=== PATIENT | male | born 1990 | race Caucasian/White ===

== ENCOUNTER 2022-11-22 18:48 | Emergency (ER) | payer OTHER, SELFPAY ==
[2022-11-22 18:54] VITALS: BP 119/76; RESP 18; TEMP 36.7; O2SAT 98; BMI 28.2
--- NOTE | 2022-11-22 19:24 | ED_ITS ---
HPI - Extremity Injury (Upper) General Chief Complaint: Extremity Pain/Injury, Upper Stated Complaint: Injured right arm shovelling,[place] a pop Time Seen by Provider: 11/22/22 18:53 History of Present Illness HPI narrative: 32-year-old young man here with significant other with complaint of right arm pain that occurred suddenly while shoveling snow about 3 hours prior to arrival in the ER. He demonstrates a right hand down motion to his shoveling. He felt/heard a pop. Some swelling now and pain. Not describing loss of sensation. [facility] and naproxen which he took together. 800 mg of ibuprofen +2 tabs of naproxen. I discuss this ove rdose. Related Data Allergies Allergy/AdvReac Type Severity Reaction Status Date / Time bees Allergy Uncoded 11/22/22 18:53 hornets Allergy Uncoded 11/22/22 18:53 wasps Allergy Uncoded 11/22/22 18:53 Review of Systems Status of ROS: Reports: 6 or more systems reviewed and unremarkable except as noted in History and below [facility] Social History Smoking Status: Former smoker What tobacco products do you use: cigarettes Smoking quit date/years: <= 15 years ago and cigars Do you use any of these nicotine containing products: None Second hand tobacco smoke exposure: No How often do you have a drink containing alcohol: monthly or less How many standard drinks containing alcohol do you have on a typical day: 1 or 2 How often do you have six or more drinks on one occasion: Never AUDIT-C Alcohol total score: 1 Non-prescribed substance use: marijuana (any form) service: Yes Exam Narrative: Exam Narrative: Very positive affect presented by Mr. Ram and his significant other. Breathing easily. Well perfused. Right arm has rested, bent about 90? at the elbow, on a pillow Do not see evidence of trauma other than as delineated below. Skin is warm and dry. Extensive tattooing. Well muscled. He has no pain to palpation or movement about the shoulder on the right. Nor to the wrist/hand. He does have good deal of discomfort flexion and extension at the elbow particularly resisted flexion. There is a mild divot at the distal biceps with some swelling above that. I do believe I can make out the biceps tendon to palpation but it does feel less prominent than his tendon on the left arm. Const: Vital Signs, click to edit/add: Vital Signs - 24 hr 11/22/22 18:54 Temperature 98.1 F Respiratory Rate 18 Blood Pressure [Le ft Upper Arm] 119/76 Pulse Oximetry 98 Oxygen Delivery Me thod Room Air Documenting provider has reviewed patient's vital signs: yes Course Vital Signs Vital signs: Initial Vital Signs Temperature 98.1 F 11/22/22 18:54 Temperature Source Temporal Artery Scan 11/22/22 18:54 Respiratory Rate 18 11/22/22 18:54 Blood Pressure 119/76 11/22/22 18:54 Blood Pressure Mean 90 11/22/22 18:54 Blood Pressure Position Supine 11/22/22 18:54 Pulse Oximetry 98 11/22/22 18:54 Oxygen Delivery Method 11/22/22 18:54 Vital Signs Temperature 98.1 F 11/22/22 18:54 Respiratory Rate 18 11/22/22 18:54 Blood Pressure 119/76 11/22/22 18:54 Pulse Oximetry 98 11/22/22 18:54 Oxygen Delivery Method 11/22/22 18:54 Temperature 98.1 F 11/22/22 18:54 Respiratory Rate 18 11/22/22 18:54 Blood Pressure 119/76 11/22/22 18:54 Pulse Oximetry 98 11/22/22 18:54 Oxygen Delivery Method 11/22/22 18:54 MDM - Extremity Injury (Upper) MDM Narrative Medical decision making narrative: I suspect that imaging will ultimately be necessary and I do not believe that we have definitive imaging here in the emergency department at this time of night. Not sure that x-rays necessarily warranted. MRI ideal. I did discuss this case with orthopedics on-call and they concur. Placed in an arm sling. Given Konstantin wrap. Has been icing during time here. Discussed getting cares locally versus [facility]. I think he will do ultimately what ever can be done in a timely manner. Discharge Plan Discharge Clinical Impression: Biceps rupture, distal Patient Disposition: Home w/ Parent or Adult Condition: Stable Additional Instructions: Wear the arm sling for comfort. Don't lift anything that hurts beyond your arm. I like those screw top icing bags. Fill with ice and water. Maybe even hold on with an Konstantin wrap. Ice 2-3 times daily over the next few days. I am sorry. I am afraid I do not have handout specific to your suspected condition. Given that I do think you have a biceps rupture, I do recommend that you see orthopedics within a week, I would anticipate upper level imaging at that point, likely MRI. Our Orthopedics Department should be reaching out to you tomorrow. If you do not hear from them by noon please feel free to call at [phone]. Otherwise, as you already have a relationship, [facility] as discussed in the same time frame. Activity Level: Activity as Tolerated Discharge Diet: Regular Follow Up/Referrals: Alexandria Read MD [Primary Care Provider] - Stand Alone Forms: [employer] Info Instructions
== END 2022-11-22 20:21 | disposition home or self-care (01) ==
PROVIDERS: Emergency Provider Family Medicine; PCP Preventive Medicine Occupational Medicine
DX: S46.211A Strain of muscle, fascia and tendon of other parts of biceps, right arm, initial encounter (principal); Y93.H1 Activity, digging, shoveling and raking
CPT/HCPCS: 99283

== ENCOUNTER 2022-12-26 08:56 | Day surgery (SDC) | payer OTHER, SELFPAY ==
[2022-12-25 12:44] LABS: SARS PCR* Negative SARS-CoV-2 (Negative)
[2022-12-26] VITALS (7 sets, daily range): BP systolic 100–133; BP diastolic 79–93; PULSE 65–90; RESP 16; TEMP 36.6–36.7; O2SAT 94–99; BMI 29.7
[2022-12-26] MEDS: LACTATED RINGERS 1000 ML 1,000 ML 100 ML IV (09:10)
[2022-12-26] MEDS: SODIUM CHLORIDE 0.9 % (FLUSH) 10 ML SYRINGE IVF (09:10)
[2022-12-26] MEDS: fentaNYL 100 MCG/2 ML inj IVP (10:23)
[2022-12-26] MEDS: MIDAZOLAM HCL 1 MG/ML inj IVP (10:23)
--- NOTE | 2022-12-26 10:36 | SUR.PREOP ---
TIME?OUT:?1022 PT/Kel WALTERS RN/Callum TOWNSEND MDA?VERIFICATION?OF?SURGICAL?SITE,?PROCEDURE,?AND?CONSENT OBTAINED?PRIOR?TO?INVASIVE?PROCEDURE.
--- NOTE | 2022-12-26 11:03 | W.PM.NB ---
Nerve Block Nerve Block Time Seen by Provider: 10:22 Date Seen: 12/26/22 Type of block requested by surgeon for post-operative analgesia: axillary Side: right Time out performed: Yes Verification of patient name: Yes Verification of date of : Yes Site marking: site marked Name of person performing procedure: Mohit Continuous monitoring Was continuous monitoring of O2 sat, B/P, net developer contract, recorded every 15 minutes?: Yes Procedure Checklist: sterile prep, needles and gloves Ultrasound guided. Images saved: Yes Medications given in 5ml increments after negative aspiration: Ropivicaine %: 0.5 mL: 30 Needle gauge: 22 Patient tolerated procedure well: Yes Additional comments: Needle noted adjacent to nerve Block Charges Block Charge (with Pro Fee): Brachial Plexus Use of Ultrasound Machine for Block: Yes- US Guidance/pain block
--- NOTE | 2022-12-26 11:58 | CRLHL7_ITS ---
For Patients: As a result of the Cures Act, medical imaging exams and procedure reports are released immediately into your electronic medical record. You may view this report before your referring provider. If you have questions, please contact your health care provider. Indication: INTRA-OP right elbow tendon repair Technique: One fluoroscopic image of the right elbow. Fluoroscopic time 7.5 seconds. IMPRESSION: Fluoroscopic guidance for tendon repair. Dictated by Rajeev Foote MD @ 12/26/2022 1:33:20 PM (Electronically Signed)
--- NOTE | 2022-12-26 13:23 | W.ANESCHARGE ---
Anesthesia Charges Start Date/Time Anesthesia Start Date: 12/26/22 Anesthesia Start Time: 11:24 Stop Date/Time Anesthesia Stop Date: 12/26/22 Anesthesia Stop Time: 14:08
--- NOTE | 2022-12-26 13:30 | PM.ORPRC ---
Procedure Note Date of procedure: 12/26/22 Procedure: PREOPERATIVE DIAGNOSIS: Right distal biceps rupture, subacute POSTOPERATIVE DIAGNOSIS: Right distal biceps rupture subacute PROCEDURE: 1. Right open distal biceps repair 2. 72759 - intraoperative fluoroscopy up to 1 hour. SURGEON: Prince Lewis MD DRAW TENDER: Tj Romano PA-C (Of note, use of an child development assistant was critical for this case to aid in patient positioning, tissue retraction, nerve protection, arm positioning, suture management, and closure as well as splint application.) ANESTHESIA: Supraclavicular block plus MAC TOURNIQUET: 80 minutes at 240 torr IMPLANTS: Arthrex tension slide distal Biceps Button with Peek interference screw 7 x 10mm. COMPLICATIONS: None evident INDICATIONS FOR PROCEDURE: The patient is a pleasant 32-year-old male, right hand dominant. They sustained an injury to the right distal biceps roughly 5 weeks ago. Upon evaluation, they were found to have a positive hook sign as well as positive MRI showing for cm retraction of the distal stump. Given the patient's use of this extremity, recommendation was made for surgery. DESCRIPTION OF PROCEDURE: Following a thorough discussion of the risks, benefits and alternatives, consent was obtained and the right forearm was marked. The patient was brought to the operating room, placed supine on the operating table. Induction of general anesthesia was undertaken after a supraclavicular block was administered in the preop holding. Appropriate time out was performed to identify proper patient, site and procedure. The operative upper extremity was prepped and draped in the appropriate sterile fashion using ChloraPrep prep. The limb was exsanguinated and the tourniquet inflated to 250 Torr after 2 g IV Ancef was administered within 1 hour of incision preoperatively. A transverse incision was made in line with the antecubital fossa crease approximately 4 cm distal to the crease itself. Sharp incision through the skin and blunt dissection through the subcutaneous tissue allowed protection of crossing neurologic and vascular structures. Blunt dissection was taken deep for identification of the radial tuberosity. Additionally, the lateral antebrachial cutaneous nerve was identified and protected throughout the case. We then turned our attention to retrieving the biceps stump. The stump had retracted approximately 8 cm based on MRI. Indeed this was the case. It was difficult to initially identify the stump proximally. We had to mobilize it from its surrounding adhesed tissue. After bluntly doing this with Metzenbaum scissors, the stump was captured with an Allis clamp. The stump was assessed, and found to have [good integrity, although it was slightly skin near than expected likely related to slight longitudinal tearing of some of the fibers, too. A majority of it was still intact. It was whipstitched utilizing a #2 FiberLoop suture to get a strong hold on the tendon. The tendon diameter was measured and found to be a diamter of 7mm. We brought the tendon back down through the typical deeper planes and deep to crossing vascularity to eventually reattach to the bicipital tuberosity. The insertion site was then prepared using a Joker elevator and rongeur. A guide pin was utilized bicortical, and an 8 mm reamer was then used unicortically after confirming on C-arm fluoroscopic imaging to be in appropriate position at the radial tuberosity. The suture tails were then passed through the tension slide button and the button passed through the bicortical tunnel, and flipped. It was confirmed on C-arm fluoroscopic imaging to be in the proper position and flipped completely and apposed against bone. We then utilized this tension slide manner to reapproximate the tendon to the reamed hole. Once the tendon was dunked, with the elbow flexed to roughly 90 degrees, we passed one of the limbs of the suture through the tendon and tied it with a knot pusher with 6 alternating half hitches with post switching to secure it and prevent it from sliding off the tension slide button. We then utilized the interference screw as a secondary mechanism to secure the tendon.. The tourniquet was deflated and hemostasis achieved. A thorough irrigation with normal saline was then performed followed by closure with 2-0 Vicryl and 4-0 Monocryl in subcutaneous and subcuticular layers. Dressings were applied. Posterior splint was applied. Patient awoke from anesthesia and was transferred to the Post-Anesthesia Care Unit in stable condition. PLAN: 1. Ice and elevate operative upper extremity. 2. Finger range of motion as tolerated. 3. Follow up with PA visit in 3 days. Wound check. Active range of motion operative elbow and forearm as tolerted thereafter yet lift nothing more than a coffee cup x 8 weeks. 4. Ibuprofen, Tylenol, and/or Percocet for pain as needed.
--- NOTE | 2022-12-26 14:14 | W.ANESCHARGE ---
Anesthesia Charges Start Date/Time Anesthesia Start Date: 12/26/22 Anesthesia Start Time: 11:24 Stop Date/Time Anesthesia Stop Date: 12/26/22 Anesthesia Stop Time: 14:08
== END 2022-12-26 14:45 | disposition home or self-care (01) ==
PROVIDERS: Visit Provider Orthopaedic Surgery Sports Medicine
PROC: (CPT 24341; principal; 2022-12-26 11:15)
DX: S46.211A Strain of muscle, fascia and tendon of other parts of biceps, right arm, initial encounter (principal)
CPT/HCPCS: 24342; 1716; 64415; 73070; 76000; 76942; 87635; A4580; C1713; J1100; J2250; J2405; J2704; J2795; J3010; J7120

== ENCOUNTER 2023-01-03 14:15 | Outpatient (RCR) | payer OTHER, SELFPAY | END 2023-06-08 23:59 | disposition home or self-care (01) | PROVIDERS: PCP Preventive Medicine Occupational Medicine; Visit Provider Physician Assistant Surgical | DX: M25.521 Pain in right elbow (principal); Z51.89 Encounter for other specified aftercare ==

== ENCOUNTER 2023-05-02 15:33 | Emergency (ER) | payer OTHER, SELFPAY ==
[2023-05-02 15:44] VITALS: BP 115/70; PULSE 89; RESP 18; TEMP 36.6; O2SAT 97; BMI 28.7
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
[2023-05-02] MEDS: HYDROCODONE-ACETAMIN 5-325 MG 1 TAB PO (16:15)
--- NOTE | 2023-05-02 16:50 | CRLHL7_ITS ---
For Patients: As a result of the Century Cures Act, medical imaging exams and procedure reports are released immediately into your electronic medical record. You may view this report before your referring provider. If you have questions, please contact your health care provider. Indication: Fall, pain in the wrist Technique: Noncontrast CT of the left wrist. Permanently recorded images are archived. Please note that all CT scans at this facility use dose modulation, iterative reconstruction, and/or weight-based dosing when appropriate to reduce radiation dose to as low as reasonably achievable. Comparison: Left wrist radiographs from the same day. Findings: No acute fracture or dislocation. Ulnar positive variance. No aggressive osseous lesion. The joint spaces are preserved. The soft tissues are unremarkable. Impression: No acute bony abnormality. Ulnar positive variance, which can be seen with ulnar impaction syndrome. Please note that all CT scans at this facility use dose modulation, iterative reconstruction, and/or weight-based dosing when appropriate to reduce radiation dose to as low as reasonably achievable. Dictated by Jef Waddell MD @ 05/02/2023 6:06:35 PM (Electronically Signed)
== END 2023-05-02 18:29 | disposition home or self-care (01) ==
PROVIDERS: Emergency Provider Family Medicine; PCP Family Medicine
DX: M25.532 Pain in left wrist (principal); M24.832 Other specific joint derangements of left wrist, not elsewhere classified; V19.3XXA Pedal cyclist (driver) (passenger) injured in unspecified nontraffic accident, initial encounter
CPT/HCPCS: 29125; 73110; 73200; 99284; A9270

== ENCOUNTER 2024-09-04 10:51 | Emergency (ER) | payer OTHER, SELFPAY ==
[2024-09-04 11:03] VITALS: BP 134/94; PULSE 57; RESP 18; TEMP 36.6; O2SAT 98; BMI 28.2
[2024-09-04 11:09] VITALS: BP 134/94; PULSE 65; RESP 14; O2SAT 98
--- NOTE | 2024-09-04 11:13 | ED_ITS ---
HPI - General Adult General Chief complaint: Headache/Migraine Stated complaint: Migraines Time Seen by Provider: 09/04/24 10:59 History of Present Illness HPI narrative: Patient is a 34 white male with history of migraine headaches he has had them regularly, he just had a baby with his and the OB unit any reports with the lights and noise and somewhat lack of sleep he has had a migraine exacerbation. He describes it is in the frontal area bilaterally mild photophobia. It feels like a consistent migraine for him. He has had no trauma or injury. No nuchal rigidity, no thunderclap nature to headache. No neurologic complaints. Related Data Home Medications ?Medication ?Instructions ?Recorded ?Confirmed loratadine 10 mg tablet 10 mg PO QDAY PRN 12/20/22 09/04/24 naproxen 500 mg tablet 500 mg PO BID PRN 12/21/22 02/07/23 fluoxetine 20 mg capsule 40 mg PO QDAY 02/07/23 09/04/24 gabapentin 100 mg capsule 200 mg PO TID PRN 02/07/23 09/04/24 lamotrigine 300 mg tablet,extended 300 mg PO DAILY 09/04/24 09/04/24 release 24 hr (Lamictal XR) Allergies Allergy/AdvReac Type Severity Reaction Status Date / Time bees Allergy Uncoded 02/07/23 15:05 hornets Allergy Uncoded 02/07/23 15:05 wasps Allergy Uncoded 02/07/23 15:05 Review of Systems Status of ROS: Reports: 6 or more systems reviewed and unremarkable except as noted in History and below [facility] Medical History Sacral fracture ?S32.10XA - Unspecified fracture of sacrum, initial encounter for closed fracture (ICD-10) Surgical History H/O shoulder surgery (~01/2006) ?Z98.890 - Other specified postprocedural states (ICD-10) History of tonsillectomy and adenoidectomy (~2004) ?Z90.89 - Acquired absence of other organs (ICD-10) Social History Smoking Status: Former smoker What tobacco products do you use: cigarettes Smoking quit date/years: <= 15 years ago and cigars Do you use any of these nicotine containing products: None Second hand tobacco smoke exposure: No How often do you have a drink containing alcohol: monthly or less How many standard drinks containing alcohol do you have on a typical day: 1 or 2 How often do you have six or more drinks on one occasion: Never AUDIT-C Alcohol total score: 1 Non-prescribed substance use: denies use Caffeine: Yes service: Yes Exam Narrative: Exam Narrative: Objective: Vital signs are within normal limits Patient is wearing dark glasses he has removed he has pupil E quality and reactivity, extraocular moves intact No facial asymmetry Neck is supple No focal neurologic findings. Const: Vital Signs, click to edit/add: Vital Signs - 24 hr 09/04/24 11:03 09/04/24 11:09 09/04/24 11:31 Temperature 97.9 F Pulse Rate 65 70 Pulse Rate [Pulse Oximeter] 57 L Respiratory Rate 18 14 16 Blood Pressure 134/94 H 126/98 H Blood Pressure [Ri ght Upper Arm] 134/94 H Pulse Oximetry 98 98 97 Oxygen Delivery Me thod Room Air 09/04/24 12:01 09/04/24 12:35 Temperature 97.9 F Pulse Rate 59 L Pulse Rate [Pulse Oximeter] 57 L Respiratory Rate 12 12 Blood Pressure 138/83 Blood Pressure [Ri ght Upper Arm] 134/94 H Pulse Oximetry 97 Oxygen Delivery Me thod Room Air Course Vital Signs Vital signs: Initial Vital Signs Temperature 97.9 F 09/04/24 11:03 Temperature Source Temporal Artery Scan 09/04/24 11:03 Pulse Rate 57 L 09/04/24 11:03 Pulse Rhythm Regular 09/04/24 11:03 Respiratory Rate 18 09/04/24 11:03 Blood Pressure 134/94 H 09/04/24 11:03 Blood Pressure Mean 107 H 09/04/24 11:03 Blood Pressure Position Sitting 09/04/24 11:03 Pulse Oximetry 98 09/04/24 11:03 Oxygen Delivery Method Room Air 09/04/24 11:03 Vital Signs Temperature 97.9 F 09/04/24 11:03 Pulse Rate 57 L 09/04/24 11:03 Respiratory Rate 18 09/04/24 11:03 Blood Pressure 134/94 H 09/04/24 11:03 Pulse Oximetry 98 09/04/24 11:03 Oxygen Delivery Method Room Air 09/04/24 11:03 Temperature 97.9 F 09/04/24 12:35 Pulse Rate 57 L 09/04/24 12:35 Respiratory Rate 12 09/04/24 12:35 Blood Pressure 134/94 H 09/04/24 12:35 Pulse Oximetry 97 09/04/24 12:01 Oxygen Delivery Method Room Air 09/04/24 12:01 Medications Administered Medications: Discontinued Medications Generic Name Dose Route Start Last Admin Trade Name Freq PRN Reason Stop Dose Admin Diphenhydramine HCl 25 mg 09/04/24 11:12 09/04/24 11:39 Diphenhydramine 50 Mg/Ml Inj IVP 09/04/24 11:13 25 mg ONCE ONE Administration Sodium Chloride 1,000 mls @ 6,000 mls/hr 09/04/24 11:15 09/04/24 12:15 0.9 % Sodium Chloride 1000 Ml IV 09/04/24 11:24 Infused .Q10M JUMANA Infusion Metoclopramide HCl 10 mg/ 102 mls @ 306 mls/hr 09/04/24 11:12 09/04/24 11:59 Sodium Chloride IV 09/04/24 11:13 Infused ONCE ONE Infusion Ketorolac Tromethamine 30 mg 09/04/24 11:12 09/04/24 11:39 Ketorolac 30 Mg/Ml Inj IVP 09/04/24 11:13 30 mg ONCE ONE Administration Medical Decision Making Medical Records Medical records narrative: 34-year-old white male with a history of migraine headaches, the migraine exacerbation. At this point will give him IV fluid. IV Toradol Benadryl and Reglan. Along to rest in the OB unit where his family is. Hopefully he can get some sleep and this will sammy the headache. Recheck as needed with primary care or return to ED problems or concerns. Discharge Plan Discharge Clinical Impression: Migraine Patient Disposition: Home w/ Parent or Adult Condition: Stable Additional Instructions: Rest, fluids, recheck with regular doctor as needed, return as needed. Activity Level: Light activity Discharge Diet: Regular Prescriptions: No Action loratadine 10 mg tablet 10 mg PO QDAY PRN fluoxetine 20 mg capsule 40 mg PO QDAY gabapentin 100 mg capsule 200 mg PO TID PRN naproxen 500 mg tablet 500 mg PO BID PRN Hold Instructions: Resume on 01/09/23. lamotrigine [Lamictal XR] 300 mg tablet extended release 24hr 300 mg PO DAILY Follow Up/Referrals: Micah Kumar MD [Staff Physician] - Stand Alone Forms: [employer] Info Instructions
[2024-09-04 11:31] VITALS: BP 126/98; PULSE 70; RESP 16; O2SAT 97
--- OUTSIDE RECORDS SUMMARY | 2024-09-04 11:37 | XMS_ITS | Encounter Summary ---
Author Name [facility] [place] [facility] [place] Address [address] [place] [address] Care Team Providers Care Blood Or Blood Bank Technician Name Role Phone TEODORO TEODORO Primary Care Provider UnavailHANH Toledo Primary Care Provider Unavailab hanley Insurance Providers: All historical and current Section Date Range: From patient's date of to the date document was created. This section includes the names of all active insurance providers for the patient. Insurance Provider Type of Coverage Plan Name Start of Policy Coverage End of Policy Coverage Group Number Member ID Insurance Provider's Telephone Number Policy Stevenson's Name Patient's Relationship to Policy Stevenson [employer]* POINT OF SERVICE Squla Jan 18, 2015 [id number] LALA,ROXI OB PATIENT BCBS [place] [employer] MAINTENAN CE ORGANIZAT ION W/OUT OF NETWORK BENEFITS STATE OF [facility] [place] Jun 09, 2023 [id number] [phone] LALA,ROXI OB PATIENT [place] HEALTH MAINTENAN CE ORGANIZAT ION [place] Jun 09, 2023 [id number] [phone] LALA,ROXI OB PATIENT CAREMARK ([id number]) PRESCRIPT ION STATE [facility] Jun 09, 2023 [id number] [phone] LALA,ROXI OB PATIENT CAREMARK ([id number]) PRESCRIPT ION [facility] Jun 09, 2023 [id number] [phone] LALA,ROXI OB PATIENT Selected Encounter This section includes the information on record at [place] for the Encounter. Date/Time Encounter Type Encounter Description Reason Provider Source Jun 25, 2024 08:30 AM PSYTX W PT 30 MINUTES [facility] - IND ICD-10-CM F43.10 Post-traumatic stress disorder, unspecified WHITNEY JUDGE Rai Encounter Template Text not used by [place] Assessments - Encounter Diagnoses This section includes the primary and secondary diagnoses documented for the Encounter. Date/Time Primary/Secondary Diagnosis Diagnosis Name Provider Source Jun 25, 2024 08:47 AM PRIMARY Post-traumatic stress disorder, unspecified WHITNEY JUDGE [facility] Jun 25, 2024 08:47 AM SECONDARY Bipolar II disorder WHITNEY JDUGE [facility] Plan of Treatment: Future Appointments (+ 6 months) and Future Tests (+/- 45 days) The Plan of Treatment section includes future care activities for the patient from all [place] [facility]. This section includes future appointments and future orders which are active, pending or scheduled. Future Appointments This section includes appointments that were scheduled to occur 6 months from the date of the Encounter, up to a maximum of 20 appointments. The data comes from all [facility]. Appointment Date/Time Appointment Type Appointme nt Facility Name Jul 23, 2024 04:00 PM AMBULATORY - PSYCHIATRY [facility] Aug 21, 2024 03:30 PM AMBULATORY - PSYCHIATRY [facility] Sep 11, 2024 09:30 AM AMBULATORY - PSYCHIATRY [facility] Sep 25, 2024 03:30 PM AMBULATORY - PSYCHIATRY [facility] Active, Pending, and Scheduled Orders This section includes a listing of several types of active, pending, and scheduled orders, including clinic medications orders, diagnostic test orders, procedure orders and consult orders; where the start date of the order is 45 days before the date of the Encounter or 45 days after the date of theEncounter. The data comes from all [facility]. Test Date/Time Test Type Test Details Facility Name Aug 02, 2024 09:24 AM Consult Order COMMUNITY CARE-CHIROPRACTIC Cons Bak[employer] Demonstrator[employer] Choice [facility] Social History: Smoking Status (Most current) and Tobacco Use (All prior to encounter date) This section includes the most current, and the historical, smoking and tobacco- related health factors from the [facility] where the Encounter took place. Current Smoking Status This section includes the most current smoking, or tobacco-related health factor, from the [place] facility where the Encounter took place. Date/Time Current Smoking Status Comment Facil ity Dec 12, 2023 10:30 AM VA-TOBACCO FORMER USER [facility] Tobacco Use History This section includes a history of the smoking, or tobacco-related health factors, that were collected on or before the date of the Encounter. The data comes from the [place] facility where the Encounter took place. Date/Time Smoking Status/Tobacco Use Comment F acility Dec 12, 2023 10:30 AM VA-TOBACCO QUIT 5 TO < 15 YRS [facility] Feb 14, 2023 02:00 PM AH-BPR SMOKING DEPLOYMENT YES [facility] Feb 14, 2023 02:00 PM PREVIOUS SMOKER MIN [facility] Oct 27, 2022 10:30 AM VA-TOBACCO FORMER USER [facility] Oct 27, 2022 10:30 AM VA-TOBACCO QUIT 15 YRS OR MORE [facility] Jan 26, 2021 10:00 AM VA-TOBACCO FORMER USER [facility] Jan 26, 2021 10:00 AM VA-TOBACCO QUIT 1 TO < 5 YRS [facility] Jul 23, 2019 08:07 AM VA-TOBACCO FORMER USER [facility] Jul 23, 2019 08:07 AM VA-TOBACCO QUIT 1 TO < 5 YRS [facility] Jan 29, 2018 03:41 PM CURRENT TOBACCO USER [facility] Jan 20, 2017 03:27 PM CURRENT TOBACCO USER [facility] Nov 30, 2015 08:39 AM FORMER TOBACCO USE <1Y [facility] Encounter Notes: All associated encounter notes This section contains the clinical notes associated to the Encounter. Date/Time Encounter Note(s) Provider Source Jun 25, 2024 08:30 AM MENTAL HEALTH NOTE : LOCAL TITLE: MH PROGRESS NOTE STANDARD TITLE: MENTAL HEALTH NOTE DATE OF NOTE: JUN 25, 2024@08:30 ENTRY DATE: JUN 25, 2024@08:42:56 AUTHOR: WHITNEY JUDGE EXP COSIGNER: URGENCY: STATUS: COMPLETED MH PROGRESS NOTE Has ADDENDA seen for 30-minute treatment coordination and supportive psychotherapy session for symptoms related to PTSD and bipolar affective disorder via vvc per 's preference. S/O: The noted that things have generally been going well and have been stable in spite of how busy they have also been preparing the home to welcome his first child, expected within then next 9 weeks. He reported that he is feeling excited and a bit nervous, but denied any significant fluctuations in mood about which he is concerned. He stated that his sleep has been somewhat poorer in quality in recent weeks, but denied any other symptoms concerning for a depressive episode or hypomania. He noted that a recent conversation with his new PCP caused him to wonder whether he has ADHD and engineering technical writer agreed to conduct a screen with him in our next visit. He stated that he and his Voc Rehab counselor (through [facility]) have come up with a plan for him to complete his BA by resuming school next spring, one course at a time. A: Dx: PTSD; BPAD II Risk assessment - Risk factors include history of psychiatric diagnoses, history of abusing disinhibiting substances, one past suicidal behavior (2012) consisting of ideation and preparatory behavior (held gun until interrupted), and demographic factors (White, male). Protective factors include social support, that the denies current suicidal ideation/intent/plan, he has significantly reduced his substance use, has intact reality testing, and he is future-oriented. Overall, he impresses as low for risk of harm to self and others on acute and chronic bases. Patient consent: Informed consent procedures reviewed at inception of psychotherapy course including discussing the limits of confidentiality, the risks and benefits of treatment, and expectations for therapy. Gualala expressed understanding and agreement. Tx Plan updated 02/27/24 P: The will RTC in one month. /sage/ WHITNEY JUDGE, Ph.D. STAFF PSYCHOLOGIST Signed: 06/25/2024 08:47 06/25/2024 ADDENDUM STATUS: COMPLETED Suicide Screen: C-SSRS Screening [place]-Suicide Severity Rating Scale (C-SSRS Screener) 1. Over the past month, have you wished you were or wished you could go to sleep and not wake up? No 2. Over the past month, have you had any actual thoughts of killing yourself? No 3. Over the past month, have you been thinking about how you might do this? Response not required due to responses to other questions. 4. Over the past month, have you had these thoughts and had some intention of acting on them? Response not required due to responses to other questions. 5. Over the past month, have you started to work out or worked out the details of how to kill yourself? Response not required due to responses to other questions. 6. If yes, at any time in the past month did you intend to carry out this plan? Response not required due to responses to other questions. 7. In your lifetime, have you ever done anything, started to do anything, or prepared to do anything to end your life (for example, collected pills, obtained a gun, gave away valuables, went to the roof but didn't jump)? Yes 8. If YES, was this within the past 3 months? No /sage/ WHITNEY JUDGE, Ph.D. STAFF PSYCHOLOGIST Signed: 06/25/2024 08:52 WHITNEY JUDGE [facility]
--- OUTSIDE RECORDS SUMMARY | 2024-09-04 11:37 | XMS_ITS | Encounter Summary ---
Author Name [facility] [place] [facility] [place] Address [address] [place] [address] Care Team Providers Care Slp Name Role Phone TEODORO VALERIO Primary Care Provider UnavailHANH Toledo Primary Care [...] to Policy Stevenson [employer]* POINT OF SERVICE Diassess Jan 18, 2015 [id number] LALA,ROXI OB PATIENT BCBS IN HEALTH MAINTENAN CE ORGANIZAT ION W/OUT OF NETWORK BENEFITS [place] Jun 09, 2023 [id number] [phone] LALA,ROXI OB PATIENT [place]IN[place] ORGANIZ[place]ON [place] ONLY Jun 09, 2023 [id number] [phone] LALA,ROXI OB PATIENT CAREMARK ([id number]) PRESCRIPT ION [place] Jun 09, 2023 [id number] [phone] LALA,ROXI OB PATIENT CAREMARK ([id number]) ISABEL FLORES [facility] Jun 09, 2023 [id number] [phone] LALA,ROXI OB PATIENT Selected Encounter This section includes the information on record at [place] for the Encounter. Date/Time Encounter Type Encounter Description Reason Provider Source May 27, 2024 08:31 AM Outpatient Encounter [facility] - SHYANNE MCLEOD Encounter Template Text not used by [place] Plan of Treatment: Future Appointments (+ 6 months) and Future Tests (+/- 45 days) The Plan of Treatment section includes future care activities for the patient from all [place] [facility]. This section includes future appointments and future orders which are active, pending or scheduled. Future Appointments This section includes appointments that were scheduled to occur 6 months from the date of the Encounter, up to a maximum of 20 appointments. The data comes from all [facility] facilities. Appointment Date/Time Appointment Type Appointme nt Facility Name Jun 25, 2024 08:30 AM [facility] [place] [facility] Jul 23, 2024 04:00 PM [facility] [place] [facility] Aug 21, 2024 03:30 PM [facility] [place] [facility] Sep 11, 2024 09:30 AM [facility] [facility] Sep 25, 2024 03:30 PM [facility] [place] [facility] Social History: Smoking Status (Most current) and Tobacco Use (All prior to encounter date) This section includes the most current, and the historical, smoking and tobacco- related health factors from the [place] facility where the Encounter took place. Current Smoking Status This section includes the most current smoking, or tobacco-related health factor, from the [place] facility where the Encounter took place. Date/Time Current Smoking Status Comment Beatriz ity Dec 12, 2023 10:30 AM VA-TOBACCO FORMER USER [facility] Tobacco Use History This section includes a history of the smoking, or tobacco-related health factors, that were collected on or before the date of the Encounter. The data comes from the [place] facility where the Encounter took place. Date/Time Smoking Status/Tobacco Use Comment F acility Dec 12, 2023 10:30 AM [place]-TOBACCO QUIT 5 TO < 15 YRS [facility] Feb 14, 2023 02:00 PM AH-BPR SMOKING DEPLOYMENT YES [facility] Feb 14, 2023 02:00 PM PREVIOUS SMOKER MIN [facility] Oct 27, 2022 10:30 AM VA-TOBACCO FORMER USER [facility] Oct 27, 2022 10:30 AM VA-TOBACCO QUIT 15 YRS OR MORE [facility] Jan 26, 2021 10:00 AM VA-TOBACCO FORMER USER [facility] Jan 26, 2021 10:00 AM VA-TOBACCO QUIT 1 TO < 5 YRS [facility] Jul 23, 2019 08:07 AM VA-TOBACCO FORMER USER [facility] Jul 23, 2019 08:07 AM VA-TOBACCO QUIT 1 TO < 5 YRS [facility] Jan 29, 2018 03:41 PM CURRENT TOBACCO USER [facility] Jan 20, 2017 03:27 PM CURRENT TOBACCO USER [facility] Nov 30, 2015 08:39 AM FORMER TOBACCO USE <1Y [facility] Encounter Notes: All associated encounter notes This section contains the clinical notes associated to the Encounter. Date/Time Encounter Note(s) Provider Source May 27, 2024 08:31 AM MENTAL HEALTH SECU RE MESSAGING: LOCAL TITLE: MENTAL HEALTH SECURE MESSAGING STANDARD TITLE: MENTAL HEALTH SECURE MESSAGING DATE OF NOTE: MAY 27, 2024@08:31 ENTRY DATE: MAY 27, 2024@08:31:11 AUTHOR: SHYANNE INFANTE EXP COSIGNER: URGENCY: STATUS: COMPLETED ------Original Message --- Sent: 05/25/2024 09:48 PM ET From: RAISA LALA To: [facility] Mental Health Team L, Donte Bertrand% Subject: Medication:Lamotrigine I'm running really low on my lamotrigine, and I'm unable to refill it. Can I get a new refill? ------Original Message --- Sent: 05/27/2024 09:30 AM ET From: SHYANNE INFANTE To: RAISA LALA Subject: Medication:Lamotrigine Raisa I have entered the order for lamotrigine for the coverage MD to review and sign. I am asking that the medication be mailed overnight, with the hope you will receive it Monday or Monday of this week. You must call the [facility] at [phone] to be scheduled for a follow up appointment; your last appointment with Dr. Bertrand was 05/09/2023. Future refills will be contingent on your scheduling an appointment with Dr. Bertrand. Please know Dr. Bertrand is currently scheduled out into August so please call to schedule with him KARRIE. Respectfully, Rc Infante RN Team L /es/ SHYANNE INFANTE RN STAFF NURSE Signed: 05/27/2024 08:31 SHYANNE INFANTE [facility]
--- OUTSIDE RECORDS SUMMARY | 2024-09-04 11:37 | XMS_ITS | Encounter Summary ---
Author Name [facility] [place] [facility] [place] Address [address] [place] [address] Care Team Providers Care Geophysics Teacher Name Role Phone TEODORO VALERIO Primary Care [...] to Policy Stevenson [employer]ET[employer]* POINT OF SERVICE [employer] Jan 18, 2015 [id number] LALA,ROXI OB PATIENT [place] [employer] MAINTENAN CE ORGANIZAT ION W/OUT OF NETWORK BENEFITS [facility] Jun 09, 2023 [id number] [phone] LALA,ROXI OB PATIENT [place] [employer] MAINTENAN CE ORGANIZAT ION [place] [facility] ONLY Jun 09, 2023 [id number] [phone] LALA,ROXI OB PATIENT [place] ([id number]) PRESCRIPT ION [place] Jun 09, 2023 [id number] [phone] LALA,ROXI OB PATIENT CAREMARK ([id number]) PRESCRIPT [facility] Jun 09, 2023 [id number] [phone] LALA,ROXI OB PATIENT Selected Encounter This section includes the information on record at [place] for the Encounter. Date/Time Encounter Type Encounter Description Reason Pro vider Source Aug 02, 2024 10:23 AM Outpatient Encounter EVENT (HISTORICAL) IHE Encounter Template Text not used by [place] Plan of Treatment: Future Appointments (+ 6 months) and Future Tests (+/- 45 days) The Plan of Treatment section includes future care activities for the patient from [facility] [place] [facility] This section includes future appointments and future orders which are active, pending or scheduled. Future Appointments This section includes appointments that were scheduled to occur 6 months from the date of the Encounter, up to a maximum of 20 appointments. The data comes from all [facility]. Appointment Date/Time Appointment Type Appointme nt Facility Name Aug 21, 2024 03:30 PM AMBULATORY - PSYCHIATRY [facility] Sep 11, 2024 09:30 AM AMBULATORY - PSYCHIATRY [facility] Sep 25, 2024 03:30 PM AMBULATORY - PSYCHIATRY [facility] Active, Pending, and Scheduled Orders This section includes a listing of several types of active, pending, and scheduled orders, including clinic medications orders, diagnostic test orders, procedure orders and consult orders; where the start date of the order is 45 days before the date of the Encounter or 45 days after the date of theEncounter. The data comes from all [facility]. Test Date/Time Test Type Test Details Facility Name Aug 02, 2024 09:24 AM Consult Order COMMUNITY CARE-CHIROPRACTIC Cons Parimutuel Cashier's Choice [facility] Social History: Smoking Status (Most current) and Tobacco Use (All prior to encounter date) This section includes the most current, and the historical, smoking and tobacco- related health factors from the [place] facility where the Encounter took place. Current Smoking Status This section includes the most current smoking, or tobacco-related health factor, from the [place] facility where the Encounter took place. Date/Time Current Smoking Status Comment Beatriz ga Dec 12, 2023 10:30 AM VA-TOBACCO FORMER USER [facility] Tobacco Use History This section includes a history of the smoking, or tobacco-related health factors, that were collected on or before the date of the Encounter. The data comes from the [place] facility where the Encounter took place. Date/Time Smoking Status/Tobacco Use Comment F acility Dec 12, 2023 10:30 AM VA-TOBACCO QUIT 5 TO < 15 YRS [facility] Feb 14, 2023 02:00 PM AH-BPR SMOKING DEPLOYMENT YES [facility] Feb 14, 2023 02:00 PM PREVIOUS SMOKER MIN [facility] Oct 27, 2022 10:30 AM VA-TOBACCO FORMER USER [facility] Oct 27, 2022 10:30 AM [place]-TOBACCO QUIT 15 YRS OR MORE [facility] Jan 26, 2021 10:00 AM VA-TOBACCO FORMER USER [facility] Jan 26, 2021 10:00 AM [place]-TOBACCO QUIT 1 TO < 5 YRS [facility] Jul 23, 2019 08:07 AM VA-TOBACCO FORMER USER [facility] Jul 23, 2019 08:07 AM VA-TOBACCO QUIT 1 TO < 5 YRS [facility] Jan 29, 2018 03:41 PM CURRENT TOBACCO USER [facility] Jan 20, 2017 03:27 PM CURRENT TOBACCO USER [facility] Nov 30, 2015 08:39 AM FORMER TOBACCO USE <1Y [facility]
--- OUTSIDE RECORDS SUMMARY | 2024-09-04 11:37 | XMS_ITS | Encounter Summary ---
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 Date/Time Encounter Type Encounter Description Reason Provider Source Aug 21, 2024 03:30 PM PSYTX W PT 30 MINUTES [facility] IND ICD-10-CM F43.10 Post-traumatic stress disorder, unspecified WHITNEY JUDGE Rai Encounter Template Text not used by [place] Assessments - Encounter Diagnoses This section includes the primary and secondary diagnoses documented for the Encounter. Date/Time Primary/Secondary Diagnosis Diagnosis Name Provider Source Aug 21, 2024 03:50 PM PRIMARY Post-traumatic stress disorder, unspecified WHITNEY JUDGE [facility] Aug 21, 2024 03:50 PM SECONDARY Bipolar II disorder WHITNEY JUDGE [facility] Plan of Treatment: Future Appointments (+ 6 months) and Future Tests (+/- 45 days) The Plan of Treatment section includes future care activities for the patient [facility] [place] [facility] [place] This section includes future appointments and future orders which are active, pending or scheduled. Future Appointments This section includes appointments that were scheduled to occur 6 months from the date of the Encounter, up to a maximum of 20 appointments. The data comes from all [facility]. Appointment Date/Time Appointment Type Appointme nt Facility Name Sep 11, 2024 09:30 AM AMBULATORY - PSYCHIATRY [facility] Sep 25, 2024 03:30 PM AMBULATORY - PSYCHIATRY [facility] Active, Pending, and Scheduled Orders This section includes a listing of several types of active, pending, and scheduled orders, including clinic medications orders, diagnostic test orders, procedure orders and consult orders; where the start date of the order is 45 days before the date of the Encounter or 45 days after the date of theEncounter. The data comes from all [place] treatment [facility]. Test Date/Time Test Type Test Details Facility Name Aug 02, 2024 09:24 AM Consult Order COMMUNITY CARE-CHIROPRACTIC Cons Jack Tamp Operator's Choice [facility] Social History: Smoking Status (Most current) and Tobacco Use (All prior to encounter date) This section includes the most current, and the historical, smoking and tobacco- related health factors from the [facility] where the Encounter took place. Current Smoking Status This section includes the most current smoking, or tobacco-related health factor, from the [facility] where the Encounter took place. Date/Time Current Smoking Status Comment Facil ity Dec 12, 2023 10:30 AM VA-TOBACCO FORMER USER [facility] Tobacco Use History This section includes a history of the smoking, or tobacco-related health factors, that were collected on or before the date of the Encounter. The data comes from the [facility] where the Encounter took place. Date/Time Smoking Status/Tobacco Use Comment F acility Dec 12, 2023 10:30 AM VA-TOBACCO QUIT 5 TO < 15 YRS [facility] Feb 14, 2023 02:00 PM AH-BPR SMOKING DEPLOYMENT YES [facility] Feb 14, 2023 02:00 PM PREVIOUS SMOKER MIN [facility] Oct 27, 2022 10:30 AM VA-TOBACCO FORMER USER [facility] Oct 27, 2022 10:30 AM VA-TOBACCO QUIT 15 YRS OR MORE [facility] Jan 26, 2021 10:00 AM VA-TOBACCO FORMER USER [facility] Jan 26, 2021 10:00 AM VA-TOBACCO QUIT 1 TO < 5 YRS [facility] Jul 23, 2019 08:07 AM VA-TOBACCO FORMER USER [facility] Jul 23, 2019 08:07 AM VA-TOBACCO QUIT 1 TO < 5 YRS [facility] Jan 29, 2018 03:41 PM CURRENT TOBACCO USER [facility] Jan 20, 2017 03:27 PM CURRENT TOBACCO USER [facility] Nov 30, 2015 08:39 AM FORMER TOBACCO USE <1Y [facility] Encounter Notes: All associated encounter notes This section contains the clinical notes associated to the Encounter. Date/Time Encounter Note(s) Provider Source Aug 21, 2024 03:30 PM MENTAL HEALTH NOTE : LOCAL TITLE: MH PROGRESS NOTE STANDARD TITLE: MENTAL HEALTH NOTE DATE OF NOTE: AUG 21, 2024@15:30 ENTRY DATE: AUG 21, 2024@15:40:43 AUTHOR: WHITNEY JUDGE COSIGNER: URGENCY: STATUS: COMPLETED seen for 30-minute treatment coordination and supportive psychotherapy session for symptoms related to PTSD and bipolar affective disorder via vvc per 's preference. S/O: The vetean reported that he has been doing well. He noted that he has been struck by the benefits of his most recent medication adjustment by Dr. Bertrand a month ago, noting that initially quetiapine was not doing much and in fact seemed to make him more tearful, but after a couple of days it was clear that it helped with his sleep and the tearfulness abated. He stated that things have generally been good aside from that. He noted that his 's due date is about 10 days from now and that they are as ready as [they] can be for the baby to arrive. He stated that his 's sister has again moved in with them and has been more helpful with things around their home and anticipates being an extra pair of hands for him and his once their daughter is born. He noted that work has been going well and he is beginning to feel a sense of increased support and closeness with his coworkers that reminds him of bonds he had with others in the . He plans to stagger his parental leave when his daughter is born - taking 5 days immediately after her and then waiting until his 's maternity leave concludes to take his paid parental leave for 6 weeks (attempting to stave off paying for daycare for as long as they are able). 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 expressed understanding and agreement. Tx Plan updated 02/27/24 P: The will RTC in one month. /sage/ WHITNEY JUDGE, Ph.D. STAFF PSYCHOLOGIST Signed: 08/21/2024 15:50 WHITNEY JUDGE [facility]
--- OUTSIDE RECORDS SUMMARY | 2024-09-04 11:37 | XMS_ITS | Continuity of Care Document ---
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 It does not include entries that were removed or entered in error. Problem Status Onset Date Problem Type Date of Resolution Comments Source Exposure to potentially hazardous substance ([facility] [id number]) Active 024 Condition Jan 24, 2024 Entered By: JILLIAN DELACRUZ Comment: [facility] Documentation Initiative [facility] visit for: examination Inactive Condition DoD gastroenteritis viral Inactive Condition DoD sonia depress single episode w/o melancholia or psych features Active Condition DoD unspecified diagnosis Active Condition DoD Laboratory Studies Inactive Condition Do D male erectile disorder Active Condition DoD vomiting Inactive Condition DoD dizziness Inactive Condition DoD gastroenteritis Active Condition DoD abdominal pain Active Condition DoD visit for: physical medical evaluation board (MEB) Active Condition DoD epistaxis Inactive Condition [facility] visit for: exam following high-risk medication Active Condition DoD taking high-risk medication Active Condition [facility] visit for: therapeutic drug monitoring Active Condition [facility] routine examination Inactive Condition [facility] assessment of patient condition impairment rating ___% Active Condition DoD visual field defect - generalized contraction Active Condition DoD ankle joint pain Active Condition DoD joint pain, localized in the shoulder Active Condition DoD joint pain, localized in the wrist Active Condition [facility] visit for: issue medical certificate disability Inactive Condition [facility] assessment of patient condition work-related Active Condition DoD conditions influencing health status Active Condition DoD anxiety disorder NOS Active Condition 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 DoD Observation For Suspected Medical Condition Inactive Condition DoD Back Muscle Spasm Active Condition [facility] Administrative Evaluation Services Inactive Condition DoD lumbago Active Condition DoD back strain lumbar Inactive Condition Do D sacral radiculopathy Active Condition DoD Cognitive Functions Inactive Condition DoD Other Physical Therapy Active Condition DoD visit for: routine eye exam Inactive Condition DoD lower back pain Active Condition DoD adjustment disorder with anxiety and depressed mood Active Condition DoD adjustment disorder with disturbance of emotions and conduct Active Condition DoD visit for: services physical strickland-related illness Active Condition DoD no psychiatric diagnosis or condition on axis I Inactive Condition DoD injury caused by animal bee sting Inactive Condition DoD allergic reaction Inactive Condition DoD contusion with intact skin surface foot right dorsal surface Inactive Condition DoD crush injury right foot Inactive Condition DoD foot pain (soft tissue) Inactive Condition DoD marital problem Inactive Condition DoD other specified family circumstances Active Condition DoD Observation For Suspected Condition Inactive Condition DoD lightheadedness Inactive Condition DoD pharyngitis acute Inactive Condition DoD adjustment disorder Inactive Condition DoD joint pain, localized in the knee Active Condition DoD tendonitis patellar Inactive Condition DoD visit for: services physical Active Condition DoD gastritis Active Condition DoD nicotine dependence Inactive Condition DoD sinusitis acute Inactive Condition DoD coughing up sputum blood-streaked Inactive Condition DoD Need For Vaccination Against Influenza Inactive Condition DoD limb pain Inactive Condition DoD multiple blisters Inactive Condition DoD sore throat Inactive Condition DoD visit for: laboratory Inactive Condition DoD visit for: screening exam Inactive Condition DoD Need For Prophylactic Antibiotics Inactive Condition DoD Need For Vaccination Against Bacterial Diseases Inactive Condition DoD Need For Vaccination Polio Inactive Condition [facility] visit for: screening exam pulmonary tuberculosis Inactive Condition [facility] Need For Vaccination Against DTP Inactive Condition [facility] visit for: ears / hearing exam Active Condition DoD visit for: services physical accession Inactive Condition DoD feared medical condition not demonstrated Active Condition Reassured pt and mother. No evidence of recurring strep at this time. Encouraged salt water gargles, po hydration. Advised s/sx to seek med attn: fever, inability dorothy po, inability to swallow, sob. Will place consult to ENT secondary to three bouts of pharyngitis in 4 months. Advised mother on activation. Understanding verbalized. DoD visit for: issue repeat prescription Inactive Condition DoD patellofemoral syndrome Inactive Condition given h/o for exercises, discussed knee sleeve DoD shoulder sprain Inactive Condition Enco uraged Rest, Ice, NSAIDs. Reassured PE without evidence of impingment or RTC tear. Mother states has motrin at home, encouraged 600mg po q6-8h prn. Mother and pt verbalized understanding. DoD visit for: examination for sports competition Inactive Condition golf phys ical, passed, no concerns. Age appropr advice, guidance, safety discussed. 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 has 3 weeks lef of season. , get oull-on brace w/ knee cut-out. exercise as tolerated, limiting running will improve symptoms [facility] cough Inactive Condition [facility] Allergic rhinitis Active Condition [facility] Allergy to bee venom Active Condition [facility] Bipolar II disorder Active Condition [facility] Chronic back pain (SNOMED CT [id number]) Active Condition [facility] Depression Active Condition [facility] Dyspnea on exertion Active Condition [facility] Exposure to potentially hazardous chemical Active Condition [facility] Immunization status Active Condition [facility] Impaired cognition (SNOMED CT [id number]) Active Condition [facility] Insomnia (SNOMED CT [id number]) Active Condition [facility] Laboratory Examination Ordered as part of a Routine General Medical Examination Active Condition [facility] Liver function tests abnormal Active Condition [facility] Low back pain Active Condition March Entered By: SOHAN DOYLE Comment: prothetic consult for heating pad and back brace [facility] Low back pain Active Condition Feb Entered By: JANUARY MALAVE Comment: 03.04.2018 L-S MRI: L5-S1 Spondylosis w/ central canal and foraminal narrowing. [facility] Low back pain Active Condition [facility] Low back pain (SNOMED CT 129134834) Active Condition [facility] Marijuana Abuse unspecified Active Condition [facility] Migraine Active Condition [facility] Mild traumatic brain injury Active Condition [facility] Nightmare disorder Active [facility] OIF EXPOSURE TO BURN PIT SMOKE Active Condition [facility] OIF EXPOSURE TO FLIP-8 FUEL Active Condition [facility] OIF EXPOSURE TO SANDSTORMS AND DUSTSTORMS Active Condition [facility] Photosensitivity Active Condition [facility] Posttraumatic stress disorder Active Condition [facility] Posttraumatic stress disorder (SNOMED CT 97254298) Active Condition [facility] Premature ejaculation Active Condition [facility] PTSD - Post-Traumatic Stress Disorder ([facility] [id number]) Active Condition [facility] Sleep disorder Active Condition [facility] Substance abuse Active Condition Nov 30, 2015 Entered By: DEJON BECERRA Comment: previously used marijuana [facility] Tinnitus ([facility] [id number]) Active Condition [facility] Vitamin D Deficiency ([facility] [id number]) Active Condition [facility] Well adult Active Condition [facility] Acute irritant contact dermatitis Inactive Condition 07/23/2019 [facility] Tobacco use Inactive Condition 07/23/2019 [facility] Diagnosis: ICD-10-CM F43.10 Post-traumatic stress disorder, unspecified Active Diagnosis [facility] Diagnosis: ICD-10-CM F31.81 Bipolar II disorder Active Diagnosis [facility] Diagnosis: ICD-10-CM Z23 Encounter for immunization Active Diagnosis [facility] Diagnosis: ICD-10-CM S06.0X1S Concussion w LOC of 30 minutes or less, sequela Active Diagnosis [facility] Diagnosis: ICD-10-CM 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, unspecified Active Diagnosis [facility] Diagnosis: ICD-10-CM 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 [facility] Diagnosis: ICD-10-CM Z71.89 Other specified counseling Active Diagnosis [facility] Diagnosis: ICD-10-CM F32.A Depression, unspecified Active Diagnosis [facility] Diagnosis: ICD-10-CM Z77.9 Oth contact w and (suspected) exposures hazardous to health Active Diagnosis [facility] Diagnosis: ICD-10-CM R06.00 Dyspnea, unspecified Active Diagnosis [facility] Diagnosis: ICD-10-CM K52.9 Noninfective gastroenteritis and colitis, unspecified Active Diagnosis [facility] Diagnosis: ICD-10-CM R50.9 Fever, unspecified Active Diagnosis [facility] Medications Combined list of outpatient medications from Department of Defense and [facility] Affairs facilities.Medications provided include 1) outpatient medications from the last 15 months, and 2) patient-reported medications. Medication Details Route Status Patient Instructions Prescription Expires Prescription Number Last Dispense Date Ordering Provider Order Date Order Qty Source CLOBETASOL PROPIONATE 0.05% SOLN,TOP APPLY 10-15 DROPS TO HAIR LOSS AREA ON SCALP TOPICALL Y EVERY DAY FOR ALOPECIA FOR 12 WEEKS, THEN ALTERNAT E ONE WEEK ON AND ONE WEEK OFF TOPICA L ACTIVE 10/04/2024 [id number] 4 DANNIE,PATTIE N 2023 50 [place] [facility] EPINEPHRINE (EQV-EPI-PE N) 0.3MG/0.3ML INJECTOR INJECT 1 KIT INTRAMUS CULAR DIRECTED NEEDED FOR SEVERE ALLERGIC REACTION INTRAM USCULA R ACTIVE 02/22/2025 [id number] 4 MICHAELSINA SGHINA 2023 2 [place] [facility] Epinephrine 1mg/mL Solution, Intramuscul ar (Epipen), 0.3mL Prefilled Pen INJECT 1 KIT INTRAMUS CULAR DIRECTED NEEDED FOR SEVERE ALLERGIC REACTION Active 02/22/2025 [id number] 4 HANH RODRIGUEZ 2023 2 [place] [facility] FLONASE-OTC (BRAND) 50 MCG KAREN SPSN [9.9] SPRAY 2 SPRAYS IN EACH NOSTRIL EVERY DAY USE REGULARL Y FOR RELIEF OF ALLERGIE S/CONGES TION Active 02/22/2025 [id number] 4 HANH RODRIGUEZ 2023 2 [place] [facility] Fluoxetine (Prozac) Capsule Conventiona l 20 mg Oral TAKE TWO CAPSULES BY MOUTH EVERY MORNING FOR MOOD AND ANXIETY Active 03/15/2025 [id number] 4 ESTUARDO MOURA 2023 120 [place] [facility] Fluoxetine (Prozac) Capsule Conventiona l 20 mg Oral TAKE TWO CAPSULES BY MOUTH EVERY MORNING FOR MOOD AND ANXIETY 02/24/2024 [id number] 4 ESTUARDO MOURA 2023 76 [place] [facility] Fluoxetine (Prozac) Capsule Conventiona l 20 mg Oral TAKE TWO CAPSULES BY MOUTH EVERY MORNING FOR MOOD AND ANXIETY 02/24/2024 [id number] 4 ESTUARDO MOURA 2023 76 [place] [facility] 20MG CAP TAKE TWO CAPSULES BY MOUTH EVERY MORNING FOR MOOD AND ANXIETY ORAL ACTIVE 03/15/2025 [id number] 4 BOOGIE MOURA 2023 120 [place] [facility] FLUOXETINE HCL 20MG CAP TAKE THREE CAPSULES BY MOUTH EVERY MORNING FOR 14 DAYS, THEN TAKE TWO CAPSULES EVERY MORNING FOR MOOD AND ANXIETY ORAL DISCONT INUED 02/24/2024 [id number] 4 BOOGIE MOURA 2023 90 [place] [facility] [facility] FLUOXETINE HCL 20MG CAP TAKE TWO CAPSULES BY MOUTH EVERY MORNING FOR MOOD AND ANXIETY ORAL 02/24/2024 [id number] 4 BOOGIE MOURA 2023 76 [place] [facility] FLUTICASONE PROPIONATE 50MCG/SPRAY SOLN,NASAL, 16GM SPRAY 2 SPRAYS IN EACH NOSTRIL EVERY DAY USE REGULARL Y FOR RELIEF OF ALLERGIE S/CONGES TION NASAL ACTIVE 02/22/2025 [id number] 4 SINA RODRIGUEZ SGHINA 2023 2 [place] [facility] GABAPENTIN (U/D) 300 MG ORAL CAP TAKE TWO CAPSULES BY MOUTH THREE TIMES A DAY NEEDED FOR ANXIETY Active 01/16/2025 [id number] 4 ESTUARDO MOURA 2023 90 [place] [facility] GABAPENTIN (U/D) 300 MG ORAL CAP TAKE TWO CAPSULES BY MOUTH THREE TIMES A DAY NEEDED FOR ANXIETY Active 01/16/2025 [id number] 4 ESTUARDO MOURA 2023 90 [place] [facility] GABAPENTIN (U/D) 300 MG ORAL CAP TAKE TWO CAPSULES BY MOUTH THREE TIMES A DAY NEEDED FOR ANXIETY 02/02/2024 [id number] 4 ESTUARDO MOURA 2023 90 [place] [facility] GABAPENTIN (U/D) 300 MG ORAL CAP TAKE TWO CAPSULES BY MOUTH THREE TIMES A DAY NEEDED FOR ANXIETY 02/02/2024 [id number] 3 ESTUARDO MOURA 2022 90 [place] [facility] GABAPENTIN 300MG CAP TAKE TWO CAPSULES BY MOUTH THREE TIMES A DAY NEEDED FOR ANXIETY ORAL ACTIVE 07/25/2025 [id number] 4 BOOGIE MOURA 2023 180 [place] [facility] GABAPENTIN 300MG CAP TAKE TWO CAPSULES BY MOUTH THREE TIMES A DAY NEEDED FOR ANXIETY ORAL DISCONT INUED (EDIT) 01/16/2025 [id number] 4 BOOGIE MOURA 2023 90 [place] [facility] GABAPENTIN 300MG CAP TAKE TWO CAPSULES BY MOUTH THREE TIMES A DAY NEEDED FOR ANXIETY ORAL DISCONT INUED 02/02/2024 [id number] 4 BOOGIE MOURA 2022 90 [place] [facility] HYDROCORTIS ONE 2.5% CREAM,TOP APPLY THIN LAYER TOPICALL Y TWICE A DAY FOR ALOPECIA TO PEREIRA FOR 2 WEEKS, THEN ALTERNAT ING ONE WEEK OFF, ONE WEEK ON TOPICA L ACTIVE 10/04/2024 [id number] 3 PATTIE PANDEY 2022 30 [place] [facility] lamoTRIgine 100 MG ORAL TAB TAKE ONE TABLET BY MOUTH TWICE A DAY FOR BIPOLAR DISORDER 05/09/2024 [id number] 4 ESTUARDO OMURA 2023 180 [place] [facility] [facility] lamoTRIgine 100 MG ORAL TAB TAKE ONE TABLET BY MOUTH TWICE A DAY FOR BIPOLAR DISORDER 05/09/2024 [id number] 3 ESTUARDO MOURA 2022 180 [place] [facility] LAMOTRIGINE 100MG TAB TAKE THREE TABLETS BY MOUTH EVERY DAY FOR BIPOLAR DISORDER ORAL ACTIVE 07/25/2025 [id number] 4 BOOGIE MOURA 2023 180 [place] [facility] LAMOTRIGINE 100MG TAB TAKE TWO AND A HALF TABLETS BY MOUTH EVERY DAY FOR 7 DAYS, THEN TAKE THREE TABLETS EVERY DAY FOR BIPOLAR DISORDER ORAL DISCONT INUED 07/25/2025 [id number] 4 BOOGIE MOURA 2023 177 [place] [facility] LAMOTRIGINE 100MG TAB TAKE ONE TABLET BY MOUTH TWICE A DAY FOR BIPOLAR DISORDER ORAL DISCONT INUED (EDIT) 08/25/2024 [id number] 4 MIMI SOSA 2023 180 [place] [facility] LAMOTRIGINE 100MG TAB TAKE ONE TABLET BY MOUTH TWICE A DAY FOR BIPOLAR DISORDER ORAL 05/09/2024 [id number] 4 BOOGIE MOURA 2022 180 [place] [facility] Loratadine (Alavert ODT) Tablet 10 mg Oral TAKE ONE TABLET BY MOUTH EVERY DAY FOR ALLERGIE S Active 02/22/2025 [id number] 4 MICHAELHANH 2023 90 [place] [facility] Loratadine (Alavert ODT) Tablet 10 mg Oral TAKE ONE TABLET BY MOUTH EVERY DAY FOR ALLERGIE S Active 02/22/2025 [id number] 4 MICHAELHANH 2023 90 [place] [facility] [facility] Loratadine (Alavert ODT) Tablet 10 mg Oral TAKE ONE TABLET BY MOUTH EVERY DAY FOR ALLERGIE S Discont inued 10/28/2023 [id number] 3 ANAHI COLLINS 2023 90 [place] [facility] [facility] Loratadine (Alavert ODT) Tablet 10 mg Oral TAKE ONE TABLET BY MOUTH EVERY DAY FOR ALLERGIE S 10/28/2023 [id number] 3 ANHAI COLLINS 2022 90 [place] [facility] LORATADINE 10MG TAB TAKE ONE TABLET BY MOUTH EVERY DAY FOR ALLERGIE S ORAL ACTIVE 02/22/2025 [id number] 4 MICHAEL,MD SGHINA 2023 90 [place] [facility] LORATADINE 10MG TAB TAKE ONE TABLET BY MOUTH EVERY DAY FOR ALLERGIE S ORAL DISCONT INUED 10/28/2023 [id number] 3 DANNY COLLINS 2022 90 [place] [facility] MINOXIDIL 2.5 MG ORAL TAB TAKE ONE TABLET BY MOUTH EVERY DAY Active 12/12/2024 [id number] 4 FLOYD PAIZ V 2023 90 [place] [facility] MINOXIDIL 2.5 MG ORAL TAB TAKE ONE TABLET BY MOUTH EVERY DAY Active 12/12/2024 [id number] FLOYD PAIZ V 2023 90 [place] [facility] MINOXIDIL 2.5MG TAB TAKE ONE TABLET BY MOUTH EVERY DAY ORAL ACTIVE 12/12/2024 [id number] 4 GIANNA PAIZ V 2023 90 [facility] QUETIAPINE FUMARATE 50MG TAB TAKE ONE TO TWO TABLETS BY MOUTH AT BEDTIME FOR BIPOLAR DISORDER ORAL ACTIVE 07/25/2025 [id number] 4 BOOGIE MOURA 2023 60 [facility] Allergies, Adverse Reactions, Alerts Combined list of allergies from Department of [facility] and Veterans Affairs facilities. It does not include entries that were removed or entered in error. Substance Category Reaction Severity Reaction type Status Date Reported Comments Source BEE STINGS Propensity to adverse reaction (finding) Anaphylaxis active 6 [facility] BEE STINGS Propensity to adverse reaction (finding) active 8 [facility] HORNET STINGS Propensity to adverse reaction (finding) Anaphylaxis active 6 [facility] WASP STINGS Propensity to adverse reaction (finding) Anaphylaxis active 6 [facility] WASP VENOM (WASP VENOM) Allergy to substance (disorder) Anaphylaxis, Other: Beestings, hornets active 1 [facility] Immunizations Combined list of available immunizations from the Department of Defense and Veterans Affairs facilities. 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 Status Comments Source COVID-19 ([employer]), MRNA, LNP-S, PF, SHAN-SUCROSE, 30 MCG/0.3 ML (AGES 12+ YEARS) 1 2023 [employer] IE SUSIE LEFT DELTO ID [id number] 309 complet ed [facility] INFLUENZA, INJECTABLE, QUADRIVALENT, PRESERVATIVE FREE 2023 [employer] IE SUSIE LEFT DELTO ID [id number] A 150 complet ed [facility] INFLUENZA, INJECTABLE, QUADRIVALENT, PRESERVATIVE FREE 2021 150 complet ed [facility] COVID-19 (PFIZER), MRNA, LNP-S, BIVALENT BOOSTER, PF, 30 MCG/0.3 ML DOSE 1 2021 300 complet ed PFR; [id number]; 3 [facility] COVID-19 (PFIZER), MRNA, LNP-S, PF, 30 MCG/0.3 ML DOSE 3 2021 208 complet ed PFR; [id number]; 2 [facility] INFLUENZA, INJECTABLE, QUADRIVALENT 2020 158 complet ed [facility] INFLUENZA, INJECTABLE, QUADRIVALENT, PRESERVATIVE FREE 2020 150 complet ed [facility] COVID-19 (MODERNA), MRNA, LNP-S, PF, 100 MCG OR 50 MCG DOSE 2 2020 207 complet ed [facility] COVID-19 (MODERNA), MRNA, LNP-S, PF, 100 MCG/0.5ML DOSE OR 50 MCG/0.25ML DOSE 2020 207 complet ed [facility] COVID-19 (MODERNA), MRNA, LNP-S, PF, 100 MCG OR 50 MCG DOSE 1 2020 207 complet ed [facility] INFLUENZA, SEASONAL, INJECTABLE, PRESERVATIVE FREE 2018 140 complet ed [facility] INFLUENZA, INJECTABLE, QUADRIVALENT, PRESERVATIVE FREE 2017 150 complet ed [id number] EXP 05/19/19 [facility] INFLUENZA, SEASONAL, INJECTABLE, PRESERVATIVE FREE 2015 140 complet ed [facility] TDAP 2015 115 complet ed glaxo pérez wu [id number] 10/08/17 [facility] FLU,3 YRS (HISTORICAL) 2012 88 complet [employer] INFLUENZA, UNSPECIFIED FORMULATION 2012 88 complet ed [employer] influenza virus vaccine, live, attenuated, for intranasal use 1 2011 [id number] [employer] (MED) complet ed influenza virus vaccine, live, attenuate d, for intranasa l use [facility] INFLUENZA, UNSPECIFIED FORMULATION [address] [facility], VISN 15 TDAP 2011 115 complet ed [place] [facility] influenza virus vaccine, live, attenuated, for intranasal use 1 2010 [id number] 111 [employer] (MED) complet influenza virus vaccine, live, attenuate d, for intranasa l use [facility] influenza virus vaccine, live, attenuated, for intranasal use 1 2009 [id number] 111 [employer] (MED) complet ed influenza virus vaccine, live, attenuate d, for intranasa l use DoD anthrax vaccine 3 2009 [id number] [employer] [facility] ([facility]) complet ed anthrax vaccine DoD Novel influenza-H1N 1-09, injectable 1 2008 [id number] 127 Unknown (UNK) complet ed Novel influenza -T2F4-60, injectabl e DoD anthrax vaccine 2 2008 [id number] Unknown (UNK) comple t ed anthrax vaccine DoD influenza virus vaccine, split virus (incl. purified surface antigen)-reti red CODE 1 2008 [id number] San[employer] Paste[employer] ([facility]) complet ed influenza virus vaccine, split virus (incl. purified surface antigen)- retired CODE DoD anthrax vaccine 1 2008 [id number] [facility] ([facility]) complet ed anthrax vaccine DoD vaccinia (smallpox) vaccine 1 2008 [id number] [facility] ([facility]) complet ed vaccinia (smallpox ) vaccine DoD typhoid Vi capsular polysaccharid e vaccine 1 2008 [id number] [employer] ([facility]) complet ed typhoid Vi capsular polysacch aride vaccine DoD influenza virus vaccine, live, attenuated, for intranasal use 1 2007 [id number] 111 [employer] (MED) complet ed influenza virus vaccine, live, attenuate d, for intranasa l use DoD measles, mumps and rubella virus vaccine 1 2007 UNK 03 Unknown (UNK) Not Given measles, mumps and rubella virus vaccine DoD varicella virus vaccine 1 2007 UNK 21 Unknown (UNK) Not Given varicella virus vaccine DoD hepatitis B vaccine, adult dosage 1 2007 [id number] 43 Unknown (UNK) Not Given hepatitis B vaccine, adult dosage DoD hepatitis A vaccine, adult dosage 1 2007 UNK 52 Unknown (UNK) Not Given hepatitis A vaccine, adult dosage DoD poliovirus vaccine, inactivated 1 2007 [id number] 10 San[employer] Pasteur ([facility]) complet ed polioviru s vaccine, inactivat ed DoD meningococcal polysaccharid e (groups A, C, Y and W-135) diphtheria toxoid conjugate vaccine (MCV4P) 1 2007 [id number] [employer]i Pasteur ([facility]) complet ed meningoco ccal polysacch aride (groups A, C, Y and W-135) diphtheri a toxoid conjugate vaccine (MCV4P) DoD tetanus toxoid, reduced diphtheria toxoid, and acellular pertu is vaccine, adsorbed 1 2007 [id number] 115 [employer]i Paste[employer] ([facility]) complet ed tetanus toxoid, reduced diphtheri a toxoid, and acellular pertussis vaccine, adsorbed DoD tetanus and diphtheria toxoids, adsorbed, preservative free, for adult use (2 Lf of tetanus toxoid and 2 Lf of diphtheria toxoid) 1 2003 Unknown, Provider [id number] Sanofi Pasteur ([facility]) complet ed tetanus and diphtheri a toxoids, adsorbed, preservat esau free, for adult use (2 Lf of tetanus toxoid and 2 Lf of diphtheri a toxoid) DoD hepatitis B vaccine, pediatric or pediatric/ado lescent dosage 3 1998 08 Transcribed (TRS) complet ed hepatitis B vaccine, pediatric or pediatric /adolesce nt dosage DoD hepatitis B vaccine, pediatric or pediatric/ado lescent dosage 2 1997 08 Transcribed (TRS) complet ed hepatitis B vaccine, pediatric or pediatric /adolesce nt dosage DoD hepatitis B vaccine, pediatric or pediatric/ado lescent dosage 1 1997 08 Transcribed (TRS) complet ed hepatitis B vaccine, pediatric or pediatric /adolesce nt dosage DoD trivalent poliovirus vaccine, live, oral 4 1993 02 Transcribed (TRS) complet ed trivalent polioviru s vaccine, live, oral DoD measles, mumps and rubella virus vaccine 2 1993 03 Transcribed (TRS) complet ed measles, mumps and rubella virus vaccine DoD diphtheria, tetanus toxoids and acellular pertu is vaccine 5 1993 20 Transcribed (TRS) complet ed diphtheri a, tetanus toxoids and acellular pertussis vaccine DoD measles, mumps and rubella virus vaccine 1 1989 03 Transcribed (TRS) complet ed measles, mumps and rubella virus vaccine DoD varicella virus vaccine 1 1989 21 Transcribed (TRS) Not Given varicella virus vaccine DoD Results Combined list of recent chemistry, hematology and other laboratory results from [employer] of [employer] and [facility], ranging from 15 months to all on record, depending upon the facility. Order Name Results Value Reference Range Date Interpretation Specimen Comments Source TSH W/REFLEX TO FREE T4 THYROTROPI N [UNITS/VOL UME] IN SERUM OR PLASMA 0.72 u[IU]/mL 0.35 - 4.94 12/12 Specimen Type: PLASMA No comment entered. Ordering Provider: ANAHI COLLINS Report Released Date/Time: Oct 27, 2022 09:53 AM Reporting Lab: [facility] [address] Performing Lab: [facility] [address] [place] [facility] LIPID PANEL,NO N-FASTIN G CHOLESTERO L [MASS/VOLU ME] IN SERUM OR PLASMA 170 mg/dL <199 - 199 12/12 Specimen Type: PLASMA No comment entered. Ordering Provider: ANAHI COLLINS Report Released Date/Time: Oct 27, 2022 09:53 AM Reporting Lab: [facility] [address] Performing Lab: [facility] [address] [place] [facility] LIPID PANEL,NO N-FASTIN G CHOLESTERO L IN HDL [MASS/VOLU ME] IN SERUM OR PLASMA 40 mg/dL 40 12/12 Specimen Type: PLASMA No comment entered. Ordering Provider: ANAHI COLLINS Report Released Date/Time: Oct 27, 2022 09:53 AM Reporting Lab: [facility] [address] Performing Lab: [facility] [address] [place] [facility] LIPID PANEL,NO N-FASTIN G CHOLESTERO L IN LDL [MASS/VOLU ME] IN SERUM OR PLASMA BY CALCULATIO N 118 mg/dL <99 - 99 12/12 H Specimen Type: PLASMA No comment entered. Ordering Provider: ANAHI COLLINS Report Released Date/Time: Oct 27, 2022 09:53 AM Reporting Lab: [facility] [address] Performing Lab: [facility] [address] [place] [facility] LIPID PANEL,NO N-FASTIN G CHOLESTERO L IN VLDL [MASS/VOLU ME] IN SERUM OR PLASMA BY CALCULATIO N 12 mg/dL <29 - 29 12/12 Specimen Type: PLASMA No comment entered. Ordering Provider: ANAHI COLLINS Report Released Date/Time: Oct 27, 2022 09:53 AM Reporting Lab: [facility] [address] Performing Lab: [facility] [address] [place] [facility] LIPID PANEL,NO N-FASTIN G CHOLESTERO L NON HDL [MASS/VOLU ME] IN SERUM OR PLASMA 130 mg/dL <129 - 129 12/12 H Specimen Type: PLASMA No comment entered. Ordering Provider: ANAHI COLLINS Report Released Date/Time: Oct 27, 2022 09:53 AM Reporting Lab: [facility] [address] Performing Lab: [facility] [address] [place] [facility] LIPID PANEL,NO N-FASTIN G TRIGLYCERI DE [MASS/VOLU ME] IN SERUM OR PLASMA 58 mg/dL <149 - 149 12/12 Specimen Type: PLASMA No comment entered. Ordering Provider: ANAHI COLLINS Report Released Date/Time: Oct 27, 2022 09:53 AM Reporting Lab: [facility] [address] Performing Lab: [facility] [address] [place] [facility] COMPREHE NSIVE METABOLI C PANEL+MG CREATININE [MASS/VOLU ME] IN SERUM OR PLASMA 0.9 mg/dL 0.7 - 1.2 12/12 Specimen Type: PLASMA No comment entered. Ordering Provider: ANAHI COLLINS Report Released Date/Time: Oct 27, 2022 09:53 AM Reporting Lab: [facility] [address] Performing Lab: [facility] [address] [place] [facility] COMPREHE NSIVE METABOLI C PANEL+MG UREA NITROGEN [MASS/VOLU ME] IN SERUM OR PLASMA 15 mg/dL 8 - 26 12/12 Specimen Type: PLASMA No comment entered. Ordering Provider: ANAHI COLLINS Report Released Date/Time: Oct 27, 2022 09:53 AM Reporting Lab: [facility] [address] Performing Lab: [facility] [address] [place] [facility] COMPREHE NSIVE METABOLI C PANEL+MG GLUCOSE [MASS/VOLU ME] IN SERUM OR PLASMA 88 mg/dL 70 - 100 12/12 Specimen Type: PLASMA No comment entered. Ordering Provider: ANAHI COLLINS Report Released Date/Time: Oct 27, 2022 09:53 AM Reporting Lab: [facility] [address] Performing Lab: [facility] [address] [place] [facility] COMPREHE NSIVE METABOLI C PANEL+MG SODIUM [MOLES/VOL UME] IN SERUM OR PLASMA 139 mmol/L 136 - 145 12/12 Specimen Type: PLASMA No comment entered. Ordering Provider: ANAHI COLLINS Report Released Date/Time: Oct 27, 2022 09:53 AM Reporting Lab: [facility] [address] Performing Lab: [facility] [address] [place] [facility] COMPREHE NSIVE METABOLI C PANEL+MG POTASSIUM [MOLES/VOL UME] IN SERUM OR PLASMA 4.4 mmol/L 3.5 - 5.1 12/12 Specimen Type: PLASMA No comment entered. Ordering Provider: ANAHI COLLINS Report Released Date/Time: Oct 27, 2022 09:53 AM Reporting Lab: [facility] [address] Performing Lab: [facility] [address] [place] [facility] COMPREHE NSIVE METABOLI C PANEL+MG CHLORIDE [MOLES/VOL UME] IN SERUM OR PLASMA 105 mmol/L 98 - 107 12/12 Specimen Type: PLASMA No comment entered. Ordering Provider: ANAHI COLLINS Report Released Date/Time: Oct 27, 2022 09:53 AM Reporting Lab: [facility] [address] Performing Lab: [facility] [address] [place] [facility] COMPREHE NSIVE METABOLI C PANEL+MG CARBON DIOXIDE, TOTAL [MOLES/VOL UME] IN SERUM OR PLASMA 26 mmol/L 22 - 29 12/12 Specimen Type: PLASMA No comment entered. Ordering Provider: ANAHI COLLINS Report Released Date/Time: Oct 27, 2022 09:53 AM Reporting Lab: [facility] [address] Performing Lab: [facility] [address] [place] [facility] COMPREHE NSIVE METABOLI C PANEL+MG CALCIUM [MASS/VOLU ME] IN SERUM OR PLASMA 9.4 mg/dL 8.4 - 10.2 12/12 Specimen Type: PLASMA No comment entered. Ordering Provider: ANAHI COLLINS Report Released Date/Time: Oct 27, 2022 09:53 AM Reporting Lab: [facility] [address] Performing Lab: [facility] [address] [place] [facility] COMPREHE NSIVE METABOLI C PANEL+MG PROTEIN [MASS/VOLU ME] IN SERUM OR PLASMA 7.5 g/dL 6.0 - 8.3 12/12 Specimen Type: PLASMA No comment entered. Ordering Provider: ANAHI COLLINS Report Released Date/Time: Oct 27, 2022 09:53 AM Reporting Lab: [facility] [address] Performing Lab: [facility] [address] [place] [facility] COMPREHE NSIVE METABOLI C PANEL+MG ALBUMIN [MASS/VOLU ME] IN SERUM OR PLASMA 4.4 g/dL 3.5 - 5.2 12/12 Specimen Type: PLASMA No comment entered. Ordering Provider: ANAHI COLLINS Report Released Date/Time: Oct 27, 2022 09:53 AM Reporting Lab: [facility] [address] Performing Lab: [facility] [address] [place] [facility] COMPREHE NSIVE METABOLI C PANEL+MG BILIRUBIN. TOTAL [MASS/VOLU ME] IN SERUM OR PLASMA 0.2 mg/dL 0.2 - 1.2 12/12 Specimen Type: PLASMA No comment entered. Ordering Provider: ANAHI COLLINS Report Released Date/Time: Oct 27, 2022 09:53 AM Reporting Lab: [facility] [address] Performing Lab: [facility] [address] [place] [facility] COMPREHE NSIVE METABOLI C PANEL+MG MAGNESIUM [MASS/VOLU ME] IN SERUM OR PLASMA 2.0 mg/dL 1.6 - 2.6 12/12 Specimen Type: PLASMA No comment entered. Ordering Provider: ANAHI COLLINS Report Released Date/Time: Oct 27, 2022 09:53 AM Reporting Lab: [facility] [address] Performing Lab: [facility] [address] [place] [facility] COMPREHE NSIVE METABOLI C PANEL+MG ANION GAP IN SERUM OR PLASMA 8 mmol/L 5 - 15 12/12 Specimen Type: PLASMA No comment entered. Ordering Provider: ANAHI COLLINS Report Released Date/Time: Oct 27, 2022 09:53 AM Reporting Lab: [facility] [address] Performing Lab: [facility] [address] [facility] COMPREHE NSIVE METABOLI C PANEL+MG ALKALINE PHOSPHATAS E [ENZYMATIC ACTIVITY/V OLUME] IN SERUM OR PLASMA 58 U/L 40 - 150 12/12 Specimen Type: PLASMA No comment entered. Ordering Provider: ANAHI COLLINS Report Released Date/Time: Oct 27, 2022 09:53 AM Reporting Lab: [facility] [address] Performing Lab: [facility] [address] [place] [facility] COMPREHE NSIVE METABOLI C PANEL+MG ALANINE AMINOTRANS FERASE [ENZYMATIC ACTIVITY/V OLUME] IN SERUM OR PLASMA 48 U/L <55 - 55 12/12 Specimen Type: PLASMA No comment entered. Ordering Provider: ANAHI COLLINS Report Released Date/Time: Oct 27, 2022 09:53 AM Reporting Lab: [facility] [address] Performing Lab: [facility] [address] [place] [facility] COMPREHE NSIVE METABOLI C PANEL+MG ASPARTATE AMINOTRANS FERASE [ENZYMATIC ACTIVITY/V OLUME] IN SERUM OR PLASMA 30 U/L <34 - 34 12/12 Specimen Type: PLASMA No comment entered. Ordering Provider: ANAHI COLLINS Report Released Date/Time: Oct 27, 2022 09:53 AM Reporting Lab: [facility] [address] Performing Lab: [facility] [address] [place] [facility] COMPREHE NSIVE METABOLI C PANEL+MG GLOMERULAR FILTRATION RATE/1.73 SQ M.PREDICTE D [VOLUME RATE/AREA] IN SERUM, PLASMA OR BLOOD BY CREATININE -BASED FORMULA (CKD-EPI 2020) >90 60 12/12 Specimen Type: PLASMA No comment entered. Ordering Provider: ANAHI COLLINS Report Released Date/Time: Oct 27, 2022 09:53 AM Reporting Lab: [facility] [address] Performing Lab: [facility] [address] [place] [facility] CBC & DIFF LEUKOCYTES [#/VOLUME] IN BLOOD BY AUTOMATED COUNT 5.58 10*3/uL 4.0 - 11.0 12/12 Specimen Type: BLOOD Comment: Automated Differentia l Performed Ordering Provider: ANAHI COLLINS Report Released Date/Time: Oct 27, 2022 09:53 AM Reporting Lab: [facility] [address] Performing Lab: [facility] [address] [place] [facility] CBC & DIFF ERYTHROCYT ES [#/VOLUME] IN BLOOD BY AUTOMATED COUNT 4.73 10*6/uL 4.6 - 6.2 12/12 Specimen Type: BLOOD Comment: Automated Differentia l Performed Ordering Provider: ANAHI COLLINS Report Released Date/Time: Oct 27, 2022 09:53 AM Reporting Lab: [facility] [address] Performing Lab: [facility] [address] [place] [facility] CBC & DIFF HEMOGLOBIN [MASS/VOLU ME] IN BLOOD 14.6 g/dL 13.5 - 17.9 12/12 Specimen Type: BLOOD Comment: Automated Differentia l Performed Ordering Provider: ANAHI COLLINS Report Released Date/Time: Oct 27, 2022 09:53 AM Reporting Lab: [facility] [address] Performing Lab: [facility] [address] [place] [facility] CBC & DIFF HEMATOCRIT [VOLUME FRACTION] OF BLOOD BY AUTOMATED COUNT 41.8 41 - 54 12/12 Specimen Type: BLOOD Comment: Automated Differentia l Performed Ordering Provider: ANAHI COLLINS Report Released Date/Time: Oct 27, 2022 09:53 AM Reporting Lab: [facility] [address] Performing Lab: [facility] [address] [place] [facility] CBC & DIFF MCV [ENTITIC VOLUME] BY AUTOMATED COUNT 88.4 fL 80 - 100 12/12 Specimen Type: BLOOD Comment: Automated Differentia l Performed Ordering Provider: ANAHI COLLINS Report Released Date/Time: Oct 27, 2022 09:53 AM Reporting Lab: [facility] [address] Performing Lab: [facility] [address] [place] [facility] CBC & DIFF MCH [ENTITIC MASS] BY AUTOMATED COUNT 30.9 pg 27 - 33 12/12 Specimen Type: BLOOD Comment: Automated Differentia l Performed Ordering Provider: ANAHI COLLINS Report Released Date/Time: Oct 27, 2022 09:53 AM Reporting Lab: [facility] [address] Performing Lab: [facility] [address] [place] [facility] CBC & DIFF MCHC [MASS/VOLU ME] BY AUTOMATED COUNT 34.9 g/dL 32.0 - 37.5 12/12 Specimen Type: BLOOD Comment: Automated Differentia l Performed Ordering Provider: ANAHI COLLINS Report Released Date/Time: Oct 27, 2022 09:53 AM Reporting Lab: [facility] [address] Performing Lab: [facility] [address] [place] [facility] CBC & DIFF PLATELETS [#/VOLUME] IN BLOOD BY AUTOMATED COUNT 157 10*3/uL 150 - 400 12/12 Specimen Type: BLOOD Comment: Automated Differentia l Performed Ordering Provider: ANAHI COLLINS Report Released Date/Time: Oct 27, 2022 09:53 AM Reporting Lab: [facility] [address] Performing Lab: [facility] [address] [place] [facility] CBC & DIFF PLATELET MEAN VOLUME [ENTITIC VOLUME] IN BLOOD BY AUTOMATED COUNT 9.1 fL 7.4 - 10.4 12/12 Specimen Type: BLOOD Comment: Automated Differentia l Performed Ordering Provider: ANAHI COLLINS Report Released Date/Time: Oct 27, 2022 09:53 AM Reporting Lab: [facility] [address] Performing Lab: [facility] [address] [place] [facility] CBC & DIFF NEUTROPHIL S/100 LEUKOCYTES IN BLOOD BY MANUAL COUNT 48.2 40.0 - 80.0 12/12 Specimen Type: BLOOD Comment: Automated Differentia l Performed Ordering Provider: ANAHI COLLINS Report Released Date/Time: Oct 27, 2022 09:53 AM Reporting Lab: [facility] [address] Performing Lab: [facility] [address] [place] [facility] CBC & DIFF LYMPHOCYTE S/100 LEUKOCYTES IN BLOOD BY MANUAL COUNT 37.3 15.0 - 45.0 12/12 Specimen Type: BLOOD Comment: Automated Differentia l Performed Ordering Provider: ANAHI COLLINS Report Released Date/Time: Oct 27, 2022 09:53 AM Reporting Lab: [facility] [address] Performing Lab: [facility] [address] [place] [facility] CBC & DIFF MONOCYTES/ 100 LEUKOCYTES IN BLOOD BY AUTOMATED COUNT 9.1 2.0 - 12.0 12/12 Specimen Type: BLOOD Comment: Automated Differentia l Performed Ordering Provider: ANAHI COLLINS Report Released Date/Time: Oct 27, 2022 09:53 AM Reporting Lab: [facility] [address] Performing Lab: [facility] [address] [place] [facility] CBC & DIFF EOSINOPHIL S/100 LEUKOCYTES IN BLOOD BY AUTOMATED COUNT 4.1 0.0 - 6.0 12/12 Specimen Type: BLOOD Comment: Automated Differentia l Performed Ordering Provider: ANAHI COLLINS Report Released Date/Time: Oct 27, 2022 09:53 AM Reporting Lab: [facility] [address] Performing Lab: [facility] [address] [place] [facility] CBC & DIFF BASOPHILS/ 100 LEUKOCYTES IN BLOOD BY MANUAL COUNT 1.1 0.0 - 2.0 12/12 Specimen Type: BLOOD Comment: Automated Differentia l Performed Ordering Provider: ANAHI COLLINS Report Released Date/Time: Oct 27, 2022 09:53 AM Reporting Lab: [facility] [address] Performing Lab: [facility] [address] [place] [facility] CBC & DIFF ERYTHROCYT E DISTRIBUTI ON WIDTH [RATIO] BY AUTOMATED COUNT 12.3 11.5 - 14.5 12/12 Specimen Type: BLOOD Comment: Automated Differentia l Performed Ordering Provider: ANAHI COLLINS Report Released Date/Time: Oct 27, 2022 09:53 AM Reporting Lab: [facility] [address] Performing Lab: [facility] [address] [place] [facility] CBC & DIFF LYMPHOCYTE S [#/VOLUME] IN BLOOD BY AUTOMATED COUNT 2.08 10*3/uL 1.0 - 4.0 12/12 Specimen Type: BLOOD Comment: Automated Differentia l Performed Ordering Provider: ANAHI COLLINS Report Released Date/Time: Oct 27, 2022 09:53 AM Reporting Lab: [facility] [address] Performing Lab: [facility] [address] [place] [facility] CBC & DIFF MONOCYTES [#/VOLUME] IN BLOOD BY AUTOMATED COUNT 0.51 10*3/uL 0.1 - 1.0 12/12 Specimen Type: BLOOD Comment: Automated Differentia l Performed Ordering Provider: ANAHI COLLINS Report Released Date/Time: Oct 27, 2022 09:53 AM Reporting Lab: [facility] [address] Performing Lab: [facility] [address] [place] [facility] CBC & DIFF NEUTROPHIL S [#/VOLUME] IN BLOOD BY AUTOMATED COUNT 2.69 10*3/uL 2.0 - 7.7 12/12 Specimen Type: BLOOD Comment: Automated Differentia l Performed Ordering Provider: ANAHI COLLINS Report Released Date/Time: Oct 27, 2022 09:53 AM Reporting Lab: [facility] [address] Performing Lab: [facility] [address] [place] [facility] CBC & DIFF EOSINOPHIL S [#/VOLUME] IN BLOOD BY AUTOMATED COUNT 0.23 10*3/uL 0 - 0.5 12/12 Specimen Type: BLOOD Comment: Automated Differentia l Performed Ordering Provider: ANAHI COLLINS Report Released Date/Time: Oct 27, 2022 09:53 AM Reporting Lab: [facility] [address] Performing Lab: [facility] [address] [place] [facility] CBC & DIFF BASOPHILS [#/VOLUME] IN BLOOD BY AUTOMATED COUNT 0.06 10*3/uL 0 - 0.2 12/12 Specimen Type: BLOOD Comment: Automated Differentia l Performed Ordering Provider: ANAHI COLLINS Report Released Date/Time: Oct 27, 2022 09:53 AM Reporting Lab: [facility] [address] Performing Lab: [facility] [address] [place] [facility] CBC & DIFF IG(META,MY VEE,PRO) 0.2 12/12 Specimen Type: BLOOD Comment: Automated Differentia l Performed Ordering Provider: ANAHI COLLINS Report Released Date/Time: Oct 27, 2022 09:53 AM Reporting Lab: [facility] [address] Performing Lab: [facility] [address] [place] [facility] CBC & DIFF IMMATURE GRANULOCYT ES [PRESENCE] IN BLOOD BY AUTOMATED COUNT 0.01 10*3/uL 0 - 0.1 12/12 Specimen Type: BLOOD Comment: Automated Differentia l Performed Ordering Provider: ANAHI COLLINS Report Released Date/Time: Oct 27, 2022 09:53 AM Reporting Lab: [facility] [address] Performing Lab: [facility] [address] [place] [facility] HEMOGLOB IN A1C HEMOGLOBIN A1C/HEMOGL OBIN.TOTAL IN BLOOD 5.2 4.0 - 6.0 12/12 Specimen Type: BLOOD Comment: Values obtained from A1C measurement s can vary. For typical A1C assays, a reported value of 7.0 could actually be between 6.7 and 7.3 if measured by a reference method. A reported value of 9.0 could actually be between 8.7 and 9.3. Ref: http://www. ngsp.org/[place] Pdata.asp Ordering Provider: GREGG RENE Report Released Date/Time: Dec 14, 2023 11:58 AM Reporting Lab: [facility] [address] Performing Lab: [facility] [address] [facility] TSH W/REFLEX TO FREE T4 THYROTROPI N [UNITS/VOL UME] IN SERUM OR PLASMA 0.70 u[IU]/mL 0.35 - 4.94 12/12 Specimen Type: PLASMA No comment entered. Ordering Provider: BUSHRA PANDEY Report Released Date/Time: Sep 27, 2023 11:23 AM Reporting Lab: [facility] [address] Performing Lab: [facility] [address] [facility] QUANTIFE RAFAL GOLD MYCOBACTER IUM TUBERCULOS IS STIMULATED GAMMA INTERFERON [INTERPRET ATION] IN BLOOD QUALITATIV E 0.10 [IU]/mL 05/04 Specimen Type: PLASMA Comment: A NEGATIVE result does not preclude the possibility of M. tuberculosi s infection or tuberculosi s disease. A false-negat esau results can be due to the stage of infection (e.g., specimen obtained prior to the development of cellular immune response or other immunologic al variables). Ordering Provider: ANAHI COLLNIS Report Released Date/Time: May 04, 2023 10:00 AM Reporting Lab: [facility] [address] Performing Lab: [facility] [address] [facility] [employer] MYCOBA[employer]ER IUM TUBERCULOS IS STIMULATED GAMMA INTERFERON [INTERPRET ATION] IN BLOOD QUALITATIV E 0.00 [IU]/mL 05/04 Specimen Type: PLASMA Comment: A NEGATIVE result does not preclude the possibility of M. tuberculosi s infection or tuberculosi s disease. A false-negat esau results can be due to the stage of infection (e.g., specimen obtained prior to the development of cellular immune response or other immunologic al variables). Ordering Provider: ANAHI COLLINS Report Released Date/Time: May 04, 2023 10:00 AM Reporting Lab: [address] Performing Lab: [place] [address] [place] [facility] QU[employer]IFE RAFAL GOLD MYCOBA[employer]ER IUM TUBERCULOS IS STIMULATED GAMMA INTERFERON [INTERPRET ATION] IN BLOOD QUALITATIV E 0.00 [IU]/mL 05/04 Specimen Type: PLASMA Comment: A NEGATIVE result does not preclude the possibility of M. tuberculosi s infection or tuberculosi s disease. A false-negat esau results can be due to the stage of infection (e.g., specimen obtained prior to the development of cellular immune response or other immunologic al variables). Ordering Provider: ANAHI COLLINS Report Released Date/Time: May 04, 2023 10:00 AM Reporting Lab: [facility] [address] Performing Lab: [facility] [address] [place] [facility] QUANTIFE RAFAL GOLD MYCOBACTER IUM TUBERCULOS IS STIMULATED GAMMA INTERFERON [INTERPRET ATION] IN BLOOD QUALITATIV E 9.90 [IU]/mL 05/04 Specimen Type: PLASMA Comment: A NEGATIVE result does not preclude the possibility of M. tuberculosi s infection or tuberculosi s disease. A false-negat esau results can be due to the stage of infection (e.g., specimen obtained prior to the development of cellular immune response or other immunologic al variables). Ordering Provider: ANAHI COLLINS Report Released Date/Time: May 04, 2023 10:00 AM Reporting Lab: [facility] [address] Performing Lab: [place] [address] [place] [facility] QUANTIFE RAFAL GOLD MYCOBACTER IUM TUBERCULOS IS STIMULATED GAMMA INTERFERON [INTERPRET ATION] IN BLOOD QUALITATIV E NEGATIVE 05/04 Specimen Type: PLASMA Comment: A NEGATIVE result does not preclude the possibility of M. tuberculosi s infection or tuberculosi s disease. A false-negat esau results can be due to the stage of infection (e.g., specimen obtained prior to the development of cellular immune response or other immunologic al variables). Ordering Provider: ANAHI COLLINS Report Released Date/Time: May 04, 2023 10:00 AM Reporting Lab: [facility] [address] Performing Lab: [facility] [address] [facility] LAMOTRIG INE LAMOTRIGIN E [MASS/VOLU ME] IN SERUM OR PLASMA 0.8 ug/mL 2.5 - 15.0 03/13 L Specimen Type: SERUM Comment: This test was developed and its analytical performance characteris tics have been determined by [employer] [place], [place]. It has not been cleared or approved by the U.S. Food and Drug Administrat ion. This assay has been validated pursuant to the CLIA regulations and is used for clinical purposes. Test Performed by [facility], [employer] [facility], [address] [place] [address] Jordi Nails M.D., Ph.D., Director of Laboratorie s , CLIA [id number] Ordering Provider: VINI HAAS Report Released Date/Time: Mar 13, 2023 03:56 PM Reporting Lab: [facility] [address] Performing Lab: [facility] [id number] [place] [address] [facility] POC ABG/LACT ATE PH OF VENOUS BLOOD 7.381 7.31 - 7.41 03/13 Specimen Type: VENOUS BLOOD No comment entered. Ordering Provider: Christina PEREZ Report Released Date/Time: Mar 13, 2023 03:46 PM Reporting Lab: [facility] [address] Performing Lab: [facility] [address] [facility] POC ABG/LACT ATE CARBON DIOXIDE [PARTIAL PRESSURE] IN VENOUS BLOOD 49.1 mm[Hg] 41 - 51 03/13 Specimen Type: VENOUS BLOOD No comment entered. Ordering Provider: Christina PEREZ Report Released Date/Time: Mar 13, 2023 03:46 PM Reporting Lab: [facility] [address] Performing Lab: [facility] [address] [place] [facility] POC ABG/LACT ATE OXYGEN [PARTIAL PRESSURE] IN VENOUS BLOOD 20 mm[Hg] 03/13 Specimen Type: VENOUS BLOOD No comment entered. Ordering Provider: Christina PEREZ Report Released Date/Time: Mar 13, 2023 03:46 PM Reporting Lab: [facility] [id number] Performing Lab: [facility] [id number] [place] [facility] ABG/LACT ATE CARBON DIOXIDE, TOTAL [MOLES/VOL UME] IN VENOUS BLOOD 31 mmol/L 24 - 29 03/13 Specimen Type: VENOUS BLOOD No comment entered. Ordering Provider: Christina PEREZ Report Released Date/Time: Mar 13, 2023 03:46 PM Reporting Lab: [facility] [id number] Performing Lab: [facility] [id number] [place] [facility] ABG/LACT ATE BICARBONAT E [MOLES/VOL UME] IN VENOUS BLOOD 29.1 mmol/L 23 - 03/13 Specimen Type: VENOUS BLOOD No comment entered. Ordering Provider: Christina PEREZ Report Released Date/Time: Mar 13, 2023 03:46 PM Reporting Lab: [facility] [id number] Performing Lab: [facility] [phone] [place] [facility] ABG/LACT ATE BASE EXCESS IN VENOUS BLOOD BY CALCULATIO N 4 mmol/L - 2 03/13 Specimen Type: VENOUS BLOOD No comment entered. Ordering Provider: Christina PEREZ Report Released Date/Time: Mar 13, 2023 03:46 PM Reporting Lab: [facility] [id number] Performing Lab: [facility] [id number] [place] [facility] POC ABG/LACT ATE FRACTIONAL OXYHEMOGLO BIN IN VENOUS BLOOD 30 03/13 Specimen Type: VENOUS BLOOD No comment entered. Ordering Provider: Christina PEREZ Report Released Date/Time: Mar 13, 2023 03:46 PM Reporting Lab: [facility] [address] Performing Lab: [facility] [address] [facility] POC ABG/LACT ATE LACTATE [MOLES/VOL UME] IN VENOUS BLOOD <1.6mmol /L 0.90 - 1.70 03/13 Specimen Type: VENOUS BLOOD No comment entered. Ordering Provider: Christina PEREZ Report Released Date/Time: Mar 13, 2023 03:46 PM Reporting Lab: [facility] [id number] Performing Lab: [facility] [address] [facility] EXTRA BLUE TUBE EXTRA BLUE TUBE RECEIVED 03/13 Specimen Type: PLASMA No comment entered. Ordering Provider: VINI HAAS Report Released Date/Time: Mar 13, 2023 02:47 PM Reporting Lab: [facility] [address] Performing Lab: [facility] [address] [facility] Vital Signs Combined list of inpatient and outpatient Vital Signs from Department of Defense and Veterans Affairs, ranging from 12 months to all on record, depending upon the facility. Vital Sign Value Date Comments Source SYSTOLIC BLOOD PRESSURE 124 12/12/2023 10:33:53 [facility] DIASTOLIC BLOOD PRESSURE 80 12/12/2023 10:33:53 [facility] PULSE OXIMETRY 96% 12/12/2023 10:33:[facility] WEIGHT 186.2 12/12/2023 10:33:53 [facility] BMI 30kg/m2 12/12/2023 10:33:53 [facility] PAIN 0 12/12/2023 10:33:53 [facility] HEIGHT 66.5 12/12/2023 10:33:53 [facility] TEMPERATURE 99.7 12/12/2023 10:33:53 [place] [facility] PULSE 58 12/12/2023 10:33:53 [facility] RESPIRATION 15 12/12/2023 10:33:53 [facility] Encounters Combined list of: 1) Encounters from Department of Veterans Affairs facilities going back up to thelast 18 months. 2) Encounters from the Department of Defense facilities going back up to 280 months. Location Location Details Encounter Type Encounter Number Reason For Visit Attending Provider ADM Date DC Date Status Disposition Source [facility](MTF NMCP FP) OUTPATIENT [id number] CHECK FOR PERSIEN T COUGH JF RANN W 02/11 Released w/o Limitations [facility](MTF NMCP FP) [facility](MTF NMCP FP) OUTPATIENT [id number] PROBLEM S WITH RIGHT KNEE AMBAR TABOR 03/14 Released w/o Limitations [facility](MTF NMCP FP) [facility](MTF NMCP FP) TELE CONSULT [id number] RX Refill. Pt. is request ing a refill on Zyrtec JERRY HARTMANN 08/26 4Tech [facility](MTF NMCP FP) [facility](MTF NMCP FP) OUTPATIENT [id number] med refill SAMI DELGADILLO 12/31 Released w/o Limitations [facility](MTF NMCP FP) [facility](MTF NMCP FP) TELE CONSULT [id number] med refill JERRY HARTMANN 03/01 [facility](MTF NMCP FP) [facility](MTF NMCP FP) OUTPATIENT [id number] physica l SAMI DELGADILLO 05/21 Released w/o Limitations [facility](MTF NMCP FP) [facility](Immuniz ation NMCP) OUTPATIENT [id number] ALFA Plunkett 05/21 Released w/o Limitations [facility](Imm unizati on NMCP) [facility](MTF NMCP FP) OUTPATIENT [id number] SORE THROAT W WHITE SPOTS SAMI DELGADILLO 12/23 Released w/o Limitations [facility](MTF NMCP FP) [facility] NMCP FP) OUTPATIENT [id number] sport paper SAMI DELGADILLO 05/18 Released w/o Limitations [facility](MTF NMCP FP) [facility] NMCP FP) OUTPATIENT [id number] shoulde r pain and having trouble moving left arm [facility] 06[facility]20 Released w/o Limitations [facility] NMCP FP) [facility] NMCP FP) OUTPATIENT [id number] right knee pain MARGARITA CHEN 11/22 Released w/o Limitations [facility] NMCP FP) [facility] NMCP FP) OUTPATIENT [id number] THROAT IS IRITATE D [facility] 12/17 Released w/o Limitations [facility] NMCP FP) [place] ) OUTPATIENT [id number] BRIDGETT CINDY Shaunna 07/11 Released w/o Limitations [place]ce [facility] Optomet ry) [place] Hearing [facility]) OUTPATIENT [id number] hearing test CLAUDIA KELLEY 07/14 Released w/o Limitations [place]([facility] ) [place]cept [place] OUTPATIENT [id number] IMM VIRGIL HONEYCUTT 07/16 Released w/o Limitations [place]Rece [place]) OUTPATIENT [id number] sore throat/ blister s/pulle d HEATHER Massey 07/29 Released with Work/Duty Limitations [place]) OUTPATIENT [id number] JAZMIN MCGOWAN 11/05 Released w/o Limitations [place]([facility]) JUDITH [facility] General Medicine) OUTPATIENT [id number] Coughin g Up Blood LUZ MARIA LAROSE S 01/14 Released w/o Limitations [employer]([facility] General Medicin e) [facility] [employer]([facility] General Medicine) OUTPATIENT [id number] nausea/ vomitin g SHANEL JACKSON A 03/06 Released with Work/Duty Limitations [employer] [employer]([facility] General Medicin e) [facility](Hearin g Conservat ion 2) OUTPATIENT [id number] Hearing Exam MOHSEN ESTEVES L 05/15 Released w/o Limitations [facility](Hear ing Conserv ation 2) Theater Facility OUTPATIENT [id number] 08/30 Released w/o Limitations [facility] OUTPATIENT [id number] 08/31 Released with Work/Duty Limitations Theater [facility] OUTPATIENT [id number] 05/30 Released w/o Limitations Theater Facilit y [facility]earin g Conservat ion 2) OUTPATIENT [id number] Hearing Exam MOHSEN ESTEVES L 06/30 Released w/o Limitations [facility](Hear ing Conserv ation 2) [facility]([place] [address]) OUTPATIENT [id number] numbnes s in extreme ties and light headedn ess JARROD ARGUELLO N 08/02 Released w/o Limitations [employer] [employer]([place] [address]) [facility]) OUTPATIENT [id number] RONNY HAAS 09/30 Released w/o Limitations [employer] [employer]([facility]) [facility]) OUTPATIENT [id number] FAINA CAO 01/09 Released w/o Limitations [employer] [employer]([facility]) [facility] Team 2) OUTPATIENT [id number] lt knee pain HIMA AVELAR 01/25 Released with Work/Duty Limitations [employer]([facility] y Team 2) [facility] [employer]([facility] Team 2) OUTPATIENT [id number] mri checkup SAUNDRA JARROD N 02/03 Released w/o Limitations [employer]([facility] y Team 2) [facility]) OUTPATIENT [id number] RIGOBERTO SALDANA 02/19 Released w/o Limitations [facility]) [facility] Team 2) OUTPATIENT [id number] f/u right foot SAUNDRA JARROD N 02/21 Released w/o Limitations [employer]([facility] y Team 2) [facility]) OUTPATIENT [id number] EDI ORTIZ 03/06 Released w/o Limitations [employer] [employer]([facility]) [facility](Podiat ry Clinic) OUTPATIENT [id number] CRUSH INJURY RIGHT FOOT KEO KING Geetha 03/08 Released with Work/Duty Limitations [facility](Podi atry Clinic) [facility](Deploy ment) OUTPATIENT [id number] [facility] Released w/o Limitations [facility](Depl oyment) [facility](Podiat ry Clinic) OUTPATIENT [id number] f/up; right foot injury; profile KEO KING 04/19 Released with Work/Duty Limitations [facility](Podi atry Clinic) [facility] OUTPATIENT [id number] PIOTR AGUILAR 05/05 Released w/o Limitations [employer] [employer]([facility]) [facility] Team 2) OUTPATIENT [id number] follow- up JARROD ARGUELLO N 05/05 Released w/o Limitations [employer]([facility] y Team 2) [employer] [employer]([facility] Team 2) OUTPATIENT [id number] lower back pain JARROD ARGUELLO N 06/22 Released w/o Limitations [employer]([facility] y Team 2) [employer](Deploy ment) OUTPATIENT [id number] PHA/TAB NT/IMM/ VISION KEYA HUDSON R 07/27 Released w/o Limitations [employer](Depl oyment) [employer] [employer](Hearin g Conservat ion 2) OUTPATIENT [id number] Hearing Exam ESTHER HIMA Napoleon 07/27 Released w/o Limitations [employer](Hear ing Conserv ation 2) [employer] [employer]([facility] Team 2) OUTPATIENT [id number] lower back pain JARROD ARGUELLO N 08/22 Released w/o Limitations [facility] [employer]([facility] Team 2) [employer] [employer]([facility] OCS) OUTPATIENT [id number] Back(ch ronic) GLORIA AKBAR 09/12 Released with Work/Duty Limitations [employer]([facility] OCS) [facility]) OUTPATIENT [id number] l tractio n EVELYNE CARSON J 09/15 Released w/o Limitations [employer]([facility] OCS) [employer](Deploy ment) OUTPATIENT [id number] ISABEL KEYA HUDSON 09/16 Released w/o Limitations [employer](Depl oyment) [facility] OUTPATIENT [id number] l tractio n SQUIER, EVELYNE J 09/20 Released w/o Limitations [facility]) OUTPATIENT [id number] ZACK RAMOS 09/20 Sick at Home/Quarter s [facility]) [facility](Orthop edic Clinic) OUTPATIENT [id number] lower back pain IVY WEEMS I 09/21 Sick at Home/Quarter s [facility](Orth opedic Clinic) [facility](Orthop edic Clinic) OUTPATIENT [id number] FU SUNILMELINDA IVY I 09/26 Sick at Home/Quarter s [facility](Orth opedic Clinic) [facility](Orthop edic Clinic) OUTPATIENT [id number] fu SUNILMELINDA IVY I 09/28 Sick at Home/Quarter s [facility](Orth opedic Clinic) [facility](Orthop edic Clinic) OUTPATIENT [id number] FAUSTINA IVY I 10/04 Released with Work/Duty Limitations [facility](Orth opedic Clinic) [facility]op edic Clinic) OUTPATIENT [id number] f/u post ct scan FAUSTINA IVY I 10/05 Released with Work/Duty Limitations [facility](Orth opedic Clinic) [facility] OUTPATIENT [id number] back STOGLORIA SANCHEZ 10/10 Released with Work/Duty Limitations [facility] [employer]([facility] Phy Th) [facility] Phy Th) OUTPATIENT [id number] tens SQUEVELYNE CHATTERJEE 10/18 Released w/o Limitations [employer] [employer]([facility] Phy Th) [facility] Phy Th) OUTPATIENT [id number] tens SQUIER, EVELYNE Geetha 10/20 Released w/o Limitations [facility] [employer]([facility] Phy Th) [facility] Phy Th) OUTPATIENT [id number] tens SQUEVELYNE CHATTERJEE 10/25 Released w/o Limitations [facility] Phy Th) [facility] Phy Th) OUTPATIENT [id number] EVELYNE Millard 10/27 Released w/o Limitations [facility] Phy Th) [facility]) OUTPATIENT [id number] L back STOGLORIA SANCHEZ E 11/01 Released with Work/Duty Limitations [facility] Phy Th) [facility]) OUTPATIENT [id number] MIGUELINA ADAM 11/23 Immediate Referral [facility]) [facility] OUTPATIENT [id number] L back STOGLORIA SANCHEZ E 12/07 Released with Work/Duty Limitations [facility]([place] [address]) OUTPATIENT [id number] ZEENAT ROSAS 12/30 Released with Work/Duty Limitations [employer]([address]) [employer] [employer]([place] [address]) TELE CONSULT [id number] Results Rec'd JARROD ARGUELLO N 12/30 [facility]([address] 2) [facility]) OUTPATIENT [id number] IVY OWEN 01/13 Released w/o Limitations [facility] [employer]([facility]) [facility]) OUTPATIENT [id number] TAMIA RIOS 01/14 Released w/o Limitations [facility] [employer]([facility]) [facility]([place] [address]) TELE CONSULT [id number] results JARROD ARGUELLO 01/25 [facility]([address] 2) [facility]([place] [address]) OUTPATIENT [id number] update on surgery JARROD ARGUELLO 03/06 Released w/o Limitations [facility] M[facility] 2) [facility](Orthop edic Clinic) TELE CONSULT [id number] Notes Entered by: ALICE VERGARA 14 Mar 2012 1312 ------- ------- ------- ------- -- Results rec'd IVY WEEMS I 03/14 [facility](Orth opedic Clinic) [facility] Med Brd) OUTPATIENT [id number] MRDP KACEY VASQUEZ ABDIEL MARBIN 03/20 Released w/o Limitations [facility] [employer]([facility] Med Brd) [facility] [employer](Manage d Care Admin) OUTPATIENT [id number] [facility] appt/ID ES COURTNEY VALENZUELA 04/06 Released with Work/Duty Limitations [facility]) [facility]IENT [id number] va comp & pen exam RIGOBERTO SALDANA 04/18 Released w/o Limitations [facility]) [facility]) OUTPATIENT [id number] va comp & pen exam MELY BALLARD 04/23 Released w/o Limitations [facility](Opto metry Clinic) [facility](Audiol ogy Clinic) OUTPATIENT [id number] VA COMPENS ATION AND PENSION EXAM JONATHANGAURAV AGUILERA V 04/30 Released w/o Limitations [facility](Conor ology Clinic) [facility](Manage d Care Admin) OUTPATIENT [id number] IDES fu with telehealth case manager COURTNEY VALENZUELA 04/30 Released with Work/Duty Limitations [facility]) [facility]) OUTPATIENT [id number] visual 30-2 MELY BALLARD 05/07 Released w/o Limitations [facility] metry [facility]) [facility]([address] 1) OUTPATIENT [id number] CARMELGWEN DUARTE Geetha 05/08 Released w/o Limitations [facility]([address] 1) [facility]([place] [address] [facility] 2) OUTPATIENT [id number] nose bleeds and coughin g up blood JUDI ELLA L 05/11 Released w/o Limitations [facility]([address]) [facility] Brd) OUTPATIENT [id number] MONY SHETTY 06/04 Released with Work/Duty Limitations [facility]) [facility]([address] 2) OUTPATIENT [id number] pn in kidney and abd are radiati ng into groin/t esticle s area GLORIA SAMUEL 06/05 Sick at Home/Quarter s [facility]([address]) [facility]) OUTPATIENT [id number] ROBB SPAIN 06/08 Released w/o Limitations [facility]) [facility]([address] 2) OUTPATIENT [id number] ER f/u GLORIA SAMUEL 06/11 Released w/o Limitations [facility] [employer]([address] 2) [facility] [employer](Manage d Care Admin) OUTPATIENT [id number] IDES fu with telehealth case manager COURTNEY VALENZUELA 06/11 Released with Work/Duty Limitations [employer] [employer]([facility]) [facility](Surger y Clinic) OUTPATIENT [id number] Abdomin al pain STEWART LOPEZ 06/14 Released w/o Limitations [facility](Surg anshu Clinic) [facility]) OUTPATIENT [id number] TAMIA RIOS 06/30 Released w/o Limitations [employer] [employer]([facility]) [facility]([address]) OUTPATIENT [id number] f/u from MARTHA MCNAMARA 07/02 Released w/o Limitations [employer] [employer]([address] 5) [facility]) OUTPATIENT [id number] TAMIA RIOS 07/08 Released w/o Limitations [employer]([facility]) [employer] [employer](Manage d Care Admin) OUTPATIENT [id number] REXS fu with telehealth case manager COURTNEY VALENZUELA 07/11 Released with Work/Duty Limitations [employer]([facility]) [facility]([address] 2) OUTPATIENT [id number] ELLA ORNELAS 08/03 Sick at Home/Quarter s [employer] [employer]([address]) [employer] [employer](Manage d Care Admin) OUTPATIENT [id number] contact with KYRA GOMEZ 08/23 Released w/o Limitations [employer]([facility] Admin) [facility] [employer](Manage d Care Admin) OUTPATIENT [id number] f/u with KYRA JOHNSTON 08/28 Released w/o Limitations [employer]([facility] Admin) [facility]([address] 2) OUTPATIENT [id number] LBP X2 days LUZ MARINA MUNOZ S 09/04 Sick at Home/Quarter s [employer] [employer]([address]) [employer] [employer]([address]) OUTPATIENT [id number] f/u lab results LUZ MARINA MUNOZ S 09/11 Released w/o Limitations [employer]([address]) [employer](Manage d Care Admin) OUTPATIENT [id number] f/u with KYRA JOHNSTON 09/24 Released w/o Limitations [employer]([facility]) [facility]([address]) TELE CONSULT [id number] Notes Entered by: JANUARY DOUGLAS 25 Sep 2012 0740 ------- ------- ------- ------- -- Cardiol ogy JANUARY Munoz 09/25 [employer] [employer]([address]) [employer] [employer](Manage d Care Admin) OUTPATIENT [id number] KYRA Fontenot 09/27 Released w/o Limitations [employer] [employer]([facility] Admin) [employer] [employer]([address] 3) OUTPATIENT [id number] Polypha TOO Lang 10/08 Released w/o Limitations [employer]([address]) [employer](Manage d Care Admin) OUTPATIENT [id number] f/u with KYRA JOHNSTON 10/23 Released w/o Limitations [employer]([facility] Admin) [employer](Deploy ment) OUTPATIENT [id number] MAINT/L AB/VISI ON/HEAR IVY EAST 10/24 Released w/o Limitations [employer](Depl oyment) [employer]([address]) TELE CONSULT [id number] Notes Entered by: JOSELYN CHINCHILLA 05 Nov 2012 1459 ------- ------- ------- ------- -- Results rec'd JANUARY DOUGLAS 11/05 [facility] [employer]([address]) [employer]([address]) TELE CONSULT [id number] Notes Entered by: JOSELYN CHINCHILLA 08 Nov 2012 0932 ------- ------- ------- ------- -- RESULTS REC'D JANUARY DOUGLAS 11/08 [employer] [employer]([address]) [employer]([address]) OUTPATIENT [id number] fell down stairs, back spasms and uncontr olable bowel movemen CLAUDIA Cruz 11/22 Sick at Home/Quarter s [employer]([address]) [employer]([address] 5) OUTPATIENT [id number] F/U CLAUDIA HILL 11/23 Released w/o Limitations [employer]([address] 5) [employer](Manage d Care Admin) OUTPATIENT [id number] f/u with KYRA JOHNSTON 11/23 Released w/o Limitations [employer]([facility]) [employer](Manage d Care Admin) OUTPATIENT [id number] SHRUTHI Wagner 11/27 Released w/o Limitations [employer]([facility] Admin) [facility]) OUTPATIENT [id number] TAMIA RIOS 03/18 Released w/o Limitations [employer]([facility]) [facility] [employer]([address]) OUTPATIENT [id number] nausea, vomitti ng, diarrhe a KEO MAST 04/11 Released w/o Limitations [employer]([address]) [facility]) OUTPATIENT [id number] MIGUELINA ADAM 09/04 Released w/o Limitations [employer]([facility]) [facility]) OUTPATIENT [id number] PIOTR AGUILAR 10/13 Released w/o Limitations [employer]([facility]) [facility]) OUTPATIENT [id number] ANNABELLE CERVANTES 10/23 Immediate Referral [facility]) [facility] OUTPATIENT [id number] FLU LIKE SYMPTOM S ZACK RAMOS 10/23 Released w/o Limitations [employer]([facility](Emergen Medicine NMCP) OUTPATIENT [id number] RILEY RODRIGUEZ 11/19 Released w/o Limitations [facility](Gloria rgency Medicin e NMCP) [facility] PSYTX W PT 30 MINUTES [id number] Diagnos is: ICD-10- CM F43.10 Post-tr aumatic stress disorde r, unspeci fied
PAGE JUDGE E 03/07 [facility] Outpatient Encounter [id number] 03/09 [facility] [place] [facility] Outpatient Encounter [id number] 03/10 [facility] [place] [facility] Outpatient Encounter [id number] SYSTEM,CIS -ARK 03/13 [facility] [place] [facility] Outpatient Encounter [id number] SYSTEM,CIS -ARK 03/13 [facility] [place] [facility] Outpatient Encounter [id number] EMELIA GRIMES ONCIPRIANO Zhang 03/13 [facility] Outpatient Encounter [id number] Diagnos is: ICD-10- CM R50.9 Fever, unspeci fied
GIANNAMARCOS ALVAREZ Kristine 03/13 [facility] EMERGENCY DEPT VISIT LOW MDM [id number] [id number] Diagnos is: ICD-10- CM K52.9 Noninfe ctive gastroe nteriti s and colitis , unspeci fied
Christina PEREZ 03/13 [facility] PSYTX W PT 30 MINUTES [id number] [id number] Diagnos is: ICD-10- CM F43.10 Post-tr aumatic stress disorde r, unspeci fied
PAGE JUDGE E 03/15 [facility] OFFICE O/P EST MOD 30-39 MIN [id number] Diagnos is: ICD-10- CM F31.81 Bipolar II disorde r
ESTUARDO MOURA 03/27 [facility] PSYTX W PT 30 MINUTES [id number] [id number] Diagnos is: ICD-10- CM F43.10 Post-tr aumatic stress disorde r, unspeci fied
PAGE JUDGE E 03/27 [facility] TTE W/DOPPLER COMPLETE [id number] Diagnos is: ICD-10- CM R06.00 Dyspnea , unspeci fied
Rita RIVAS S 04/11 [facility] Outpatient Encounter [id number] 04/11 [facility] HEMOGLOBIN [id number] [id number] Diagnos is: ICD-10- CM Z77.9 Oth contact w and (suspec jere) exposur es hazardo us to health< br/> WETHERBEELADIIN E 04/11 [facility] Outpatient Encounter [id number] 04[facility]11 [facility] Outpatient Encounter [id number] KIRSTIN VARNERANYA Bender Geetha 04/14 [facility] PSYTX W PT 30 MINUTES [id number] [id number] Diagnos is: ICD-10- CM F43.10 Post-tr aumatic stress disorde r, unspeci fied
PAGE JUDGE E 04/18 [facility] PSYTX W PT 30 MINUTES [id number] [id number] Diagnos is: ICD-10- CM F31.81 Bipolar II disorde r
PAGE JUDGE E 05/02 [facility] Outpatient Encounter [id number] TERESA VILA R 05/02 [facility] Outpatient Encounter [id number] [id number] KIRTI CARRILLO 05/03 [facility] Outpatient Encounter [id number] 05/03 [facility] Outpatient Encounter [id number] 05/04 [facility] EMERGENCY DEPT VISIT MOD MDM [id number] Diagnos is: ICD-10- CM F32.A Depress ion, unspeci fied
AB JODEE DISAMAChey M 05/08 [facility] OFF/OP CNSLTJ NEW/EST MOD 40 [id number] Diagnos is: ICD-10- CM F31.81 Bipolar II disorde r
ROCCO GALLEGOS SA 05/08 [facility] [place] [facility] OFFICE O/P EST MOD 30-39 MIN [id number] Diagnos is: ICD-10- CM F31.81 Bipolar II disorde r
ESTUARDO MOURA 05/09 [place] [facility] [place] [facility] Outpatient Encounter [id number] 05/17 [place] [facility] [place] [facility] PSYTX W PT 30 MINUTES [id number] Diagnos is: ICD-10- CM F31.81 Bipolar II disorde r
PAGE JUDGE 05/26 [facility] [place] [facility] PSYTX W PT 30 MINUTES [id number] Diagnos is: ICD-10- CM F31.81 Bipolar II disorde r
PAGE JUDGE 06/01 [place] [facility] [place] [facility] PSYTX W PT 30 MINUTES [id number] Diagnos is: ICD-10- CM F31.81 Bipolar II disorde r
PAEG JUDGE 06/08 [place] [facility] [place] [facility] PSYTX W PT 30 MINUTES [id number] Diagnos is: ICD-10- CM F31.81 Bipolar II disorde r
PAGE JUDGE 06/22 [place] [facility] [place] [facility] Outpatient Encounter [id number] 06/22 [place] [facility] [place] [facility] Outpatient Encounter [id number] 07/10 [place] [facility] [place] [facility] PSYTX W PT 30 MINUTES [id number] [id number] Diagnos is: ICD-10- CM F31.81 Bipolar II disorde r
PAGE JUDGE 07/14 [place] [facility] [place] [facility] PSYTX W PT 30 MINUTES [id number] Diagnos is: ICD-10- CM F43.10 Post-tr aumatic stress disorde r, unspeci fied
PAGE JUDGE E 07/28 [place] [facility] [place] [facility] PSYTX W PT 30 MINUTES [id number] Diagnos is: ICD-10- CM F31.81 Bipolar II disorde r
PAGE JUDGE E 08/18 [place] [facility] [place] [facility] Outpatient Encounter [id number] 09/06 [facility] [place] [facility] UNLISTED SPEC DERM SVC/PX [id number] [id number] Diagnos is: ICD-10- CM Z71.89 Other specifi ed area counselor ing<br/ > MINA MCGARRY 09/11 [facility] [place] [facility] Outpatient Encounter [id number] Diagnos is: ICD-10- CM L63.8 Other alopeci a areata< br/> JENNIFER ALFORD S 09/12 [place] [facility] [place] [facility] PSYTX W PT 30 MINUTES [id number] [id number] Diagnos is: ICD-10- CM F43.10 Post-tr aumatic stress disorde r, unspeci fied
PAGE JUDGE E 09/15 [place] [facility] [place] [facility] Outpatient Encounter [id number] 09/21 [place] [facility] [place] [facility] Outpatient Encounter [id number] 09/25 [place] [facility] [place] [facility] Outpatient Encounter [id number] 09/25 [place] [facility] [place] [facility] PSYTX W PT 30 MINUTES [id number] [id number] Diagnos is: ICD-10- CM F43.10 Post-tr aumatic stress disorde r, unspeci fied
PAGE JUDGE E 10/06 [facility] Outpatient Encounter [id number] 11/06 [facility] [place] [facility] Outpatient Encounter [id number] 11/10 [facility] OFF[facility] O/P NEW LOW 30 MIN [id number] Diagnos is: ICD-10- CM L64.9 Androge rickey alopeci a, unspeci fied
ALFORDRAFALChey Zhang S 12/12 [facility] OFFICE O/P EST MOD 30 MIN [id number] [id number] Diagnos is: ICD-10- CM S06.0X1 S Concuss ion w LOC of 30 minutes or less, sequela
Allison RENE SAKSHI E 12/12 [facility] IMMUNIZATI ON ADMIN [id number] [id number] Diagnos is: ICD-10- CM Z23 Encount er for immuniz ation<b r/> ASHLEE BENAVIDES 12/12 [facility] Outpatient Encounter [id number] 12/15 [facility] Outpatient Encounter [id number] 12/28 [facility] HC PRO PHONE CALL 5-10 MIN [id number] [id number] Diagnos is: ICD-10- CM F43.10 Post-tr aumatic stress disorde r, unspeci fied
ANABELLA YA 01/12 [facility] Outpatient Encounter [id number] 01/16 [place] [facility] [place] [facility] PSYTX W PT 30 MINUTES [id number] [id number] Diagnos is: ICD-10- CM F43.10 Post-tr aumatic stress disorde r, unspeci fied
PAGE JUDGE E 02/26 [place] [facility] [place] [facility] Outpatient Encounter [id number] ELLEN BERRIOS 03/14 [place] [facility] [place] [facility] PSYTX W PT 30 MINUTES [id number] [id number] Diagnos is: ICD-10- CM F31.81 Bipolar II disorde r
PAGE JUDGE E 03/25 [place] [facility] [place] [facility] PSYTX W PT 30 MINUTES [id number] Diagnos is: ICD-10- CM F43.10 Post-tr aumatic stress disorde r, unspeci fied
PAGE JUDGE E 04/26 [place] [facility] [place] [facility] Outpatient Encounter [id number] 05/21 [place] [facility] [place] [facility] Outpatient Encounter [id number] ELLEN BERRIOS 05/27 [place] [facility] [place] [facility] Outpatient Encounter [id number] ELLEN BERRIOS 06/25 [place] [facility] [place] [facility] PSYTX W PT 30 MINUTES [id number] [id number] Diagnos is: ICD-10- CM F43.10 Post-tr aumatic stress disorde r, unspeci fied
PAGE JUDGE E 06/25 [place] [facility] [place] [facility] PSYTX W PT 30 MINUTES [id number] [id number] Diagnos is: ICD-10- CM F43.10 Post-tr aumatic stress disorde r, unspeci fied
PAGE JUDGE HEW E 07/23 [place] [facility] [place] [facility] Outpatient Encounter [id number] Diagnos is: ICD-10- CM F31.81 Bipolar II disorde r
ESTUARDO MOURA 07/24 [place] [facility] [place] [facility] Outpatient Encounter [id number] 08/02 [place] [facility] [place] [facility] Outpatient Encounter [id number] 08/02 [place] [facility] [place] [facility] Outpatient Encounter [id number] 08/13 [place] [facility] [place] [facility] PSYTX W PT 30 MINUTES [id number] Diagnos is: ICD-10- CM F43.10 Post-tr aumatic stress disorde r, unspeci fied
PAGE JUDGE HEW E 08/21 [facility] Procedures Combined list of: 1) Procedures from Department of Veterans Affairs facilities going back up to thelast 18 months, not all [place] non-surgical procedures are included; 2) All procedures from the Department of Defense facilities. Procedure Procedure Type Code Date Perfomer Comments Sourc e No data is provided for this section because a [facility] internal system error occurred when retrieving data. A future request for this document may succe fully include data for this section if the system i ue has been resolved. DoD Social History Combined list of available smoking, tobacco, and other social history from Department of Defense and Veterans Affairs facilities. Social History Type Response Date Comment Source Tobacco smoking status NHIS VA-TOBACCO FORMER USER 12/12/2023 [facility] History of tobacco use VA-TOBACCO QUIT 5 TO < 15 YRS 12/12/2023 [facility] History of tobacco use PREVIOUS SMOKER 02/14/2023 [facility] History of tobacco use VA-TOBACCO FORMER USER 10/27/2022 [facility] History of tobacco use VA-TOBACCO FORMER USER 01/26/2021 [facility] History of tobacco use VA-TOBACCO QUIT 1 TO < 5 YRS 07/23/2019 [facility] History of tobacco use VA-TOBACCO FORMER USER 08/17/2018 [facility] History of tobacco use CURRENT TOBACCO USER 01/29/2018 [facility] History of tobacco use CURRENT TOBACCO USER 01/20/2017 [facility] History of tobacco use FORMER TOBACCO USE <1Y 11/30/2015 [facility] History of tobacco use CURRENT TOBACCO USER 04/09/2015 [facility] History of tobacco use CURRENT TOBACCO USER 01/16/2014 [facility] History of tobacco use CURRENT TOBACCO USER 12/25/2013 Smoking since age 12 [facility] History of tobacco use CURRENT TOBACCO USER 04/02/2013 [facility] This section is an empty social history section. [facility] Plan of Care List of future care activities from Department of Veterans Affairs facilities. Additional future care activities may be listed in the Assessment and Plan section. Date/Time Care Activity Care Activity Detail Facili ty 09/11/2024 AMBULATORY - PSYCHIATRY AMBULATORY - PSYC HIATRY [facility] 09/25/2024 AMBULATORY - PSYCHIATRY AMBULATORY - PSYC HIATRY [facility] 08/02/2024 Consult Order COMMUNITY CARE-C HIROPRACTIC Cons [facility] Advisor's Choice [facility]
--- OUTSIDE RECORDS SUMMARY | 2024-09-04 11:37 | XMS_ITS | Encounter Summary ---
Author Name [facility] [place] [facility] [place] Address [address] [place] [address] Care Team Providers Care Occasional Caregiver Name Role Phone TEODORO VALERIO Primary Care [...] to Policy Stevenson [employer]ETNA* POINT OF SERVICE [employer] Jan 18, 2015 [id number] LALA,ROXI OB PATIENT [place]BS [place] HEALTH MAINTENAN CE ORGANIZAT ION W/OUT OF NETWORK BENEFITS [place] Jun 09, 2023 [id number] [phone] LALA,ROXI OB PATIENT [place]BS [place] HEALTH MAINTE[place] CE ORGANIZAT [place]ON [place] [facility] ONLY Jun 09, 2023 [id number] [phone] LALA,ROXI OB PATIENT [facility] ([id number]) PRESCRIPT ION [facility] [place] Jun 09, 2023 [id number] [phone] LALA,ROXI OB PATIENT [facility] ([id number]) PRESCRIPT [facility] Jun 09, 2023 [id number] [phone] LALA,ROXI OB PATIENT Selected Encounter This section includes the information on record at [place] for the Encounter. Date/Time Encounter Type Encounter Description Reason Pro vider Source May 21, 2024 08:30 AM Outpatient Encounter [facility] Encounter Template Text not used by [place] Plan of Treatment: Future Appointments (+ 6 months) and Future Tests (+/- 45 days) The Plan of Treatment section includes future care activities for the patient from all [place] [facility] This section includes future appointments and future orders which are active, pending or scheduled. Future Appointments This section includes appointments that were scheduled to occur 6 months from the date of the Encounter, up to a maximum of 20 appointments. The data comes from all [facility] facilities. Appointment Date/Time Appointment Type Appointme nt Facility Name Jun 25, 2024 08:30 AM AMBULATORY - PSYCHIATRY [facility] Jul 23, 2024 04:00 PM AMBULATORY - [facility]ATRY [facility] Aug 21, 2024 03:30 PM AMBULATORY - PSYCHIATRY [facility] Sep 11, 2024 09:30 AM AMBULATORY - PSYCHIATRY [facility] Sep 25, 2024 03:30 PM AMBULATORY - PSYCHIATRY [facility] Social History: Smoking Status (Most current) and Tobacco Use (All prior to encounter date) This section includes the most current, and the historical, smoking and tobacco- related health factors from the [place] facility where the Encounter took place. Current Smoking Status This section includes the most current smoking, or tobacco-related health factor, from the [place] facility where the Encounter took place. Date/Time Current Smoking Status Comment Beatriz ity Dec 12, 2023 10:30 AM VA-TOBACCO FORMER USER [facility] Tobacco Use History This section includes a history of the smoking, or tobacco-related health factors, that were collected on or before the date of the Encounter. The data comes from the [place] facility where the Encounter took place. Date/Time Smoking Status/Tobacco Use Comment F acility Dec 12, 2023 10:30 AM [place]-TOBACCO QUIT 5 TO < 15 YRS [facility] Feb 14, 2023 02:00 PM AH-BPR SMOKING DEPLOYMENT YES [facility] Feb 14, 2023 02:00 PM PREVIOUS SMOKER [place] [facility] Oct 27, 2022 10:30 AM VA-TOBACCO FORMER USER [facility] Oct 27, 2022 10:30 AM VA-TOBACCO QUIT 15 YRS OR MORE [facility] Jan 26, 2021 10:00 AM VA-TOBACCO FORMER USER [facility] Jan 26, 2021 10:00 AM VA-TOBACCO QUIT 1 TO < 5 YRS [facility] Jul 23, 2019 08:07 AM VA-TOBACCO FORMER USER [facility] Jul 23, 2019 08:07 AM VA-TOBACCO QUIT 1 TO < 5 YRS [facility] Jan 29, 2018 03:41 PM CURRENT TOBACCO USER [facility] Jan 20, 2017 03:27 PM CURRENT TOBACCO USER [facility] Nov 30, 2015 08:39 AM FORMER TOBACCO USE <1Y [facility] Encounter Notes: All associated encounter notes This section contains the clinical notes associated to the Encounter. Date/Time Encounter Note(s) Provider Source May 21, 2024 08:44 AM NO SHOW NOTE: LOCAL TITLE: NO SHOW NOTE STANDARD TITLE: NO SHOW NOTE DATE OF NOTE: MAY 21, 2024@08:44 ENTRY DATE: MAY 21, 2024@08:44:55 AUTHOR: WHITNEY JUDGE EXP COSIGNER: URGENCY: STATUS: COMPLETED NO SHOW NOTE Has ADDENDA Patient did not appear for scheduled appointment. Risk Factors: Risk factors include history of psychiatric diagnoses, history of abusing disinhibiting substances, one past suicidal behavior (2012) consisting of ideation and preparatory behavior (held gun until interrupted), and demographic factors (White, male). Protective Factors: Protective factors include social support, that the denies current suicidal ideation/intent/plan, he has significantly reduced his substance use, has intact reality testing, and he is future-oriented. Clinician Judgment of Risk: Overall, he impresses as low for risk of harm to self and others on acute and chronic bases Plan Based on Clinician Judgment of Risk: Base Engineer called and left privacy-compliant voicemail for him reminding him of contact information for rescheduling. Will proceed with No Show outreach protocol. Is the identified with a high risk for suicide flag? No Signing MATT Nunez to please no-show appointment in CPRS and send no- show letter. Base Engineer will continue with outreach to . /es/ WHITNEY JUDGE, Ph.D. STAFF PSYCHOLOGIST Signed: 05/21/2024 08:47 Receipt Acknowledged By: 05/21/2024 08:57 /sage/ LINUS NUNEZ Bearing Inspector 05/21/2024 ADDENDUM STATUS: COMPLETED called blurb writer and apologized for missing due to oversleeping. Rescheduled for a month out. /es/ WHITNEY JUDGE, Ph.D. STAFF PSYCHOLOGIST Signed: 05/21/2024 13:09 WHITNEY JUDGE [facility]
--- OUTSIDE RECORDS SUMMARY | 2024-09-04 11:37 | XMS_ITS | Encounter Summary ---
Author Name [facility] [place] Address [address] [place] [address] Care Team Providers Care Real Property Evaluator Name Role Phone TEODORO VALERIO Primary Care [...] to Policy Stevenson AETNA* POINT OF SERVICE [employer] Jan 18, 2015 [id number] LALA,ROXI OB PATIENT [place]BS [place] HEALTH MAINTENAN CE ORGANIZAT ION W/OUT OF NETWORK BENEFITS [facility] [place] Jun 09, 2023 [id number] [phone] LALA,ROXI OB PATIENT BCBS [place] HEALTH MAINTENAN CE ORGANIZAT ION [place] [facility] Jun 09, 2023 [id number] [phone] LALA,ROXI OB PATIENT [facility] ([id number]) PRESCRIPT ION [facility] [place] Jun 09, 2023 [id number] [phone] LALA,ROXI OB PATIENT [facility] ([id number]) PRESCRIPT ION [facility] Jun 09, 2023 [id number] [phone] LALA,ROXI OB PATIENT Selected Encounter This section includes the information on record at [place] for the Encounter. Date/Time Encounter Type Encounter Description Reason Pro vider Source Nov 06, 2023 11:00 AM Outpatient Encounter [facility] Encounter Template Text not used by [place] Plan of Treatment: Future Appointments (+ 6 months) and Future Tests (+/- 45 days) The Plan of Treatment section includes future care activities for the patient from all [place] [facility]. This section includes future appointments and future orders which are active, pending or scheduled. Future Appointments This section includes appointments that were scheduled to occur 6 months from the date of the Encounter, up to a maximum of 20 appointments. The data comes from all [facility]. Appointment Date/Time Appointment Type Appointme nt Facility Name Dec 12, 2023 08:45 AM AMBULATORY - NONE [facility] Dec 12, 2023 09:20 AM AMBULATORY - SURGERY [facility] Dec 12, 2023 09:30 AM AMBULATORY - NONE [facility] Dec 12, 2023 10:30 AM AMBULATORY - MEDICINE [facility] Feb 27, 2024 09:00 AM AMBULATORY - PSYCHIATRY [facility] March 25, 2024 09:00 AM AMBULATORY - PSYCHIATRY [facility] Apr 26, 2024 08:30 AM AMBULATORY - PSYCHIATRY [facility] Active, Pending, and Scheduled Orders This section includes a listing of several types of active, pending, and scheduled orders, including clinic medications orders, diagnostic test orders, procedure orders and consult orders; where the start date of the order is 45 days before the date of the Encounter or 45 days after the date of theEncounter. The data comes from all [facility]. Test Date/Time Test Type Test Details Facility Name Oct 27, 2023 12:00 AM Laboratory - Chemi stry Order URINALYSIS URINE WC [facility] Dec 12, 2023 12:00 AM Laboratory - Chemi stry Order FERRITIN SERUM SP ONCE [facility] Dec 12, 2023 12:00 AM Laboratory - Chemi stry Order VIT D 25-OH,TOTAL SERUM SP ONCE [facility] Dec 12, 2023 12:00 AM Laboratory - Chemi stry Order ZINC SERUM SP ONCE [facility] Dec 12, 2023 12:00 AM Laboratory - Chemi stry Order TSH W/REFLEX TO FREE T4 PLASMA SP ONCE [facility] Dec 12, 2023 12:00 AM Laboratory - Chemi stry Order ANTI-HEP C(EIA) SERUM SP [facility] Dec 12, 2023 12:00 AM Laboratory - Chemi stry Order C.TRACHOMATIS/N.GONORR HEA DNA URINE SP [facility] Dec 12, 2023 12:00 AM Laboratory - Chemi stry Order HIV AG/AB SCREEN SERUM SP ONCE [facility] Dec 12, 2023 12:00 AM Laboratory - Chemi stry Order SYPHILIS AB/RPR RFLX SERUM SP [facility] Social History: Smoking Status (Most current) and Tobacco Use (All prior to encounter date) This section includes the most current, and the historical, smoking and tobacco- related health factors from the [place] facility where the Encounter took place. Current Smoking Status This section includes the most current smoking, or tobacco-related health factor, from the [place] facility where the Encounter took place. Date/Time Current Smoking Status Comment Facil ity Feb 14, 2023 02:00 PM PREVIOUS SMOKER [place] [facility] Tobacco Use History This section includes a history of the smoking, or tobacco-related health factors, that were collected on or before the date of the Encounter. The data comes from the [place] facility where the Encounter took place. Date/Time Smoking Status/Tobacco Use Comment F acility Feb 14, 2023 02:00 PM PREVIOUS SMOKER [place] [facility] Oct 27, 2022 10:30 AM VA-TOBACCO FORMER USER [facility] Oct 27, 2022 10:30 AM [place]-TOBACCO QUIT 15 YRS OR MORE [facility] Jan 26, 2021 10:00 AM VA-TOBACCO FORMER USER [facility] Jan 26, 2021 10:00 AM [place]-TOBACCO QUIT 1 TO < 5 YRS [facility] Jul 23, 2019 08:07 AM VA-TOBACCO FORMER USER [facility] Jul 23, 2019 08:07 AM [place]-TOBACCO QUIT 1 TO < 5 YRS [facility] Jan 29, 2018 03:41 PM CURRENT TOBACCO USER [facility] Jan 20, 2017 03:27 PM CURRENT TOBACCO USER [facility] Nov 30, 2015 08:39 AM FORMER TOBACCO USE <1Y [facility] Encounter Notes: All associated encounter notes This section contains the clinical notes associated to the Encounter. Date/Time Encounter Note(s) Provider Source Nov 07, 2023 07:35 AM ADDENDUM: LOCAL TITLE: Addendum STANDARD TITLE: ADDENDUM DATE OF NOTE: NOV 07, 2023@07:35:35 ENTRY DATE: NOV 07, 2023@07:35:37 AUTHOR: WHITNEY JUDGE EXP COSIGNER: URGENCY: STATUS: COMPLETED Signing MSA Marium Kirby to please CBP 11/06/23 appointment in CPRS. Thank you! /sage/ WHITNEY JUDGE, Ph.D. PSYCHOLOGY FILM MASKER Signed: 11/07/2023 07:37 Receipt Acknowledged By: 11/15/2023 10:31 /sage/ MARIUM KIRBY --- Original Document --- 11/06/23 NO SHOW/CANCELLATION CLINIC NOTE: not seen for scheduled appointment due to: [place] cancelled Pt wants to cancel appt for 11/06/23 @ 11:00 due to work. Appointment Rescheduled: No Pt can be called at [phone]. Please review patient chart and medications for renewal needs (if appropriate). /sage/ NATASHA RAMOS MEDICAL CLAIMS REPRESENTATIVE Signed: 11/06/2023 09:16 Receipt Acknowledged By: 11/06/2023 10:49 /sage/ WHITNEY JUDGE, Ph.D. PSYCHOLOGY FILM MASKER 11/06/2023 ADDENDUM STATUS: COMPLETED Apartment Manager followed up via secure message inviting the to reschedule when he is able and reminding him of contact information to do so. /sage/ WHITNEY JUDGE, Ph.D. PSYCHOLOGY FILM MASKER Signed: 11/06/2023 10:58 WHITNEY JUDGE [facility] Nov 06, 2023 09:15 AM NO SHOW NOTE: LOCAL TITLE: NO SHOW/CANCELLATION CLINIC NOTE STANDARD TITLE: NO SHOW NOTE DATE OF NOTE: NOV 06, 2023@09:15 ENTRY DATE: NOV 06, 2023@09:15:57 AUTHOR: NATASHA RAMOS COSIGNER: URGENCY: STATUS: COMPLETED NO SHOW/CANCELLATION CLINIC NOTE Has ADDENDA [place] not seen for scheduled appointment due to: cancelled Pt wants to cancel appt for 11/06/23 @ 11:00 due to work. Appointment Rescheduled: No Pt can be called at [phone]. Please review patient chart and medications for renewal needs (if appropriate). /sage/ NATASHA RAMOS MEDICAL CLAIMS REPRESENTATIVE Signed: 11/06/2023 09:16 Receipt Acknowledged By: 11/06/2023 10:49 /sage/ WHITNEY JUDGE, Ph.D. PSYCHOLOGY FILM MASKER 11/06/2023 ADDENDUM STATUS: COMPLETED Apartment Manager followed up via secure message inviting the to reschedule when he is able and reminding him of contact information to do so. /sage/ WHITNEY JUDGE, Ph.D. PSYCHOLOGY FILM MASKER Signed: 11/06/2023 10:58 11/07/2023 ADDENDUM STATUS: COMPLETED Signing MATT Kirby to please CBP 11/06/23 appointment in CPRS. Thank you! /hung JUDGE, Ph.D. PSYCHOLOGY FILM MASKER Signed: 11/07/2023 07:37 NATASHA RAMOS [facility]
--- OUTSIDE RECORDS SUMMARY | 2024-09-04 11:37 | XMS_ITS | Encounter Summary ---
Author Name [facility] [place] Address [address] [place] [address] Care Team Providers Care Sample Maker Name Role Phone TEODORO TEODORO Primary Care Provider Unavailabl HANH Chavez Primary Care Provider Unavail le Insurance Providers: All historical and current Section [...] to Policy Stevenson AETNA* POINT OF SERVICE Mindie Jan 18, 2015 [id number] LALA,ROXI OB PATIENT [place] PiniOn MAINTENAN CE ORGANIZAT ION W/OUT OF NETWORK BENEFITS [place] Jun 09, 2023 [id number] [phone] LALA,ROXI OB PATIENT [place] Pini[place] ORGANIZ[place] ION [place] ONLY Jun 09, 2023 [id number] [phone] LALA,ROXI OB PATIENT [place] ([id number]) PRESCRIPT [place]ON [place] Jun 09, 2023 [id number] [phone] LALA,ROXI OB PATIENT CAREMARK ([id number]) PRESCRIPT [facility] Jun 09, 2023 [id number] [phone] LALA,ROXI OB PATIENT Selected Encounter This section includes the information on record at [place] for the Encounter. Date/Time Encounter Type Encounter Description Reason Pro vider Source Aug 02, 2024 09:16 AM Outpatient Encounter COMMUNITY CARE CONSULT IHE Encounter Template Text not used by [place] Plan of Treatment: Future Appointments (+ 6 months) and Future Tests (+/- 45 days) The Plan of Treatment section includes future care activities for the patient from all [place] [facility] This section includes future appointments and future orders which are active, pending or scheduled. Future Appointments This section includes appointments that were scheduled to occur 6 months from the date of the Encounter, up to a maximum of 20 appointments. The data comes from all [facility]. Appointment Date/Time Appointment Type Appointme nt Facility Name Aug 21, 2024 03:30 PM AMBULATORY - PSYCHIATRY [facility] Sep 11, 2024 09:30 AM AMBULATORY - PSYCHIATRY [facility] Sep 25, 2024 03:30 PM AMBULATORY - PSYCHIATRY [facility] Active, Pending, and Scheduled Orders This section includes a listing of several types of active, pending, and scheduled orders, including clinic medications orders, diagnostic test orders, procedure orders and consult orders; where the start date of the order is 45 days before the date of the Encounter or 45 days after the date of theEncounter. The data comes from all [facility]. Test Date/Time Test Type Test Details Facility Name Aug 02, 2024 09:24 AM Consult Order COMMUNITY CARE-CHIROPRACTIC Cons Song Lyricist's Choice [facility] Social History: Smoking Status (Most current) and Tobacco Use (All prior to encounter date) This section includes the most current, and the historical, smoking and tobacco- related health factors from the [place] facility where the Encounter took place. Current Smoking Status This section includes the most current smoking, or tobacco-related health factor, from the [place] facility where the Encounter took place. Date/Time Current Smoking Status [place]ole [place] Dec 12, 2023 10:30 AM VA-TOBACCO FORMER USER [facility] Tobacco Use History This section includes a history of the smoking, or tobacco-related health factors, that were collected on or before the date of the Encounter. The data comes from the [place] facility where the Encounter took place. Date/Time Smoking Status/Tobacco Use Comment F acility Dec 12, 2023 10:30 AM VA-TOBACCO QUIT 5 TO < [address] [facility] Feb 14, 2023 02:00 PM AH-BPR SMOKING DEPLOYMENT YES [facility] Feb 14, 2023 02:00 PM PREVIOUS [place]MOKER [place] [facility] Oct 27, 2022 10:30 AM VA-TOBACCO FORMER USER [facility] Oct 27, 2022 10:30 AM VA-TOBACCO QUIT [address] [facility] Jan 26, 2021 10:00 AM VA-TOBACCO FORMER USER [facility] Jan 26, 2021 10:00 AM VA-TOBACCO QUIT 1 TO < [address] [facility] Jul 23, 2019 08:07 AM VA-TOBACCO FORMER USER [facility] Jul 23, 2019 08:07 AM VA-TOBACCO QUIT 1 TO < [address] [facility] Jan 29, 2018 03:41 [address] TOBACCO USER [facility] Jan 20, 2017 03:27 PM CURRENT TOBACCO USER [facility] Nov 30, 2015 08:39 AM FORMER TOBACCO USE <1Y [facility] Encounter Notes: All associated encounter notes This section contains the clinical notes associated to the Encounter. Date/Time Encounter Note(s) Provider Source Aug 02, 2024 09:16 AM NONVA NOTE: LOCAL TITLE: COMMUNITY [facility]-REQUEST FOR SERVICE NOTE STANDARD TITLE: NONVA NOTE DATE OF NOTE: AUG 02, 2024@09:16 ENTRY DATE: AUG 02, 2024@09:16:18 AUTHOR: JESSICA STARR EXP COSIGNER: URGENCY: STATUS: COMPLETED PACT: Please address Referral for additional services was received from patient's Chiropractic Provider, [facility] . Please see RFAS and notes uploaded to Chiropractic, Consult #: [id number] Authorization 07/17/23. Jones has used / visits. Alerting PACT for review and placement of new consult if indicated. RFS and records uploaded to [facility] note dated 05/04/[address] new consult if clinically indicated, thank you. Please ensure plan of care is communicated to if new consult is not entered. Community [facility] [place] COMBATANT DIVER OFFICER to contact with questions regarding this care: Jessica Starr LPN /sage/ JESSICA STARR LPN LICENSED PRACTICAL NURSE Signed: 08/02/2024 09:19 Receipt Acknowledged By: 08/02/2024 09:20 /sage/ Sarah Ordonez MD STAFF PHYSICIAN JESSICA STARR [facility]
--- OUTSIDE RECORDS SUMMARY | 2024-09-04 11:37 | XMS_ITS | Encounter Summary ---
Author Name [facility] [place] Address [address] [place] [address] Care Team Providers Care Drum Sander Name Role Phone KIRTISORAYA TEODORO Primary Care Provider UnavailHANH [place] Primary [...] to Policy Stevenson AETNA* POINT OF SERVICE [employer] Jan 18, 2015 [id number] LALA,ROXI OB PATIENT [place] Intradiem MAINTENAN CE ORGANIZAT ION W/OUT OF NETWORK BENEFITS [place] Jun 09, 2023 [id number] [phone] LALA,ROXI OB PATIENT [place] Intradiem MAINTENAN CE ORGANIZAT ION [place] ONLY Jun 09, 2023 [id number] [phone] LALA,ROXI OB PATIENT CAREMARK ([id number]) PRESCRIPT ION [facility] Jun 09, 2023 [id number] [phone] LALA,ROXI OB PATIENT CAREMARK ([id number]) PRESCRIPT ION [facility] Jun 09, 2023 [id number] [phone] LALA,ROXI OB PATIENT Selected Encounter This section includes the information on record at [place] for the Encounter. Date/Time Encounter Type Encounter Description Reason Provider Source Sep 11, 2023 08:15 AM UNLISTED SPEC DERM SVC/PX DERMATOLOGY ICD-10-CM Z71.89 Other specified counseling MISA MCGARRY [facility] Encounter Template Text not used by [place] Assessments - Encounter Diagnoses This section includes the primary and secondary diagnoses documented for the Encounter. Date/Time Primary/Secondary Diagnosis Diagnosis Name Provider Source Dec 08, 2023 02:31 PM PRIMARY Other specified counseling MISA MCGARRY [facility] Plan of Treatment: Future Appointments (+ 6 months) and Future Tests (+/- 45 days) The Plan of Treatment section includes future care activities for the patient from all [place] [facility]. This section includes future appointments and future orders which are active, pending or scheduled. Future Appointments This section includes appointments that were scheduled to occur 6 months from the date of the Encounter, up to a maximum of 20 appointments. The data comes from all [place] treatment facilities. Appointment Date/Time Appointment Type Appointme nt Facility Name Sep 15, 2023 11:00 AM AMBULATORY - PSYCHIATRY [facility] Oct 06, 2023 11:00 AM AMBULATORY - PSYCHIATRY [facility] Dec 12, 2023 08:45 AM [facility] Dec 12, 2023 09:20 AM AMBUL[place]ORY - [place] [facility] Dec 12, 2023 09:30 AM [facility] Dec 12, 2023 10:30 AM AMBULATORY - [place]IC[place] [facility] Feb 27, 2024 09:00 AM AMBULATORY - PSYCHIATRY [facility] Social History: Smoking Status (Most current) and Tobacco Use (All prior to encounter date) This section includes the most current, and the historical, smoking and tobacco- related health factors from the [place] facility where the Encounter took place. Current Smoking Status This section includes the most current smoking, or tobacco-related health factor, from the [place] facility where the Encounter took place. Date/Time Current Smoking Status Comment Facil sury Feb 14, 2023 02:00 PM PREVIOUS SMOKER [place] [facility] Tobacco Use History This section includes a history of the smoking, or tobacco-related health factors, that were collected on or before the date of the Encounter. The data comes from the [facility] where the Encounter took place. Date/Time Smoking Status/Tobacco Use Comment F danuta Feb 14, 2023 02:00 PM PREVIOUS SMOKER [place] [facility] Oct 27, 2022 10:30 AM VA-TOBACCO FORMER USER [facility] Oct 27, 2022 10:30 AM [place]-TOBAC[place] QUIT [address] [facility] Jan 26, 2021 10:00 AM VA-TOBACCO FORMER USER [facility] Jan 26, 2021 10:00 AM VA-TOBACCO QUIT 1 TO < [address] [facility] Jul 23, 2019 08:07 AM VA-TOBACCO FORMER USER [facility] Jul 23, 2019 08:07 AM VA-TOBACCO QUIT 1 TO < [address] [facility] Jan 29, 2018 03:41 PM [address] TOBACCO USER [facility] Jan 20, 2017 03:27 PM CURRENT TOBACCO USER [facility] Nov 30, 2015 08:39 AM FORMER TOBACCO USE <1Y [facility] Encounter Notes: All associated encounter notes This section contains the clinical notes associated to the Encounter. Date/Time Encounter Note(s) Provider Source Sep 11, 2023 09:06 AM TELEIMAGING NOTE: LOCAL TITLE: TELEDERMATOLOGY IMAGING REQUEST CONSULT STANDARD TITLE: TELEIMAGING NOTE DATE OF NOTE: SEP 11, 2023@09:06 ENTRY DATE: SEP 11, 2023@09:06:05 AUTHOR: MISA MCGARRY COSIGNER: URGENCY: STATUS: COMPLETED Teledermatology Consult Request The patient was educated regarding the Teledermatology process at this encounter. Patient DOES consent to have images taken, viewed, and interpreted using the Teledermatology process. This consult addresses: A new condition Images: The images were acquired in clinic through traditional TeleDermatology Image acquisition. HISTORY: Prior skin history: Yes eczema Have you had a skin cancer before? None Reported Patient reports no family history of melanoma. Taking new med/supplements: None reported Immunosuppression history: None reported Other significant history: None reported Chief Complaint: bald patches in rodriguez PROBLEM A LOCATION(S): Head/Neck - rodriguez area DURATION: 3 months ago SYMPTOMS: Other:bald patches CHANGES: None TREATMENT: No BIOPSY: No PROBLEM B: LOCATION(S): Head/Neck - left yazidism and posterior scalp DURATION: 3 months ago SYMPTOMS: Other:bald patches CHANGES: None TREATMENT: No BIOPSY: No Security Consultant's comments: also has bald spots at left yazidism and posterior scalp (Problem B) /sage/ [facility]Tele[facility] Security Consultant Signed: 09/11/2023 09:[address] [facility] Sep 11, 2023 08:02 AM ADVANCE DIRECTIVE: LOCAL TITLE: AD NOTIFICATION AND SCREENING STANDARD TITLE: ADVANCE DIRECTIVE DATE OF NOTE: SEP 11, 2023@08:02 ENTRY DATE: SEP 11, 2023@08:02:36 AUTHOR: ABY PICHARDO EXP COSIGNER: URGENCY: STATUS: COMPLETED ADVANCE DIRECTIVE NOTIFICATION: Patient was given written notification of the following rights: 1. Accept or refuse any medical treatment. 2. Complete a durable power of consumer attorney for health care. 3. Complete a living will. ADVANCE DIRECTIVE SCREENING: Does patient have an Advance Directive? The patient does not have an Advance Directive. The patient does not wish to create an Advance Directive for health care. Comment: declined /sage/ ABY PICHARDO Advance Analysis Engineer Signed: 09/11/2023 08:[address] [facility]
--- OUTSIDE RECORDS SUMMARY | 2024-09-04 11:37 | XMS_ITS | Encounter Summary ---
Author Name [place] Address [address] [place] [address] Care Team Providers Care Ion Exchange Operator Name Role Phone TEODORO VALERIO Primary Care [...] to Policy Stevenson AETNA* POINT OF SERVICE [employer] Jan 18, 2015 [id number] LALA,ROXI OB PATIENT BCBS CT HEALTH MAINTENAN CE ORGANIZAT ION W/OUT OF NETWORK BENEFITS [place] Jun 09, 2023 [id number] [phone] LALA,ROXI OB PATIENT BCBS [place] HEALTH MAINTENAN CE ORGANIZAT ION [place] ONLY Jun 09, 2023 [id number] [phone] LALA,ROXI OB PATIENT [place] ([id number]) PRESCRIPT ION [place] Jun 09, 2023 [id number] [phone] LALA,ROXI OB PATIENT [place] ([id number]) PRESCRIPT [facility] Jun 09, 2023 [id number] [phone] LALA,ROXI OB PATIENT Selected Encounter This section includes the information on record at [place] for the Encounter. Date/Time Encounter Type Encounter Description Reason Provider Source Jun 25, 2024 08:07 AM Outpatient Encounter [facility] Encounter Template Text not used by CT Plan of Treatment: Future Appointments (+ 6 months) and Future Tests (+/- 45 days) The Plan of Treatment section includes future care activities for the patient from all [facility]. This section includes future appointments and future orders which are active, pending or scheduled. Future Appointments This section includes appointments that were scheduled to occur 6 months from the date of the Encounter, up to a maximum of 20 appointments. The data comes from all [facility]. Appointment Date/Time Appointment Type Appointme nt Facility Name Jul 23, 2024 04:00 PM AMBULATORY - PSYCHIATRY [facility] Aug 21, 2024 03:30 PM AMBULATORY - PSYCHIATRY [facility] Sep 11, 2024 09:30 AM AMBULATORY - PSYCHIATRY [facility] Sep 25, 2024 03:30 PM AMBULATORY - PSYCHIATRY [facility] Active, Pending, and Scheduled Orders This section includes a listing of several types of active, pending, and scheduled orders, including clinic medications orders, diagnostic test orders, procedure orders and consult orders; where the start date of the order is 45 days before the date of the Encounter or 45 days after the date of theEncounter. The data comes from all [facility]. Test Date/Time Test Type Test Details Facility Name Aug 02, 2024 09:24 AM Consult Order COMMUNITY CARE-CHIROPRACTIC Cons Otolaryngology Teacher's Choice [facility] Social History: Smoking Status (Most current) and Tobacco Use (All prior to encounter date) This section includes the most current, and the historical, smoking and tobacco- related health factors from the [place] facility where the Encounter took place. Current Smoking Status This section includes the most current smoking, or tobacco-related health factor, from the [place] facility where the Encounter took place. Date/Time Current Smoking Status Comment Facil ity Dec 12, 2023 10:30 AM VA-TOBACCO FORMER USER [facility] Tobacco Use History This section includes a history of the smoking, or tobacco-related health factors, that were collected on or before the date of the Encounter. The data comes from the [place] facility where the Encounter took place. Date/Time Smoking Status/Tobacco Use Comment F acalphonso Dec 12, 2023 10:30 AM VA-TOBACCO QUIT 5 TO < 15 YRS [facility] Feb 14, 2023 02:00 PM AH-BPR SMOKING DEPLOYMENT YES [facility] Feb 14, 2023 02:00 PM [facility] Oct 27, 2022 10:30 AM VA-TOBACCO FORMER USER [facility] Oct 27, 2022 10:30 AM VA-TOBACCO QUIT 15 YRS OR MORE [facility] Jan 26, 2021 10:00 AM VA-TOBACCO FORMER USER [facility] Jan 26, 2021 10:00 AM VA-TOBACCO QUIT 1 TO < 5 YRS [facility] Jul 23, 2019 08:07 AM VA-TOBACCO FORMER USER [facility] Jul 23, 2019 08:07 AM VA-TOBACCO QUIT 1 TO < 5 YRS [facility] Jan 29, 2018 03:41 PM CURRENT TOBACCO USER [facility] Jan 20, 2017 03:27 PM CURRENT TOBACCO USER [facility] Nov 30, 2015 08:39 AM FORMER TOBACCO USE <1Y [facility] Encounter Notes: All associated encounter notes This section contains the clinical notes associated to the Encounter. Date/Time Encounter Note(s) Provider Source Jun 25, 2024 08:07 AM MENTAL HEALTH SECU RE MESSAGING: LOCAL TITLE: MENTAL HEALTH SECURE MESSAGING STANDARD TITLE: MENTAL HEALTH SECURE MESSAGING DATE OF NOTE: JUN 25, 2024@08:07 ENTRY DATE: JUN 25, 2024@08:07:46 AUTHOR: SHYANNE INFANTE COSIGNER: URGENCY: STATUS: COMPLETED ------Original Message --- Sent: 06/25/2024 02:10 AM ET From: RAISA LALA To: [facility] Mental Health Team Jerzy Bender J.% Subject: Medication:Gabapentin Prescription Hello, I'm emailing in a request for another Gabapentin prescription. I'm out of refills as I have to submit a refill request every 15 days. I take the medication as prescribed, but I only get half a month's worth at a time from the pharmacy. I do have an appointment scheduled to see Dr. Bertrand in August, and I'm going to talk to him about this issue as well. Thank you ------Original Message --- Sent: 06/25/2024 09:07 AM ET From: HSYANNE INFANTE To: RAISA LALA Subject: Medication:Gabapentin Prescription Raisa, It appears you have one refill remaining, so I will do a courtesy request to pharmacy to get it mail out. GABAPENTIN CAP,ORAL 300MG TAKE TWO CAPSULES BY MOUTH THREE TIMES A DAY NEEDED FOR ANXIETY Days Supply: 30 Quantity: 90 Refills: 5 Bookstore Manager: MAIL Indication: FOR ANXIETY Comments: Dispense Drugs (units/dose): GABAPENTIN 300MG CAP () Last Filled: 06/06/24 Refills Remainin Filled: 01/16/24 (Mail) released 01/22/24 RENEWED FROM RX # [id number] 02/21/24 (Mail) released 02/23/24 04/27/24 (Mail) released 05/01/24 05/17/24 (Mail) released 05/13/24 06/06/24 (Mail) released 05/31/24 Prescription#: [id number] When you receive this next refill please send us a Secure Message requesting a renewal of this medication. Unfortunately, the system will not allow a renewal to be entered until after you receive the next refill. Respectfully, Rc Infante RN Team L /es/ SHYANNE INFANTE RN STAFF NURSE Signed: 06/25/2024 08:07 SHYANNE INFANTE [facility]
--- OUTSIDE RECORDS SUMMARY | 2024-09-04 11:37 | XMS_ITS | Encounter Summary ---
Author Name [facility] [place] [facility] [place] Address [address] [place] [address] Care Team Providers Care Wireless Construction Manager Name Role Phone TEODORO TEODORO Primary Care [...] to Policy Stevenson [employer]ET[employer]* POINT OF SERVICE [employer] Jan 18, 2015 [id number] LALA,ROXI OB PATIENT BCBS [place] 3D MAINTENAN CE ORGANIZAT ION W/OUT OF NETWORK BENEFITS [place] Jun 09, 2023 [id number] [phone] LALA,ROXI OB PATIENT BCBS [place] 3D MAINQwiqqAN CE ORGANIZAT ION [place] ONLY Jun 09, 2023 [id number] [phone] LALA,ROXI OB PATIENT [place] ([id number]) PRESCRIPT [place]ON [place] Jun 09, 2023 [id number] [phone] LALA,ROXI OB PATIENT CAREMARK ([id number]) PRESCRIPT [facility] Jun 09, 2023 [id number] [phone] LALA,ROXI OB PATIENT Selected Encounter This section includes the information on record at [place] for the Encounter. Date/Time Encounter Type Encounter Description Reason Pro vider Source Aug 13, 2024 09:34 PM Outpatient Encounter COMMUNITY CARE CONSULT IHE Encounter Template Text not used by [place] Plan of Treatment: Future Appointments (+ 6 months) and Future Tests (+/- 45 days) The Plan of Treatment section includes future care activities for the patient from all [place] [facility]. This section includes future appointments and future orders which are active, pending or scheduled. Future Appointments This section includes appointments that were scheduled to occur 6 months from the date of the Encounter, up to a maximum of 20 appointments. The data comes from all [facility]. Appointment Date/Time Appointment Type Appointme nt Facility Name Aug 21, 2024 03:30 PM AMBULATORY - PSYCHIATRY [facility] Sep 11, 2024 09:30 AM AMBULATORY - PSYCHIATRY [facility] Sep 25, 2024 03:30 PM AMBULATORY - PSYCHIATRY [facility] Active, Pending, and Scheduled Orders This section includes a listing of several types of active, pending, and scheduled orders, including clinic medications orders, diagnostic test orders, procedure orders and consult orders; where the start date of the order is 45 days before the date of the Encounter or 45 days after the date of theEncounter. The data comes from all [facility]. Test Date/Time Test Type Test Details Facility Name Aug 02, 2024 09:24 AM Consult Order COMMUNITY CARE-CHIROPRACTIC Cons Acquisition Advisor's Choice [facility] Social History: Smoking [...] 14, 2023 02:00 PM [facility] Oct 27, 2022 10:30 AM VA-TOBACCO [...] Encounter. Date/Time Encounter Note(s) Provider Source Aug 13, 2024 09:34 PM NONVA NOTE: LOCAL TITLE: COMMUNITY CARE PRE-AUTH LETTER (AUTOPRINT) STANDARD TITLE: NONVA NOTE DATE OF NOTE: AUG 13, 2024@21:34 ENTRY DATE: AUG 13, 2024@21:34:16 AUTHOR: CHENG KELLEY EXP COSIGNER: URGENCY: STATUS: COMPLETED Jul RAISA LALA [address] [place], [place] [address] Dear RAISA LALA, Your [place] provider has referred you to a provider within the community for care. Your medical care for CHIROPRACTIC has been authorized with the community care provider listed below. DO NOT REPORT TO THE [place] [facility] Provider info: Care has been approved for the following vendor: Office name, address, and phone number: [facility] [address] [address] PH: [phone] FX: [phone] Please contact the identified provider to schedule your community appointment. If you need assistance with this appointment, please call your facility community care office [facility] Community Care at [phone] during the hours of 8:30AM - 3:00PM. Please follow up with your local [facility] community care office once this is scheduled. This step is needed to ensure your referral duration is maximized and the VA has accurate referral information for billing purposes. Authorization Number: [id number] Referral Issue Date: Jul Expiration Date: Oct (subject to change based on first appointment) If you are unable to schedule this appointment or the appointment is no longer needed, please contact the community provider above for notification/rescheduling and then call the [facility] Community Care at [phone] during the hours of 8:30AM - 3:00PM. If you need additional care/services not mentioned above or your authorization has and additional care is needed, please contact your primary care provider for a new referral. To review all care/service(s) approved under your referral, please go to the following link: [employer] Portal([email or web address]) Co-Payments: If you are required to pay a VA co-payment, you will be billed by the VA for each authorized visit that you attend. However, you are NOT REQUIRED to make co-payments to a community provider. Thank you for the opportunity to serve you. Sincerely, [place] Community Care (VACC) /sage/ CHENG RIVER Signed: 08/13/2024 21:35 CHENG KELLEY [facility]
--- OUTSIDE RECORDS SUMMARY | 2024-09-04 11:37 | XMS_ITS | Encounter Summary ---
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 [facility] [place] [place] Jun 09, 2023 [id number] [phone] LALA,ROXI OB PATIENT [place] 7 [employer] MAINFamiliarMAVERICK CE ORGANIZAT ION [place] [facility] ONLY Jun 09, 2023 [id number] [phone] LALA,ROXI OB PATIENT CAR[place]ARK ([id number]) PRESCRIPT ION [place] Jun 09, 2023 [id number] [phone] LALA,ROXI OB PATIENT CAREMARK ([id number]) PRESCRIPT [facility] Jun 09, 2023 [id number] [phone] LALA,ROXI OB PATIENT Selected Encounter This section includes the information on record at [place] for the Encounter. Date/Time Encounter Type Encounter Description Reason Provider Source Jul 24, 2024 11:32 AM Outpatient Encounter TELEPHONE ICD-10-CM F31.81 Bipolar II disorder ESTUARDO MOURA [facility] Encounter Template Text not used by [place] Assessments - Encounter Diagnoses This section includes the primary and secondary diagnoses documented for the Encounter. Date/Time Primary/Secondary Diagnosis Diagnosis Name Provider Source Jul 24, 2024 11:32 AM PRIMARY Bipolar II [facility] Jul 24, 2024 11:32 AM SECONDARY Post-traumatic stress disorder, unspecified [facility] Plan of Treatment: Future Appointments (+ 6 months) and Future Tests (+/- 45 days) The Plan of Treatment section includes future care activities for the patient from all [place] [facility]. This section includes future appointments and future orders which are active, pending or scheduled. Future Appointments This section includes appointments that were scheduled to occur 6 months from the date of the Encounter, up to a maximum of 20 appointments. The data comes from all [facility]. Appointment Date/Time Appointment Type Appointme nt Facility Name Aug 21, 2024 03:30 PM AMBULATORY - PSYCHIATRY [facility] Sep 11, 2024 09:30 AM AMBULATORY - PSYCHIATRY [facility] Sep 25, 2024 03:30 PM AMBULATORY - PSYCHIATRY [facility] Active, Pending, and Scheduled Orders This section includes a listing of several types of active, pending, and scheduled orders, including clinic medications orders, diagnostic test orders, procedure orders and consult orders; where the start date of the order is 45 days before the date of the Encounter or 45 days after the date of theEncounter. The data comes from all [facility]. Test Date/Time Test Type Test Details Facility Name Aug 02, 2024 09:24 AM Consult Order COMMUNITY CARE-CHIROPRACTIC Cons Art History Professor's Choice [facility] Social History: Smoking Status (Most current) and Tobacco Use (All prior to encounter date) This section includes the most current, and the historical, smoking and tobacco- related health factors from the [facility] where the Encounter took place. Current Smoking Status This section includes the most current smoking, or tobacco-related health factor, from the [facility] where the Encounter took place. Date/Time Current Smoking Status Comment Facil ity Dec 12, 2023 10:30 AM VA-TOBACCO FORMER USER [facility] Tobacco Use History This section includes a history of the smoking, or tobacco-related health factors, that were collected on or before the date of the Encounter. The data comes from the [facility] where the Encounter took place. Date/Time Smoking Status/Tobacco Use Comment F acility Dec 12, 2023 10:30 AM VA-TOBACCO QUIT 5 TO < 15 YRS [facility] Feb 14, 2023 02:00 PM AH-BPR SMOKING DEPLOYMENT YES [facility] Feb 14, 2023 02:00 PM PREVIOUS SMOKER [facility] Oct 27, 2022 10:30 AM VA-TOBACCO FORMER USER [facility] Oct 27, 2022 10:30 AM VA-TOBACCO QUIT 15 YRS OR MORE [facility] Jan 26, 2021 10:00 AM VA-TOBACCO FORMER USER [facility] Jan 26, 2021 10:00 AM VA-TOBACCO QUIT 1 TO < 5 YRS [facility] Jul 23, 2019 08:07 AM VA-TOBACCO FORMER USER [facility] Jul 23, 2019 08:07 AM VA-TOBACCO QUIT 1 TO < 5 YRS [facility] Jan 29, 2018 03:41 PM CURRENT TOBACCO USER [facility] Jan 20, 2017 03:27 PM CURRENT TOBACCO USER [facility] Nov 30, 2015 08:39 AM FORMER TOBACCO USE <1Y [facility] Encounter Notes: All associated encounter notes This section contains the clinical notes associated to the Encounter. Date/Time Encounter Note(s) Provider Source Jul 24, 2024 11:48 AM ADDENDUM: LOCAL TITLE: Addendum STANDARD TITLE: ADDENDUM DATE OF NOTE: JUL 24, 2024@11:48:14 ENTRY DATE: JUL 24, 2024@11:48:15 AUTHOR: ESTUARDO MOURA EXP COSIGNER: URGENCY: STATUS: COMPLETED Please check-in with patient re: mood symptoms around 08/19. Increasing lamotrigine and starting quetiapine today for increased irritability/anhedonia/insomnia. /es/ Estuardo Moura MD Staff Psychiatrist Signed: 07/24/2024 11:48 Receipt Acknowledged By: 07/24/2024 13:45 /es/ SHYANNE BERRIOS RN STAFF NURSE --- Original Document --- 07/24/24 PATIENT CONTACT NOTE: 11-20 minute phone call S: Called patient to follow-up after being cosigned by Dr. Schafer about increased symptoms. Patient confirms that he has justice experiencing increased irritability, mood swings, anhedonia, and insomnia. States his has been encouraging him to reach out regarding this. Estimates that this has been going on for about the past 4 weeks. Confirms that he has been consistent with his medication regimen. Expecting a child on 08/31, which can be a stressor. Has been taking Unisom and 20mg of melatonin, which sometimes can increase sleep to 7 hours, but otherwise averaging 4-5 hours. Denies SI or other safety concerns. No perceived side effects to med regimen. He is wondering about a dose increase in lamotrigine. O: MSE--calm and pleasant on the phone. Speech with RRR. Logical, linear thought process. No evidence of SI, HI, or paranoia. Judgement/insight appear intact. Appropriate attention for interview. A/P: BPAD2 and PTSD with increased breakthrough sx. Discussed option to titrate lamotrigine further as he is just taking 200mg QDAY. To address some of the symptoms more acutely, also recommended adding quetiapine temporarily for sleep/mood. Reviewed metabolic and TD risks. He is agreeable to trying this. Will likely discontinue once higher dose of lamotrigine has had a chance to take effect. - increase lamotrigine: 250mg QDAY x 7 days, THEN 300mg QDAY - start quetiapine: 50-100mg QHS for mood/sleep - discontinue melatonin and OTC Unisom when starting quetiapine - will ask RN to check-in with patient near end of July /sage/ Estuardo Moura MD Staff Psychiatrist Signed: 07/24/2024 11:48 EST[facility]ARDO [facility]OU[facility] Jul 24, 2024 11:40 AM REPORT OF CONTACT: LOCAL TITLE: PATIENT CONTACT NOTE STANDARD TITLE: REPORT OF CONTACT DATE OF NOTE: JUL 24, 2024@11:40 ENTRY DATE: JUL 24, 2024@11:41:05 AUTHOR: ESTUARDO MOURA EXP COSIGNER: URGENCY: STATUS: COMPLETED PATIENT CONTACT NOTE Has ADDENDA 11-20 minute phone call S: Called patient to follow-up after being cosigned by Dr. Schafer about increased symptoms. Patient confirms that he has justice experiencing increased irritability, mood swings, anhedonia, and insomnia. States his has been encouraging him to reach out regarding this. Estimates that this has been going on for about the past 4 weeks. Confirms that he has been consistent with his medication regimen. Expecting a child on 08/31, which can be a stressor. Has been taking Unisom and 20mg of melatonin, which sometimes can increase sleep to 7 hours, but otherwise averaging 4-5 hours. Denies SI or other safety concerns. No perceived side effects to med regimen. He is wondering about a dose increase in lamotrigine. O: MSE--calm and pleasant on the phone. Speech with RRR. Logical, linear thought process. No evidence of SI, HI, or paranoia. Judgement/insight appear intact. Appropriate attention for interview. A/P: BPAD2 and PTSD with increased breakthrough sx. Discussed option to titrate lamotrigine further as he is just taking 200mg QDAY. To address some of the symptoms more acutely, also recommended adding quetiapine temporarily for sleep/mood. Reviewed metabolic and TD risks. He is agreeable to trying this. Will likely discontinue once higher dose of lamotrigine has had a chance to take effect. - increase lamotrigine: 250mg QDAY x 7 days, THEN 300mg QDAY - start quetiapine: 50-100mg QHS for mood/sleep - discontinue melatonin and OTC Unisom when starting quetiapine - will ask RN to check-in with patient near end of July /sage/ Estuardo Moura MD Staff Psychiatrist Signed: 07/24/2024 11:48 07/24/2024 ADDENDUM STATUS: COMPLETED Please check-in with patient re: mood symptoms around 9/30. Increasing lamotrigine and starting quetiapine today for increased irritability/anhedonia/insomnia. /es/ Estuardo Moura MD Staff Psychiatrist Signed: 07/24/2024 11:48 Receipt Acknowledged By: * AWAITING SIGNATURE * SHYANNE BERRIOS,ESTUARDO [facility]
--- OUTSIDE RECORDS SUMMARY | 2024-09-04 11:37 | XMS_ITS | Encounter Summary ---
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 NETWORK BENEFITS [place] M Jun 09, 2023 [id number] [phone] LALA,ROXI OB PATIENT [employer] [place] [employer] MAINTENAN CE ORGANIZAT ION [place] [facility] ONLY Jun 09, 2023 [id number] [phone] LALA,ROXI OB PATIENT [place] ([id number]) PRESCRIPT ION [facility] Jun 09, 2023 [id number] [phone] LALA,ROXI OB PATIENT [place] ([id number]) PRESCRIPT ION [facility] Jun 09, 2023 [id number] [phone] LALA,ROXI OB PATIENT Selected Encounter This section includes the information on record at [place] for the Encounter. 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 Date/Time Primary/Secondary Diagnosis Diagnosis Name Provider Source Mar 18, 2024 12:41 PM PRIMARY Androgenic alopecia, unspecified SINA CACERES V [facility] Plan of Treatment: Future Appointments (+ 6 months) and Future Tests (+/- 45 days) The Plan of Treatment section includes future care activities for the patient from all [place] [facility]. This section includes future appointments and future orders which are active, pending or scheduled. Future Appointments This section includes appointments that were scheduled to occur 6 months from the date of the Encounter, up to a maximum of 20 appointments. The data comes from all [facility]. Appointment Date/Time Appointment Type Appointme nt Facility Name Feb 27, 2024 09:00 AM AMBULATORY - PSYCHIATRY [facility] March 25, 2024 09:00 AM AMBULATORY - PSYCHIATRY [facility] Apr 26, 2024 08:30 AM AMBULATORY - PSYCHIATRY [facility] May 21, 2024 08:30 AM AMBULATORY - PSYCHIATRY [facility] Active, Pending, and Scheduled Orders This section includes a listing of several types of active, pending, and scheduled orders, including clinic medications orders, diagnostic test orders, procedure orders and consult orders; where the start date of the order is 45 days before the date of the Encounter or 45 days after the date of theEncounter. The data comes from all [facility]. Test Date/Time Test Type Test Details Facility Name Dec 12, 2023 12:00 AM Laboratory - Chemi stry Order FERRITIN SERUM SP ONCE [facility] Dec 12, 2023 12:00 AM Laboratory - Chemi stry Order VIT D 25-OH,TOTAL SERUM SP ONCE [facility] Dec 12, 2023 12:00 AM Laboratory - Chemi stry Order ANTI-HEP C(EIA) SERUM SP [facility] Dec 12, 2023 12:00 AM Laboratory - Chemi stry Order TSH W/REFLEX TO FREE T4 PLASMA SP ONCE [facility] Dec 12, 2023 12:00 AM Laboratory - Chemi stry Order ZINC SERUM SP ONCE [facility] Dec 12, 2023 12:00 AM Laboratory - Chemi stry Order C.TRACHOMATIS/N.GONOR PEDRO PABLO DNA URINE SP [facility] Dec 12, 2023 12:00 AM Laboratory - Chemi stry Order HIV AG/AB SCREEN SERUM SP ONCE [facility] Dec 12, 2023 12:00 AM Laboratory - Chemi stry Order SYPHILIS AB/RPR RFLX SERUM SP [facility] Lab Results: +/- 30 days of the encounter This section includes the Chemistry and Hematology Lab Results on record with [place] for the patient. Radiology Reports and Pathology Reports are provided separately, in subsequent sections. Lab Results This section contains the Chemistry/Hematology Results that were resulted 30 days before or 30 daysafter the date of the Encounter. Date/Time Source Result Type Result - Unit Interpretation Reference Range Comment Dec 12, 2023 08:47 AM [facility] TSH W/REFLEX TO FREE T4 Specimen Type: PLASMA No comment entered. Ordering Provider: ANAHI COLLINS Report Released Date/Time: Oct 27, 2022 09:53 AM Reporting Lab: [facility] [id number] Performing Lab: [facility] [id number] TSH 0.72 u[IU]/mL 0.35-4.94 Dec 12, 2023 08:47 AM [facility] LIPID PANEL,NON-FASTING Specimen Type: PLASMA No comment entered. Ordering Provider: ANAHI COLLINS Report Released Date/Time: Oct 27, 2022 09:53 AM Reporting Lab: [facility] [address] Performing Lab: [facility] [address] CHOLESTEROL 170 mg/dL <199 .HDL 40 mg/dL >40 LDL CALCULATION 118 mg/dL H <99 VLDL CALCULATION 12 mg/dL <29 NON HDL CHOLESTEROL 130 mg/dL H <129 TRIG(NON FASTING) 58 mg/dL <149 Dec 12, 2023 08:47 AM [facility] COMPREHENSIVE METABOLIC PANEL+MG Specimen Type: PLASMA No comment entered. Ordering Provider: ANAHI COLLINS Report Released Date/Time: Oct 27, 2022 09:53 AM Reporting Lab: [facility] [address] Performing Lab: [facility] [address] CREATININE 0.9 mg/dL 0.7-1.2 UREA NITROGEN 15 mg/dL 8-26 GLUCOSE 88 mg/dL 70-100 SODIUM 139 mmol/L 136-145 POTASSIUM 4.4 mmol/L 3.5-5.1 CHLORIDE 105 mmol/L 98-107 CO2 26 mmol/L 22-29 CALCIUM 9.4 mg/dL 8.4-10.2 PROTEIN,TOTAL 7.5 g/dL 6.0-8.3 ALBUMIN 4.4 g/dL 3.5-5.2 BILIRUBIN, TOTAL 0.2 mg/dL 0.2-1.2 MAGNESIUM 2.0 mg/dL 1.6-2.6 ANION GAP 8 mmol/L 5-15 ALKALINE PHOSPHATASE 58 U/L 40-150 ALT/SGPT 48 U/L <55 AST/SGOT 30 U/L <34 .CREAT EGFR(CKD-EPI) >90 >60 Dec 12, 2023 08:47 AM [facility] CBC & DIFF Specimen Type: BLOOD Comment: Automated Differential Performed Ordering Provider: ANAHI COLLINS Report Released Date/Time: Oct 27, 2022 09:53 AM Reporting Lab: [facility] [phone] Performing Lab: [facility] [address] WBC 5.58 10*3/uL 4.0-11.0 RBC 4.73 10*6/uL 4.6-6.2 HGB 14.6 g/dL 13.5-17.9 HCT 41.8 41-54 MCV 88.4 fL 80-100 MCH 30.9 pg 27-33 MCHC 34.9 g/dL 32.0-37.5 PLT 157 10*3/uL 150-400 MPV 9.1 fL 7.4-10.4 NEUT 48.2 40.0-80.0 LYMPHS 37.3 15.0-45.0 MONO 9.1 2.0-12.0 EOSINO 4.1 0.0-6.0 BASO 1.1 0.0-2.0 RDW 12.3 11.5-14.5 ABS LYMPH 2.08 10*3/uL 1.0-4.0 ABS MONO 0.51 10*3/uL 0.1-1.0 ABS NEUT 2.69 10*3/uL 2.0-7.7 ABS EOS 0.23 10*3/uL 0-0.5 ABS BASO 0.06 10*3/uL 0-0.2 IG(META,MYELO,P RO) 0.2 ABS IMMATURE GRAN 0.01 10*3/uL 0-0.1 Dec 12, 2023 08:47 AM [facility] HEMOGLOBIN A1C Specimen Type: BLOOD Comment: Values obtained from A1C measurements can vary. For typical A1C assays, a reported value of 7.0 could actually be between 6.7 and 7.3 if measured by a reference method. A reported value of 9.0 could actually be between 8.7 and 9.3. Ref: http://www. sp.org/CAPdat a.asp Ordering Provider: MARYANN RENE Report Released Date/Time: Dec 14, 2023 11:58 AM Reporting Lab: [facility] [phone] Performing Lab: [facility] [address] HEMOGLOBIN A1C 5.2 4.0-6.0 Dec 12, 2023 08:46 AM [facility] TSH W/REFLEX TO FREE T4 Specimen Type: PLASMA No comment entered. Ordering Provider: BUSHRA PANDEY Report Released Date/Time: Sep 27, 2023 11:23 AM Reporting Lab: [facility] [phone] Performing Lab: [facility] [phone] TSH 0.70 u[IU]/mL 0.35-4.94 Vital Signs: All taken on the encounter date This section contains inpatient and outpatient Vital Signs collected on the date of the Encounter. Date/Time Temperature Pulse Blood Pressure Respiratory Rate SP02 Pain Height Weight Body Mass Index Source Dec 12, 2023 10:33 AM 99.7 F 58 /min 124/80 mm[Hg] 15 /min 96 % 0 66.[address] [facility] Social History: Smoking Status (Most current) and Tobacco Use (All prior to encounter date) This section includes the most current, and the historical, smoking and tobacco- related health factors from the [facility] where the Encounter took place. Current Smoking Status This section includes the most current smoking, or tobacco-related health factor, from the [facility] where the Encounter took place. Date/Time Current Smoking Status Comment Facil ity Dec 12, 2023 10:30 AM VA-TOBACCO FORMER USER [facility] Tobacco Use History This section includes a history of the smoking, or tobacco-related health factors, that were collected on or before the date of the Encounter. The data comes from the [place] facility where the Encounter took place. Date/Time Smoking Status/Tobacco Use Comment F acility Dec 12, 2023 10:30 AM VA-TOBACCO QUIT 5 TO < 15 YRS [facility] Feb 14, 2023 02:00 PM AH-BPR SMOKING DEPLOYMENT YES [facility] Feb 14, 2023 02:00 PM [facility] Oct 27, 2022 10:30 AM VA-TOBACCO FORMER USER [facility] Oct 27, 2022 10:30 AM VA-TOBACCO QUIT 15 YRS OR MORE [facility] Jan 26, 2021 10:00 AM VA-TOBACCO FORMER USER [facility] Jan 26, 2021 10:00 AM VA-TOBACCO QUIT 1 TO < 5 YRS [facility] Jul 23, 2019 08:07 AM VA-TOBACCO FORMER USER [facility] Jul 23, 2019 08:07 AM VA-TOBACCO QUIT 1 TO < 5 YRS [facility] Jan 29, 2018 03:41 PM CURRENT TOBACCO USER [facility] Jan 20, 2017 03:27 PM CURRENT TOBACCO USER [facility] Nov 30, 2015 08:39 AM FORMER TOBACCO USE <1Y [facility] Encounter Notes: All associated encounter notes This section contains the clinical notes associated to the Encounter. Date/Time Encounter Note(s) Provider Source Dec 12, 2023 09:41 AM DERMATOLOGY ATTENDING NOTE: LOCAL TITLE: DERMATOLOGY CLINIC NOTE STANDARD TITLE: DERMATOLOGY ATTENDING NOTE DATE OF NOTE: DEC 12, 2023@09:41 ENTRY DATE: DEC 12, 2023@09:41:10 AUTHOR: FLOYD CACERES COSIGNER: URGENCY: STATUS: COMPLETED DERMATOLOGY CONSULT Dr. Aguilar saw and evaluated the patient with me, and agrees with the findings, assessment and plan as outlined. Dermatology Problem List: # Alopecia areata - SALT score ~30% 12/12/23 - current rx: clobetasol solution to scalp, hydrocortisone 2.5% to pereira, PO minoxidil 2.5 mg daily, ILK-5 to scalp and ILK-2.5 to pereira 12/12/23 - labs: TSH, vit D, ferritin, zinc ordered 12/12/23 (pt will complete at f/u visit) HISTORY OF PRESENT ILLNESS RAISA LALA is a 33 year old MALE who presents today for evaluation of: - telederm f/u, suspected alopecia areata - started in Jul 2023 - started on topicals; he has not tried them yet - eyelashes and eyebrows are unaffected - no hx DM, thyroid, vitiligo REVIEW OF SYSTEMS: CONST: Otherwise in baseline state of health. SKIN: As above in HPI, no additional skin concerns. PAST MEDICAL HISTORY Active problems - Computerized Problem List is the source for the followin. Low back pain - 03.04.2018 L-S MRI: L5-S1 Spondylosis w/ central canal and foraminal narrowing. 2. Substance abuse - previously used marijuana 3. Migraine 4. Mild traumatic brain injury 5. Sleep disorder 6. Nightmare disorder 7. PTSD - Post-Traumatic Stress Disorder ([facility] [id number]) 8. Tinnitus ([facility] [id number]) 9. Vitamin D Deficiency ([facility] [id number]) 10. Photosensitivity 11. Liver function tests abnormal 12. OIF EXPOSURE TO BURN PIT SMOKE 13. OIF EXPOSURE TO FLIP-8 FUEL 14. OIF EXPOSURE TO SANDSTORMS AND DUSTSTORMS 15. Depression 16. Immunization status 17. Premature ejaculation 18. Dyspnea on exertion 19. Exposure to potentially hazardous chemical 20. Bipolar II disorder MEDICATIONS Active Outpatient Medications (including Supplies): Active Outpatient Medications Status 1) CLOBETASOL PROPIONATE 0.05% TOP SOLN APPLY 10-15 ACTIVE DROPS TO HAIR LOSS AREA ON SCALP TOPICALLY EVERY DAY FOR ALOPECIA FOR 12 WEEKS, THEN ALTERNATE ONE WEEK ON AND ONE WEEK OFF 2) FLUOXETINE HCL 20MG CAP TAKE THREE CAPSULES BY MOUTH ACTIVE EVERY MORNING FOR 14 DAYS, THEN TAKE TWO CAPSULES EVERY MORNING FOR MOOD AND ANXIETY 3) GABAPENTIN 300MG CAP TAKE TWO CAPSULES BY MOUTH THREE ACTIVE TIMES A DAY NEEDED FOR ANXIETY 4) HYDROCORTISONE 2.5% CREAM APPLY THIN LAYER TOPICALLY ACTIVE TWICE A DAY FOR ALOPECIA TO PEREIRA FOR 2 WEEKS, THEN ALTERNATING ONE WEEK OFF, ONE WEEK ON 5) LAMOTRIGINE 100MG TAB TAKE ONE TABLET BY MOUTH TWICE ACTIVE A DAY FOR BIPOLAR DISORDER ALLERGIES BEE STINGS (Dec 10, 2015) WASP STINGS (Dec 10, 2015) HORNET STINGS (Dec 10, 2015) EXAM: GEN: Alert and oriented, no acute distress. SKIN: focused exam of the scalp and face: - patchy alopeciec patches on chin, parietal, occipital scalp with some fine white hairs present on face ASSESSMENT & PLAN: # Alopecia areata Onset in Jul 2023 with SALT score estimated 30%, affecting scalp and pereira and sparing eyebrows/eyelashes. Has not yet started topicals rx'd via telederm. Discussed adding PO minoxidil with possible side effects of arrythmias, MARION, leg swelling, unwanted hair growth, low BP. No hx of heart issues; most recent EKG reviewed with NSR. Last BP in April 2023 not low. Other meds (lamotrigine, gabapentin, fluoxetine) checked for interactions in Lexicomp. Also discussed ILK injection, to which he agrees. - continue topicals: clobetasol soln, hydrocortisone 2.5% to face - start PO minoxidil 2.5 mg daily - ILK injections today (see procedure note below) - Labs: TSH pending from today; add vit D, zinc, ferritin (pt will complete additional blood draw at f/u in 2-3 months) Risks and benefits of procedure discussed with patient. Lesion cleansed with alcohol wipe prior to injection with 1.8 cc of ILK-5 to scalp, and 0.4 cc ILK- 2.5 to the chin. Patient tolerated procedure well. Total encounter time (including chart review, counseling, documentation, ordering of labs/meds): 30-39 min RTC 8-12 w for repeat ILK /es/ FLOYD CACERES MD RESIDENT Signed: 12/12/2023 10:27 Receipt Acknowledged By: 01/16/2024 11:08 /sage/ CONNOR AGUILAR MD DECORATIVE ENGRAVER APPRENTICE FLOYD CACERES V [facility]
--- OUTSIDE RECORDS SUMMARY | 2024-09-04 11:37 | XMS_ITS | Encounter Summary ---
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 Jun 09, 2023 [id number] [phone] LALA,ROXI OB PATIENT [place] ([id number]) PRESCRIPT ION [facility] Jun 09, 2023 [id number] [phone] LALA,ROXI OB PATIENT Selected Encounter This section includes the information on record at [place] for the Encounter. Date/Time Encounter Type Encounter Description Reason Provider Source Dec 12, 2023 10:30 AM OFFICE O/P EST MOD 30 MIN PRIMARY CARE/MEDICINE ICD-10-CM S06.0X1S Concussion w LOC of 30 minutes or less, CORY Isaac Rai Encounter Template Text not used by [place] Assessments - Encounter Diagnoses This section includes the primary and secondary diagnoses documented for the Encounter. Date/Time Primary/Secondary Diagnosis Diagnosis Name Provider Source Mar 18, 2024 12:39 PM PRIMARY Concussion w LOC of 30 minutes or less, MARYANN Isaac [facility] Mar 18, 2024 12:39 PM SECONDARY Abnormal [facility] Mar 18, 2024 12:39 PM SECONDARY Memory deficit following unspecified cerebrovascular disease [facility] Plan of Treatment: Future Appointments (+ 6 months) and Future Tests (+/- 45 days) The Plan of Treatment section includes future care activities for the patient from [facility] [place] [facility]. This section includes future appointments and future orders which are active, pending or scheduled. Future Appointments This section includes appointments that were scheduled to occur 6 months from the date of the Encounter, up to a maximum of 20 appointments. The data comes from all [place] treatment facilities. Appointment Date/Time Appointment Type Appointme nt Facility Name Feb 27, 2024 09:00 AM AMBULATORY - PSYCHIATRY [facility] March 25, 2024 09:00 AM AMBULATORY - PSYCHIATRY [facility] Apr 26, 2024 08:30 AM AMBULATORY - PSYCHIATRY [facility] May 21, 2024 08:30 AM AMBULATORY - PSYCHIATRY [facility] Active, Pending, and Scheduled Orders This section includes a listing of several types of active, pending, and scheduled orders, including clinic medications orders, diagnostic test orders, procedure orders and consult orders; where the start date of the order is 45 days before the date of the Encounter or 45 days after the date of theEncounter. The data comes from all [place] treatment facilities. Test Date/Time Test Type Test Details Facility Name Dec 12, 2023 12:00 AM Laboratory - Chemi stry Order FERRITIN SERUM SP ONCE [facility] Dec 12, 2023 12:00 AM Laboratory - Chemi stry Order VIT D 25-OH,TOTAL SERUM SP ONCE [facility] Dec 12, 2023 12:00 AM Laboratory - Chemi stry Order TSH W/REFLEX TO FREE T4 PLASMA SP ONCE [facility] Dec 12, 2023 12:00 AM Laboratory - Chemi stry Order ZINC SERUM SP ONCE [facility] Dec 12, 2023 12:00 AM Laboratory - Chemi stry Order ANTI-HEP C(EIA) SERUM SP [facility] Dec 12, 2023 12:00 AM Laboratory - Chemi stry Order C.TRACHOMATIS/N.GONOR PEDRO PABLO DNA URINE SP [facility] Dec 12, 2023 12:00 AM Laboratory - Chemi stry Order HIV AG/AB SCREEN SERUM SP ONCE [facility] Dec 12, 2023 12:00 AM Laboratory - Chemi stry Order SYPHILIS AB/RPR RFLX SERUM SP [facility] Lab Results: +/- 30 days of the encounter This section includes the Chemistry and Hematology Lab Results on record with [place] for the patient. Radiology Reports and Pathology Reports are provided separately, in subsequent sections. Lab Results This section contains the Chemistry/Hematology Results that were resulted 30 days before or 30 daysafter the date of the Encounter. Date/Time Source Result Type Result - Unit Interpretation Reference Range Comment Dec 12, 2023 08:47 AM [facility] TSH W/REFLEX TO FREE T4 Specimen Type: PLASMA No comment entered. Ordering Provider: ANAHI COLLINS Report Released Date/Time: Oct 27, 2022 09:53 AM Reporting Lab: [facility] [id number] Performing Lab: [facility] [id number] TSH 0.72 u[IU]/mL 0.35-4.94 Dec 12, 2023 08:47 AM [facility] LIPID PANEL,NON-FASTING Specimen Type: PLASMA No comment entered. Ordering Provider: ANAHI COLLINS Report Released Date/Time: Oct 27, 2022 09:53 AM Reporting Lab: [facility] [id number] Performing Lab: [facility] [phone] CHOLESTEROL 170 mg/dL <199 .HDL 40 mg/dL >40 LDL CALCULATION 118 mg/dL H <99 VLDL CALCULATION 12 mg/dL <29 NON HDL CHOLESTEROL 130 mg/dL H <129 TRIG(NON FASTING) 58 mg/dL <149 Dec 12, 2023 08:47 AM [facility] COMPREHENSIVE METABOLIC PANEL+MG Specimen Type: PLASMA No comment entered. Ordering Provider: ANAHI COLLINS Report Released Date/Time: Oct 27, 2022 09:53 AM Reporting Lab: [facility] [id number] Performing Lab: [facility] [id number] CREATININE 0.9 mg/dL 0.7-1.2 UREA NITROGEN 15 [...] >90 >60 Dec 12, 2023 08:47 AM [facility] CBC & DIFF Specimen Type: BLOOD Comment: Automated Differential Performed Ordering Provider: ANAHI COLLINS Report Released Date/Time: Oct 27, 2022 09:53 AM Reporting Lab: [facility] [phone] Performing Lab: [facility] [id number] WBC 5.58 10*3/uL 4.0-11.0 RBC 4.73 10*6/uL [...] 10*3/uL 0-0.1 Dec 12, 2023 08:47 AM [facility] HEMOGLOBIN A1C Specimen Type: BLOOD Comment: Values obtained from A1C measurements can vary. For typical A1C assays, a reported value of 7.0 could actually be between 6.7 and 7.3 if measured by a reference method. A reported value of 9.0 could actually be between 8.7 and 9.3. Ref: http://www.ng sp.org/CAPdat a.asp Ordering Provider: MARYANN RENE Report Released Date/Time: Dec 14, 2023 11:58 AM Reporting Lab: [facility] [phone] Performing Lab: [facility] [id number] HEMOGLOBIN A1C 5.2 4.0-6.0 Dec 12, 2023 08:46 AM [facility] TSH W/REFLEX TO FREE T4 Specimen Type: PLASMA No comment entered. Ordering Provider: BUSHRA PANDEY Report Released Date/Time: Sep 27, 2023 11:23 AM Reporting Lab: [facility] [phone] Performing Lab: [facility] [id number] TSH 0.70 u[IU]/mL 0.35-4.94 Vital Signs: All taken on the encounter date This section contains inpatient and outpatient Vital Signs collected on the date of the Encounter. Date/Time Temperature Pulse Blood Pressure Respiratory Rate SP02 Pain Height Weight Body Mass Index Source Dec 12, 2023 10:33 AM 99.7 F 58 /min 124/80 mm[Hg] 15 /min 96 % 0 66.5 in 186.2 lb 30 [place] [facility] Social History: Smoking Status (Most current) and Tobacco Use (All prior to encounter date) This section includes the most current, and the historical, smoking and tobacco- related health factors from the [place] facility where the Encounter took place. Current Smoking Status This section includes the most current smoking, or tobacco-related health factor, from the [place] facility where the Encounter took place. Date/Time Current Smoking Status Comment Facil ity Dec 12, 2023 10:30 AM VA-TOBACCO FORMER USER [facility] Tobacco Use History This section includes a history of the smoking, or tobacco-related health factors, that were collected on or before the date of the Encounter. The data comes from the [place] facility where the Encounter took place. Date/Time Smoking Status/Tobacco Use Comment F acility Dec 12, 2023 10:30 AM VA-TOBACCO QUIT 5 TO < 15 YRS [facility] Feb 14, 2023 02:00 PM AH-BPR SMOKING DEPLOYMENT YES [facility] Feb 14, 2023 02:00 PM PREVIOUS SMOKER MIN [facility] Oct 27, 2022 10:30 AM VA-TOBACCO FORMER USER [facility] Oct 27, 2022 10:30 AM VA-TOBACCO QUIT 15 YRS OR MORE [facility] Jan 26, 2021 10:00 AM VA-TOBACCO FORMER USER [facility] Jan 26, 2021 10:00 AM VA-TOBACCO QUIT 1 TO < 5 YRS [facility] Jul 23, 2019 08:07 AM VA-TOBACCO FORMER USER [facility] Jul 23, 2019 08:07 AM VA-TOBACCO QUIT 1 TO < 5 YRS [facility] Jan 29, 2018 03:41 PM CURRENT TOBACCO USER [facility] Jan 20, 2017 03:27 PM CURRENT TOBACCO USER [facility] Nov 30, 2015 08:39 AM FORMER TOBACCO USE <1Y [facility] Encounter Notes: All associated encounter notes This section contains the clinical notes associated to the Encounter. Date/Time Encounter Note(s) Provider Source Dec 14, 2023 12:03 PM ADDENDUM: LOCAL TITLE: Addendum STANDARD TITLE: ADDENDUM DATE OF NOTE: DEC 14, 2023@12:03:36 ENTRY DATE: DEC 14, 2023@12:03:37 AUTHOR: CORY RENE EXP COSIGNER: URGENCY: STATUS: COMPLETED Dr. Bertrand, would your office be able to help with scheduling a follow up appt with this patient? 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 We follow up on his chronic issues, as he reports no major concerns today: Lower back pain, has been bothering him but stretching is helpful. Lower back, comes on when he sit a lot, severity 3/10 with prolonged sitting, no numbnes or weakness in legs, no change in the back pain. He has tried PT but he graduated. He is seeing chiro and massage. Walking every night. Back pain better with working out. Overall he is not concerned. He reports 20 lb weight gain in last year, though was same weight in january, wt has gone up since Oct 2022. 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 Appetite is less than usual.He works out about twice/weke. He built a gym in his basement. Diet going okay, lean proteins, cruciferous vegetables. Rare etoh, notes marijuana smoking/vaping daily and has for a long time, he has a medical marijuana card and states it helps his sleep. Takes occaisional mirtazapine (I do not see this on med list) at night and gabapentins. He ruptured bicep last year, and lavon had to reattach it. He got that done at [facility]. Since then, he notes some minor lifting issues in his RLE, feels a little strain but denies concern. Denies mental health concerns. Feels like he is in a hypomanic state a little in the past week, he cycles every 3 weeks through this. Lamotrigine helps stabilize. He notes he sometimes he can't really remember notes a couple of months, which is relatively new - but it is more of an attention problem, he tends to space out sometimes and then has some problems related to his short term memory. No racing thoughts, no current AVH but notes he heard some voices a week ago but it was a one time thing and building may be haunted. No SI or HI. He notes thoughts of wanting to be left alone. He states lamotrigine has helped him. He has had concussions in the past but never noticed am memory problem. He states the memory/attention problems arent hurting his work or personal life. Hx mild TBI. He saw the clinic a long time ago, interested in seeing them again. Denies any recent head trauma but has remote hx of head trauma. Also notes longstanding tinnitus in both ears since 2009 without change, low level at all times and non pulsatile, no vertigo/balance isuses. Also has migraines sev x mo associated w/N/V Also notes mild urinary urgency. Possibly last few months or longer, denies pain, notes drinking energy drinks and drinking a significant amount of water. No accidents. On ROS denies F/C, N/V, SOB, CP, abd pain, dysuria, constipation, diarrhea bruising bleeding, denies vision or dental issues, denies sexual health concerns Problem List ========= Active problems - Computerized Problem List is the source for the followin. Low back pain - 03.04.2018 L-S MRI: L5-S1 Spondylosis w/ central canal and foraminal narrowing. 2. Substance abuse - previously used marijuana 3. Migraine 4. Mild traumatic brain injury 5. Sleep disorder 6. Nightmare disorder 7. PTSD - Post-Traumatic Stress Disorder ([facility] [id number]) 8. Tinnitus ([facility] [id number]) 9. Vitamin D Deficiency ([facility] [id number]) 10. Photosensitivity 11. Liver function tests abnormal 12. OIF EXPOSURE TO BURN PIT SMOKE 13. OIF EXPOSURE TO FLIP-8 FUEL 14. OIF EXPOSURE TO SANDSTORMS AND DUSTSTORMS 15. Depression 16. Immunization status 17. Premature ejaculation 18. Dyspnea on exertion 19. Exposure to potentially hazardous chemical 20. Bipolar II disorder Outpatient Medications ========= Active and Recently Outpatient Medications (including Supplies): Active Outpatient Medications [...] ACTIVE TIMES A DAY NEEDED FOR ANXIETY (requires typically 2-4 depending on day) 4) HYDROCORTISONE 2.5% CREAM APPLY THIN LAYER TOPICALLY ACTIVE TWICE A DAY FOR ALOPECIA TO PEREIRA FOR 2 WEEKS, THEN ALTERNATING ONE WEEK OFF, ONE WEEK ON 5) LAMOTRIGINE 100MG TAB TAKE ONE TABLET BY MOUTH TWICE ACTIVE A DAY FOR BIPOLAR DISORDER MIRTAZAPINE prn ONCE/WEEK OR TWO Inactive Outpatient Medications Status 1) FLUOXETINE HCL 20MG CAP TAKE FOUR CAPSULES BY MOUTH DISCONTINUED EVERY DAY FOR DEPRESSION FOR MOOD AND ANXIETY (EDIT) 2) LAMOTRIGINE 100MG TAB TAKE ONE TABLET BY MOUTH EVERY DISCONTINUED DAY FOR MOOD 3) LAMOTRIGINE 25MG TAB TAKE ONE TABLET BY MOUTH EVERY DISCONTINUED DAY FOR 14 DAYS, THEN TAKE TWO TABLETS EVERY DAY FOR 14 DAYS, THEN TAKE FOUR TABLETS EVERY DAY FOR MOOD 4) LAMOTRIGINE 25MG TAB TAKE FOUR TABLETS BY MOUTH EVERY DISCONTINUED DAY FOR MOOD (EDIT) 5) LORATADINE 10MG TAB TAKE ONE TABLET BY MOUTH EVERY DAY FOR ALLERGIES 6) NAPROXEN 500MG TAB TAKE ONE TABLET BY MOUTH TWICE A DAY NEEDED TAKE WITH FOOD 11 Total Medications Physical Exam VS: T: 99.4 F [37.4 C] (05/08/2023 15:43) BP:144/84 (05/08/2023 15:43) HR:73 (05/08/2023 15:43) RR: 14 (05/08/2023 15:43) Weight: WEIGHTS IN LAST 6 MONTHS - NONE FOUND Gen: NAD, resting comfortably HEENT: sclera anicteric, conjunctiva clear, PERRL, no rhinorrhea Chest: nml resp effort, CTAB no wheeze, rales or rhonchi CV: RRR nml S1 S2 no M/R/G Abd: soft NT ND BS normoactive Extremities: WWP, no edema Skin: no rashes on exposed skin Neuro: nml gait Psych: nml affect Labs LAB RESULTS LAST 48 HRS - NONE FOUND BMP: SODIUM 137 (03/13/23) POTASSIUM 4.5 (03/13/23) CHLORIDE 103 (03/13/23) CO2 28 (03/13/23) UREA NITROGEN 14 (03/13/23) CREATININE 0.8 (03/13/23) GLUCOSE 93 (03/13/23) CBC: WBC 5.55 (03/13/23) HGB 14.2 (03/13/23) HCT 41.2 (03/13/23) PLT 137 L (03/13/23) No data available Lipids: CHOLESTEROL____ HDL____ LDL CALCULATION____ LDL Measured: TRIGLYCERIDE____ LFTs: SGOT 86 H (03/13/23) SGPT 111 H (03/13/23) Assessment/Plan 1. Alopecia TSH today wnl, due for vit D and other labs next visit - followe dy derm, seen today, continuing clobetasol solution to scalp, hydrocortisone 2. PTSD/Bipolar Notes feeling in a slightly hypomanic state but overall stable, denies signifciant issues though notes some possible memory vs attention issues in recent months (see below) and one episode of hearing voices about a week ago, has never happened before. Feels safe, denies SI, HI, AVH. - followed by mental health, he will follow up with Dr Judge as missed last appt - I recommended follow up with psychiatry as well - continue current pschiatric medications - continue following with mental health - aware of going to ER if any acute mental health concern, emergency mental health phone number, and other resources - given strict return precautions 3. Memory issues 4. Hx TBI Reports some short term memory issues but also reports zoning out more, and so difficult for him to say if it is an attention problem that is making it difficult for him to remember details. Isnt significantly affecting his work or life, and difficult to say cause; I think pt would benefit from f/u with psych and TBI clinic. TSH wnl today. - pt to follow up with psychiatry -referral to TBI clinic - contact clinic if worsening 5. 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 - continue diet, exericise- - pt interested in nutrition referral for help with inexpensive healthy foods - pt interested in programs geard toward weight loss through [place], will place referral 6. Urinary urgency Mild, reports possibly over months, not all the time but he does drink a significant amount of water and also drinks caffeine, we discussed avoiding irritants in case this is contributing, denies sexual health concerns - could not give urine sample today, declined G/C testing - contact clinic if worsening - add on HGA1c 7. Marijuana smoking Not interested in quitting as it helps with this sleep - declined referrals to talk to smoking cessation counselor 8. HCM - HCV, HIV, syphilis IgG - will try to add on, otherwise will obtain with next labs - add on HgA1c - smoking/drinking/drugs: - sleep: up and down - diet: lean meats, vegetables, he is working on this - exercise: see above, referral - dental: denies issues - eyes/ears: denies issues other than tinnitus >25 min spent on history, physical and counseling RTC 1 y or sooner PRN /sage/ CORY RENE Fellow Signed: 12/12/2023 11:47 Receipt Acknowledged By: * AWAITING SIGNATURE * WHITNEY JUDGE 12/14/2023 ADDENDUM STATUS: COMPLETED RTC order placed. /sage/ Orestes Bertrand MD Staff Psychiatrist Signed: 12/14/2023 12:17 CORY RENE [facility] Dec 12, 2023 10:35 AM INTERNAL MEDICINE OUTPATIENT NOTE: LOCAL TITLE: MEDICINE CLINIC NURSING NOTE STANDARD TITLE: INTERNAL MEDICINE OUTPATIENT NOTE DATE OF NOTE: DEC 12, 2023@10:35 ENTRY DATE: DEC 12, 2023@10:35:20 AUTHOR: CLARIBEL MARSHALL EXP COSIGNER: URGENCY: STATUS: COMPLETED TYPE OF VISIT: Appointment Check In Type of appointment: In-person appointment REASON FOR VISIT: establish care/annual ALLERGIES: BEE STINGS (Dec 10, 2015) WASP STINGS (Dec 10, 2015) HORNET STINGS (Dec 10, 2015) VITAL SIGNS: Blood Pressure: 124/80 (12/12/2023 10:33) Pulse: 58 (12/12/2023 10:33) Respiration: 15 (12/12/2023 10:33) Temperature: 99.7 F [37.6 C] (12/12/2023 10:33) Weight: 186.2 lb [84.46 kg] (12/12/2023 10:33) Height: 66.5 in [168.9 cm] (12/12/2023 10:33) BMI: 29.7 O2 Sat: 96% (12/12/2023 10:33) Pain: 0 (12/12/2023 10:33) PAIN SCREEN: Patient is not having significant pain that they wish to discuss with their provider today. MEDICATION Over the Counter/Herbal Medications: The patient denies taking any outside medications or herbals. Alcohol Use Screen (AUDIT-C): Alcohol Screen: SCREEN FOR ALCOHOL (AUDIT-C) An alcohol screening test (AUDIT-C) was negative (score=1). 1. How often did you have a drink containing alcohol in the past year? Consider a drink to be a 12 ounce can or bottle of regular beer, 8 ounces of malt liquor, a 5 ounce glass of table wine, or a 1.5 ounce shot of liquor (like scotch, gin, or vodka). Monthly or less 2. How many drinks containing alcohol did you have on a typical day when you were drinking in the past year? One or two drinks 3. How often did you have six or more drinks on one occasion in the past year? Never Nursing Annual Screening: Fall History Screen During the past 12 months, have you had any falls? Patient does not report any falls in the past 12 months. MEDICATIONS: Patient is on one of the following medication classes: Antihypertensives, Antidepressants, Antipsychotics, Diuretics, or Controlled substance medication used for pain. FALL RISK ADVICE: Fall Risk Advice provided. Handout entitled Fall Prevention At Home reviewed and given to patient and/or significant other. Script Talk Screen Are you able to read your prescription bottles with your glasses, magnifiers or other aids? Yes or patient not taking any prescriptions. Skin Screen Patient reports any current pressure ulcers, a history of pressure ulcers, or a wound from a medical hospital sales or Patient is bed-confined or a wheelchair-user or Patient requires assistance to transfer/change position No, Skin Screen is Negative Home Abuse/Violence Screen Is your home free of abuse and violence? Yes [facility]! Program Screen Body Mass Index (BMI)= 29.7 [place]: No data available [place] Hgb A1C: No data available [place] Hgb A1C: No data available Point of Care Hgb A1C: POC HGB A1C____ [facility] Weight [facility] brochure given to and discussed. The counseling includes discussion of the health effects of being overweight/obese, description of the [facility] treatment program and contact number for [facility] Program. No Outpatient Nutrition Screen Body Mass Index (BMI)= 29.7 [place]: No data available [place] Hgb A1C: No data available [place] Hgb A1C: No data available Point of Care Hgb A1C: POC HGB A1C____ Is patient's BMI less than 18.5? No Does patient have swallowing, coughing, or chewing problems affecting oral intake? No Has patient experienced unplanned weight loss or gain greater than 10 pounds over the last 2 months? No Is patient's Hgb A1C (Glycosylated Hemoglobin) greater than 9.5? No Is patient receiving Total Parenteral Nutrition (TPN) or Tube Feedings? No Patient Health Education Screen BARRIERS/SPECIAL NEEDS: Physical limitations Visual limitations PREFERRED STYLE OF LEARNING: Other: hands on Client Assistive Service (ROOPA) Screen Does the patient require assistance with outpatient visit? No Tobacco Use Screening: The patient is a former tobacco user. The patient quit five to less than fifteen years ago. Homelessness/Food Insecurity Screen: In the past 2 months, have you been living in stable housing that you own, rent, or stay in as part of a household? Yes - Living in stable housing. Are you worried or concerned that in the next 2 months you may NOT have stable housing that you own, rent, or stay in as part of a household? No - Not worried about housing near future The reports the following: Within the past 12 months, you worried whether your food would run out before you got money to buy more. Never true Within the past 12 months, the food you bought just didn't last and you didn't have money to get more. Never true Food Insecurity Resources not needed /es/ CLARIBEL MARSHALL [employer] Signed: 12/12/2023 10:37 CLARIBEL MARSHALL [facility] Dec 11, 2023 01:47 PM INTERNAL MEDICINE NOTE: LOCAL TITLE: MEDICINE CLINIC NOTE STANDARD TITLE: INTERNAL MEDICINE NOTE DATE OF NOTE: DEC 11, 2023@13:47 ENTRY DATE: DEC 11, 2023@13:47:16 AUTHOR: CORY RENE COSIGNER: URGENCY: STATUS: COMPLETED MEDICINE CLINIC NOTE Has ADDENDA General Medicine Progress Note HPI 33M PMH s/f T2 bipolar disorder, PTSD, LBP, mild TBI, alopecia presenting for a primary care yearly check up ========= 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 We follow up on his chronic issues, as he reports no major concerns today: Lower back pain, has been bothering him but stretching is helpful. Lower back, comes on when he sit a lot, severity 3/10 with prolonged sitting, no numbnes or weakness in legs, no change in the back pain. He has tried PT but he graduated. He is seeing chiro and massage. Walking every night. Back pain better with working out. Overall he is not concerned. He reports 20 lb weight gain in last year, though was same weight in january, wt has gone up since Oct 2022. 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 Appetite is less than usual.He works out about twice/weke. He built a gym in his basement. Diet going okay, lean proteins, cruciferous vegetables. Rare etoh, notes marijuana smoking/vaping daily and has for a long time, he has a medical marijuana card and states it helps his sleep. Takes occaisional mirtazapine (I do not see this on med list) at night and gabapentins. He ruptured bicep last year, and htey had to reattach it. He got that done at [facility]. Since then, he notes some minor lifting issues in his RLE, feels a little strain but denies concern. Denies mental health concerns. Feels like he is in a hypomanic state a little in the past week, he cycles every 3 weeks through this. Lamotrigine helps stabilize. He notes he sometimes he can't really remember notes a couple of months, which is relatively new - but it is more of an attention problem, he tends to space out sometimes and then has some problems related to his short term memory. No racing thoughts, no current AVH but notes he heard some voices a week ago but it was a one time thing and building may be haunted. No SI or HI. He notes thoughts of wanting to be left alone. He states lamotrigine has helped him. He has had concussions in the past but never noticed am memory problem. He states the memory/attention problems arent hurting his work or personal life. Hx mild TBI. He saw the clinic a long time ago, interested in seeing them again. Denies any recent head trauma but has remote hx of head trauma. Also notes longstanding tinnitus in both ears since 2009 without change, low level at all times and non pulsatile, no vertigo/balance isuses. Also has migraines sev x mo associated w/N/V Also notes mild urinary urgency. Possibly last few months or longer, denies pain, notes drinking energy drinks and drinking a significant amount of water. No accidents. On ROS denies F/C, N/V, SOB, CP, abd pain, dysuria, constipation, diarrhea bruising bleeding, denies vision or dental issues, denies sexual health concerns Problem List ========= Active problems - Computerized Problem List is the source for the followin. Low back pain - 03.04.2018 L-S MRI: L5-S1 Spondylosis w/ central canal and foraminal narrowing. 2. Substance abuse - previously used marijuana 3. Migraine 4. Mild traumatic brain injury 5. Sleep disorder 6. Nightmare disorder 7. PTSD - Post-Traumatic Stress Disorder ([facility] [id number]) 8. Tinnitus ([facility] [id number]) 9. Vitamin D Deficiency ([facility] [id number]) 10. Photosensitivity 11. Liver function tests abnormal 12. OIF EXPOSURE TO BURN PIT SMOKE 13. OIF EXPOSURE TO FLIP-8 FUEL 14. OIF EXPOSURE TO SANDSTORMS AND DUSTSTORMS 15. Depression 16. Immunization status 17. Premature ejaculation 18. Dyspnea on exertion 19. Exposure to potentially hazardous chemical 20. Bipolar II disorder Outpatient Medications ========= Active and Recently Outpatient Medications (including Supplies): Active Outpatient Medications [...] ACTIVE TIMES A DAY NEEDED FOR ANXIETY (requires typically 2-4 depending on day) 4) HYDROCORTISONE 2.5% CREAM APPLY THIN LAYER TOPICALLY ACTIVE TWICE A DAY FOR ALOPECIA TO PEREIRA FOR 2 WEEKS, THEN ALTERNATING ONE WEEK OFF, ONE WEEK ON 5) LAMOTRIGINE 100MG TAB TAKE ONE TABLET BY MOUTH TWICE ACTIVE A DAY FOR BIPOLAR DISORDER MIRTAZAPINE prn ONCE/WEEK OR TWO Inactive Outpatient Medications Status 1) FLUOXETINE HCL 20MG CAP TAKE FOUR CAPSULES BY MOUTH DISCONTINUED EVERY DAY FOR DEPRESSION FOR MOOD AND ANXIETY (EDIT) 2) LAMOTRIGINE 100MG TAB TAKE ONE TABLET BY MOUTH EVERY DISCONTINUED DAY FOR MOOD 3) LAMOTRIGINE 25MG TAB TAKE ONE TABLET BY MOUTH EVERY DISCONTINUED DAY FOR 14 DAYS, THEN TAKE TWO TABLETS EVERY DAY FOR 14 DAYS, THEN TAKE FOUR TABLETS EVERY DAY FOR MOOD 4) LAMOTRIGINE 25MG TAB TAKE FOUR TABLETS BY MOUTH EVERY DISCONTINUED DAY FOR MOOD (EDIT) 5) LORATADINE 10MG TAB TAKE ONE TABLET BY MOUTH EVERY DAY FOR ALLERGIES 6) NAPROXEN 500MG TAB TAKE ONE TABLET BY MOUTH TWICE A DAY NEEDED TAKE WITH FOOD 11 Total Medications Physical Exam VS: T: 99.4 F [37.4 C] (05/08/2023 15:43) BP:144/84 (05/08/2023 15:43) HR:73 (05/08/2023 15:43) RR: 14 (05/08/2023 15:43) Weight: WEIGHTS IN LAST 6 MONTHS - NONE FOUND Gen: NAD, resting comfortably HEENT: sclera anicteric, conjunctiva clear, PERRL, no rhinorrhea Chest: nml resp effort, CTAB no wheeze, rales or rhonchi CV: RRR nml S1 S2 no M/R/G Abd: soft NT ND BS normoactive Extremities: WWP, no edema Skin: no rashes on exposed skin Neuro: nml gait Psych: nml affect Labs LAB RESULTS LAST 48 HRS - NONE FOUND BMP: SODIUM 137 (03/13/23) POTASSIUM 4.5 (03/13/23) CHLORIDE 103 (03/13/23) CO2 28 (03/13/23) UREA NITROGEN 14 (03/13/23) CREATININE 0.8 (03/13/23) GLUCOSE 93 (03/13/23) CBC: WBC 5.55 (03/13/23) HGB 14.2 (03/13/23) HCT 41.2 (03/13/23) PLT 137 L (03/13/23) No data available Lipids: CHOLESTEROL____ HDL____ LDL CALCULATION____ LDL Measured: TRIGLYCERIDE____ LFTs: SGOT 86 H (03/13/23) SGPT 111 H (03/13/23) Assessment/Plan 1. Alopecia TSH today wnl, due for vit D and other labs next visit - followe [facility], seen today, continuing clobetasol solution to scalp, hydrocortisone 2. PTSD/Bipolar Notes feeling in a slightly hypomanic state but overall stable, denies signifciant issues though notes some possible memory vs attention issues in recent months (see below) and one episode of hearing voices about a week ago, has never happened before. Feels safe, denies SI, HI, AVH. - followed by mental health, he will follow up with Dr Judge as missed last appt - I recommended follow up with psychiatry as well - continue current pschiatric medications - continue following with mental health - aware of going to ER if any acute mental health concern, emergency mental health phone number, and other resources - given strict return precautions 3. Memory issues 4. Hx TBI Reports some short term memory issues but also reports zoning out more, and so difficult for him to say if it is an attention problem that is making it difficult for him to remember details. Isnt significantly affecting his work or life, and difficult to say cause; I think pt would benefit from f/u with psych and TBI clinic. TSH wnl today. - pt to follow up with psychiatry -referral to TBI clinic - contact clinic if worsening 5. 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 - continue diet, exericise- - pt interested in nutrition referral for help with inexpensive healthy foods - pt interested in programs geard toward weight loss through [place], will place referral 6. Urinary urgency Mild, reports possibly over months, not all the time but he does drink a significant amount of water and also drinks caffeine, we discussed avoiding irritants in case this is contributing, denies sexual health concerns - could not give urine sample today, declined G/C testing - contact clinic if worsening - add on HGA1c 7. Marijuana smoking Not interested in quitting as it helps with this sleep - declined referrals to talk to smoking cessation counselor 8. HCM - HCV, HIV, syphilis IgG - will try to add on, otherwise will obtain with next labs - add on HgA1c - smoking/drinking/drugs: - sleep: up and down - diet: lean meats, vegetables, he is working on this - exercise: see above, referral - dental: denies issues - eyes/ears: denies issues other than tinnitus >25 min spent on history, physical and counseling RTC 1 y or sooner PRN /sage/ CORY RENE Fellow Signed: 12/12/2023 11:47 Receipt Acknowledged By: 12/14/2023 13:43 /sage/ WHITNEY JUDGE, Ph.D. PSYCHOLOGY AUTOMOTIVE STARTER REPAIRER 12/14/2023 ADDENDUM STATUS: COMPLETED Dr. Bertrand, would your office be able to help with scheduling a follow up appt with this patient? Thank you so much /hung RENE Fellow Signed: 12/14/2023 12:04 Receipt Acknowledged By: 12/14/2023 12:08 /sage/ Orestes Bertrand MD Staff Psychiatrist 12/14/2023 ADDENDUM STATUS: COMPLETED RTC order placed. /sage/ Orestes Bertrand MD Staff Psychiatrist Signed: 12/14/2023 12:17 CORY RENE [facility]
--- OUTSIDE RECORDS SUMMARY | 2024-09-04 11:37 | XMS_ITS | Encounter Summary ---
Author Name [facility] [place] [facility] [place] Address [address] [place] [address] Care Team Providers Care Production Underwriter Name Role Phone TEODORO TEODORO Primary Care [...] to Policy [place] [employer]ET[employer]* POINT OF SERVICE [employer] Jan 18, 2015 [id number] LALA,ROXI OB PATIENT BCBS [place] [employer] MAINTENAN CE ORGANIZAT ION W/OUT OF NETWORK BENEFITS [facility] Jun 09, 2023 [id number] [phone] LALA,ROXI OB PATIENT BCBS [facility] MAINTENAN CE ORGANIZAT ION STATE [facility] ER ONLY Jun 09, 2023 [id number] [phone] LALA,ROXI OB PATIENT [place] ([id number]) PRESCRIPT ION [facility] Jun 09, 2023 [id number] [phone] LALA,ROXI OB PATIENT [place] ([id number]) PRESCRIPT ION [facility] Jun 09, 2023 [id number] [phone] LALA,ROXI OB PATIENT Selected Encounter This section includes the information on record at [place] for the Encounter. Date/Time Encounter Type Encounter Description Reason Provider Source Jul 23, 2024 04:00 PM PSYTX W PT 30 MINUTES [facility] CLINIC - IND ICD-10-CM F43.10 Post-traumatic stress disorder, unspecified WHITNEY JUDGE Rai Encounter Template Text not used by [place] Assessments - Encounter Diagnoses This section includes the primary and secondary diagnoses documented for the Encounter. Date/Time Primary/Secondary Diagnosis Diagnosis Name Provider Source Jul 23, 2024 04:26 PM PRIMARY Post-traumatic stress disorder, unspecified WHITNEY JUDGE [facility] Jul 23, 2024 04:26 PM SECONDARY Bipolar II disorder WHITNEY JUDGE [facility] Plan of Treatment: Future Appointments (+ 6 months) and Future Tests (+/- 45 days) The Plan of Treatment section includes future care activities for the patient from all [place] [facility]. This section includes future appointments and future orders which are active, pending or scheduled. Future Appointments This section includes appointments that were scheduled to occur 6 months from the date of the Encounter, up to a maximum of 20 appointments. The data comes from all [facility]. Appointment Date/Time Appointment Type Appointme nt Facility Name Aug 21, 2024 03:30 PM AMBULATORY - PSYCHIATRY [facility] Sep 11, 2024 09:30 AM AMBULATORY - PSYCHIATRY [facility] Sep 25, 2024 03:30 PM AMBULATORY - PSYCHIATRY [facility] Active, Pending, and Scheduled Orders This section includes a listing of several types of active, pending, and scheduled orders, including clinic medications orders, diagnostic test orders, procedure orders and consult orders; where the start date of the order is 45 days before the date of the Encounter or 45 days after the date of theEncounter. The data comes from all [facility]. Test Date/Time Test Type Test Details Facility Name Aug 02, 2024 09:24 AM Consult Order COMMUNITY CARE-CHIROPRACTIC Cons Cuff Maker's Choice [facility] Social History: Smoking Status (Most current) and Tobacco Use (All prior to encounter date) This section includes the most current, and the historical, smoking and tobacco- related health factors from the [facility] where the Encounter took place. Current Smoking Status This section includes the most current smoking, or tobacco-related health factor, from the [facility] where the Encounter took place. Date/Time Current Smoking Status Comment Facil ity Dec 12, 2023 10:30 AM VA-TOBACCO FORMER USER [facility] Tobacco Use History This section includes a history of the smoking, or tobacco-related health factors, that were collected on or before the date of the Encounter. The data comes from the [facility] where the Encounter took place. Date/Time Smoking Status/Tobacco Use Comment F acility Dec 12, 2023 10:30 AM VA-TOBACCO QUIT 5 TO < 15 YRS [facility] Feb 14, 2023 02:00 PM AH-BPR SMOKING DEPLOYMENT YES [facility] Feb 14, 2023 02:00 PM PREVIOUS SMOKER MIN [facility] Oct 27, 2022 10:30 AM VA-TOBACCO FORMER USER [facility] Oct 27, 2022 10:30 AM VA-TOBACCO QUIT 15 YRS OR MORE [facility] Jan 26, 2021 10:00 AM VA-TOBACCO FORMER USER [facility] Jan 26, 2021 10:00 AM VA-TOBACCO QUIT 1 TO < 5 YRS [facility] Jul 23, 2019 08:07 AM VA-TOBACCO FORMER USER [facility] Jul 23, 2019 08:07 AM VA-TOBACCO QUIT 1 TO < 5 YRS [facility] Jan 29, 2018 03:41 PM CURRENT TOBACCO USER [facility] Jan 20, 2017 03:27 PM CURRENT TOBACCO USER [facility] Nov 30, 2015 08:39 AM FORMER TOBACCO USE <1Y [facility] Encounter Notes: All associated encounter notes This section contains the clinical notes associated to the Encounter. Date/Time Encounter Note(s) Provider Source Jul 24, 2024 11:31 AM MENTAL HEALTH DIAG NOSTIC STUDY NOTE: LOCAL TITLE: MENTAL HEALTH DIAGNOSTIC STUDY NOTE STANDARD TITLE: MENTAL HEALTH DIAGNOSTIC STUDY NOTE DATE OF NOTE: JUL 24, 2024@11:31:12 ENTRY DATE: JUL 24, 2024@11:31:12 AUTHOR: WHITNEY JUDGE COSIGNER: URGENCY: STATUS: COMPLETED Assessments were sent to the via text/email. These assessments were completed by RAISA LALA on their own device on 07/24/2024 10:58:37 AM. ADULT ADHD SELF-REPORT SCALE V1.1-18 ITEM (ASRS-18) The patient reported the following over the last 6 months. 1. How often do you have trouble wrapping up the final details of a project, once the challenging parts have been done: Very Often 2. How often do you have difficulty getting things in order when you have to do a task that requires organization: Often 3. How often do you have problems remembering appointments or obligations: Sometimes 4. When you have a task that requires a lot of thought, how often do you avoid or delay getting started: Very Often 5. How often do you fidget or squirm with your hands or feet when you have to sit down for a long time: Very Often 6. How often do you feel overly active and compelled to do things, like you were driven by a motor: Often 7. How often do you make careless mistakes when you have to work on a boring or difficult project: Rarely 8. How often do you have difficulty keeping your attention when you are doing boring or repetitive work: Often 9. How often do you have difficulty concentrating on what people say to you, even when they are speaking to you directly: Often 10. How often do you misplace or have difficulty finding things at home or at work: Rarely 11. How often are you distracted by activity or noise around you: Very Often 12. How often do you leave your seat in meetings or other situations in which you are expected to remain seated: Often 13. How often do you feel restless or fidgety: Very Often 14. How often do you have difficulty unwinding and relaxing when you have time to yourself: Often 15. How often do you find yourself talking too much when you are in social situations: Sometimes 16. When you're in a conversation, how often do you find yourself finishing the sentences of the people you are talking to, before they can finish them themselves: Often 17. How often do you have difficulty waiting your turn in situations when turn taking is required: Sometimes 18. How often do you interrupt others when they are busy: Sometimes ADHD Screen: POSITIVE (Part A Score >= 14 is positive) Total Score (range: 0-72): 51 (71%) Part A Score (0-24): 20 Part B Score (0-48): 31 Total Symptoms (0-18): 14 (78%) Inattentive Symptoms (0-9): 7 (78%) Hyperactive Impulsive Symptoms - Motor (0-5): 5 (100%) Hyperactive Impulsive Symptoms - Verbal (0-4): 2 (50%) /sage/ WHITNEY JUDGE, Ph.D. STAFF PSYCHOLOGIST Signed: 07/24/2024 11:37 WHITNEY JUDGE [facility] Jul 23, 2024 04:00 PM MENTAL HEALTH NOTE : LOCAL TITLE: PROGRESS NOTE STANDARD TITLE: MENTAL HEALTH NOTE DATE OF NOTE: JUL 23, 2024@16:00 ENTRY DATE: JUL 23, 2024@16:19:03 AUTHOR: WHITNEY JUDGE EXP COSIGNER: URGENCY: STATUS: COMPLETED PROGRESS NOTE Has ADDENDA seen for 30-minute treatment coordination and supportive psychotherapy session for symptoms related to PTSD and bipolar affective disorder via vvc per 's preference. S/O: Dish Room Worker met with at planned time, and the noted that he had prepared a list of concerns to discuss. He specifically noted that he has been experiencing a significant lack of sleep (4-5 hours per night) even with relatively heavy doses of melatonin (20mg). He also reported that he has been feeling [his] meds haven't been doing the job they used to do. Asked for specifics, the endorsed more mood swings and particularly more periods of low mood and irritability. He also endorsed pervasive anhedonia in recent weeks, noting he is not taking a sense of pleasure from things in the usual way. Dish Room Worker provided psychoeducation on some of the symptoms being consistent with a mood episode and also that people are more vulnerable to such episodes in times of poorer sleep and higher stress. He acknowledged his stress level has been high in the month leading up to his 's due date for their first child. The also inquired about adult ADHD, and the remainder of the session was spent screening and assessing those symptoms (to be summarized below in addendum). A: Dx: PTSD; BPAD II Risk assessment [...] P: The will RTC in one month. Signing 's psychiatrist, Dr. Bertrand regarding 's concern that his current dose of lamotrigine may require adjustment. /es/ WHITNEY JUDGE, Ph.D. STAFF PSYCHOLOGIST Signed: 07/23/2024 16:26 Receipt Acknowledged By: 07/24/2024 11:49 /es/ Orestes Bertrand MD Staff Psychiatrist 07/24/2024 ADDENDUM STATUS: COMPLETED The was assessed for symptoms consistent with ADHD via brief interview and self-report screen (see Diagnostics Study Note from 07/24/24 for screen result). He noted having interest in completing the assessment after his primary care physician recommended he do so recently, noting observations that might be consistent with a diagnosis. 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 He summarized his academic history noting that he grew up in a home that emphasized the importance of academics and he performed well throughout elementary school and middle school, but that he received As, mostly Bs, and some Cs in high school. He noted that he was in Advanced Placement courses. He generally refrains from using disinhibiting substances, though has endorsed some use previously and struggled with alcohol use soon after his service. The endorsed and provided examples of symptoms corresponding to 6 of 9 symptoms of inattention and 3 of 9 symptoms of hyperactivity/impulsivity. Specifically, he noted that he often struggles to sustain attention in tasks or play activities to include work tasks, watching television, playing videogames, reading, and focusing in classes when in school); He struggles with the ability to listen when spoken to directly and has been told his mind seems elsewhere in conversations in multiple work and non-work domains; He reported diffficulties with following through on instructions and often failing to finish tasks that require sustained attention; He endorsed avoiding and being reluctant to engage in tasks that are likely to take longer than 10 minutes to complete; and he described often being distracted by extraneous stimuli, including those in his environment and also internal stimuli (e.g., errant thoughts). The hyperactivity/impulsivity symptoms he endorsed included, fidgeting when in situations where he is required to sit still (in fact he referenced recently being asked to leave a work meeting because of his restlessness); He described others and himself observing him to be on the go frequently; and he reported that he has been told in many settings that he is overly talkative. MENTAL STATUS: Keaton appeared on time for his appointment. He impressed as alert and oriented to person and place. His affect impressed as full range and was congruent with euthymic mood. Freistatt's speech was of normal rate, volume, and rhythm. His thought process was linear and goal-oriented. There was no indication of AH/VH or delusional thought content. His insight and judgment appeared sound. Assessment summary: The 's self-reported symptoms are consistent with a diagnosis of ADHD - inattentive type, though the 's recounting of his academic performance early in life are somewhat at odds with the diagnosis. His self-report results from the ASRS-18 are consistent with this diagnosis as well. The also has a history of significant psychiatric concerns related to mood and trauma-related diagnoses. It is possible that his inattention is better explained by these concerns as well. Recommendations: Dish Room Worker and discussed that if his psychiatrist, Dr. Bertrand should choose to trial medication for ADHD, it will be important for both him and his social support system to monitor his responses, given that stimulants can also exacerbate other mental health concerns. Dx - likely attention-deficit disorder, inattentive type; PTSD, chronic; Bipolar Affective Disorder II /es/ WHITNEY JUDGE, Ph.D. STAFF PSYCHOLOGIST Signed: 07/24/2024 13:10 WHITNEY JUDGE [facility]
[2024-09-04] MEDS: METOCLOPRAMIDE HCL 10 MG in 0.9 % SODIUM CHLORIDE 100 ml 100 ML 306 MG IV (11:39)
[2024-09-04] MEDS: KETOROLAC 30 MG/ML inj IVP (11:39)
[2024-09-04] MEDS: diphenhydrAMINE 50 MG/ML inj 25 MG IVP (11:39)
[2024-09-04] MEDS: 0.9 % SODIUM CHLORIDE 1000 ml 1,000 ML 2000 ML IV (11:40)
--- OUTSIDE RECORDS SUMMARY | 2024-09-04 11:40 | XMS_ITS | Clinical Summary ---
Author Organization [facility] Address [place], [place] [address] Care Team Providers Care Healthcare Facility Administrator Name Role Phone Pcp, No Primary Care Provider Unavailabl e Social History Tobacco Use Types Packs/Day Years Used Date Smoking Tobacco: Never Assessed Sex and Gender Information Value Date Recorded Sex Assigned at Not on file Gender Identity Not on file Sexual Orientation Not on file Plan of Treatment Not on file Care Teams Healthcare Facility Administrator Relationship Specialty Start Date End Date Pcp, No . PCP - General 11/25/15
[2024-09-04 12:01] VITALS: BP 138/83; PULSE 59; RESP 12; O2SAT 97
[2024-09-04 12:35] VITALS: BP 134/94; PULSE 57; RESP 12; TEMP 36.6
== END 2024-09-04 12:30 | disposition home or self-care (01) ==
LOC: ED 11:34
PROVIDERS: Emergency Provider Family Medicine
DX: G43.909 Migraine, unspecified, not intractable, without status migrainosus (principal)
CPT/HCPCS: 96374; 96375; 99284; J1200; J1885; J2765; J7030

== ENCOUNTER 2024-11-19 23:12 | Emergency (ER) | payer OTHER, SELFPAY ==
--- OUTSIDE RECORDS SUMMARY | 2024-11-19 23:15 | XMS_ITS | Encounter Summary ---
Author Name [facility] [place] Address [address] [place] [address] Care Team Providers Care Technical Customer Support Specialist Name Role Phone TEODORO TEODORO Primary Care [...] to Policy Stevenson AETNA* POINT OF SERVICE [employer] Jan 18, 2015 [id number] LALA,ROXI OB PATIENT [place] [employer] MAINTENAN CE ORGANIZAT ION W/OUT OF NETWORK BENEFITS STATE [facility] [place] Jun 09, 2023 [id number] [phone] LALA,ROXI OB PATIENT [place] HEALTH MAINTENAN CE ORGANIZAT ION [place] [facility] ONLY Jun 09, 2023 [id number] [phone] LALA,ROXI OB PATIENT CAREMARK ([id number]) PRESCRIPT ION [facility] Jun 09, 2023 [id number] [phone] LALA,ROXI OB PATIENT CAREMARK ([id number]) PRESCRIPT ION [facility] Jun 09, 2023 [id number] [phone] LALA,ROXI OB PATIENT Selected Encounter This section includes the information on record at [place] for the Encounter. Date/Time Encounter Type Encounter Description Reason Provider Source Jul 23, 2024 04:00 PM PSYTX W PT 30 MINUTES [facility] - IND ICD-10-CM F43.10 Post-traumatic stress disorder, unspecified WHITNEY JUDGE [facility] Encounter Template Text not used by [place] Assessments - Encounter Diagnoses This section includes the primary and secondary diagnoses documented for the Encounter. Date/Time Primary/Secondary Diagnosis Diagnosis Name Provider Source Jul 23, 2024 04:26 PM PRIMARY Post-traumatic stress disorder, unspecified WHITNEY JUDGE [facility] Jul 23, 2024 04:26 PM SECONDARY Bipolar II disorder WHITNEY JUDGE [facility] Plan of Treatment: Future Appointments (+ 6 months) and Future Tests (+/- 45 days) The Plan of Treatment section includes future care activities for the patient from all [place] [facility]. This section includes future appointments and future orders which are active, pending or scheduled. Future Appointments This section includes appointments that were scheduled to occur 6 months from the date of the Encounter, up to a maximum of 20 appointments. The data comes from all [place] treatment facilities. Appointment Date/Time Appointment Type Appointme nt Facility Name Aug 21, 2024 03:30 PM AMBULATORY - PSYCHIATRY OR [facility] Sep 04, 2024 02:29 PM AMBULATORY - NONE [facility] Sep 05, 2024 08:00 AM AMBULATORY - NONE [facility] Sep 11, 2024 09:30 AM AMBULATORY - PSYCHIATRY OR [facility] Sep 25, 2024 03:30 PM AMBULATORY - PSYCHIATRY OR [facility] Oct 22, 2024 09:00 AM AMBULATORY - PSYCHIATRY OR [facility] Nov 08, 2024 10:00 AM AMBULATORY - PSYCHIATRY OR [facility] Nov 21, 2024 09:00 AM AMBULATORY - PSYCHIATRY OR [facility] Social History: Smoking Status (Most current) and [...] 12, 2023 10:30 AM VA-TOBACCO FORMER USER [facility] Tobacco Use History This section includes a history of the smoking, or tobacco-related health factors, that were collected on or before the date of the Encounter. The data comes from the [facility] where the Encounter took place. Date/Time Smoking Status/Tobacco Use Comment F acility Dec 12, 2023 10:30 AM VA-TOBACCO QUIT 5 TO < 15 YRS [facility] Feb 14, 2023 02:00 PM AH-BPR SMOKING DEPLOYMENT YES [facility] Feb 14, 2023 02:00 PM PREVIOUS SMOKER MIN [facility] Oct 27, 2022 10:30 AM VA-TOBACCO FORMER USER [facility] Oct 27, 2022 10:30 AM VA-TOBACCO QUIT 15 YRS OR MORE [facility] Jan 26, 2021 10:00 AM VA-TOBACCO FORMER USER [facility] Jan 26, 2021 10:00 AM VA-TOBACCO QUIT 1 TO < 5 YRS [facility] Jul 23, 2019 08:07 AM VA-TOBACCO FORMER USER [facility] Jul 23, 2019 08:07 AM VA-TOBACCO QUIT 1 TO < 5 YRS [facility] Jan 29, 2018 03:41 PM CURRENT TOBACCO USER [facility] Jan 20, 2017 03:27 PM CURRENT TOBACCO USER [facility] Nov 30, 2015 08:39 AM FORMER TOBACCO USE <1Y [facility] Encounter Notes: All associated encounter notes This section contains the clinical notes associated to the Encounter. Date/Time Encounter Note(s) Provider Source Jul 24, 2024 11:31 AM MENTAL HEALTH DIAG NOSTIC STUDY NOTE: LOCAL TITLE: MENTAL HEALTH DIAGNOSTIC STUDY NOTE STANDARD TITLE: MENTAL HEALTH DIAGNOSTIC STUDY NOTE DATE OF NOTE: JUL 24, 2024@11:31:12 ENTRY DATE: JUL 24, 2024@:31:12 AUTHOR: WHITNEY JUDGE COSIGNER: URGENCY: STATUS: COMPLETED Assessments were sent to the Bowler via text/email. These assessments were completed by [...] STAFF PSYCHOLOGIST Signed: 07/24/2024 11:37 WHITNEY JUDGE [facility] Jul 23, 2024 04:00 PM MENTAL HEALTH [...] disorder via vvc per 's preference. S/O: Medical Photographer met with at planned time, and the [...] pleasure from things in the usual way. 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 He summarized his academic history noting that [...] range and was congruent with euthymic mood. Bowler's speech was of normal rate, volume, and [...] explained by these concerns as well. Recommendations: Medical Photographer and discussed that if his psychiatrist, Dr. [...] STAFF PSYCHOLOGIST Signed: 07/24/2024 13:10 WHITNEY JUDGE [facility]
--- OUTSIDE RECORDS SUMMARY | 2024-11-19 23:15 | XMS_ITS | Encounter Summary ---
Author Name [facility] [place] [facility] [place] Address [address] [place] [address] Care Team Providers Care Seamless Tube Drawer Name Role Phone TEODORO TEODORO Primary Care Provider [facility] [place] Primary Care Provider Unavailab hanley Insurance [...] to Policy Stevenson AETNA* POINT OF SERVICE [employer] Jan 18, 2015 [id number] LALA,ROXI OB PATIENT [place] MAINTENAN CE ORGANIZAT ION W/OUT OF NETWORK BENEFITS STATE OF [facility] [place] Jun 09, 2023 [id number] [phone] LALA,ROXI OB PATIENT BCBS [place] HEALTH MAINTENAN [place] ORGANIZ[place] ONLY Jun 09, 2023 [id number] [phone] LALA,ROXI OB PATIENT CAREMARK ([id number]) PRESCRIPT ION [facility] Jun 09, 2023 [id number] [phone] LALA,ROXI OB PATIENT CAREMARK ([id number]) PRESCRIPT ION [facility] Jun 09, 2023 [id number] [phone] LALA,ROXI OB PATIENT Selected Encounter This section includes the information on record at [place] for the Encounter. Date/Time Encounter Type Encounter Description Reason Provider Source Aug 21, 2024 03:30 PM PSYTX W PT 30 MINUTES [facility] - IND ICD-10-CM F43.10 Post-traumatic stress disorder, unspecified WHITNEY JUDGE Rai Encounter Template Text not used by [place] Assessments - Encounter Diagnoses This section includes the primary and secondary diagnoses documented for the Encounter. Date/Time Primary/Secondary Diagnosis Diagnosis Name Provider Source Aug 21, 2024 03:50 PM PRIMARY Post-traumatic stress disorder, unspecified WHITNEY JUDGE [facility] Aug 21, 2024 03:50 PM SECONDARY Bipolar II disorder WHITNEY JUDGE [facility] Plan of Treatment: Future Appointments (+ 6 months) and Future Tests (+/- 45 days) The Plan of Treatment section includes future care activities for the patient from all [place] [facility]. This section includes future appointments and future orders which are active, pending or scheduled. Future Appointments This section includes appointments that were scheduled to occur 6 months from the date of the Encounter, up to a maximum of 20 appointments. The data comes from all [place] treatment facilities. Appointment Date/Time Appointment Type Appointme nt Facility Name Sep 04, 2024 02:29 PM AMBULATORY - NONE [facility] Sep 05, 2024 08:00 AM AMBULATORY - NONE [facility] Sep 11, 2024 09:30 AM AMBULATORY - PSYCHIATRY IN [facility] Sep 25, 2024 03:30 PM AMBULATORY - PSYCHIATRY IN [facility] Oct 22, 2024 09:00 AM AMBULATORY - PSYCHIATRY IN [facility] Nov 08, 2024 10:00 AM AMBULATORY - PSYCHIATRY IN [facility] Nov 21, 2024 09:00 AM AMBULATORY - PSYCHIATRY IN [facility] Active, Pending, and Scheduled Orders This section includes a listing of several types of active, pending, and scheduled orders, including clinic medications orders, diagnostic test orders, procedure orders and consult orders; where the start date of the order is 45 days before the date of the Encounter or 45 days after the date of theEncounter. The data comes from all [place] treatment facilities. Test Date/Time Test Type Test Details Facility Name Sep 11, 2024 12:00 AM Laboratory - Chemistry Order HEMOGLOBIN A1C BLOOD SP ONCE [facility] Sep 11, 2024 12:00 AM Laboratory - Chemistry Order COMPREHENSIVE METABOLIC PANEL+MG PLASMA SP ONCE [facility] Sep 11, 2024 12:00 AM Laboratory - Chemistry Order LIPID PANEL,NON-FASTING PLASMA SP ONCE [facility] Sep 11, 2024 12:00 AM Laboratory - Chemistry Order CBC & DIFF BLOOD SP ONCE [facility] Social History: Smoking Status (Most current) and Tobacco Use (All prior to encounter date) This section includes the most current, and the historical, smoking and tobacco- related health factors from the [place] facility where the Encounter took place. Current Smoking Status This section includes the most current smoking, or tobacco-related health factor, from the [place] facility where the Encounter took place. Date/Time Current Smoking Status Comment Beat[facility] Dec 12, 2023 10:30 AM VA-TOBACCO FORMER USER [facility] Tobacco Use History This section includes a history of the smoking, or tobacco-related health factors, that were collected on or before the date of the Encounter. The data comes from the [place] facility where the Encounter took place. Date/Time Smoking Status/Tobacco Use Comment F acalphonso Dec 12, 2023 10:30 AM VA-TOBACCO QUIT 5 TO < 15 YRS [facility] Feb 14, 2023 02:00 PM AH-BPR SMOKING DEPLOYMENT YES [facility] Feb 14, 2023 02:00 PM PREVIOUS SMOKER MIN [facility] Oct 27, 2022 10:30 AM VA-TOBACCO FORMER USER [facility] Oct 27, 2022 10:30 AM VA-TOBACCO QUIT 15 YRS OR MORE [facility] Jan 26, 2021 10:00 AM VA-TOBACCO FORMER USER [facility] Jan 26, 2021 10:00 AM VA-TOBACCO QUIT 1 TO < 5 YRS [facility] Jul 23, 2019 08:07 AM VA-TOBACCO FORMER USER [facility] Jul 23, 2019 08:07 AM VA-TOBACCO QUIT 1 TO < 5 YRS [facility] Jan 29, 2018 03:41 PM CURRENT TOBACCO USER [facility] Jan 20, 2017 03:27 PM CURRENT TOBACCO USER [facility] Nov 30, 2015 08:39 AM FORMER TOBACCO USE <1Y [facility] Encounter Notes: All associated encounter [...] STAFF PSYCHOLOGIST Signed: 08/21/2024 15:50 WHITNEY JUDGE [facility]
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
--- OUTSIDE RECORDS SUMMARY | 2024-11-19 23:15 | XMS_ITS | Encounter Summary ---
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 Name Role Phone KIRTISORAYA TEODORO Primary Care [...] to Policy Stevenson AETNA* POINT OF SERVICE [employer] Jan 18, 2015 [id number] LALA,ROXI OB PATIENT [place] MAINTENAN CE ORGANIZAT ION W/OUT OF NETWORK BENEFITS [place] Jun 09, 2023 [id number] [phone] LALA,ROXI OB PATIENT [place] [employer] MAINTENAN CE ORGANIZAT ION [place] [facility] ONLY Jun 09, 2023 [id number] [phone] LALA,ROXI OB PATIENT CAREMARK ([id number]) PRESCRIPT [facility]ON [facility] Jun 09, 2023 [id number] [phone] LALA,ROXI OB PATIENT CAREMARK ([id number]) PRESCRIPT ION [facility] Jun 09, 2023 [id number] [phone] LALA,ROXI OB PATIENT Selected Encounter This section includes the information on record at [place] for the Encounter. 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 Date/Time Primary/Secondary Diagnosis Diagnosis Name Provider Source Mar 18, 2024 12:41 PM PRIMARY Androgenic alopecia, unspecified SINA CACERES V [facility] Plan of Treatment: Future Appointments (+ 6 months) and Future Tests (+/- 45 days) The Plan of Treatment section includes future care activities for the patient from all [place] [facility]. This section includes future appointments and future orders which are active, pending or scheduled. Future Appointments This section includes appointments that were scheduled to occur 6 months from the date of the Encounter, up to a maximum of 20 appointments. The data comes from all [facility]. Appointment Date/Time Appointment Type Appointme nt Facility Name Feb 27, 2024 09:00 AM AMBULATORY - PSYCHIATRY [facility] March 25, 2024 09:00 AM AMBULATORY - PSYCHIATRY [facility] Apr 26, 2024 08:30 AM AMBULATORY - PSYCHIATRY [facility] May 21, 2024 08:30 AM AMBULATORY - PSYCHIATRY [facility] Active, Pending, and Scheduled Orders This section includes a listing of several types of active, pending, and scheduled orders, including clinic medications orders, diagnostic test orders, procedure orders and consult orders; where the start date of the order is 45 days before the date of the Encounter or 45 days after the date of theEncounter. The data comes from all [facility]. Test Date/Time Test Type Test Details Facility Name Dec 12, 2023 12:00 AM Laboratory - Chemi stry Order FERRITIN SERUM SP ONCE [facility] Dec 12, 2023 12:00 AM Laboratory - Chemi stry Order VIT D 25-OH,TOTAL SERUM SP ONCE [facility] Dec 12, 2023 12:00 AM Laboratory - Chemi stry Order TSH W/REFLEX TO FREE T4 PLASMA SP ONCE [facility] Dec 12, 2023 12:00 AM Laboratory - Chemi stry Order C.TRACHOMATIS/N.GONOR PEDRO PABLO DNA URINE SP [facility] Dec 12, 2023 12:00 AM Laboratory - Chemi stry Order ZINC SERUM SP ONCE [facility] Dec 12, 2023 12:00 AM Laboratory - Chemi stry Order HIV AG/AB SCREEN SERUM SP ONCE [facility] Dec 12, 2023 12:00 AM Laboratory - Chemi stry Order ANTI-HEP C(EIA) SERUM SP [facility] Dec 12, 2023 12:00 AM Laboratory - Chemi stry Order SYPHILIS AB/RPR RFLX SERUM SP [facility] Lab Results: +/- 30 days of the encounter This section includes the Chemistry and Hematology Lab Results on record with [place] for the patient. Radiology Reports and Pathology Reports are provided separately, in subsequent sections. Lab Results This section contains the Chemistry/Hematology Results that were resulted 30 days before or 30 daysafter the date of the Encounter. Date/Time Source Result Type Result - Unit Interpretation Reference Range Comment Dec 12, 2023 08:47 AM [facility] TSH W/REFLEX TO FREE T4 Specimen Type: PLASMA No comment entered. Ordering Provider: ANAHI COLLINS Report Released Date/Time: Oct 27, 2022 09:53 AM Reporting Lab: [facility] [id number] Performing Lab: [facility] [id number] TSH 0.72 u[IU]/mL 0.35-4.94 Dec 12, 2023 08:47 AM [facility] LIPID PANEL,NON-FASTING Specimen Type: PLASMA No comment entered. Ordering Provider: ANAHI COLLINS Report Released Date/Time: Oct 27, 2022 09:53 AM Reporting Lab: [facility] [id number] Performing Lab: [facility] [id number] CHOLESTEROL 170 mg/dL <199 .HDL 40 mg/dL >40 LDL CALCULATION 118 mg/dL H <99 VLDL CALCULATION 12 mg/dL <29 NON HDL CHOLESTEROL 130 mg/dL H <129 TRIG(NON FASTING) 58 mg/dL <149 Dec 12, 2023 08:47 AM [facility] COMPREHENSIVE METABOLIC PANEL+MG Specimen Type: PLASMA No comment entered. Ordering Provider: ANAHI COLLINS Report Released Date/Time: Oct 27, 2022 09:53 AM Reporting Lab: [facility] [id number] Performing Lab: [facility] [id number] CREATININE 0.9 mg/dL 0.7-1.2 UREA NITROGEN 15 [...] >90 >60 Dec 12, 2023 08:47 AM [facility] CBC & DIFF Specimen Type: BLOOD Comment: Automated Differential Performed Ordering Provider: ANAHI COLLINS Report Released Date/Time: Oct 27, 2022 09:53 AM Reporting Lab: [facility] [id number] Performing Lab: [facility] [id number] WBC 5.58 10*3/uL 4.0-11.0 RBC 4.73 10*6/uL [...] 10*3/uL 0-0.1 Dec 12, 2023 08:47 AM [facility] HEMOGLOBIN A1C Specimen Type: BLOOD Comment: Values [...] Dec 14, 2023 11:58 AM Reporting Lab: [facility] [id number] Performing Lab: [facility] [id number] HEMOGLOBIN A1C 5.2 4.0-6.0 Dec 12, 2023 08:46 AM [facility] TSH W/REFLEX TO FREE T4 Specimen Type: PLASMA No comment entered. Ordering Provider: BUSHRA PANDEY Report Released Date/Time: Sep 27, 2023 11:23 AM Reporting Lab: [facility] [phone] Performing Lab: [facility] [id number] TSH 0.70 u[IU]/mL 0.35-4.94 Vital Signs: All taken on the encounter date This section contains inpatient and outpatient Vital Signs collected on the date of the Encounter. Date/Time Temperature Pulse Blood Pressure Respiratory Rate SP02 Pain Height Weight Body Mass Index Source Dec 12, 2023 10:33 AM 99.7 F 58 /min 124/80 mm[Hg] 15 /min 96 % 0 66.5 in 186.2 lb 30 [facility] Social History: Smoking Status (Most current) and Tobacco Use (All prior to encounter date) This section includes the most current, and the historical, smoking and tobacco- related health factors from the [facility] where the Encounter took place. Current Smoking Status This section includes the most current smoking, or tobacco-related health factor, from the [facility] where the Encounter took place. Date/Time Current Smoking Status Comment Facil ity Dec 12, 2023 10:30 AM VA-TOBACCO FORMER USER [facility] Tobacco Use History This section includes a history of the smoking, or tobacco-related health factors, that were collected on or before the date of the Encounter. The data comes from the [place] facility where the Encounter took place. Date/Time Smoking Status/Tobacco Use Comment F acility Dec 12, 2023 10:30 AM VA-TOBACCO QUIT 5 TO < 15 YRS [facility] Feb 14, 2023 02:00 PM AH-BPR SMOKING DEPLOYMENT YES [facility] Feb 14, 2023 02:00 PM PREVIOUS SMOKER MIN [facility] Oct 27, 2022 10:30 AM VA-TOBACCO FORMER USER [facility] Oct 27, 2022 10:30 AM VA-TOBACCO QUIT 15 YRS OR MORE [facility] Jan 26, 2021 10:00 AM VA-TOBACCO FORMER USER [facility] Jan 26, 2021 10:00 AM VA-TOBACCO QUIT 1 TO < 5 YRS [facility] Jul 23, 2019 08:07 AM VA-TOBACCO FORMER USER [facility] Jul 23, 2019 08:07 AM VA-TOBACCO QUIT 1 TO < 5 YRS [facility] Jan 29, 2018 03:41 PM CURRENT TOBACCO USER [facility] Jan 20, 2017 03:27 PM CURRENT TOBACCO USER [facility] Nov 30, 2015 08:39 AM FORMER TOBACCO USE <1Y [facility] Encounter Notes: All associated encounter notes [...] disorder 7. PTSD - Post-Traumatic Stress Disorder ([facility] [id number]) 8. Tinnitus ([facility] [id number]) 9. Vitamin D Deficiency ([facility] [id number]) 10. Photosensitivity 11. Liver function tests abnormal [...] By: 01/16/2024 11:08 /sage/ CONNOR AGUILAR MD [facility]
--- OUTSIDE RECORDS SUMMARY | 2024-11-19 23:15 | XMS_ITS | Encounter Summary ---
Author Name [facility] [place] Organization [place] Address [address] [place] [address] Care Team Providers Care Supervisor Gate Services Name Role Phone TEODORO VALERIO Primary Care [...] to Policy Stevenson AETNA* POINT OF SERVICE [employer] Jan 18, 2015 [id number] LALA,ROXI OB PATIENT [place] HEALTH MAINTENAN CE ORGANIZAT ION W/OUT OF NETWORK BENEFITS [place] Jun 09, 2023 [id number] [phone] LALA,ROXI OB PATIENT [place] HEALTH MAINTENAN CE ORGANIZAT ION [place] ONLY Jun 09, 2023 [id number] [phone] LALA,ROXI OB PATIENT CAREMARK ([id number]) PRESCRIPT ION [place] Jun 09, 2023 [id number] [phone] LALAROXI OB PATIENT CAREMARK ([id number]) ISABEL FLORES [facility] Jun 09, 2023 [id number] [phone] DAIROXI OB PATIENT Selected Encounter This section includes the information on record at [place] for the Encounter. Date/Time Encounter Type Encounter Description Reason Pro vider Source May 21, 2024 08:30 AM Outpatient Encounter [facility] Encounter Template Text not used by [place] Plan of Treatment: Future Appointments (+ 6 months) and Future Tests (+/- 45 days) The Plan of Treatment section includes future care activities for the [facility] [place] [facility] This section includes future appointments and future orders which are active, pending or scheduled. Future Appointments This section includes appointments that were scheduled to occur 6 months from the date of the Encounter, up to a maximum of 20 appointments. The data comes from all [facility] facilities. Appointment Date/Time Appointment Type Appointme nt Facility Name Jun 25, 2024 08:30 AM [facility] Jul 23, 2024 04:00 PM [place] [facility] Aug 21, 2024 03:30 PM [place] [facility] Sep 04, 2024 02:29 PM AMBULATORY - NONE [facility] Sep 05, 2024 08:00 AM AMBULATORY - NONE [facility] Sep 11, 2024 09:30 AM [place] [facility] Sep 25, 2024 03:30 PM [facility] [place] [facility] Oct 22, 2024 09:00 AM [place] [facility] Nov 08, 2024 10:00 AM [facility] [place] [facility] Nov 21, 2024 09:00 AM [facility] [place] [facility] Social History: Smoking Status (Most current) and Tobacco Use (All prior to encounter date) This section includes the most current, and the historical, smoking and tobacco- related health factors from the [place] facility where the Encounter took place. Current Smoking Status This section includes the most current smoking, or tobacco-related health factor, from the [place] facility where the Encounter took place. Date/Time Current Smoking Status [place] Dec 12, 2023 10:30 AM VA-TOBACCO FORMER USER [facility] Tobacco Use History This section includes a history of the smoking, or tobacco-related health factors, that were collected on or before the date of the Encounter. The data comes from the [place] facility where the Encounter took place. Date/Time Smoking Status/Tobacco Use Comment F acility Dec 12, 2023 10:30 AM VA-TOBACCO QUIT 5 TO < 15 YRS [facility] Feb 14, 2023 02:00 PM AH-BPR SMOKING DEPLOYMENT YES [facility] Feb 14, 2023 02:00 PM PREVIOUS SMOKER MIN [facility] Oct 27, 2022 10:30 AM VA-TOBACCO FORMER USER [facility] Oct 27, 2022 10:30 AM VA-TOBACCO QUIT 15 YRS OR MORE [facility] Jan 26, 2021 10:00 AM VA-TOBACCO FORMER USER [facility] Jan 26, 2021 10:00 AM VA-TOBACCO QUIT [...] AM FORMER TOBACCO USE <1Y [facility] Encounter Notes: All associated encounter notes This section contains the clinical notes associated to the Encounter. Date/Time Encounter Note(s) Provider Source May 21, 2024 08:44 AM NO SHOW NOTE: LOCAL TITLE: NO SHOW NOTE STANDARD TITLE: NO SHOW NOTE DATE OF NOTE: MAY 21, 2024@08:44 ENTRY DATE: MAY 21, 2024@08:44:55 AUTHOR: WHITNEY JUDGE COSIGNER: URGENCY: STATUS: COMPLETED NO SHOW NOTE [...] Plan Based on Clinician Judgment of Risk: Supervisor Coin Machine called and left privacy-compliant voicemail for him reminding him of contact information for rescheduling. Will proceed with No Show outreach protocol. Is the identified with a high risk for suicide flag? No Signing MATT Nunez to please no-show appointment in CPRS and send no- show letter. Supervisor Coin Machine will continue with outreach to . /sgae/ WHITNEY JUDGE, Ph.D. STAFF PSYCHOLOGIST Signed: 05/21/2024 08:47 Receipt Acknowledged By: 05/21/2024 08:57 /sage/ LINUS NUNEZ Heavy Duty Mechanic 05/21/2024 ADDENDUM STATUS: COMPLETED [place] called contract technical writer and apologized for missing due to oversleeping. Rescheduled for a month out. /sage/ WHITNEY JUDGE, Ph.D. STAFF PSYCHOLOGIST Signed: 05/21/2024 13:09 WHITNEY JUDGE [facility]
--- OUTSIDE RECORDS SUMMARY | 2024-11-19 23:15 | XMS_ITS | Continuity of Care Document ---
Author Name [facility] Organization [facility] Care Team Providers Care Lab Support Service Tech Name Role Phone [facility] Unavailable Unavailable Problems Combined list of problems from Department of Defense and [facility] Affairs facilities. It does not include entries that were removed or entered in error. Problem Status Onset Date Problem Type Date of Resolution Comments Source Exposure to potentially hazardous substance ([facility] [id number]) Active 024 Condition Jan 24, 2024 Entered By: JILLIAN DELACRUZ Comment: [facility] Documentation Initiative [facility] Allergic rhinitis Active Condition [facility] Allergy to bee venom Active Condition [facility] Bipolar II disorder Active Condition [facility] Chronic back pain (SNOMED [place] 272391583) Active Condition [facility] Depression Active Condition [facility] Dyspnea on exertion Active Condition [facility] Exposure to potentially hazardous chemical Active Condition [facility] Immunization status Active Condition [facility] Impaired cognition (SNOMED CT 514016129) Active Condition [facility] Insomnia (SNOMED CT 132094267) Active Condition [facility] Laboratory Examination Ordered as part of a Routine General Medical Examination Active Condition [facility] Liver function tests abnormal Active Condition [facility] Low back pain Active Condition March Entered By: SOHAN DOYLE Comment: prothetic consult for heating pad and back brace [facility] Low back pain Active Condition Feb Entered By: JANUARY MALAVE Comment: 03.04.2018 L-S MRI: L5-S1 Spondylosis w/ central canal and foraminal narrowing. [facility] Low back pain Active Condition [facility] Low back pain (SNOMED CT 506958722) Active Condition [facility] Marijuana Abuse unspecified Active Condition [facility] Migraine Active Condition [facility] Mild traumatic brain injury Active Condition [facility] Nightmare disorder Active Condition [facility] EXPOSURE TO BURN PIT SMOKE Active Condition [facility] OIF EXPOSURE TO FLIP-8 FUEL Active Condition [facility] OIF EXPOSURE TO SANDSTORMS AND DUSTSTORMS Active Condition [facility] Photosensitivity Active Condition [facility] Posttraumatic stress disorder Active Condition [facility] Posttraumatic stress disorder (SNOMED CT 51701569) Active Condition [facility] Premature ejaculation Active Condition [facility] PTSD - Post-Traumatic Stress Disorder (SCT 67774717) Active Condition [facility] Sleep disorder Active Condition [facility] Substance abuse Active Condition Nov 30, 2015 Entered By: DEJON BECERRA Comment: previously used marijuana [facility] Tinnitus (SCT 00675528) Active Condition [facility] Vitamin D Deficiency (SCT 3244591) Active Condition [facility] Well adult Active Condition [facility] Acute irritant contact dermatitis Inactive Condition 07/23/2019 [facility] Tobacco use Inactive Condition 07/23/2019 [facility] visit for: examination Inactive Condition DoD gastroenteritis viral Inactive Condition DoD sonia depress single episode w/o melancholia or psych features Active Condition DoD unspecified diagnosis Active Condition [facility] Laboratory Studies Inactive Condition Do D male erectile disorder Active Condition DoD vomiting Inactive Condition DoD dizziness Inactive Condition DoD gastroenteritis Active Condition DoD abdominal pain Active Condition DoD visit for: physical medical evaluation board (MEB) Active Condition DoD epistaxis Inactive Condition [facility] visit for: exam following high-risk medication Active Condition [facility] taking high-risk medication Active Condition [facility] visit for: therapeutic drug monitoring Active Condition [facility] routine examination Inactive Condition [facility] assessment of patient condition impairment rating ___% Active Condition 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 Patient Education Inactive Condition [facility] Patient Counseling: Active Condition DoD allergic rhinitis Inactive Condition [facility] Winnie Schlatter disease Inactive Condition advil/ motrin/ ice massage. has 3 weeks lef of season. , get oull-on brace w/ knee cut-out. exercise as tolerated, limiting running will improve symptoms [facility] cough Inactive Condition 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, unspecified Active Diagnosis [facility] Diagnosis: ICD-10-CM 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 [facility] Diagnosis: ICD-10-CM Z71.89 Other specified counseling Active Diagnosis [facility] Medications Combined list of outpatient medications from Department of Defense and [facility] Affairs facilities.Medications provided include 1) outpatient medications [...] ON AND ONE WEEK OFF TOPICA L 10/04/2024 [id number] DANNIE,PATTIE N 2023 50 [facility] EPINEPHRINE (EQV-EPI-PE N) 0.3MG/0.3ML INJECTOR INJECT 1 KIT INTRAMUS CULAR DIRECTED NEEDED FOR SEVERE ALLERGIC REACTION INTRAM USCULA R ACTIVE 02/22/2025 [id number] 4 SINA RODRIGUEZ SGHINA 2023 2 [facility] Epinephrine 1mg/mL Solution, Intramuscul ar (Epipen), 0.3mL Prefilled Pen INJECT 1 KIT INTRAMUS CULAR DIRECTED NEEDED FOR SEVERE ALLERGIC REACTION Active 02/22/2025 [id number] 4 HANH RODRIGUEZ 2023 2 [facility] FLONASE-OTC (BRAND) 50 MCG KAREN SPSN [9.9] SPRAY 2 SPRAYS IN EACH NOSTRIL EVERY DAY USE REGULARL Y FOR RELIEF OF ALLERGIE S/CONGES TION Active 02/22/2025 [id number] 4 HANH RODRIGUEZ 2023 2 [facility] Fluoxetine (Prozac) Capsule Conventiona l 20 mg Oral TAKE TWO CAPSULES BY MOUTH EVERY MORNING FOR MOOD AND ANXIETY Active 03/15/2025 [id number] 4 ESTUARDO MOURA 2023 120 [facility] Fluoxetine (Prozac) Capsule Conventiona l 20 mg Oral TAKE TWO CAPSULES BY MOUTH EVERY MORNING FOR MOOD AND ANXIETY 02/24/2024 [id number] 4 ESTUARDO MOURA 2023 76 [facility] Fluoxetine (Prozac) Capsule Conventiona l 20 mg Oral TAKE TWO CAPSULES BY MOUTH EVERY MORNING FOR MOOD AND ANXIETY 02/24/2024 [id number] 4 [facility]ARDO MOURA 2023 76 [facility] FLUOXETINE HCL 20MG CAP TAKE TWO CAPSULES BY MOUTH EVERY MORNING FOR MOOD AND ANXIETY ORAL DISCONT INUED BY PROVIDE R 03/15/2025 [id number] 4 BOOGIE MOURA 2023 120 [place] FLUOXETINE HCL 20MG CAP TAKE THREE CAPSULES BY MOUTH EVERY MORNING FOR 14 DAYS, THEN TAKE TWO CAPSULES EVERY MORNING FOR MOOD AND ANXIETY ORAL DISCONT INUED 02/24/2024 [id number] 4 BOOGIE MOURA 2023 90 [place] [facility] FLUOXETINE HCL 20MG CAP TAKE TWO CAPSULES BY MOUTH EVERY MORNING FOR MOOD AND ANXIETY ORAL 02/24/2024 [id number] 4 BOOGIE MOURA 2023 76 [place] [facility] FLUTICASONE PROPIONATE 50MCG/SPRAY SOLN,NASAL, 16GM SPRAY 2 SPRAYS IN EACH NOSTRIL EVERY DAY USE REGULARL Y FOR RELIEF OF ALLERGIE S/CONGES TION NASAL ACTIVE 02/22/2025 [id number] 4 SINA RODRIGUEZ SGHINA 2023 2 [place] [facility] GABAPENTIN (U/D) 300 MG ORAL CAP TAKE TWO CAPSULES BY MOUTH THREE TIMES A DAY NEEDED FOR ANXIETY Active 01/16/2025 [id number] 4 ESTUARDO MOURA 2023 90 [place] [facility] GABAPENTIN (U/D) 300 MG ORAL CAP TAKE TWO CAPSULES BY MOUTH THREE TIMES A DAY NEEDED FOR ANXIETY Active 01/16/2025 [id number] 4 ESTUARDO MOURA 2023 90 [place] [facility] GABAPENTIN (U/D) 300 MG ORAL CAP TAKE TWO CAPSULES BY MOUTH THREE TIMES A DAY NEEDED FOR ANXIETY 02/02/2024 [id number] 4 ESTUARDO MOURA 2023 90 [place] [facility] GABAPENTIN 300MG CAP TAKE TWO CAPSULES BY MOUTH THREE TIMES A DAY NEEDED FOR ANXIETY ORAL ACTIVE 07/25/2025 [id number] 4 BOOGIE MOURA 2023 180 [place] [facility] GABAPENTIN 300MG CAP TAKE TWO CAPSULES BY MOUTH THREE TIMES A DAY NEEDED FOR ANXIETY ORAL DISCONT INUED (EDIT) 01/16/2025 [id number] 4 BOOGIE MOURA 2023 90 [place] [facility] GABAPENTIN 300MG CAP TAKE TWO CAPSULES BY MOUTH THREE TIMES A DAY NEEDED FOR ANXIETY ORAL DISCONT INUED 02/02/2024 [id number] 4 BOOGIE MOURA 2022 90 [place] [facility] HYDROCORTIS ONE 2.5% CREAM,TOP APPLY THIN LAYER TOPICALL Y TWICE A DAY FOR ALOPECIA TO PEREIRA FOR 2 WEEKS, THEN ALTERNAT ING ONE WEEK OFF, ONE WEEK ON TOPICA L 10/04/2024 [id number] 3 PATTIE PANDEY 2022 30 [place] [facility] lamoTRIgine 100 MG ORAL TAB TAKE ONE TABLET BY MOUTH TWICE A DAY FOR BIPOLAR DISORDER 05/09/2024 [id number] 4 ESTUARDO MOURA 2023 180 [place] [facility] LAMOTRIGINE 100MG TAB TAKE THREE TABLETS BY MOUTH EVERY DAY FOR BIPOLAR DISORDER ORAL DISCONT INUED (EDIT) 07/25/2025 [id number] 4 BOOGIE MOURA 2023 180 [facility] LAMOTRIGINE 100MG TAB TAKE TWO AND A HALF TABLETS BY MOUTH EVERY DAY FOR 7 DAYS, THEN TAKE THREE TABLETS EVERY DAY FOR BIPOLAR DISORDER ORAL DISCONT INUED 07/25/2025 [id number] 4 BOOGIE MOURA 2023 177 [place] [facility] LAMOTRIGINE 100MG TAB TAKE ONE TABLET BY MOUTH TWICE A DAY FOR BIPOLAR DISORDER ORAL DISCONT INUED (EDIT) 08/25/2024 [id number] 4 MIMI SOSA 2023 180 [place] [facility] LAMOTRIGINE 100MG TAB TAKE ONE TABLET BY MOUTH TWICE A DAY FOR BIPOLAR DISORDER ORAL 05/09/2024 [id number] 4 BOOGIE MOURA 2022 180 [place] [facility] LAMOTRIGINE 150MG TAB TAKE TWO TABLETS BY MOUTH EVERY DAY FOR BIPOLAR DISORDER ORAL ACTIVE 09/12/2025 [id number] 4 BOOGIE MOURA 2023 180 [facility] Loratadine (Alavert ODT) Tablet 10 mg Oral TAKE ONE TABLET BY MOUTH EVERY DAY FOR ALLERGIE S Active 02/22/2025 [id number] 4 HANH RODRIGUEZ 2023 90 [place] [facility] Loratadine (Alavert ODT) Tablet 10 mg Oral TAKE ONE TABLET BY MOUTH EVERY DAY FOR ALLERGIE S Active 02/22/2025 [id number] 4 HANH RODRIGUEZ 2023 90 [place] [facility] LORATADINE 10MG TAB TAKE ONE TABLET BY MOUTH EVERY DAY FOR ALLERGIE S ORAL ACTIVE 02/22/2025 [id number] 4 SINA RODRIGUEZ 2023 90 [facility] MINOXIDIL 2.5 MG ORAL TAB TAKE ONE TABLET BY MOUTH EVERY DAY Active 12/12/2024 [id number] FLOYD PAIZ V 2023 90 [facility] MINOXIDIL 2.5 MG ORAL TAB TAKE ONE TABLET BY MOUTH EVERY DAY Active 12/12/2024 [id number] FLOYD PAIZ V 2023 90 [facility] MINOXIDIL 2.5MG TAB TAKE ONE TABLET BY MOUTH EVERY DAY ORAL ACTIVE 12/12/2024 [id number] 4 MATTI RIGGSGIANNA Napoleon Cota 2023 90 [facility] QUETIAPINE FUMARATE 50MG TAB TAKE ONE TO TWO TABLETS BY MOUTH AT BEDTIME FOR BIPOLAR DISORDER ORAL ACTIVE 07/25/2025 [id number] 4 BOOGIE MOURA 2023 60 [facility] Allergies, Adverse Reactions, Alerts Combined list of allergies from Department of Defense and Veterans Affairs facilities. It does not include entries that were removed or entered in error. Substance Category Reaction Severity Reaction type Status Date Reported Comments Source BEE STINGS Propensity to adverse reaction (finding) Anaphylaxis active 6 [facility] BEE STINGS Propensity to adverse reaction (finding) active 8 [facility] HORNET STINGS Propensity to adverse reaction (finding) Anaphylaxis active 6 [facility] WASP STINGS Propensity to adverse reaction (finding) Anaphylaxis active 6 [facility] WASP VENOM ([facility]) Allergy to substance (disorder) Anaphylaxis, Other: Beestings, hornets active 1 Misael MARTINEZ [place], [place] Immunizations Combined list of available immunizations from the Department of Defense and Veterans Affairs facilities. 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 Comments Source COVID-19 (PFIZER), MRNA, LNP-S, PF, SHAN-SUCROSE, 30 MCG/0.3 ML (AGES 12+ YEARS) 1 2023 [employer] IE SUSIE LEFT DELTO ID [id number] complet ed [facility] INFLUENZA, INJECTABLE, QUADRIVALENT, PRESERVATIVE FREE 2023 [employer] IE SUSIE LEFT DELTO ID [id number] A 150 complet ed [facility] INFLUENZA, INJECTABLE, QUADRIVALENT, PRESERVATIVE FREE 2021 150 complet ed [facility] COVID-19 (PFIZER), MRNA, LNP-S, BIVALENT BOOSTER, PF, 30 MCG/0.3 ML DOSE 1 2021 300 complet ed PFR; [id number]; 3 [facility] COVID-19 (PFIZER), MRNA, LNP-S, PF, 30 MCG/0.3 ML DOSE 3 2021 208 complet ed PFR; [id number]; 2 [facility] INFLUENZA, INJECTABLE, QUADRIVALENT 2020 158 complet ed [facility] INFLUENZA, INJECTABLE, QUADRIVALENT, PRESERVATIVE FREE 2020 150 complet ed [facility] COVID-19 (MODERNA), MRNA, LNP-S, PF, 100 MCG OR 50 MCG DOSE 2 2020 207 complet ed [facility] COVID-19 (MODERNA), MRNA, LNP-S, PF, 100 MCG/0.5ML DOSE OR 50 MCG/0.25ML DOSE 2020 207 complet ed [facility] COVID-19 (MODERNA), MRNA, LNP-S, PF, 100 MCG OR 50 MCG DOSE 1 2020 207 complet ed [facility] INFLUENZA, SEASONAL, INJECTABLE, PRESERVATIVE FREE 2018 140 complet ed [facility] INFLUENZA, INJECTABLE, QUADRIVALENT, PRESERVATIVE FREE 2017 150 complet ed [id number] EXP 05/19/19 [facility] INFLUENZA, SEASONAL, INJECTABLE, PRESERVATIVE FREE 2015 140 complet ed [facility] TDAP 2015 115 complet ed glaxo pérez wu [id number] 10/08/17 [facility] FLU,3 YRS (HISTORICAL) 2012 88 complet ed [facility] INFLUENZA, UNSPECIFIED FORMULATION 2012 88 complet ed Active Duty [facility] influenza virus vaccine, live, attenuated, for intranasal use 1 2011 [id number] [employer] (MED) complet ed influenza virus vaccine, live, attenuate d, for intranasa l use DoD INFLUENZA, UNSPECIFIED FORMULATION 2011 88 complet ed [facility], VISN 15 TDAP 2011 115 complet ed [place] [facility] influenza virus vaccine, live, attenuated, for intranasal use 1 2010 [id number] [employer] (MED) complet ed influenza virus vaccine, live, attenuate d, for intranasa l use DoD influenza virus vaccine, live, attenuated, for intranasal use 1 2009 [id number] [employer] (MED) complet ed influenza virus vaccine, live, attenuate d, for intranasa l use DoD anthrax vaccine 3 2009 [id number] [facility] complet ed anthrax vaccine DoD Novel influenza-H1N 1-09, injectable 1 2008 [id number] 127 Unknown (UNK) complet ed Novel influenza -N5P5-89, injectabl e DoD anthrax vaccine 2 2008 [id number] Unknown (UNK) comple t ed anthrax vaccine DoD influenza virus vaccine, split virus (incl. purified surface antigen)-reti red CODE 1 2008 [id number] [employer] ([facility]) complet ed influenza virus vaccine, split virus (incl. purified surface antigen)- retired CODE DoD anthrax vaccine 1 2008 [id number] [facility]) complet ed anthrax vaccine DoD vaccinia (smallpox) vaccine 1 2008 [id number] 75 [facility] ([facility]) complet ed vaccinia (smallpox ) vaccine DoD typhoid Vi capsular polysaccharid e vaccine 1 2008 [id number] [employer] ([facility]) complet ed typhoid Vi capsular polysacch aride vaccine DoD influenza virus vaccine, live, attenuated, for intranasal use 1 2007 [id number] 111 [employer] (MED) complet ed influenza virus vaccine, [...] inactivated 1 2007 [id number] [employer] ([facility]) complet ed polioviru s vaccine, inactivat ed DoD meningococcal polysaccharid e (groups A, C, Y and W-135) diphtheria toxoid conjugate vaccine (MCV4P) 1 2007 [id number] [employer] ([facility]) complet ed meningoco ccal polysacch aride (groups A, C, Y and W-135) diphtheri a toxoid conjugate vaccine (MCV4P) DoD tetanus toxoid, reduced diphtheria toxoid, and acellular pertu is vaccine, adsorbed 1 2007 [id number] [employer] ([facility]) complet ed tetanus toxoid, reduced diphtheri a toxoid, and acellular pertussis vaccine, adsorbed DoD tetanus and diphtheria toxoids, adsorbed, preservative free, for adult use (2 Lf of tetanus toxoid and 2 Lf of diphtheria toxoid) 1 2003 Unknown, Provider [id number] [employer] ([facility]) complet ed tetanus and diphtheri a toxoids, [...] Oct 27, 2022 09:53 AM Reporting Lab: [facility] [phone] Performing Lab: [facility] [address] [place] [facility] LIPID PANEL,NO N-FASTIN G CHOLESTERO L [MASS/VOLU ME] IN SERUM OR PLASMA 170 mg/dL <199 - 199 12/12 Specimen Type: PLASMA No comment entered. Ordering Provider: ANAHI COLLINS Report Released Date/Time: Oct 27, 2022 09:53 AM Reporting Lab: [facility] [address] Performing Lab: [facility] [address] [place] [facility] LIPID PANEL,NO N-FASTIN G CHOLESTERO L IN HDL [MASS/VOLU ME] IN SERUM OR PLASMA 40 mg/dL 40 12/12 Specimen Type: PLASMA No comment entered. Ordering Provider: ANAHI COLLINS Report Released Date/Time: Oct 27, 2022 09:53 AM Reporting Lab: [facility] [phone] Performing Lab: [facility] [address] [place] [facility] LIPID PANEL,NO N-FASTIN G CHOLESTERO L IN LDL [MASS/VOLU ME] IN SERUM OR PLASMA BY CALCULATIO N 118 mg/dL <99 - 99 12/12 H Specimen Type: PLASMA No comment entered. Ordering Provider: ANAHI COLLINS Report Released Date/Time: Oct 27, 2022 09:53 AM Reporting Lab: [facility] [address] Performing Lab: [facility] [address] [place] [facility] LIPID PANEL,NO N-FASTIN G CHOLESTERO L IN VLDL [MASS/VOLU ME] IN SERUM OR PLASMA BY CALCULATIO N 12 mg/dL <29 - 29 12/12 Specimen Type: PLASMA No comment entered. Ordering Provider: ANAHI COLLINS Report Released Date/Time: Oct 27, 2022 09:53 AM Reporting Lab: [facility] [address] Performing Lab: [facility] [address] [place] [facility] LIPID PANEL,NO N-FASTIN G CHOLESTERO L NON HDL [MASS/VOLU ME] IN SERUM OR PLASMA 130 mg/dL <129 - 129 12/12 H Specimen Type: PLASMA No comment entered. Ordering Provider: ANAHI COLLINS Report Released Date/Time: Oct 27, 2022 09:53 AM Reporting Lab: [facility] [address] Performing Lab: [facility] [address] [place] [facility] LIPID PANEL,NO N-FASTIN G TRIGLYCERI DE [MASS/VOLU ME] IN SERUM OR PLASMA 58 mg/dL <149 - 149 12/12 Specimen Type: PLASMA No comment entered. Ordering Provider: ANAHI COLLINS Report Released Date/Time: Oct 27, 2022 09:53 AM Reporting Lab: [facility] [address] Performing Lab: [facility] [address] [place] [facility] COMPREHE NSIVE METABOLI C PANEL+MG CREATININE [MASS/VOLU ME] IN SERUM OR PLASMA 0.9 mg/dL 0.7 - 1.2 12/12 Specimen Type: PLASMA No comment entered. Ordering Provider: ANAHI COLLINS Report Released Date/Time: Oct 27, 2022 09:53 AM Reporting Lab: [facility] [phone] Performing Lab: [facility] [address] [place] [facility] COMPREHE NSIVE METABOLI C PANEL+MG UREA NITROGEN [MASS/VOLU ME] IN SERUM OR PLASMA 15 mg/dL 8 - 26 12/12 Specimen Type: PLASMA No comment entered. Ordering Provider: ANAHI COLLINS Report Released Date/Time: Oct 27, 2022 09:53 AM Reporting Lab: [facility] [address] Performing Lab: [facility] [address] [place] [facility] COMPREHE NSIVE METABOLI C PANEL+MG GLUCOSE [MASS/VOLU ME] IN SERUM OR PLASMA 88 mg/dL 70 - 100 12/12 Specimen Type: PLASMA No comment entered. Ordering Provider: ANAHI COLLINS Report Released Date/Time: Oct 27, 2022 09:53 AM Reporting Lab: [facility] [address] Performing Lab: [facility] [address] [place] [facility] COMPREHE NSIVE METABOLI C PANEL+MG SODIUM [MOLES/VOL UME] IN SERUM OR PLASMA 139 mmol/L 136 - 145 12/12 Specimen Type: PLASMA No comment entered. Ordering Provider: ANAHI COLLINS Report Released Date/Time: Oct 27, 2022 09:53 AM Reporting Lab: [facility] [phone] Performing Lab: [facility] [address] [place] [facility] COMPREHE NSIVE METABOLI C PANEL+MG POTASSIUM [MOLES/VOL UME] IN SERUM OR PLASMA 4.4 mmol/L 3.5 - 5.1 12/12 Specimen Type: PLASMA No comment entered. Ordering Provider: ANAHI COLLINS Report Released Date/Time: Oct 27, 2022 09:53 AM Reporting Lab: [facility] [address] Performing Lab: [facility] [address] [place] [facility] COMPREHE NSIVE METABOLI C PANEL+MG CHLORIDE [MOLES/VOL UME] IN SERUM OR PLASMA 105 mmol/L 98 - 107 12/12 Specimen Type: PLASMA No comment entered. Ordering Provider: ANAHI COLLINS Report Released Date/Time: Oct 27, 2022 09:53 AM Reporting Lab: [facility] [phone] Performing Lab: [facility] [address] [place] [facility] COMPREHE NSIVE METABOLI C PANEL+MG CARBON DIOXIDE, TOTAL [MOLES/VOL UME] IN SERUM OR PLASMA 26 mmol/L 22 - 29 12/12 Specimen Type: PLASMA No comment entered. Ordering Provider: ANAHI COLLINS Report Released Date/Time: Oct 27, 2022 09:53 AM Reporting Lab: [facility] [address] Performing Lab: [facility] [address] [place] [facility] COMPREHE NSIVE METABOLI C PANEL+MG CALCIUM [MASS/VOLU ME] IN SERUM OR PLASMA 9.4 mg/dL 8.4 - 10.2 12/12 Specimen Type: PLASMA No comment entered. Ordering Provider: ANAHI COLLINS Report Released Date/Time: Oct 27, 2022 09:53 AM Reporting Lab: [facility] [address] Performing Lab: [facility] [facility] [address] [place] [facility] COMPREHE NSIVE METABOLI C PANEL+MG PROTEIN [MASS/VOLU ME] IN SERUM OR PLASMA 7.5 g/dL 6.0 - 8.3 12/12 Specimen Type: PLASMA No comment entered. Ordering Provider: ANAHI COLLINS Report Released Date/Time: Oct 27, 2022 09:53 AM Reporting Lab: [facility] [address] Performing Lab: [facility] [address] [place] [facility] COMPREHE NSIVE METABOLI C PANEL+MG ALBUMIN [MASS/VOLU ME] IN SERUM OR PLASMA 4.4 g/dL 3.5 - 5.2 12/12 Specimen Type: PLASMA No comment entered. Ordering Provider: ANAHI COLLINS Report Released Date/Time: Oct 27, 2022 09:53 AM Reporting Lab: [facility] [address] Performing Lab: [facility] [address] [place] [facility] COMPREHE NSIVE METABOLI C PANEL+MG BILIRUBIN. TOTAL [MASS/VOLU ME] IN SERUM OR PLASMA 0.2 mg/dL 0.2 - 1.2 12/12 Specimen Type: PLASMA No comment entered. Ordering Provider: ANAHI COLLINS Report Released Date/Time: Oct 27, 2022 09:53 AM Reporting Lab: [facility] [address] Performing Lab: [facility] [address] [place] [facility] COMPREHE NSIVE METABOLI C PANEL+MG MAGNESIUM [MASS/VOLU ME] IN SERUM OR PLASMA 2.0 mg/dL 1.6 - 2.6 12/12 Specimen Type: PLASMA No comment entered. Ordering Provider: ANAHI COLLINS Report Released Date/Time: Oct 27, 2022 09:53 AM Reporting Lab: [facility] [address] Performing Lab: [facility] [address] [place] [facility] COMPREHE NSIVE METABOLI C PANEL+MG ANION GAP IN SERUM OR PLASMA 8 mmol/L 5 - 15 12/12 Specimen Type: PLASMA No comment entered. Ordering Provider: ANAHI COLLINS Report Released Date/Time: Oct 27, 2022 09:53 AM Reporting Lab: [facility] [address] Performing Lab: [facility] [address] [place] [facility] COMPREHE NSIVE METABOLI C PANEL+MG ALKALINE PHOSPHATAS E [ENZYMATIC ACTIVITY/V OLUME] IN SERUM OR PLASMA 58 U/L 40 - 150 12/12 Specimen Type: PLASMA No comment entered. Ordering Provider: ANAHI COLLINS Report Released Date/Time: Oct 27, 2022 09:53 AM Reporting Lab: [facility] [address] Performing Lab: [facility] [address] [place] [facility] COMPREHE NSIVE METABOLI C PANEL+MG ALANINE AMINOTRANS FERASE [ENZYMATIC ACTIVITY/V OLUME] IN SERUM OR PLASMA 48 U/L <55 - 55 12/12 Specimen Type: PLASMA No comment entered. Ordering Provider: ANAHI COLLINS Report Released Date/Time: Oct 27, 2022 09:53 AM Reporting Lab: [facility] [address] Performing Lab: [facility] [address] [facility] IS [facility] COMPREHE NSIVE METABOLI C PANEL+MG ASPARTATE AMINOTRANS FERASE [ENZYMATIC ACTIVITY/V OLUME] IN SERUM OR PLASMA 30 U/L <34 - 34 12/12 Specimen Type: PLASMA No comment entered. Ordering Provider: ANAHI COLLINS Report Released Date/Time: Oct 27, 2022 09:53 AM Reporting Lab: [facility] [address] Performing Lab: [facility] [address] [facility] IS [facility] COMPREHE NSIVE METABOLI C PANEL+MG GLOMERULAR FILTRATION RATE/1.73 SQ M.PREDICTE D [VOLUME RATE/AREA] IN SERUM, PLASMA OR BLOOD BY CREATININE -BASED FORMULA (CKD-EPI 2020) >90 60 12/12 Specimen Type: PLASMA No comment entered. Ordering Provider: ANAHI COLLINS Report Released Date/Time: Oct 27, 2022 09:53 AM Reporting Lab: [facility] [address] Performing Lab: [facility] [address] [facility] CBC & DIFF LEUKOCYTES [#/VOLUME] IN BLOOD BY AUTOMATED COUNT 5.58 10*3/uL 4.0 - 11.0 12/12 Specimen Type: BLOOD Comment: Automated Differentia l Performed Ordering Provider: ANAHI COLLINS Report Released Date/Time: Oct 27, 2022 09:53 AM Reporting Lab: [facility] [address] Performing Lab: [facility] [address] [facility] IS [facility] CBC & DIFF ERYTHROCYT ES [#/VOLUME] IN BLOOD BY AUTOMATED COUNT 4.73 10*6/uL 4.6 - 6.2 12/12 Specimen Type: BLOOD Comment: Automated Differentia l Performed Ordering Provider: ANAHI COLLINS Report Released Date/Time: Oct 27, 2022 09:53 AM Reporting Lab: [facility] [address] Performing Lab: [facility] [address] [place] [facility] CBC & DIFF HEMOGLOBIN [MASS/VOLU ME] IN BLOOD 14.6 g/dL 13.5 - 17.9 12/12 Specimen Type: BLOOD Comment: Automated Differentia l Performed Ordering Provider: ANAHI COLLINS Report Released Date/Time: Oct 27, 2022 09:53 AM Reporting Lab: [facility] [address] Performing Lab: [facility] [address] [place] [facility] CBC & DIFF HEMATOCRIT [VOLUME FRACTION] OF BLOOD BY AUTOMATED COUNT 41.8 41 - 54 12/12 Specimen Type: BLOOD Comment: Automated Differentia l Performed Ordering Provider: ANAHI COLLINS Report Released Date/Time: Oct 27, 2022 09:53 AM Reporting Lab: [facility] [address] Performing Lab: [facility] [address] [place] [facility] CBC & DIFF MCV [ENTITIC VOLUME] BY AUTOMATED COUNT 88.4 fL 80 - 100 12/12 Specimen Type: BLOOD Comment: Automated Differentia l Performed Ordering Provider: ANAHI COLLINS Report Released Date/Time: Oct 27, 2022 09:53 AM Reporting Lab: [facility] [address] Performing Lab: [facility] [address] [place] [facility] CBC & DIFF MCH [ENTITIC MASS] BY AUTOMATED COUNT 30.9 pg 27 - 33 12/12 Specimen Type: BLOOD Comment: Automated Differentia l Performed Ordering Provider: ANAHI COLLINS Report Released Date/Time: Oct 27, 2022 09:53 AM Reporting Lab: [facility] [address] Performing Lab: [facility] [address] [place] [facility] CBC & DIFF MCHC [MASS/VOLU ME] BY AUTOMATED COUNT 34.9 g/dL 32.0 - 37.5 12/12 Specimen Type: BLOOD Comment: Automated Differentia l Performed Ordering Provider: ANAHI COLLINS Report Released Date/Time: Oct 27, 2022 09:53 AM Reporting Lab: [facility] [address] Performing Lab: [facility] [address] [place] [facility] CBC & DIFF PLATELETS [#/VOLUME] IN BLOOD BY AUTOMATED COUNT 157 10*3/uL 150 - 400 12/12 Specimen Type: BLOOD Comment: Automated Differentia l Performed Ordering Provider: ANAHI COLLINS Report Released Date/Time: Oct 27, 2022 09:53 AM Reporting Lab: [facility] [address] Performing Lab: [facility] [address] [place] [facility] CBC & DIFF PLATELET MEAN VOLUME [ENTITIC VOLUME] IN BLOOD BY AUTOMATED COUNT 9.1 fL 7.4 - 10.4 12/12 Specimen Type: BLOOD Comment: Automated Differentia l Performed Ordering Provider: ANAHI COLLINS Report Released Date/Time: Oct 27, 2022 09:53 AM Reporting Lab: [facility] [address] Performing Lab: [facility] [address] [place] [facility] CBC & DIFF NEUTROPHIL S/100 LEUKOCYTES IN BLOOD BY MANUAL COUNT 48.2 40.0 - 80.0 12/12 Specimen Type: BLOOD Comment: Automated Differentia l Performed Ordering Provider: ANAHI COLLINS Report Released Date/Time: Oct 27, 2022 09:53 AM Reporting Lab: [facility] [address] Performing Lab: [facility] [address] [place] [facility] CBC & DIFF LYMPHOCYTE S/100 LEUKOCYTES IN BLOOD BY MANUAL COUNT 37.3 15.0 - 45.0 12/12 Specimen Type: BLOOD Comment: Automated Differentia l Performed Ordering Provider: ANAHI COLLINS Report Released Date/Time: Oct 27, 2022 09:53 AM Reporting Lab: [facility] [address] Performing Lab: [facility] [address] [place] [facility] CBC & DIFF MONOCYTES/ 100 LEUKOCYTES IN BLOOD BY AUTOMATED COUNT 9.1 2.0 - 12.0 12/12 Specimen Type: BLOOD Comment: Automated Differentia l Performed Ordering Provider: ANAHI COLLINS Report Released Date/Time: Oct 27, 2022 09:53 AM Reporting Lab: [facility] [address] Performing Lab: [facility] [address] [place] [facility] CBC & DIFF EOSINOPHIL S/100 LEUKOCYTES IN BLOOD BY AUTOMATED COUNT 4.1 0.0 - 6.0 12/12 Specimen Type: BLOOD Comment: Automated Differentia l Performed Ordering Provider: ANAHI COLLINS Report Released Date/Time: Oct 27, 2022 09:53 AM Reporting Lab: [facility] [address] Performing Lab: [facility] [address] [place] [facility] CBC & DIFF BASOPHILS/ 100 LEUKOCYTES IN BLOOD BY MANUAL COUNT 1.1 0.0 - 2.0 12/12 Specimen Type: BLOOD Comment: Automated Differentia l Performed Ordering Provider: ANAHI COLLINS Report Released Date/Time: Oct 27, 2022 09:53 AM Reporting Lab: [facility] [address] Performing Lab: [facility] [address] [place] [facility] CBC & DIFF ERYTHROCYT E DISTRIBUTI ON WIDTH [RATIO] BY AUTOMATED COUNT 12.3 11.5 - 14.5 12/12 Specimen Type: BLOOD Comment: Automated Differentia l Performed Ordering Provider: ANAHI COLLINS Report Released Date/Time: Oct 27, 2022 09:53 AM Reporting Lab: [facility] [address] Performing Lab: [facility] [address] [place] [facility] CBC & DIFF LYMPHOCYTE S [#/VOLUME] IN BLOOD BY AUTOMATED COUNT 2.08 10*3/uL 1.0 - 4.0 12/12 Specimen Type: BLOOD Comment: Automated Differentia l Performed Ordering Provider: ANAHI COLLINS Report Released Date/Time: Oct 27, 2022 09:53 AM Reporting Lab: [facility] [address] Performing Lab: [facility] [address] [place] [facility] CBC & DIFF MONOCYTES [#/VOLUME] IN BLOOD BY AUTOMATED COUNT 0.51 10*3/uL 0.1 - 1.0 12/12 Specimen Type: BLOOD Comment: Automated Differentia l Performed Ordering Provider: ANAHI COLLINS Report Released Date/Time: Oct 27, 2022 09:53 AM Reporting Lab: [facility] [address] Performing Lab: [facility] [address] [place] [facility] CBC & DIFF NEUTROPHIL S [#/VOLUME] IN BLOOD BY AUTOMATED COUNT 2.69 10*3/uL 2.0 - 7.7 12/12 Specimen Type: BLOOD Comment: Automated Differentia l Performed Ordering Provider: ANAHI COLLINS Report Released Date/Time: Oct 27, 2022 09:53 AM Reporting Lab: [facility] [address] Performing Lab: [facility] [address] [place] [facility] CBC & DIFF EOSINOPHIL S [#/VOLUME] IN BLOOD BY AUTOMATED COUNT 0.23 10*3/uL 0 - 0.5 12/12 Specimen Type: BLOOD Comment: Automated Differentia l Performed Ordering Provider: ANAHI COLLINS Report Released Date/Time: Oct 27, 2022 09:53 AM Reporting Lab: [facility] [address] Performing Lab: [facility] [address] [place] [facility] CBC & DIFF BASOPHILS [#/VOLUME] IN BLOOD BY AUTOMATED COUNT 0.06 10*3/uL 0 - 0.2 12/12 Specimen Type: BLOOD Comment: Automated Differentia l Performed Ordering Provider: ANAHI COLLINS Report Released Date/Time: Oct 27, 2022 09:53 AM Reporting Lab: [facility] [address] Performing Lab: [facility] [address] [place] [facility] CBC & DIFF IG(META,MY VEE,PRO) 0.2 12/12 Specimen Type: BLOOD Comment: Automated Differentia l Performed Ordering Provider: ANAHI COLLINS Report Released Date/Time: Oct 27, 2022 09:53 AM Reporting Lab: [facility] [address] Performing Lab: [facility] [address] [facility] CBC & DIFF IMMATURE GRANULOCYT ES [PRESENCE] IN BLOOD BY AUTOMATED COUNT 0.01 10*3/uL 0 - 0.1 12/12 Specimen Type: BLOOD Comment: Automated Differentia l Performed Ordering Provider: ANAHI COLLINS Report Released Date/Time: Oct 27, 2022 09:53 AM Reporting Lab: [facility] [address] Performing Lab: [facility] [address] [facility] HEMOGLOB IN A1C HEMOGLOBIN A1C/HEMOGL OBIN.TOTAL [...] Dec 14, 2023 11:58 AM Reporting Lab: [facility] [address] Performing Lab: [facility] [address] [facility] TSH W/REFLEX TO FREE T4 THYROTROPI N [UNITS/VOL UME] IN SERUM OR PLASMA 0.70 u[IU]/mL 0.35 - 4.94 12/12 Specimen Type: PLASMA No comment entered. Ordering Provider: BUSHRA PANDEY Report Released Date/Time: Sep 27, 2023 11:23 AM Reporting Lab: [facility] [address] Performing Lab: [facility] [address] [facility] [employer] MYCOBACTER IUM TUBERCULOS [...] May 04, 2023 10:00 AM Reporting Lab: [id number] Performing Lab: [place] [address] [place] [facility] [employer] IUM TUBERCULOS [...] May 04, 2023 10:00 AM Reporting Lab: [facility] [address] Performing Lab: [facility] [address] [place] [facility] [employer] IUM TUBERCULOS [...] May 04, 2023 10:00 AM Reporting Lab: [place] [phone] Performing Lab: [place] [address] [place] [facility] [employer] IUM TUBERCULOS [...] May 04, 2023 10:00 AM Reporting Lab: [facility] [address] Performing Lab: [facility] [address] [facility] [employer] IUM TUBERCULOS [...] May 04, 2023 10:00 AM Reporting Lab: [facility] [address] Performing Lab: [facility] [address] [facility] LAMOTRIG INE LAMOTRIGIN E [MASS/VOLU ME] IN SERUM OR PLASMA 0.8 ug/mL 2.5 - 15.0 03/13 L Specimen Type: SERUM Comment: This test was developed and its analytical performance characteris tics have been determined by [employer] [place], [place]. It has not been cleared or approved by the U.S. Food and Drug Administrat ion. This assay has been validated pursuant to the CLIA regulations and is used for clinical purposes. Test Performed by [facility], [facility] [place], [address] [place], [place] Jordi Nails M.D., Ph.D., Director of Laboratorie s , CLIA [id number] Ordering Provider: VINI HAAS Report Released Date/Time: Mar 13, 2023 03:56 PM Reporting Lab: [place] [phone] Performing Lab: [facility] [address] [facility] [place] [facility] POC ABG/LACT ATE PH OF VENOUS BLOOD 7.381 7.31 - 7.41 03/13 Specimen Type: VENOUS BLOOD No comment entered. Ordering Provider: Christina PEREZ Report Released Date/Time: Mar 13, 2023 03:46 PM Reporting Lab: [facility] [address] Performing Lab: [facility] [address] [place] [facility] POC ABG/LACT ATE CARBON DIOXIDE [PARTIAL PRESSURE] IN VENOUS BLOOD 49.1 mm[Hg] 41 - 51 03/13 Specimen Type: VENOUS BLOOD No comment entered. Ordering Provider: Christina PEREZ Report Released Date/Time: Mar 13, 2023 03:46 PM Reporting Lab: [facility] [address] Performing Lab: [facility] [address] [place] [facility] POC ABG/LACT ATE OXYGEN [PARTIAL PRESSURE] IN VENOUS BLOOD 20 mm[Hg] 03/13 Specimen Type: VENOUS BLOOD No comment entered. Ordering Provider: Christina PEREZ Report Released Date/Time: Mar 13, 2023 03:46 PM Reporting Lab: [facility] [address] Performing Lab: [facility] [address] [place] [facility] POC ABG/LACT ATE CARBON DIOXIDE, TOTAL [MOLES/VOL UME] IN VENOUS BLOOD 31 mmol/L 24 - 29 03/13 Specimen Type: VENOUS BLOOD No comment entered. Ordering Provider: Christina PEREZ Report Released Date/Time: Mar 13, 2023 03:46 PM Reporting Lab: [facility] [address] Performing Lab: [facility] [address] [place] [facility] POC ABG/LACT ATE BICARBONAT E [MOLES/VOL UME] IN VENOUS BLOOD 29.1 mmol/L 23 - 28 03/13 Specimen Type: VENOUS BLOOD No comment entered. Ordering Provider: Christina PEREZ Report Released Date/Time: Mar 13, 2023 03:46 PM Reporting Lab: [facility] [address] Performing Lab: [facility] [address] [facility] POC ABG/LACT ATE BASE EXCESS IN VENOUS BLOOD BY CALCULATIO N 4 mmol/L - 2 03/13 Specimen Type: VENOUS BLOOD No comment entered. Ordering Provider: Christina PEREZ Report Released Date/Time: Mar 13, 2023 03:46 PM Reporting Lab: [facility] [address] Performing Lab: [facility] [address] [facility] POC ABG/LACT ATE FRACTIONAL OXYHEMOGLO BIN IN VENOUS BLOOD 30 03/13 Specimen Type: VENOUS BLOOD No comment entered. Ordering Provider: Christina PEREZ Report Released Date/Time: Mar 13, 2023 03:46 PM Reporting Lab: [facility] [address] Performing Lab: [facility] [address] [facility] POC ABG/LACT ATE LACTATE [MOLES/VOL UME] IN VENOUS BLOOD <1.6mmol /L 0.90 - 1.70 03/13 Specimen Type: VENOUS BLOOD No comment entered. Ordering Provider: Christina PEREZ Report Released Date/Time: Mar 13, 2023 03:46 PM Reporting Lab: [facility] [address] Performing Lab: [facility] [address] [facility] EXTRA BLUE TUBE EXTRA BLUE TUBE RECEIVED 03/13 Specimen Type: PLASMA No comment entered. Ordering Provider: VINI HAAS Report Released Date/Time: Mar 13, 2023 02:47 PM Reporting Lab: [facility] [address] Performing Lab: [facility] [address] [facility] Vital Signs Combined list of inpatient and outpatient Vital Signs from Department of Defense and Veterans Affairs, ranging from 12 months to all on record, depending upon the facility. Vital Sign Value Date Comments Source SYSTOLIC BLOOD PRESSURE 124 12/12/2023 10:33:53 [facility] DIASTOLIC BLOOD PRESSURE 80 12/12/2023 10:33:53 [facility] PULSE OXIMETRY 96% 12/12/2023 10:33:53 [place] [facility] WEIGHT 186.2 12/12/2023 10:33:53 [facility] BMI 30kg/m2 12/12/2023 10:33:53 [facility] PAIN 0 12/12/2023 10:33:53 [facility] HEIGHT 66.5 12/12/2023 10:33:53 [facility] TEMPERATURE 99.7 12/12/2023 10:33:53 [facility] PULSE 58 12/12/2023 10:33:53 [facility] RESPIRATION 15 12/12/2023 10:33:53 [facility] Encounters Combined list of: 1) Encounters from Department of [facility] Affairs facilities going back up to thelast 18 months. 2) Encounters from the Department of Defense facilities going back up to 280 months. Location Location Details Encounter Type Encounter Number Reason For Visit Attending Provider ADM Date DC Date Status Disposition Source [facility]) OUTPATIENT [id number] CHECK FOR PERSIEN T COUGH JF RANN W 02/11 Released w/o Limitations [facility]) [facility]) OUTPATIENT [id number] PROBLEM S WITH RIGHT KNEE AMBAR TABOR R 03/14 Released w/o Limitations [facility]) [facility]) TELE CONSULT [id number] RX Refill. Pt. is request ing a refill on Zyrtec JERRY HARTMANN 08/26 [employer] [facility] FP) [facility]) OUTPATIENT [id number] med refill SAMI DELGADILLO 12/31 Released w/o Limitations [facility] FP) [facility]) TELE CONSULT [id number] med refill JERRY HARTMANN 03/01 [facility] FP) [facility] FP) OUTPATIENT [id number] physica l SAMI DELGADILLO 05/21 Released w/o Limitations [facility] FP) [facility](Immuniz ation NMCP) OUTPATIENT [id number] Luigi ALFA MCDANIEL Vicente 05/21 Released w/o Limitations [facility](Imm unizati on NMCP) [facility] FP) OUTPATIENT [id number] SORE THROAT W WHITE SPOTS SAMI DELGADILLO 12/23 Released w/o Limitations [facility] FP) [facility] FP) OUTPATIENT [id number] sport paper SAMI DELGADILLO 05/18 Released w/o Limitations [facility] FP) [facility] FP) OUTPATIENT [id number] shoulde r pain and having trouble moving left arm ROSE KAY 06/20 Released w/o Limitations [facility] FP) [facility] FP) OUTPATIENT [id number] right knee pain MARGARITA CHEN 11/22 Released w/o Limitations [facility] FP) [facility] FP) OUTPATIENT [id number] THROAT IS IRITATE D ROSE KAY 12/17 Released w/o Limitations [facility] FP) [place] [place] [facility] [place] OUTPATIENT [id number] CINDY URIAS 07/11 Released w/o Limitations [place] [facility] [place] OUTPATIENT [id number] hearing test CLAUDIA KELLEY 07/14 Released w/o Limitations [place] [place]) [place] [id number] IMM YINKA VIRGIL 07/16 Released w/o Limitations [place] ) [place] OUTPATIENT [id number] sore throat/ blister s/pulle d ras MARTINES HEATHER A 07/29 Released with Work/Duty Limitations [place] OUTPATIENT [id number] KWASI MCGOWANGELY 11/05 Released w/o Limitations [place] JUDITH Art([facility]) OUTPATIENT [id number] Coughin g Up Blood LUZ MARIA LAROSE 01/14 Released w/o Limitations [employer] [employer]([facility]) [employer] [employer]([facility]) OUTPATIENT [id number] nausea/ vomitin g SHANEL JACKSON 03/06 Released with Work/Duty Limitations [employer] [employer]([facility]ITH [facility](Hearin g Conservat ion 2) OUTPATIENT [id number] Hearing Exam MOHSEN ESTEVES 05/15 Released w/o Limitations [facility](Hear ing Conserv ation 2) [facility] Facility OUTPATIENT [id number] 08/30 Released w/o Limitations [facility] OUTPATIENT [id number] 08/31 Released with Work/Duty Limitations [facility] OUTPATIENT [id number] 05/30 Released w/o Limitations Theater Facilit y JUDITH Art([facility] [employer] 2) OUTPATIENT [id number] Hearing Exam MOHSEN ESTEVES 06/30 Released w/o Limitations JUDITH Art(Hear ing Conserv ation 2) JUDITH Art([facility]) OUTPATIENT [id number] numbnes s in extreme ties and light headedn ess JARROD ARGUELLO 08/02 Released w/o Limitations JUDITH Art([facility]) JUDITH Art([facility]) OUTPATIENT [id number] RONNY HAAS 09/30 Released w/o Limitations JUDITH Art([facility]) JUDITH Art([facility] Clinic) OUTPATIENT [id number] FAINA CAO 01/09 Released w/o Limitations [facility] Art([facility]) [facility] [employer]([facility] Team 2) OUTPATIENT [id number] lt knee pain HIMA AVELAR E 01/25 Released with Work/Duty Limitations [employer]([facility] y Team 2) [employer]([facility] Team 2) OUTPATIENT [id number] mri checkup JARROD ARGUELLO N 02/03 Released w/o Limitations [employer]([facility] y Team 2) [facility]) OUTPATIENT [id number] RIGOBERTO SALDANA 02/19 Released w/o Limitations [facility] [employer]([facility]) [employer]([facility] Team 2) OUTPATIENT [id number] f/u right foot JARROD ARGUELLO N 02/21 Released w/o Limitations [facility]ITH Atr([facility] y Team 2) [facility]) OUTPATIENT [id number] EDI ORTIZ 03/06 Released w/o Limitations [employer]([facility]) [facility] ry [facility]) OUTPATIENT [id number] [place] INJURY RIGHT FOOT KEO KING 03/08 Released with Work/Duty Limitations [facility]ry [facility]) [employer](Deploy ment) OUTPATIENT [id number] CISCO ISABEL 04/04 Released w/o Limitations [employer](Depl oyment) [facility](Podiat ry Clinic) OUTPATIENT [id number] f/up; right foot injury; profile KEO KING 04/19 Released with Work/Duty Limitations [facility]) [facility] OUTPATIENT [id number] PIOTR AGUILAR 05/05 Released w/o Limitations [facility]) [facility] OUTPATIENT [id number] follow- up JARROD ARGUELLO N 05/05 Released w/o Limitations [employer]([facility] y Team 2) [employer] [employer]([facility] Team 2) OUTPATIENT [id number] lower back pain JARROD ARGUELLO N 06/22 Released w/o Limitations [employer]([facility] y Team 2) [employer](Deploy ment) OUTPATIENT [id number] PHA/TAB NT/IMM/ VISION BECCA KEYA Kristine 07/27 Released w/o Limitations [employer](Depl oyment) [facility] [employer](Hearin g Conservat ion 2) OUTPATIENT [id number] Hearing Exam ESTHER HIMA L 07/27 Released w/o Limitations [facility] 2) [facility] OUTPATIENT [id number] lower back pain JARROD ARGUELLO N 08/22 Released w/o Limitations [employer]([facility] y Team 2) [employer] [employer]([facility] OCS) OUTPATIENT [id number] Back(ed mayes) GLORIA AKBAR 09/12 Released with Work/Duty Limitations [employer]([facility]CS) [employer]([facility]) OUTPATIENT [id number] l EVELYNE Barraza 09/15 Released w/o Limitations [employer]([facility] y OCS) [employer](Deploy ment) OUTPATIENT [id number] KEYA LAURENT 09/16 Released w/o Limitations [employer](Depl oyment) [facility] Art([facility]) OUTPATIENT [id number] l EVELYNE Barraza 09/20 Released w/o Limitations [facility]) [facility]) OUTPATIENT [id number] ZACK RAMOS 09/20 Sick at Home/Quarter s [facility]) [facility](Orthop edic Clinic) OUTPATIENT [id number] lower back pain IVY WEEMS I 09/21 Sick at Home/Quarter s [facility] opedic Clinic) [facility]op edic Clinic) OUTPATIENT [id number] [facility] IVY WEEMS I 09/26 Sick at Home/Quarter s [facility](Orth opedic Clinic) [facility](Orthop edic Clinic) OUTPATIENT [id number] [facility] LADI WEEMSIC I 09/28 Sick at Home/Quarter s [facility](Orth opedic Clinic) [facility]thop edic Clinic) OUTPATIENT [id number] IVY WEEMS I 10/04 Released with Work/Duty Limitations [facility]) [facility]) OUTPATIENT [id number] f/u post ct scan IVY WEEMS I 10/05 Released with Work/Duty Limitations [facility](Orth opedic Clinic) [facility]) OUTPATIENT [id number] back GLORIA AKBAR 10/10 Released with Work/Duty Limitations [employer]([facility]) [facility] Phy Th) OUTPATIENT [id number] tens SQUIER, EVELYNE J 10/18 Released w/o Limitations [employer]([facility]) [employer] Ph[facility] Th) OUTPATIENT [id number] tens SQUIER, EVELYNE J 10/20 Released w/o Limitations [employer]([facility] Ph[facility]) [employer] [employer]([facility] Ph[facility]) OUTPATIENT [id number] tens SQUIER, EVELYNE J 10/25 Released w/o Limitations [employer]([facility] Ph[facility]) [employer] [employer]([facility] Ph[facility] Th) OUTPATIENT [id number] tens SQUIER, EVELYNE J 10/27 Released w/o Limitations [employer]([facility] Ph[facility]) [employer]([facility] Ph[facility] Th) OUTPATIENT [id number] L back GLORIA AKBAR 11/01 Released with Work/Duty Limitations [employer]([facility] Ph[facility] Th) [facility]) OUTPATIENT [id number] MIGUELINA ADAM 11/23 Immediate Referral [facility]) [facility] [employer]([facility] Phy Th) OUTPATIENT [id number] L back GLORIA AKBAR 12/07 Released with Work/Duty Limitations [employer]([facility] Phy Th) [facility] 2) OUTPATIENT [id number] [facility] ZEENAT OTT 12/30 Released with Work/Duty Limitations JUDITH Art([address] 2) [employer] Art([address] 2) TELE CONSULT [id number] Results Rec'd JARROD ARGUELLO 12/30 [employer] Art([address] 2) [facility]) OUTPATIENT [id number] LEXIE IVY Vicente 01/13 Released w/o Limitations [facility]) [facility]) OUTPATIENT [id number] TAMIA RIOS Rai 01/14 Released w/o Limitations [employer] [employer]([facility]) [facility] 2) TELE CONSULT [id number] results SAUNDRA JARROD N 01/25 [facility]ITH Art([address] 2) [facility]ITH Art([address] 2) OUTPATIENT [id number] update on surgery SAUNDRA JARROD N 03/06 Released w/o Limitations [facility] 2) [facility](Orthop edic Clinic) TELE CONSULT [id number] Notes Entered by: ALICE VERGARA 14 Mar 2012 1312 ------- ------- ------- ------- -- Results rec'd IVY WEEMS I 03/14 [facility] Art([facility] opedic Clinic) [facility]ITH Art([facility] Med Brd) OUTPATIENT [id number] [facility] JVMEME VASQUEZ ABDEIL MARBIN 03/20 Released w/o Limitations [facility] Med Brd) [employer] [employer](Manage d Care Admin) OUTPATIENT [id number] [facility] appt/ID COURTNEY GODFREY 04/06 Released with Work/Duty Limitations [employer] [employer]([facility]) [facility]) OUTPATIENT [id number] va comp & pen exam RIGOBERTO SALDANA 04/18 Released w/o Limitations [facility]) [facility]) OUTPATIENT [id number] va comp & pen exam MELY BALLARD 04/23 Released w/o Limitations [facility] met[facility]) [facility](Audiol ogy Clinic) OUTPATIENT [id number] VA COMPENS ATION AND PENSION EXAM MARIELA CASTILLOLAKIA Cota 04/30 Released w/o Limitations [facility](Conor ology Clinic) [facility] [employer]([facility] Care Admin) OUTPATIENT [id number] IDES fu with social work case manager COURTNEY VALENZUELA 04/30 Released with Work/Duty Limitations [employer] [employer]([facility]) [facility]) OUTPATIENT [id number] visual 30-2 MELY BALLARD 05/07 Released w/o Limitations [facility]) [facility] Art([address] 1) OUTPATIENT [id number] GWEN BUTR 05/08 Released w/o Limitations [employer] [employer]([address] 1) [employer] [employer]([place] [address] [facility] 2) OUTPATIENT [id number] nose bleeds and coughin g up blood ELLA LAU 05/11 Released w/o Limitations [facility] 2) [facility] Brd) OUTPATIENT [id number] MONY SHETTY 06/04 Released with Work/Duty Limitations [facility] Med Brd) [facility]([place] [facility] 2) OUTPATIENT [id number] pn in kidney and abd are radiati ng into groin/t esticle s area GLORIA SAMUEL 06/05 Sick at Home/Quarter s [facility] 2) [facility]) OUTPATIENT [id number] ROBB SPAIN 06/08 Released w/o Limitations [employer] [employer]([facility]) JUDITH Art([address] 2) OUTPATIENT [id number] ER f/u GLORIA SAMUEL 06/11 Released w/o Limitations [employer] [employer]([address] 2) [employer] [employer](Manage d Care Admin) OUTPATIENT [id number] IDES fu with social work case manager COURTNEY VALENZUELA 06/11 Released with Work/Duty Limitations [employer]([facility]) [facility](Surger y Clinic) OUTPATIENT [id number] Abdomin al pain STEWART LOPEZ 06/14 Released w/o Limitations [facility](Surg anshu Clinic) [facility]) OUTPATIENT [id number] TAMIA RIOS 06/30 Released w/o Limitations [employer] [employer]([facility]) [employer] Art([address] 5) OUTPATIENT [id number] f/u from MARTHA MCNAMARA 07/02 Released w/o Limitations [employer]([address] 5) [facility]) OUTPATIENT [id number] TAMIA RIOS 07/08 Released w/o Limitations [employer]([facility]) [employer] [employer](Manage d Care Admin) OUTPATIENT [id number] IDES fu with social work case manager COURTNEY VALENZUELA 07/11 Released with Work/Duty Limitations [employer] [employer]([facility]) [facility]([address] 2) OUTPATIENT [id number] ELLA ORNELAS 08/03 Sick at Home/Quarter s [employer] [employer]([address] 2) [employer] [employer](Manage d Care Admin) OUTPATIENT [id number] contact with KYRA GOMEZ 08/23 Released w/o Limitations [employer] [employer]([facility]) [facility] [employer](Manage d Care Admin) OUTPATIENT [id number] f/u with KYRA JOHNSTON 08/28 Released w/o Limitations [employer] [employer]([facility]) [facility] [employer]([address] 2) OUTPATIENT [id number] LBP X2 days LUZ MARINA MUNOZ S 09/04 Sick at Home/Quarter s [employer] [employer]([address] 2) [employer] [employer]([address] 1) OUTPATIENT [id number] f/u lab results LUZ MARINA MUNOZ S 09/11 Released w/o Limitations [employer]([address] 1) [employer](Manage d Care Admin) OUTPATIENT [id number] f/u with KYRA JOHNSTON 09/24 Released w/o Limitations [employer] [employer]([facility]) [employer] [employer]([address] 2) TELE CONSULT [id number] Notes Entered by: JANUARY DOUGLAS 25 Sep 2012 0740 ------- ------- ------- ------- -- Cardiol hyuny JANUARY Munoz 09/25 [employer] [employer]([address] 2) [employer] [employer](Manage d Care Admin) OUTPATIENT [id number] KYRA Fontenot 09/27 Released w/o Limitations [employer]([facility]) [employer] [employer]([address] 3) OUTPATIENT [id number] TOO Fabian 10/08 Released w/o Limitations [employer]([address] 3) [employer](Manage d Care Admin) OUTPATIENT [id number] f/u with NCM KYRA ASHFORD 10/23 Released w/o Limitations [employer]([facility]) [employer](Deploy ment) OUTPATIENT [id number] MAINT/L AB/YONI ON/HEAR IVY EAST 10/24 Released w/o Limitations [employer](Depl oyment) [employer]ITH Art([address] 2) TELE CONSULT [id number] Notes Entered by: JOSELYN CHINCHILLA 05 Nov 2012 1459 ------- ------- ------- ------- -- Results rec'JANUARY Amezcua 11/05 [employer]([address] 2) [employer]([address] 2) TELE CONSULT [id number] Notes Entered by: JOSELYN CHINCHILLA 08 Nov 2012 0932 ------- ------- ------- ------- -- RESULTS REC'JANUARY AMEZCUA 11/08 [employer]([address] 2) [employer]([address] 5) OUTPATIENT [id number] fell down stairs, back spasms and uncontr olable bowel movemen ts CLAUDIA HILL 11/22 Sick at Home/Quarter s [employer]([address] 5) [employer]([address] 5) OUTPATIENT [id number] F/U CLAUDIA HILL 11/23 Released w/o Limitations [employer]([address] 5) [employer](Manage d Care Admin) OUTPATIENT [id number] f/u with KYRA JOHNSTON 11/23 Released w/o Limitations [employer] [employer]([facility]) [employer] [employer](Manage d Care Admin) OUTPATIENT [id number] dischSHRUTHI Ridley 11/27 Released w/o Limitations [employer] Art([facility] Admin) [facility]) OUTPATIENT [id number] TAMIA RIOS 03/18 Released w/o Limitations JDUITH Art([facility]) JUDITH Art([address] 1) OUTPATIENT [id number] nausea, vomitti ng, diarrhe a KEO MAST 04/11 Released w/o Limitations [employer]([address] 1) [facility] [employer]([facility]) OUTPATIENT [id number] MIGUELINA ADAM 09/04 Released w/o Limitations [employer] [employer]([facility]) [facility]) OUTPATIENT [id number] PIOTR AGUILAR 10/13 Released w/o Limitations [employer] [employer]([facility]) [facility]) OUTPATIENT [id number] HELEN ANNABELLE L 10/23 Immediate Referral [facility] [employer]([facility]) [facility]) OUTPATIENT [id number] FLU LIKE SYMPTOM S RACHEL ZACK Vicente 10/23 Released w/o Limitations [facility]) [facility] OUTPATIENT [id number] RILEY RODRIGUEZ 11/19 Released w/o Limitations [facility]loria rgency Medicin e NMCP) [place] [facility] PSYTX W PT 30 MINUTES [id number] Diagnos is: ICD-10- CM F31.81 Bipolar II disorde r
PAGE JUDGE HEW E 05/26 [place] [facility] [place] [facility] PSYTX W PT 30 MINUTES [id number] Diagnos is: ICD-10- CM F31.81 Bipolar II disorde r
PAGE JUDGE E 06/01 [facility] IS [facility] PSYTX W PT 30 MINUTES [id number] Diagnos is: ICD-10- CM F31.81 Bipolar II disorde r
PAGE JUDGE E 06/08 [facility] PSYTX W PT 30 MINUTES [id number] [id number] Diagnos is: ICD-10- CM F31.81 Bipolar II disorde r
PAGE JUDGE E 06/22 [facility] IS [facility] Outpatient Encounter [id number] 06/22 [facility] IS [facility] Outpatient Encounter [id number] 07/10 [facility] IS [facility] PSYTX W PT 30 MINUTES [id number] [id number] Diagnos is: ICD-10- CM F31.81 Bipolar II disorde r
PAGE JUDGE E 07/14 [facility] IS [facility] PSYTX W PT 30 MINUTES [id number] [id number] Diagnos is: ICD-10- CM F43.10 Post-tr aumatic stress disorde r, unspeci fied
PAGE JUDGE E 07/28 [facility] IS [facility] PSYTX W PT 30 MINUTES [id number] Diagnos is: ICD-10- CM F31.81 Bipolar II disorde r
PAGE JUDGE E 08/18 [facility] IS [facility] Outpatient Encounter [id number] 09/06 [facility] IS [facility] UNLISTED SPEC DERM SVC/PX [id number] [id number] Diagnos is: ICD-10- CM Z71.89 Other specifi ed beauty counselor ing<br/ > MINA MCGARRY A 09/11 [facility] IS [facility] Outpatient Encounter [id number] Diagnos is: ICD-10- CM L63.8 Other alopeci a areata< br/> JENNIFER ALFORD A S 09/12 [facility] IS [facility] PSYTX W PT 30 MINUTES [id number] [id number] Diagnos is: ICD-10- CM F43.10 Post-tr aumatic stress disorde r, unspeci fied
PAGE JUDGE E 09/15 [facility] IS [facility] Outpatient Encounter [id number] 09/21 [facility] IS [facility] Outpatient Encounter [id number] 09/25 [facility] IS [facility] Outpatient Encounter [id number] 09/25 [facility] IS [facility] PSYTX W PT 30 MINUTES [id number] [id number] Diagnos is: ICD-10- CM F43.10 Post-tr aumatic stress disorde r, unspeci fied
PAGE JUDGE E 10/06 [facility] Outpatient Encounter [id number] 11/06 [facility] IS [facility] Outpatient Encounter [id number] 11/10 [facility] IS [facility] OFFICE O/P NEW LOW 30 MIN [id number] [id number] Diagnos is: ICD-10- CM L64.9 Androge rickey alopeci a, unspeci fied
JENNIFER ALFORD A S 12/12 [facility] IS [facility] OFFICE O/P EST MOD 30 MIN 52008-4.61 [id number] Diagnos is: ICD-10- CM S06.0X1 S Concuss ion w LOC of 30 minutes or less, sequela
Allison RENE 12/12 [facility] IS [facility] IMMUNIZATI ON ADMIN [id number] Diagnos is: ICD-10- CM Z23 Encount er for immuniz ation<b r/> ASHLEE BENAVIDES 12/12 [facility] IS [facility] Outpatient Encounter [id number] 12/15 [facility] IS [facility] Outpatient Encounter [id number] 12/28 [facility] IS [facility] PRO PHONE CALL 5-10 MIN [id number] [id number] Diagnos is: ICD-10- CM F43.10 Post-tr aumatic stress disorde r, unspeci fied
ANABELLA YA 01/12 [facility] IS [facility] Outpatient Encounter [id number] 01/16 [facility] IS [facility] PSYTX W PT 30 MINUTES [id number] [id number] Diagnos is: ICD-10- CM F43.10 Post-tr aumatic stress disorde r, unspeci fied
PAGE JUDGE E 02/26 [facility] IS [facility] Outpatient Encounter [id number] ELLEN BERRIOS 03/14 [facility] IS [facility] PSYTX W PT 30 MINUTES [id number] [id number] Diagnos is: ICD-10- CM F31.81 Bipolar II disorde r
PAGE JUDGE E 03/25 [facility] IS [facility] PSYTX W PT 30 MINUTES [id number] [id number] Diagnos is: ICD-10- CM F43.10 Post-tr aumatic stress disorde r, unspeci fied
PAGE JUDGE 04/26 [place] [facility] [place] [facility] Outpatient Encounter [id number] 05/21 [place] [facility] [place] [facility] Outpatient Encounter [id number] [id number] ELLEN BERRIOS 05/27 [place] Outpatient Encounter [id number] ELLEN BERRIOS 06/25 [place] [facility] PSYTX W PT 30 MINUTES 55620-5.61 [id number] Diagnos is: ICD-10- CM F43.10 Post-tr aumatic stress disorde r, unspeci fied
PAGE JUDGE 06/25 [facility] PSYTX W PT 30 MINUTES [id number] [id number] Diagnos is: ICD-10- CM F43.10 Post-tr aumatic stress disorde r, unspeci fied
PAGE JUDGE 07/23 [facility] Outpatient Encounter [id number] Diagnos is: ICD-10- CM F31.81 Bipolar II disorde r
ESTUARDO MOURA 07/24 [place] [facility] [place] [facility] Outpatient Encounter [id number] 08/02 [place] [facility] [place] [facility] Outpatient Encounter [id number] 08/02 [facility] [place] [facility] Outpatient Encounter [id number] 08/13 [place] [facility] PSYTX W PT 30 MINUTES [id number] [id number] Diagnos is: ICD-10- CM F43.10 Post-tr aumatic stress disorde r, unspeci fied
PAGE JUDGE E 08/21 [facility] [place] [facility] Outpatient Encounter [id number] Napoleon HARMAN SONIA Shaunna 09/04 [facility] [place] [facility] Outpatient Encounter [id number] 09/11 [facility] IS [facility] OFFICE O/P EST MOD 30 MIN [id number] [id number] Diagnos is: ICD-10- CM F31.81 Bipolar II disorde r
ESTUARDO MOURA 09/11 [facility] Outpatient Encounter [id number] 09/14 [facility] IS [facility] PSYTX W PT 30 MINUTES [id number] [id number] Diagnos is: ICD-10- CM F43.10 Post-tr aumatic stress disorde r, unspeci fied
PAGE JUDGE E 09/25 [facility] PSYTX W PT 30 MINUTES [id number] [id number] Diagnos is: ICD-10- CM F43.10 Post-tr aumatic stress disorde r, unspeci fied
PAGE JUDGE E 10/22 [facility] [place] [facility] Outpatient Encounter [id number] 11/08 [facility] IS [facility] OFFICE O/P EST MOD 30 MIN [id number] [id number] Diagnos is: ICD-10- CM F31.81 Bipolar II disorde r
ESTUARDO MOURA 11/08 [facility] Procedures Combined list of: 1) Procedures from Department of [facility] Affairs facilities going back up to thelast 18 months, not all [place] non-surgical procedures are included; 2) All procedures from the Department of Defense facilities. Procedure Procedure Type Code Date Perfomer Comments Sour e INFLUENZA VIRUS VACCINE, TRIVALENT, LIVE (LAIV3), FOR INTRANASAL USE [facility] TETANUS, DIPHTHERIA TOXOIDS AND ACELLULAR PERTUSSIS VACCINE (TDAP), WHEN ADMINISTERED TO INDIVIDUALS 7 YEARS OR OLDER, FOR INTRAMUSCULAR USE [facility] EAR PROTECTOR ATTENUATION MEASUREMENTS [facility] VIS FUNCT SCREEN,AUTOMAT/SEMI- AUTOMAT BILAT QUANT DETERM VISUAL ACUITY,OCULAR ALIGN,COLOR VISION,PSEUDOISOCHRO MAT PLATES,& FIELD VIS (MAY INC ALL/SOME SCRN DETERM FOR CONTRAST SENSITIV,VIS UND GLARE) [facility] INJECTION, ONDANSETRON HCL, PER [address] [facility] UNLISTED PSYCHIATRIC SERVICE OR PROCEDURE [facility] INTRAVENOUS INFUSION, HYDRATION; INITIAL, 31 MINUTES TO [address] [facility] INJECTION, RANITIDINE HYDROCHLORIDE, [address] [facility] ALCOHOL AND/OR DRUG SERVICES; CASE MANAGEMENT [facility] PREPARATION OF REPORT OF PATIENT'S PSYCHIATRIC STATUS, HISTORY, TREATMENT, OR PROGRESS (OTHER THAN FOR LEGAL OR CONSULTATIVE PURPOSES) FOR OTHER INDIVIDUALS, AGENCIES, OR INSURANCE CARRIERS [facility] ALCOHOL AND/OR DRUG ASSESSMENT [facility] ALCOHOL AND/OR DRUG ASSESSMENT [facility] CASE MANAGEMENT, EACH [address] [facility] CASE MANAGEMENT, EACH [address] [facility] PURE TONE AUDIOMETRY (THRESHOLD); AIR ONLY [facility] COORDINATED CARE FEE, MAINTENANCE RATE [facility] INDIVIDUAL PSYCHOTHERAPY, INSIGHT ORIENTED, BEHAVIOR MODIFYING AND/OR SUPPORTIVE, IN AN OFFICE OR OUTPATIENT FACILITY, APPROXIMATELY 20 TO 30 MINUTES [id number] W THE PATIENT; W MED EVAL & MGT SER [facility] MEDICATION THERAPY MANAGEMENT SERVICE(S) PROVIDED BY A PHARMACIST, INDIVIDUAL, [id number] WITH PATIENT, WITH ASSESSMENT AND INTERVENTION IF PROVIDED; INITIAL 15 MINUTES, NEW PATIENT [facility] CASE MANAGEMENT, EACH [address] [facility] COORDINATED CARE FEE, MAINTENANCE RATE [facility] INDIVIDUAL PSYCHOTHERAPY, INSIGHT ORIENTED, BEHAVIOR MODIFYING AND/OR SUPPORTIVE, IN AN OFFICE OR OUTPATIENT FACILITY, APPROXIMATELY 20 TO 30 MINUTES [id number] W THE PATIENT; W MED EVAL & MGT SER [facility] COORDINATED CARE FEE, MAINTENANCE RATE [facility] CASE MANAGEMENT, EACH 15 MINUTES [facility] INDIVIDUAL PSYCHOTHERAPY, INSIGHT ORIENTED, BEHAVIOR MODIFYING AND/OR SUPPORTIVE, IN AN OFFICE OR OUTPATIENT FACILITY, APPROXIMATELY 20 TO 30 MINUTES [id number] W THE PATIENT; W MED EVAL & MGT SER DoD CASE MANAGEMENT, EACH 15 MINUTES DoD INJECTION, CEFTRIAXONE SODIUM, PER 250 MG DoD INJECTION, ONDANSETRON HCL, PER 1 MG DoD INDIVIDUAL PSYCHOTHERAPY, INSIGHT ORIENTED, BEHAVIOR MODIFYING AND/OR SUPPORTIVE, IN AN OFFICE OR OUTPATIENT FACILITY, APPROXIMATELY 20 TO 30 MINUTES [id number] W THE PATIENT; W MED EVAL & MGT SER DoD CASE MANAGEMENT, EACH 15 MINUTES DoD INJECTION, MORPHINE SULFATE, UP TO [address] [facility] PREPARATION OF REPORT OF PATIENT'S PSYCHIATRIC STATUS, HISTORY, TREATMENT, OR PROGRESS (OTHER THAN FOR LEGAL OR CONSULTATIVE PURPOSES) FOR OTHER INDIVIDUALS, AGENCIES, OR INSURANCE CARRIERS [facility] MEDICATION THERAPY MANAGEMENT SERVICE(S) PROVIDED BY A PHARMACIST, INDIVIDUAL, [id number] WITH PATIENT, WITH ASSESSMENT AND INTERVENTION IF PROVIDED; INITIAL 15 MINUTES, NEW PATIENT [facility] VISUAL FIELD EXAM,UNILAT/BI,INTER P&REP;EXT EXM(EG,GOLDMANN VIS FLD,AT LEAST 3 ISOP PLOT&STAT DET W/IN STEPHON 30DEG/QUANT,AUTO THRSH GEMA,OCT G-1,,HUMP VIS FLD ANAL FULL THRSH 30-2,24-2, OR 60-2) [facility] CASE MANAGEMENT, EACH [address] [facility] TYMPANOMETRY AND REFLEX THRESHOLD MEASUREMENTS [facility] VISUAL FIELD EXAM,UNILAT/BI,INTER P&REP;EXT EXM(EG,GOLDMANN VIS FLD,AT LEAST 3 ISOP PLOT&STAT DET W/IN STEPHON 30DEG/QUANT,AUTO THRSH GEMA,OCT G-1,32/42,HUMP VIS FLD ANAL FULL THRSH 30-2,24-2, OR 3060-2) 012 DoD CASE MANAGEMENT, EACH 15 MINUTES DoD INDIVIDUAL PSYCHOTHERAPY, INSIGHT ORIENTED, BEHAVIOR MODIFYING AND/OR SUPPORTIVE, IN AN OFFICE OR OUTPATIENT FACILITY, APPROXIMATELY 20 TO 30 MINUTES [id number] W THE PATIENT; W Roomtag EVAL & MGT SER [facility] PREPARATION OF REPORT OF PATIENT'S PSYCHIATRIC STATUS, HISTORY, TREATMENT, OR PROGRESS (OTHER THAN FOR LEGAL OR CONSULTATIVE PURPOSES) FOR OTHER INDIVIDUALS, AGENCIES, OR INSURANCE CARRIERS [facility] COLLECTION OF VENOUS BLOOD BY VENIPUNCTURE [facility] INJECTION, NALOXONE HCL, PER 1 MG DoD INDIVIDUAL PSYCHOTHERAPY, INSIGHT ORIENTED, BEHAVIOR MODIFYING AND/OR SUPPORTIVE, IN AN OFFICE OR OUTPATIENT FACILITY, APPROXIMATELY 20 TO 30 MINUTES [id number] W THE PATIENT; W Roomtag EVAL & MGT SER DoD THERAPEUTIC PROCEDURE, 1 OR MORE AREAS, EACH 15 MINUTES; THERAPEUTIC EXERCISES TO DEVELOP STRENGTH AND ENDURANCE, RANGE OF MOTION AND FLEXIBILITY [facility] PHYSICAL THERAPY RE-EVALUATION DoD APPLICATION OF A MODALITY TO 1 OR MORE AREAS; HOT OR COLD PACKS DoD APPLICATION OF A MODALITY TO 1 OR MORE AREAS; HOT OR COLD PACKS 011 DoD APPLICATION OF A MODALITY TO 1 OR MORE AREAS; HOT OR COLD PACKS DoD APPLICATION OF A MODALITY TO 1 OR MORE AREAS; HOT OR COLD PACKS 011 DoD INDIVIDUAL PSYCHOTHERAPY, INSIGHT ORIENTED, BEHAVIOR MODIFYING AND/OR SUPPORTIVE, IN AN OFFICE OR OUTPATIENT FACILITY, APPROXIMATELY 20 TO 30 MINUTES [id number] W THE PATIENT; W Roomtag EVAL & MGT SER 011 DoD THERAPEUTIC PROCEDURE, 1 OR MORE AREAS, EACH 15 MINUTES; THERAPEUTIC EXERCISES TO DEVELOP STRENGTH AND ENDURANCE, RANGE OF MOTION AND FLEXIBILITY DoD INJECTION, DIPHENHYDRAMINE HCL, UP TO 50 MG DoD SELF-CARE/HOME MANAGMENT TRAIN (EG,ACT OF DAILY LIVING (ADL) &COMPENSAT TRAIN,MEAL PREPARATION,SAFETY PROCS,AND INSTRUCT IN USE OF ASST TECHNOLOGY DEV/ADPT EQUIP) DIR ONE-ON-ONE CONT,EA [address] [facility] APPLICATION OF A MODALITY TO 1 OR MORE AREAS; TRACTION, MECHANICAL DoD SELF-CARE/HOME MANAGMENT TRAIN (EG,ACT OF DAILY LIVING (ADL) &COMPENSAT TRAIN,MEAL PREPARATION,SAFETY PROCS,AND INSTRUCT IN USE OF ASST TECHNOLOGY DEV/ADPT EQUIP) DIR ONE-ON-ONE CONT,EA 15 MINUTES DoD INDIVIDUAL PSYCHOTHERAPY, INSIGHT ORIENTED, BEHAVIOR MODIFYING AND/OR SUPPORTIVE, IN AN OFFICE OR OUTPATIENT FACILITY, APPROXIMATELY 20 TO 30 MINUTES [id number] W THE PATIENT; W Roomtag EVAL & MGT SER DoD EAR PROTECTOR ATTENUATION MEASUREMENTS DoD INDIVIDUAL PSYCHOTHERAPY, INSIGHT ORIENTED, BEHAVIOR MODIFYING AND/OR SUPPORTIVE, IN AN OFFICE OR OUTPATIENT FACILITY, APPROXIMATELY 20 TO 30 MINUTES [id number] W THE PATIENT; W Roomtag EVAL & MGT SER DoD SCREENING TEST OF VISUAL ACUITY, QUANTITATIVE, BILATERAL DoD INDIVIDUAL PSYCHOTHERAPY, INSIGHT ORIENTED, BEHAVIOR MODIFYING AND/OR SUPPORTIVE, IN AN OFFICE OR OUTPATIENT FACILITY, APPROXIMATELY 20 TO 30 MINUTES [id number] W THE PATIENT; W Roomtag EVAL & MGT SER DoD INDIVIDUAL PSYCHOTHERAPY, INSIGHT ORIENTED, BEHAVIOR MODIFYING AND/OR SUPPORTIVE, IN AN OFFICE OR OUTPATIENT FACILITY, APPROXIMATELY 20 TO 30 MINUTES [id number] WITH THE PATIENT [facility] PSYCHIATRIC DIAGNOSTIC INTERVIEW EXAMINATION [facility] PSYCHIATRIC DIAGNOSTIC INTERVIEW EXAMINATION DoD INDIVIDUAL PSYCHOTHERAPY, INSIGHT ORIENTED, BEHAVIOR MODIFYING AND/OR SUPPORTIVE, IN AN OFFICE OR OUTPATIENT FACILITY, APPROXIMATELY 45 TO 50 MINUTES [id number] WITH THE PATIENT [facility] INJECTION, METOCLOPRAMIDE HCL, UP TO 10 MG DoD CRUTCHES UNDERARM, WOOD, ADJUSTABLE OR FIXED, PAIR, WITH PADS, TIPS AND HANDGRIPS [facility] PSYCHIATRIC DIAGNOSTIC INTERVIEW EXAMINATION [facility] PSYCHIATRIC EVALUATION OF HOSPITAL RECORDS, OTHER PSYCHIATRIC REPORTS, PSYCHOMETRIC AND/OR PROJECTIVE TESTS, AND OTHER ACCUMULATED DATA FOR MEDICALDIAGNOSTIC PURPOSES [facility] PSYCHIATRIC EVALUATION OF HOSPITAL RECORDS, OTHER PSYCHIATRIC REPORTS, PSYCHOMETRIC AND/OR PROJECTIVE TESTS, AND OTHER ACCUMULATED DATA FOR MEDICALDIAGNOSTIC PURPOSES [facility] INDIVIDUAL PSYCHOTHERAPY, INSIGHT ORIENTED, BEHAVIOR MODIFYING AND/OR SUPPORTIVE, IN AN OFFICE OR OUTPATIENT FACILITY, APPROXIMATELY 45 TO 50 MINUTES [id number] WITH THE PATIENT [facility] INFUSION, NORMAL SALINE SOLUTION , [address] [facility] PSYCHIATRIC EVALUATION OF HOSPITAL RECORDS, OTHER PSYCHIATRIC REPORTS, PSYCHOMETRIC AND/OR PROJECTIVE TESTS, AND OTHER ACCUMULATED DATA FOR MEDICALDIAGNOSTIC PURPOSES [facility] PSYCHIATRIC DIAGNOSTIC INTERVIEW EXAMINATION DoD SKIN TEST; TUBERCULOSIS, INTRADERMAL DoD EAR PROTECTOR ATTENUATION MEASUREMENTS DoD SCREENING TEST OF VISUAL ACUITY, QUANTITATIVE, BILATERAL DoD COLLECTION OF VENOUS BLOOD BY VENIPUNCTURE DoD SKIN TEST; TUBERCULOSIS, INTRADERMAL DoD SCREENING TEST OF VISUAL ACUITY, QUANTITATIVE, BILATERAL DoD EAR PROTECTOR ATTENUATION MEASUREMENTS [facility] COLLECTION OF VENOUS BLOOD BY VENIPUNCTURE [facility] SCREENING TEST OF VISUAL ACUITY, QUANTITATIVE, BILATERAL DoD INFUSION, NORMAL SALINE SOLUTION , [address] [facility] HANDLING AND/OR CONVEYANCE OF SPECIMEN FOR TRANSFER FROM THE PATIENT IN OTHER THAN AN OFFICE TO A LABORATORY (DISTANCE MAY BE INDICATED) 008 [facility] UNLISTED SPECIAL SERVICE, PROCEDURE OR REPORT [facility] NONPRESCRIPTION DRUG [facility] CULTURE, PRESUMPTIVE, PATHOGENIC ORGANISMS, SCREENING ONLY [facility] HANDLING AND/OR CONVEYANCE OF SPECIMEN FOR TRANSFER FROM THE PATIENT IN OTHER THAN AN OFFICE TO A LABORATORY (DISTANCE MAY BE INDICATED) [facility] CULTURE, BACTERIAL; AEROBIC ISOLATE, ADDITIONAL METHODS REQUIRED FOR DEFINITIVE IDENTIFICATION, EACH ISOLATE [facility] TETANUS AND DIPHTHERIA TOXOIDS (TD) ADSORBED WHEN ADMINISTERED TO INDIVIDUALS 7 YEARS OR OLDER, FOR INTRAMUSCULAR USE [facility] HANDLING AND/OR CONVEYANCE OF SPECIMEN FOR TRANSFER FROM THE PATIENT IN OTHER THAN AN OFFICE TO A LABORATORY (DISTANCE MAY BE INDICATED) [facility] HANDLING AND/OR CONVEYANCE OF SPECIMEN FOR TRANSFER FROM THE PATIENT IN OTHER THAN AN OFFICE TO A LABORATORY (DISTANCE MAY BE INDICATED) [facility] INFECTIOUS AGENT ANTIGEN DETECTION BY IMMUNOASSAY WITH DIRECT OPTICAL (IE, VISUAL) OBSERVATION; STREPTOCOCCUS, GROUP A [facility] Psychiatric Diagnostic Evaluation Comprehensive Examination Psychiatric Diagnostic Evaluation Comprehensive Examination [address] [facility] Audiometry Group Testing Audiometry Group Testing [address] [facility] Ear Protector Attenuation Measurements Ear Protector Attenuation Measurements 304[address] [facility] Audiogram (Screening) Audiogram (Screening) 07[address] [facility] Ear Protector Attenuation Measurements Ear Protector Attenuation Measurements [address] [facility] Audiometry Group Testing Audiometry Group Testing [address] [facility] Audiogram (Screening) Audiogram (Screening) [address] [facility] Immunization Admin By Intranasal / Oral Route One Vaccine Immunization Admin By Intranasal / Oral Route One Vaccine 67401 008 [facility] Influenza Virus Vaccine Intranasal Live Attenuated 008 [facility] Tdap Vaccine Tdap Vaccine 03513 008 [facility] Meningococcal Polysaccharide Diphtheria Toxoid Conjugate Vaccine 008 [facility] Vaccines Viral Polio, Inactivated Vaccines Viral Polio, Inactivated 27742 008 [facility] Skin Test Anergy Tuberculin Intradermal Skin Test Anergy Tuberculin Intradermal 97914 008 [facility] Venipuncture Venipuncture 01981 008 [facility] Immunization Administration By Injection, One Vaccine Immunization Administration By Injection, One Vaccine 50940 008 [facility] Immunization Administration By Injection, Each Additional Vaccine 008 [facility] Physician Supervised Injection Intramuscular Antibiotic Physician Supervised Injection Intramuscular Antibiotic 28048 008 [facility] Special Physician Services Analysis Of Computerized Data Special Physician Services Analysis Of Computerized Data [address] [facility] Physician Supervised Services Provision Of Special Supplies Physician Supervised Services Provision Of Special Supplies 77639 008 CLAUDIA KELLEY Physician Supervised Group Educational Services CLAUDIA KELLEY Threshold Audiogram (Pure Tone) Threshold Audiogram (Pure Tone) [address] [facility] Audiometry Group Testing Audiometry Group Testing [address] [facility] Ear Protector Attenuation Measurements Ear Protector Attenuation Measurements [address] [facility] Visual Function Screening Visual Function Screening [address] [facility] Oropharynx Culture Streptococcus Group A Beta Hemolytic Oropharynx Culture Streptococcus Group A Beta Hemolytic 37749 006 DABELIC, ANJA NMN [facility] Rapid Antigen Detection Streptococcus Group A Beta Hemolytic Rapid Antigen Detection Streptococcus Group A Beta Hemolytic 52769 006 DABELIC, ANJA NMN negative DoD Rapid Antigen Detection Streptococcus Group A Beta Hemolytic Rapid Antigen Detection Streptococcus Group A Beta Hemolytic 75835 [address] [facility] Physician Supervised Injection Intramuscular Physician Supervised Injection Intramuscular 86934 [address] [facility] Immunization Administration By Injection, One Vaccine Immunization Administration By Injection, One Vaccine 14556 [address] [facility] Td Vaccine Td Vaccine 05888 004 ALFA MCDANIEL Psychotherapy For Crisis Intervention Psychotherapy For Crisis Intervention [address] [facility] IV Infusion For Hydration 31 Minutes To 1 Hour IV Infusion For Hydration 31 Minutes To 1 Hour 99705 013 NEFTALY WOMACK 1150 #18 gauge started in the right AC times one stick by this nurse. Site flushes with saline without difficulty. Site reinforced with tegaderm and tape. Connected NS 1000mL to infuse wide open via gravity per Mr. Mast's handwritten orders. Patient tolerates without difficulty. Side rails up times two and call light in reach. Lights dimmed and blankets provided. Patient voices no further needs at this time. 1215 IV fluids completed. Please see vital section for f/u Orthostatics. Mr. Mast in room and provides discharge instructions. Patient instructed to have someone pick him up to take him home from the clinic by Mr. Mast. IV dc'd with catheter intact and 2x2's applied to site and reinforced with coban. Patient remains in treatment room and waits on return call form spouse. [facility] Behavioral health screening to determine eligibility for admi ion to treatment program CHETAN RUST [facility] Alcohol and/or drug a e ment CHETAN URST [facility] Psychotherapy Individual Approximately [address] [facility] Alcohol and/or drug services; case management SUGEY PRIETO Psychotherapy Individual Approximately 30 Minutes Psychotherapy Individual Approximately 30 Minutes 02386 SUGEY PRIETO Psychiatric Therapy Preparation of Psychiatric Status Report Psychiatric Therapy Preparation of Psychiatric Status Report [address] [facility] Psychiatric Diagnostic Evaluation Review of Records and Reports Psychiatric Diagnostic Evaluation Review of Records and Reports [address] [facility] Alcohol and/or drug a e ment SUGEY PRIETO Psychiatric Diagnostic Evaluation Comprehensive Examination Interactive Psychiatric Diagnostic Evaluation Comprehensive Examination Interactive 10648 SUGEY PRIETO Case Management, each 15 minutes [address] [facility] Coordinated care fee, maintenance rate SAMUEL NUNEZ A [facility] Case Management, each [address] [facility] Coordinated care fee, maintenance rate [address] [facility] Venipuncture Venipuncture [address] [facility] Screening Test Of Visual Acuity, Quantitative, Bilateral Screening Test Of Visual Acuity, Quantitative, Bilateral [address] [facility] Threshold Audiogram (Pure Tone) Threshold Audiogram (Pure Tone) [address] [facility] Coordinated care fee, maintenance rate KYRA ASHFORD [facility] Psychotherapy Individual Approx 30 Min W/ Medical Evaluation & Management Psychotherapy Individual Approx 30 Min W/ Medical Evaluation & Management [address] [facility] Medication Management By Pharmacist Each Additional 15 Minutes Medication Management By Pharmacist Each Additional 15 Minutes [address] [facility] Medication Management By Pharmacist Initial 15 Minutes New Patient Medication Management By Pharmacist Initial 15 Minutes New Patient [address] [facility] Case Management, each 15 minutes [address] A[address] C [facility] Coordinated care fee, maintenance rate OLGA ASHFORDOTHY C DoD Psychotherapy Individual Approx 30 Min W/ Medical Evaluation & Management Psychotherapy Individual Approx 30 Min W/ Medical Evaluation & Management 83435 012 KEO ARIZMENDI Coordinated care fee, maintenance rate 012 TAMILOLGA MANDELOTHY C DoD Case Management, each 15 minutes 012 TAMILKEOLGAKYRA C DoD Psychotherapy Individual Approx 30 Min W/ Medical Evaluation & Management Psychotherapy Individual Approx 30 Min W/ Medical Evaluation & Management 49295 012 KEO ARIZMENDI Case Management, each 15 minutes 012 COURTNEY VALENZUELA Coordinated care fee, maintenance rate COURTNEY VALENZUELA Psychotherapy Individual Approx 30 Min W/ Medical Evaluation & Management Psychotherapy Individual Approx 30 Min W/ Medical Evaluation & Management 93163 012 KEO ARIZMENDI Case Management, each 15 minutes 012 COURTNEY VALENZUELA Coordinated care fee, maintenance rate 012 COURTNEY VALENZUELA Psychiatric Therapy Preparation of Psychiatric Status Report Psychiatric Therapy Preparation of Psychiatric Status Report 87516 LETICIA CLARK Psychiatric Diagnostic Evaluation Review of Records and Reports Psychiatric Diagnostic Evaluation Review of Records and Reports 67826 012 LETICIA CLARK Medication Management By Pharmacist Initial 15 Minutes New Patient Medication Management By Pharmacist Initial 15 Minutes New Patient 19432 GWEN [facility]URT Visual Pool Test Extended Examination Visual Pool Test Extended Examination 18452 MELY BALLARD Ophthalmological Prior Patient Start Intermediate Level Care Ophthalmological Prior Patient Start Intermediate Level Care 85772 MELY BALLARD Case Management, each 15 minutes COURTNEY VALENZUELA Coordinated care fee, maintenance rate COURTNEY VALENZUELA Tympanometry With Reflex Threshold Measurements Tympanometry With Reflex Threshold Measurements 62273 JONATHAN, FARZANALAKIANE Cipriano [facility] Evoked Otoacoustic Elsa ions Comprehensive JONATHAN, FARZANALAKIANE [facility] Comprehensive Audiometry Comprehensive Audiometry 65549 JONATHAN, FARZANALAKIANE V [facility] Visual Pool Test Extended Examination Visual Pool Test Extended Examination 86179 MELY BALLARD Ophthalmological New Patient Start Comprehensive Care Ophthalmological New Patient Start Comprehensive Care 58577 MELY BALLARD Determination Of Refractive State Determination Of Refractive State [address] [facility] Case Management, each 15 minutes COURTNEY VALENZUELA Coordinated care fee, maintenance rate COURTNEY VALENZUELA Psychiatric Therapy Preparation of Psychiatric Status Report Psychiatric Therapy Preparation of Psychiatric Status Report 04828 LETICIA CLARK Psychiatric Diagnostic Evaluation Comprehensive Examination Psychiatric Diagnostic Evaluation Comprehensive Examination 62913 LETICIA CLARK Psychotherapy Individual Approx 30 Min W/ Medical Evaluation & Management Psychotherapy Individual Approx 30 Min W/ Medical Evaluation & Management 22600 KEO ARIZMENDI Physician Supervised Injection Intramuscular Physician Supervised Injection Intramuscular 36871 BUNTING, IVY A [facility] Injection, naloxone HCl, per 1 mg BUNESTHER, IVY Zhang NUBAIN 10 MG IM IN R UOQ OF BUTTOCKS PER ORDERS, WILL MONITOR, PT DENIED COMPLICATIONS. [facility] Psychotherapy Individual Approx 30 Min W/ Medical Evaluation & Management Psychotherapy Individual Approx 30 Min W/ Medical Evaluation & Management 38516 012 KEO ARIZMENDI Physical Therapy Service Re-Evaluation Physical Therapy Service Re-Evaluation [address] [facility] Physical Therapy: ___ Se ion Segments, 15 Minutes Each Physical Therapy: ___ Session Segments, 15 Minutes Each 42008 GLORIA SANTOS reviewed prior plan, instructed on rear lunge with PNF crunch. able to perform, but notices mm tightness after first 10 reps. discussed progression of exercises. 15min [facility] Phys Therapy Education Self Care Training - Per 15 Minutes Phys Therapy Education Self Care Training - Per 15 Minutes 63189 011 GLORIA SANTOS SM is progressing on a yoga video, discussed correlation to stability exercise. reviewed appropriate alternate cardio and current profiling restrictions from ortho. 8min [facility] Physical Therapy: ___ Se ion Segments, 15 Minutes Each Physical Therapy: ___ Session Segments, 15 Minutes Each 27899 011 GLORIA SANTOS plank progression, supine bridging progression, review of lumbar opening exercise. 15min [facility] Physical Therapy Service Re-Evaluation Physical Therapy Service Re-Evaluation 66484 011 GLORIA SANTOS DoD Modalities Electrical Stimulation Unattended Modalities Electrical Stimulation Unattended 62188 011 EVELYNE CARSON [address] [facility] Modalities Heat Hot Packs Modalities Heat Hot Packs 17161 011 EVELYNE CARSON [address] [facility] Modalities Heat Hot Packs Modalities Heat Hot Packs 18670 011 EVELYNE CARSON [address] [facility] Modalities Electrical Stimulation Unattended Modalities Electrical Stimulation Unattended 21569 011 EVELYNE CARSON 10 min low back. DoD Modalities Heat Hot Packs Modalities Heat Hot Packs [address] [facility] Modalities Electrical Stimulation Unattended Modalities Electrical Stimulation Unattended 08090 011 EVELYNE CARSON DoD Modalities Heat Hot Packs Modalities Heat Hot Packs [address] [facility] Modalities Electrical Stimulation Unattended Modalities Electrical Stimulation Unattended [address] [facility] Psychotherapy Individual Approx 30 Min W/ Medical Evaluation & Management Psychotherapy Individual Approx 30 Min W/ Medical Evaluation & Management [address] [facility] Physical Therapy: ___ Se ion Segments, 15 Minutes Each Physical Therapy: ___ Session Segments, 15 Minutes Each 23866 011 GLORIA SANTOS supine SKTC and DKR, discussed progressive ROM and function. 15min [facility] Physical Therapy Service Re-Evaluation Physical Therapy Service Re-Evaluation 53438 011 GLORIA SANTOS Phys Therapy Education Self Care Training - Per 15 Minutes Phys Therapy Education Self Care Training - Per 15 Minutes 27143 011 EVELYNE CARSON 15 min DoD Modalities Traction Modalities Traction 42130 1 EVELYNE DUPREE 15 min DoD Modalities Heat Hot Packs Modalities Heat Hot Packs 67468 011 EVELYNE CARSON 20 min DoD Modalities Electrical Stimulation Modalities Electrical Stimulation 02892 011 EVELYNE CARSON 8 min DoD Modalities Traction Modalities Traction 61503 1 011 EVELYNE CARSON 20 min DoD Phys Therapy Education Self Care Training - Per 15 Minutes Phys Therapy Education Self Care Training - Per 15 Minutes 22555 011 GLORIA SANTOS activity modification and profile restrictions. 15min [facility] Physical Therapy: ___ Se ion Segments, 15 Minutes Each Physical Therapy: ___ Session Segments, 15 Minutes Each 65345 011 GLORIA SANTOS supine SKTC and DKR. 10min [facility] Physical Therapy Service Evaluation Physical Therapy Service Evaluation [address] [facility] Psychotherapy Individual Approx 30 Min W/ Medical Evaluation & Management Psychotherapy Individual Approx 30 Min W/ Medical Evaluation & Management [address] [facility] Ear Protector Attenuation Measurements Ear Protector Attenuation Measurements 82305 011 HIMA SANTANA Audiogram (Screening) Audiogram (Screening) 67511 011 HIMA SANTANA Audiometry Group Testing Audiometry Group Testing 79177 011 HIMA SANTANA Screening Test Of Visual Acuity, Quantitative, Bilateral Screening Test Of Visual Acuity, Quantitative, Bilateral 95911 011 JEREMY VILLALPANDO Influenza Virus Vaccine Intranasal Live Attenuated 011 JEREMY VILLALPANDO Immunization Admin By Intranasal / Oral Route One Vaccine Immunization Admin By Intranasal / Oral Route One Vaccine 64179 011 JEREMY VILLALPANDO Psychotherapy Individual Approx 30 Min W/ Medical Evaluation & Management Psychotherapy Individual Approx 30 Min W/ Medical Evaluation & Management 25711 011 KEO ARIZMENDI Psychotherapy Individual Approx 30 Min W/ Medical Evaluation & Management Psychotherapy Individual Approx 30 Min W/ Medical Evaluation & Management [address] [facility] Clinical Social Work Individual Outpatient Counseling 30 Minutes Clinical Social Work Individual Outpatient Counseling 30 Minutes [address] [facility] Psychiatric Diagnostic Evaluation Comprehensive Examination Psychiatric Diagnostic Evaluation Comprehensive Examination [address] [facility] Psychiatric Diagnostic Evaluation Comprehensive Examination Psychiatric Diagnostic Evaluation Comprehensive Examination [address] [facility] Clinical Social Work Individual Outpatient Counseling 45 Minutes Clinical Social Work Individual Outpatient Counseling 45 Minutes 50153 011 HEDY NAYLOR Session started: 8:40 am Session ended: 9:30 Session total: [address] [facility] Orthopedic Strapping Foot Orthopedic Strapping Foot 31977 011 RIGOBERTO SALDANA MELINDA WRAP APPLIED DISUSSED CAPILLARY REFILL VOICED UNDERSTANDING DoD Crutches, underarm, wood, adjustable or fixed, pair, with pads, tips and handgrips 011 RIGOBERTO SALDANA CRUTCHES FITTED TO PT DISCUSSED USE [facility] Psychiatric Diagnostic Evaluation Comprehensive Examination Psychiatric Diagnostic Evaluation Comprehensive Examination [id number] [facility] Psychiatric Diagnostic Evaluation Review of Records and Reports Psychiatric Diagnostic Evaluation Review of Records and Reports [id number] [facility] Psychiatric Therapy Preparation of Psychiatric Status Report Psychiatric Therapy Preparation of Psychiatric Status Report [id number] [facility] Clinical Social Work Individual Outpatient Counseling 45 Minutes Clinical Social Work Individual Outpatient Counseling 45 Minutes [id number] [facility] Psychiatric Diagnostic Evaluation Review of Records and Reports Psychiatric Diagnostic Evaluation Review of Records and Reports [id number] [facility] Psychiatric Diagnostic Evaluation Review of Records and Reports Psychiatric Diagnostic Evaluation Review of Records and Reports [id number] [facility] Psychiatric Therapy Preparation of Psychiatric Status Report Psychiatric Therapy Preparation of Psychiatric Status Report [id number] 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 Social History Type Response Date Comment Source Tobacco smoking status NHIS VA-TOBACCO FORMER USER 12/12/2023 [facility] History of tobacco use VA-TOBACCO QUIT 5 TO < 15 YRS 12/12/2023 [facility] History of tobacco use PREVIOUS SMOKER 02/14/2023 [facility] History of tobacco use VA-TOBACCO FORMER USER 10/27/2022 [facility] History of tobacco use VA-TOBACCO FORMER USER 01/26/2021 [facility] History of tobacco use VA-TOBACCO QUIT 1 TO < 5 YRS 07/23/2019 [facility] History of tobacco use VA-TOBACCO FORMER USER 08/17/2018 [facility] History of tobacco use CURRENT TOBACCO USER 01/29/2018 [facility] History of tobacco use CURRENT TOBACCO USER 01/20/2017 [facility] History of tobacco use FORMER TOBACCO USE <1Y 11/30/2015 [facility] History of tobacco use CURRENT TOBACCO USER 04/09/2015 [facility] History of tobacco use CURRENT TOBACCO USER 01/16/2014 [facility] History of tobacco use CURRENT TOBACCO USER 12/25/2013 Smoking since age 12 [facility] History of tobacco use CURRENT TOBACCO USER 04/02/2013 [facility] This section is an empty social history section. DoD Plan of Care List of future care activities from Department of Veterans Affairs facilities. Additional future care activities may be listed in the Assessment and Plan section. Date/Time Care Activity Care Activity Detail Facili ty 11/21/2024 AMBULATORY - PSYCHIATRY AMBULATORY - PSYC HIATRY [facility]
--- OUTSIDE RECORDS SUMMARY | 2024-11-19 23:16 | XMS_ITS | Encounter Summary ---
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 Jun 09, 2023 [id number] [phone] LALA,ROXI OB PATIENT CAREMARK ([id number]) PRESCRIPT ION [facility] Jun 09, 2023 [id number] [phone] LALA,ROXI OB PATIENT Selected Encounter This section includes the information on record at [place] for the Encounter. Date/Time Encounter Type Encounter Description Reason Provider Source Oct 22, 2024 09:00 AM PSYTX W PT 30 MINUTES [facility] - IND ICD-10-CM F43.10 Post-traumatic stress disorder, unspecified WHITNEY JUDGE Rai Encounter Template Text not used by [place] Assessments - Encounter Diagnoses This section includes the primary and secondary diagnoses documented for the Encounter. Date/Time Primary/Secondary Diagnosis Diagnosis Name Provider Source Oct 22, 2024 09:25 AM PRIMARY Post-traumatic stress disorder, unspecified WHITNEY JUDGE [facility] Oct 22, 2024 09:25 AM SECONDARY Bipolar II disorder WHITNEY JUDGE [facility] Plan of Treatment: Future Appointments (+ 6 months) and Future Tests (+/- 45 days) The Plan of Treatment section includes future care activities for the patient from all [facility]. This section includes future appointments and future orders which are active, pending or scheduled. Future Appointments This section includes appointments that were scheduled to occur 6 months from the date of the Encounter, up to a maximum of 20 appointments. The data comes from all [facility]. Appointment Date/Time Appointment Type Appointme nt Facility Name Nov 08, 2024 10:00 AM AMBULATORY - PSYCHIATRY [facility] Nov 21, 2024 09:00 AM AMBULATORY - PSYCHIATRY [facility] Active, Pending, and Scheduled Orders This section includes a listing of several types of active, pending, and scheduled orders, including clinic medications orders, diagnostic test orders, procedure orders and consult orders; where the start date of the order is 45 days before the date of the Encounter or 45 days after the date of theEncounter. The data comes from all [facility]. Test Date/Time Test Type Test Details Facility Name Sep 11, 2024 12:00 AM Laboratory - Chemistry Order HEMOGLOBIN A1C BLOOD SP ONCE [facility] Sep 11, 2024 12:00 AM Laboratory - Chemistry Order COMPREHENSIVE METABOLIC PANEL+MG PLASMA SP ONCE [facility] Sep 11, 2024 12:00 AM Laboratory - Chemistry Order LIPID PANEL,NON-FASTING PLASMA SP ONCE [facility] Sep 11, 2024 12:00 AM Laboratory - Chemistry Order CBC & DIFF BLOOD SP ONCE [facility] Social History: Smoking Status (Most current) and Tobacco Use (All prior to encounter date) This section includes the most current, and the historical, smoking and tobacco- related health factors from the [place] facility where the Encounter took place. Current Smoking Status This section includes the most current smoking, or tobacco-related health factor, from the [place] facility where the Encounter took place. Date/Time Current Smoking Status Comment Facil ity Dec 12, 2023 10:30 AM VA-TOBACCO FORMER USER [facility] Tobacco Use History This section includes a history of the smoking, or tobacco-related health factors, that were collected on or before the date of the Encounter. The data comes from the [facility] where the Encounter took place. Date/Time Smoking Status/Tobacco Use Comment F acility Dec 12, 2023 10:30 AM VA-TOBACCO QUIT 5 TO < 15 YRS [facility] Feb 14, 2023 02:00 PM AH-BPR SMOKING DEPLOYMENT YES [facility] Feb 14, 2023 02:00 PM PREVIOUS SMOKER MIN [facility] Oct 27, 2022 10:30 AM VA-TOBACCO FORMER USER [facility] Oct 27, 2022 10:30 AM VA-TOBACCO QUIT 15 YRS OR MORE [facility] Jan 26, 2021 10:00 AM VA-TOBACCO FORMER USER [facility] Jan 26, 2021 10:00 AM VA-TOBACCO QUIT 1 TO < 5 YRS [facility] Jul 23, 2019 08:07 AM VA-TOBACCO FORMER USER [facility] Jul 23, 2019 08:07 AM VA-TOBACCO QUIT 1 TO < 5 YRS [facility] Jan 29, 2018 03:41 PM CURRENT TOBACCO USER [facility] Jan 20, 2017 03:27 PM CURRENT TOBACCO USER [facility] Nov 30, 2015 08:39 AM FORMER TOBACCO USE <1Y [facility] Encounter Notes: All associated encounter notes This section contains the clinical notes associated to the Encounter. Date/Time Encounter Note(s) Provider Source Oct 22, 2024 09:00 AM MENTAL HEALTH NOTE : LOCAL TITLE: MH PROGRESS NOTE STANDARD TITLE: MENTAL HEALTH NOTE DATE OF NOTE: OCT 22, 2024@09:00 ENTRY DATE: OCT 22, 2024@09:17:32 AUTHOR: ALFIE,WHITNEY E EXP COSIGNER: URGENCY: STATUS: COMPLETED seen for 30-minute treatment coordination and supportive psychotherapy session for symptoms related to PTSD and bipolar affective disorder via vvc per 's preference. S/O: The noted that he has been doing mostly well, now about two weeks into his 6 weeks of parental leave. 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 The noted that he has been coping effectively, trying to use emotion regulation skills to be ready for stressors when they arise. He stated that he has started exercising again when he is able, though noted that it will not be easy to establish a routine until his daughter is in daycare. He stated that his family visited for several days last month and that he and his dad had a significant conversation about how absent his father was when he was growing up (primarily because of many deployments with the [employer]). He stated that it cleared the air for them and he felt much better finally having expressed himself. Overall, he noted that he has been very happy becoming a father himself. A: Dx - likely attention-deficit disorder, inattentive [...] /sage/ WHITNEY JUDGE, Ph.D. STAFF PSYCHOLOGIST Signed: 10/22/2024 09:25 WHITNEY JUDGE [facility]
--- OUTSIDE RECORDS SUMMARY | 2024-11-19 23:16 | XMS_ITS | Encounter Summary ---
Author Name [facility] [place] [facility] [place] Address [address] [place] [address] Care Team Providers Care Interior Mechanic Name Role Phone KIRTISORAYA TEODORO Primary Care [...] to Policy Stevenson AETNA* POINT OF SERVICE [employer] Jan 18, 2015 [id number] LALA,ROXI OB PATIENT BCBS [place] [employer] MAINTENAN CE ORGANIZAT ION W/OUT OF NETWORK BENEFITS [place] Jun 09, 2023 [id number] [phone] LALA,ROXI OB PATIENT [place]BS [place] [employer] MAINTENAN CE ORGANIZAT ION [place] ONLY Jun 09, 2023 [id number] [phone] LALA,ROXI OB PATIENT CAREMARK ([id number]) PRESCRIPT ION [facility] Jun 09, 2023 [id number] [phone] LALA,ROXI OB PATIENT CAREMARK ([id number]) PRESCRIPT ION [facility] Jun 09, 2023 [id number] [phone] LALA,ROXI OB PATIENT Selected Encounter This section includes the information on record at [place] for the Encounter. Date/Time Encounter Type Encounter Description Reason Provider Source Nov 08, 2024 10:00 AM OFFICE O/P EST MOD 30 MIN [facility] - IND ICD-10-CM F31.81 Bipolar II disorder ESTUARDO MOURA [facility] Encounter Template Text not used by [place] Assessments - Encounter Diagnoses This section includes the primary and secondary diagnoses documented for the Encounter. Date/Time Primary/Secondary Diagnosis Diagnosis Name Provider Source Nov 08, 2024 10:30 AM PRIMARY Bipolar II disorder [facility] Nov 08, 2024 10:30 AM SECONDARY Post-traumatic stress disorder, chronic [facility] Plan of Treatment: Future Appointments (+ 6 months) and Future Tests (+/- 45 days) The Plan of Treatment section includes future care activities for the [facility] [place] [facility] This section includes future appointments and future orders which are active, pending or scheduled. Future Appointments This section includes appointments that were scheduled to occur 6 months from the date of the Encounter, up to a maximum of 20 appointments. The data comes from all [place] treatment facilities. Appointment Date/Time Appointment Type Appointme nt Facility Name Nov 21, 2024 09:00 AM AMBULATORY - PSYCHIATRY [facility] Social History: Smoking Status (Most current) and Tobacco Use (All prior to encounter date) This section includes the most current, and the historical, smoking and tobacco- related health factors from the [place] facility where the Encounter took place. Current Smoking Status This section includes the most current smoking, or tobacco-related health factor, from the [place] facility where the Encounter took place. Date/Time Current Smoking Status Comment Beatriz ity Dec 12, 2023 10:30 AM NE-TOBACCO FORMER USER [facility] Tobacco Use History This section includes a history of the smoking, or tobacco-related health factors, that were collected on or before the date of the Encounter. The data comes from the [place] facility where the Encounter took place. Date/Time [...] Encounter. Date/Time Encounter Note(s) Provider Source Nov 08, 2024 08:12 AM PSYCHIATRY E & M N OTE: LOCAL TITLE: PSYCHIATRIC EVALUATION & MANAGEMENT STANDARD TITLE: PSYCHIATRY E & M NOTE DATE OF NOTE: NOV 08, 2024@08:12 ENTRY DATE: NOV 08, 2024@08:12:54 AUTHOR: ESTUARDO MOURA EXP COSIGNER: URGENCY: STATUS: COMPLETED Medication management follow-up visit including 20 minutes of supportive psychotherapy. Visit conducted via F2F with patient consent. 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 1 daughter (Reinaldo Jacques), born August 2024. Lives w/ Holly and 's sister. ASSESSMENT: Ongoing sleep difficulties, which he fully attributes to overnight childcare; has also had to pause quetiapine because of this. We discussed finishing his fluoxetine taper today and having him continue to monitor mood. If seeing more instability, may consider lurasidone as an alternative to quetiapine. Of note, he returns to work in November. May consider ADHD medications at next appt. AIMS of 0 today; labs deferred due to childcare. The patient has been told the purpose and side effects of the prescribed psychiatric medications. Current psychotropic medications have been reviewed with the patient. Patient understands to call clinic ([phone]) with questions/concerns, or call 911 in case of emergency. DIAGNOSES: #Bipolar 2 disorder, provisional diagnosis #PTSD #Cannabis use (medical cannabis card for back pain/PTSD) #ADHD, provisional diagnosis TREATMENT PLAN: 1. Medications: stop fluoxetine to 20mg QAM continue- -lamotrigine 300mg QDAY -quetiapine 100mg QHS for mood/sleep (paused) -gabapentin 600mg TID PRN anxiety consider clonidine/guanfacine/atomoxetine/ bupropion retrial 2. Therapy: [facility] w/ screen writer; 3. Labs/Tests: AIMS 0 (11/08/24); due for AP labs 4. Others: none 5. Return to clinic: 1 months VVC Risk Assessment ------- Risk Factors: Male, psychiatric diagnosis, previous suicidal thoughts/plan, and previous substance use disorder. Protective Factors: Goal oriented, positive attitude, supportive , and currently denies suicidal ideations or self-harm behaviors. Toward Self: low Toward Others: low INTERVAL HISTORY: Last appointment was 09/11. No med changes made. Today: - Attending appointment with his daughter today. - Going pretty good. Getting 4-6 hours of broken sleep a night. He is on paternity leave until 11/23, at which point daughter is going to daycare. Will be working a rotation of 6 days on, 2 days off, with 4 days off every 6 weeks. - Acknowledges feeling tired during the daytime, but still able to do the things I need to. A little bit more irritable with having hardly any sleep. Not able to take the quetiapine as he would be groggy overnight. Doesn't think he's noticed any changes from reducing the fluoxetine. In terms of mood sx, thinks he had one episode of mixed symptoms in the past couple weeks where he was angry and sad at the same time. Thinks this lasted for about 3-4 days. Thinks sleep was especially poor for a few days leading up, as well as frustration that he did not have assistance because Holly was very busy with work. Otherwise reports that their relationship is going well; denies safety concerns MEDICATION COMPLIANCE/SIDE EFFECTS: Reports adherence. Tolerating current regimen, though notes weight gain while he was taking quetiapine. Since coming off it, he has lost weight and is back to his baseline. CURRENT MEDICATIONS: Active Outpatient Medications (excluding Supplies): Outpatient Medications Status 1) EPINEPHRINE (EQV-EPI-PEN) 0.3MG/0.3ML INJECT 1 KIT ACTIVE INTRAMUSCULAR DIRECTED NEEDED FOR SEVERE ALLERGIC REACTION 2) FLUOXETINE HCL 20MG CAP TAKE TWO CAPSULES BY MOUTH EVERY ACTIVE MORNING FOR MOOD AND ANXIETY 3) FLUTICASONE PROP 50MCG 120D NASAL INHL SPRAY 2 SPRAYS IN ACTIVE EACH NOSTRIL EVERY DAY USE REGULARLY FOR RELIEF OF ALLERGIES/CONGESTION Indication: FOR ALLERGIES 4) GABAPENTIN 300MG CAP TAKE TWO CAPSULES BY MOUTH THREE TIMES ACTIVE A DAY NEEDED Indication: FOR ANXIETY 5) LAMOTRIGINE 150MG TAB TAKE TWO TABLETS BY MOUTH EVERY DAY ACTIVE Indication: FOR BIPOLAR DISORDER 6) LORATADINE 10MG TAB TAKE ONE TABLET BY MOUTH EVERY DAY FOR ACTIVE ALLERGIES 7) MINOXIDIL 2.5MG TAB TAKE ONE TABLET BY MOUTH EVERY DAY ACTIVE Indication: ALOPECIA AREATA 8) QUETIAPINE FUMARATE 50MG TAB TAKE ONE TO TWO TABLETS BY ACTIVE MOUTH AT BEDTIME Indication: FOR BIPOLAR DISORDER ALLERGIES: BEE STINGS (Dec 10, 2015) WASP STINGS (Dec 10, 2015) HORNET STINGS (Dec 10, 2015) VITALS: Blood Pressure: 124/80 (12/12/2023 10:33) Weight: 186.2 lb [84.46 kg] (12/12/2023 10:33) BMI: 29.7 RECENT LABS: CREATININE 0.9 (12/12/23) TSH 0.72 (12/12/23) HEMOGLOBIN A1C 5.2 (12/12/23) GLUCOSE 88 (12/12/23) CHOLESTEROL 170 (12/12/23) SGOT 30 (12/12/23) SGPT 48 (12/12/23) GAMMA GTP____ WBC 5.58 (12/12/23) PLT 157 (12/12/23) Drug levels (if relevant): LITHIUM____ VALPROIC ACID____ CARBAMAZEPINE____ MENTAL STATUS EXAM: General: appears stated age Ambulation: wnl Dress: casual Grooming: well-groomed Eye Contact: good Psychomotor Activity: unremarkable Abnormal/Involuntary Movements: none observed Speech: normal prosody and range Mood: pretty good Affect: bright, full range Thought process: logical, linear, goal oriented Thought Content: No reported SI/HI; no evidence of AH, and VH Insight: Good Judgment: Good Sensorium: clear Attention: Good PRIOR TREATMENT HISTORY: sertraline, citalopram, fluoxetine, paroxetine, escitalopram bupropion (both XL and SR), quetiapine (helpful for sleep), paliperidone (can't recall), divalproex propranolol trazodone (morning hangover), doxepin, melatonin, zolpidem, eszopiclone, diazepam (high dose - up to 10mg q4-6h), /es/ Estuardo Moura MD Staff Psychiatrist Signed: 11/08/2024 10:[address] [facility]
--- OUTSIDE RECORDS SUMMARY | 2024-11-19 23:16 | XMS_ITS | Encounter Summary ---
Author Name [facility] [place] Organization [facility] [place] Address [address] [place] [address] Care Team Providers Care Wood Gang Sawyer Name Role Phone KIRTISORAYA TEODORO Primary Care [...] to Policy Stevenson AETNA* POINT OF SERVICE SMS Assist Jan 18, 2015 [id number] LALA,ROXI OB PATIENT [place]BS [place] [employer] MAINTENAN CE ORGANIZAT ION W/OUT OF NETWORK BENEFITS [place] Jun 09, 2023 [id number] [phone] LALA,ROXI OB PATIENT BCBS [place] [employer] MAINTENAN CE ORGANIZAT ION [place] ONLY Jun 09, 2023 [id number] [phone] LALA,ROXI OB PATIENT CAREMARK ([id number]) PRESCRIPT ION [facility] Jun 09, 2023 [id number] [phone] LALA,ROXI OB PATIENT CAREMARK ([id number]) PRESCRIPT ION [facility] Jun 09, 2023 [id number] [phone] LALA,ROXI OB PATIENT Selected Encounter This section includes the information on record at [place] for the Encounter. Date/Time Encounter Type Encounter Description Reason Provider Source Sep 11, 2024 09:30 AM OFFICE O/P EST MOD 30 MIN [facility] - IND ICD-10-CM F31.81 Bipolar II disorder [facility] Encounter Template Text not used by [place] Assessments - Encounter Diagnoses This section includes the primary and secondary diagnoses documented for the Encounter. Date/Time Primary/Secondary Diagnosis Diagnosis Name Provider Source Sep 11, 2024 10:05 AM PRIMARY Bipolar II disorder [facility] Sep 11, 2024 10:05 AM SECONDARY Cannabis use, unspecified, uncomplicated [facility] Sep 11, 2024 10:05 AM SECONDARY Post-traumatic stress disorder, unspecified [facility] Plan of Treatment: Future Appointments (+ 6 months) and Future Tests (+/- 45 days) The Plan of Treatment section includes future care activities for the patient from all [facility]. This section includes future appointments and future orders which are active, pending or scheduled. Future Appointments This section includes appointments that were scheduled to occur 6 months from the date of the Encounter, up to a maximum of 20 appointments. The data comes from all [facility]. Appointment Date/Time Appointment Type Appointme nt Facility Name Sep 25, 2024 03:30 PM AMBULATORY - PSYCHIATRY [facility] Oct 22, 2024 09:00 AM AMBULATORY - PSYCHIATRY [facility] Nov 08, 2024 10:00 AM AMBULATORY - PSYCHIATRY [facility] Nov 21, 2024 09:00 AM AMBULATORY - PSYCHIATRY [facility] Active, Pending, and Scheduled Orders This section includes a listing of several types of active, pending, and scheduled orders, including clinic medications orders, diagnostic test orders, procedure orders and consult orders; where the start date of the order is 45 days before the date of the Encounter or 45 days after the date of theEncounter. The data comes from all [facility]. Test Date/Time Test Type Test Details Facility Name Sep 11, 2024 12:00 AM Laboratory - Chemistry Order HEMOGLOBIN A1C BLOOD SP ONCE [facility] Sep 11, 2024 12:00 AM Laboratory - Chemistry Order COMPREHENSIVE METABOLIC PANEL+MG PLASMA SP ONCE [facility] Sep 11, 2024 12:00 AM Laboratory - Chemistry Order LIPID PANEL,NON-FASTING PLASMA SP ONCE [facility] Sep 11, 2024 12:00 AM Laboratory - Chemistry Order CBC & DIFF BLOOD SP ONCE [facility] Social History: Smoking Status (Most current) and Tobacco Use (All prior to encounter date) This section includes the most current, and the historical, smoking and tobacco- related health factors from the [facility] where the Encounter took place. Current Smoking Status This section includes the most current smoking, or tobacco-related health factor, from the [place] facility where the Encounter took place. Date/Time Current Smoking Status Comment Facil ity Dec 12, 2023 10:30 AM VA-TOBACCO FORMER USER [facility] Tobacco Use History This section includes a history of the smoking, or tobacco-related health factors, that were collected on or before the date of the Encounter. The data comes from the [facility] where the Encounter took place. Date/Time Smoking Status/Tobacco Use Comment F acility Dec 12, 2023 10:30 AM VA-TOBACCO QUIT 5 TO < 15 YRS [facility] Feb 14, 2023 02:00 PM AH-BPR SMOKING DEPLOYMENT YES [facility] Feb 14, 2023 02:00 PM PREVIOUS SMOKER MIN [facility] Oct 27, 2022 10:30 AM VA-TOBACCO FORMER USER [facility] Oct 27, 2022 10:30 AM VA-TOBACCO QUIT 15 YRS OR MORE [facility] Jan 26, 2021 10:00 AM VA-TOBACCO FORMER USER [facility] Jan 26, 2021 10:00 AM VA-TOBACCO QUIT 1 TO < 5 YRS [facility] Jul 23, 2019 08:07 AM VA-TOBACCO FORMER USER [facility] Jul 23, 2019 08:07 AM VA-TOBACCO QUIT 1 TO < 5 YRS [facility] Jan 29, 2018 03:41 PM CURRENT TOBACCO USER [facility] Jan 20, 2017 03:27 PM CURRENT TOBACCO USER [facility] Nov 30, 2015 08:39 AM FORMER TOBACCO USE <1Y [facility] Encounter Notes: All associated encounter notes This section contains the clinical notes associated to the Encounter. Date/Time Encounter Note(s) Provider Source Sep 11, 2024 07:52 AM PSYCHIATRY E & M N OTE: LOCAL TITLE: PSYCHIATRIC EVALUATION & MANAGEMENT STANDARD TITLE: PSYCHIATRY E & M NOTE DATE OF NOTE: SEP 11, 2024@07:52 ENTRY DATE: SEP 11, 2024@07:52:29 AUTHOR: ESTUARDO MOURA COSIGNER: URGENCY: STATUS: COMPLETED Medication management follow-up visit including 20 minutes of supportive psychotherapy. Visit conducted via [facility] with patient consent. PERTINENT BACKGROUND: male [employer] w/ hx of PTSD and unspecified mood disorder. 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 1 daughter (Reinaldo Jacques), born July 2024. ASSESSMENT: Reports improved mood stability and sleep since increasing lamotrigine and adding quetiapine. Discussed that his fluoxetine may be a contributing factor in mood swings and we discussed making a reduction. He was also recently evaluated for ADHD and given this diagnosis recently by Dr. Schafer. Discussed that concurrent BPAD and ADHD treatment can be difficult as first line ADHD medications can increase risk for don/hypomania. Additionally, his cannabis use will be a confounding factor in assessing response to treatment. We discussed focusing fluoxetine reduction today and considering some 2nd line options afterwards to hopefully avoid polypharmacy and making too many adjustments at once. As he has found quetiapine helpful, will maintain this for the interim, though he needs baseline labs/AIMS exam. Will opt for F2F eval for next appt to facilitate these. The patient has been told the purpose and side effects of the prescribed psychiatric medications. Current psychotropic medications have been reviewed with the patient. Patient understands to call clinic ([phone]) with questions/concerns, or call 911 in case of emergency. DIAGNOSES: #Bipolar 2 disorder, provisional diagnosis #PTSD #Cannabis use (medical cannabis card for back pain/PTSD) #ADHD, provisional diagnosis TREATMENT PLAN: 1. Medications: reduce fluoxetine to 20mg QAM continue- -lamotrigine 300mg QDAY -quetiapine 100mg QHS -gabapentin 600mg TID PRN anxiety consider clonidine/guanfacine/bupropion retrial 2. Therapy: MHTC w/ program writer; 3. Labs/Tests: needs baseline AIMS/AP labs 4. Others: none 5. Return to clinic: 2 months F2F Risk Assessment ------- Risk Factors: Male, psychiatric diagnosis, previous suicidal thoughts/plan, and previous substance use disorder. Protective Factors: Goal oriented, positive attitude, supportive , and currently denies suicidal ideations or self-harm behaviors. Toward Self: low Toward Others: low INTERVAL HISTORY: Last appointment was 05/19/2023. At that time, had recommended increasing lamotrigine to 100mg BID. He was then LTFU but reached out in July reporting increased irritability, mood swings, anhedonia, and insomnia. We increased lamotrigine to 300mg and also added 50-100mg quetiapine. Today: - Attending appt from work address ([facility], parked in his vehicle. - Since adjusting medications, feels that things are pretty good, actually. More mellowed out, more even 1-2 weeks after making the change. However, he had an hour long breakdown where he was crying violently out of the blue. The quetiapine is helping a lot for sleep, though it maybe had a paradoxical effect for first couple of weeks. However, sleep is hard right now as his daughter was born a week ago. Has a daycare lined up after their leave ends. will take 6 weeks, then he will take 6 weeks. 's sister lives with them and helps out too. SUBSTANCE USE: 400-500mg of caffeine throughout the day. Attributes to waking up at 3-4AM in the morning. Job is also stressful, and he uses it to stay alert. Tries to have last cup before 10AM. Also taking medical cannabis for PTSD for past year. It helps alleviate my lower back pain and anxiety. MEDICATION COMPLIANCE/SIDE EFFECTS: Reports adherence. Tolerating current regimen. Has noticed more hunger, but weight is still stable. CURRENT MEDICATIONS: Active Outpatient Medications (excluding Supplies): Outpatient Medications Status ======= 1) CLOBETASOL PROPIONATE 0.05% TOP SOLN APPLY 10-15 ACTIVE DROPS TO HAIR LOSS AREA ON SCALP TOPICALLY EVERY DAY FOR ALOPECIA FOR 12 WEEKS, THEN ALTERNATE ONE WEEK ON AND ONE WEEK OFF 2) EPINEPHRINE (EQV-EPI-PEN) 0.3MG/0.3ML INJECT 1 KIT ACTIVE INTRAMUSCULAR DIRECTED NEEDED FOR SEVERE ALLERGIC REACTION 3) FLUOXETINE HCL 20MG CAP TAKE TWO CAPSULES BY MOUTH ACTIVE EVERY MORNING FOR MOOD AND ANXIETY 4) FLUTICASONE PROP 50MCG 120D NASAL INHL SPRAY 2 SPRAYS ACTIVE IN EACH NOSTRIL EVERY DAY USE REGULARLY FOR RELIEF OF ALLERGIES/CONGESTION 5) GABAPENTIN 300MG CAP TAKE TWO CAPSULES BY MOUTH THREE ACTIVE TIMES A DAY NEEDED FOR ANXIETY 6) HYDROCORTISONE 2.5% CREAM APPLY THIN LAYER TOPICALLY ACTIVE TWICE A DAY FOR ALOPECIA TO PEREIRA FOR 2 WEEKS, THEN ALTERNATING ONE WEEK OFF, ONE WEEK ON 7) LAMOTRIGINE 100MG TAB TAKE THREE TABLETS BY MOUTH ACTIVE EVERY DAY FOR BIPOLAR DISORDER 8) LORATADINE 10MG TAB TAKE ONE TABLET BY MOUTH EVERY ACTIVE DAY FOR ALLERGIES 9) MINOXIDIL 2.5MG TAB TAKE ONE TABLET BY MOUTH EVERY ACTIVE DAY 10) QUETIAPINE FUMARATE 50MG TAB TAKE ONE TO TWO TABLETS ACTIVE BY MOUTH AT BEDTIME FOR BIPOLAR DISORDER ALLERGIES: BEE STINGS (Dec [...] Speech: normal prosody and range Mood: pretty good, actually Affect: bright, full range Thought process: logical, linear, goal oriented Thought Content: No reported SI/HI; no evidence of AH, and VH Insight: Good Judgment: Good Sensorium: clear Attention: Good PRIOR TREATMENT HISTORY: sertraline, citalopram, fluoxetine, paroxetine, escitalopram bupropion (both XL and SR), quetiapine (can't recall), paliperidone (can't recall), divalproex propranolol trazodone (morning hangover), doxepin, melatonin, zolpidem, eszopiclone, diazepam (high dose - up to 10mg q4-6h), /es/ Estuardo Moura MD Staff Psychiatrist Signed: 09/11/2024 10:05 ESTUARDO MOURA [facility]
--- OUTSIDE RECORDS SUMMARY | 2024-11-19 23:16 | XMS_ITS | Encounter Summary ---
Author Name [facility] [place] Organization [place] Address [address] [place] [address] Care Team Providers Care A Class Lineman Name Role Phone TEODORO VALERIO Primary Care [...] to Policy Stevenson [employer]ETNA* POINT OF SERVICE [place] Teddy Bear Jan 18, 2015 [id number] [phone] LALA,ROXI OB PATIENT [place] HEALTH MAINTENAN CE ORGANIZAT ION W/OUT OF NETWORK BENEFITS [place] Jun 09, 2023 [id number] [phone] LALA,ROXI OB PATIENT [place] HEALTH MAINTENAN CE ORGANIZAT ION [place] ONLY Jun 09, 2023 [id number] [phone] LLAA,ROXI OB PATIENT CAREMARK ([id number]) PRESCRIPT ION [place] Jun 09, 2023 [id number] [phone] LALAROXI OB PATIENT CAREMARK ([id number]) [facility]EL FLORES [facility] Jun 09, 2023 [id number] [phone] DAIROXI OB PATIENT Selected Encounter This section includes the information on record at [place] for the Encounter. Date/Time Encounter Type Encounter Description Reason Pro vider Source Nov 08, 2024 10:00 AM Outpatient Encounter [facility] Encounter Template Text not used by CT Plan of Treatment: Future Appointments (+ 6 months) and Future Tests (+/- 45 days) The Plan of Treatment section includes future care activities for the patient [facility] all [facility]. This section includes future appointments and future orders which are active, pending or scheduled. Future Appointments This section includes appointments that were scheduled to occur 6 months from the date of the Encounter, up to a maximum of 20 appointments. The data comes from all [place] treatment facilities. Appointment Date/Time Appointment Type Appointme nt Facility Name Nov 21, 2024 09:00 AM [facility] Social History: Smoking Status (Most current) [...] 12, 2023 10:30 AM VA-TOBACCO FORMER USER [facility] Tobacco Use History This section includes a history of the smoking, or tobacco-related health factors, that were collected on or before the date of the Encounter. The data comes from the [place] facility where the Encounter took place. Date/Time Smoking Status/Tobacco Use Comment F acility Dec 12, 2023 10:[address]-TOBACCO QUIT 5 TO < 15 YRS [facility] Feb 14, 2023 02:00 PM AH-BPR SMOKING DEPLOYMENT YES [facility] Feb 14, 2023 02:00 PM [facility] Oct 27, 2022 10:30 AM VA-TOBACCO FORMER USER [facility] Oct 27, 2022 10:[address]-TOBACCO QUIT 15 YRS OR MORE [facility] Jan 26, 2021 10:00 AM VA-TOBACCO FORMER USER [facility] Jan 26, 2021 10:00 AM VA-TOBACCO QUIT 1 TO < 5 YRS [facility] Jul 23, 2019 08:07 AM VA-TOBACCO FORMER USER [facility] Jul 23, 2019 08:07 AM VA-TOBACCO QUIT 1 TO < 5 YRS [facility] Jan 29, 2018 03:41 PM CURRENT TOBACCO USER [facility] Jan 20, 2017 03:27 PM CURRENT TOBACCO USER [facility] Nov 30, 2015 08:39 AM FORMER TOBACCO USE <1Y [facility] Encounter Notes: All associated encounter notes This section contains the clinical notes associated to the Encounter. Date/Time Encounter Note(s) Provider Source Nov 11, 2024 11:42 AM REPORT OF CONTACT: LOCAL TITLE: APPOINTMENT SCHEDULING NOTE STANDARD TITLE: REPORT OF CONTACT DATE OF NOTE: NOV 11, 2024@11:42 ENTRY DATE: NOV 11, 2024@11:42:54 AUTHOR: MICK GUERRA COSIGNER: URGENCY: STATUS: COMPLETED APPOINTMENT SCHEDULING NOTE Has ADDENDA Attempted to schedule Return to clinic (RTC) Contact attempt made to 1st attempt Telephone 2nd attempt Letter - Sent letter by regular [place] mail to address on file: [place] LALA [address] [place], [place] [address] If Drifting calls back, schedule appt for: 12/08/2024 11/08/2024 [facility] MOYA 30min /sage/ MICK GUERRA Signed: 11/11/2024 11:43 11/12/2024 ADDENDUM STATUS: COMPLETED 3rd attempt made- left message /sage/ MAYNOR TAN Signed: 11/12/2024 09:43 11/14/2024 ADDENDUM STATUS: COMPLETED 4th attempt made- left message /es/ MAYNOR TAN Signed: 11/14/2024 10:57 MICK GUERRA [facility]
[2024-11-19 23:18] VITALS: BP 141/92; PULSE 69; RESP 16; TEMP 36.7; O2SAT 98; BMI 29.1
--- OUTSIDE RECORDS SUMMARY | 2024-11-19 23:18 | XMS_ITS | Clinical Summary ---
Author Organization [employer] [facility] Address [place], [place] 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 PCP - General 11/25/15
--- NOTE | 2024-11-19 23:27 | CRLHL7_ITS ---
For Patients: As a result of the Century Cures Act, medical imaging exams and procedure reports are released immediately into your electronic medical record. You may view this report before your referring provider. If you have questions, please contact your health care provider. Indication: Right testicular pain. Technique: Ultrasound of the scrotum and contents. Sonographic saldivar-scale images were obtained with spectral and color Doppler waveform and spectral waveform analysis of the testicles. Comparison: None. Findings: Bother testicles are normal in size and echotexture. No masses. No suspicious calcifications. Arterial and venous color Doppler blood flow and spectral waveforms are present in both testicles. Epididymis: Unremarkable bilaterally. Normal blood flow. Other: Small bilateral hydroceles. No sign of varicocele. Scrotal wall is unremarkable. Impression: 1. No definite acute findings. No evidence of torsion. 2. Small bilateral hydroceles, nonspecific. Dictated by Rajeev Riojas MD @ 11/20/2024 12:48:44 AM (Electronically Signed)
--- NOTE | 2024-11-19 23:32 | ED.GENADULT ---
HPI - General Adult General Date Seen: 11/19/24 Chief complaint: Groin Pain Stated complaint: groin pain Time Seen by Provider: 11/19/24 23:20 Source: patient History of Present Illness HPI narrative: Patient is a 34-year-old male here with his for evaluation of right testicular pain which he says started a couple of hours prior to arrival. Onset was sudden, it waxes and wanes in severity and right now is not as severe as it has been at times. When the pain is worse he experiences nausea but he has not had any vomiting or diarrhea. Pain radiates into the right abdomen and into the perineum. He has not had fevers, urinary symptoms, discharge, or other symptoms. Denies trauma. Did not take anything for pain at home. Only medical history is bipolar disorder for which he takes Lamictal. Related Data Home Medications ?Medication ?Instructions ?Recorded ?Confirmed loratadine 10 mg tablet 10 mg PO QDAY PRN 12/20/22 09/04/24 naproxen 500 mg tablet 500 mg PO BID PRN 12/21/22 02/07/23 fluoxetine 20 mg capsule 40 mg PO QDAY 02/07/23 09/04/24 gabapentin 100 mg capsule 200 mg PO TID PRN 02/07/23 09/04/24 lamotrigine 300 mg tablet,extended 300 mg PO DAILY 09/04/24 11/19/24 release 24 hr (Lamictal XR) Allergies Allergy/AdvReac Type Severity Reaction Status Date / Time bees Allergy Uncoded 02/07/23 15:05 hornets Allergy Uncoded 02/07/23 15:05 wasps Allergy Uncoded 02/07/23 15:05 Review of Systems Status of ROS: Reports: 6 or more systems reviewed and unremarkable except as noted in History and below [facility] Medical History Sacral fracture ?S32.10XA - Unspecified fracture of sacrum, initial encounter for closed fracture (ICD-10) Surgical History H/O shoulder surgery (~01/2006) ?Z98.890 - Other specified postprocedural states (ICD-10) History of tonsillectomy and adenoidectomy (~2004) ?Z90.89 - Acquired absence of other organs (ICD-10) Social History Smoking Status: Current every day smoker What tobacco products do you use: cigarettes Smoking quit date/years: <= 15 years ago and cigars Do you use any of these nicotine containing products: None Second hand tobacco smoke exposure: No How often do you have a drink containing alcohol: monthly or less How many standard drinks containing alcohol do you have on a typical day: 1 or 2 How often do you have six or more drinks on one occasion: Never AUDIT-C Alcohol total score: 1 Non-prescribed substance use: denies use Caffeine: Yes service: Yes Exam Narrative: Exam Narrative: Vital signs reviewed In general, alert, nontoxic Head: Normocephalic, atraumatic. Eyes: Sclera clear. Pupils equal and reactive. ENT: Mucous membranes moist. Neck: Supple without adenopathy. Heart: Regular rate and rhythm without murmur. Lungs: Clear. No increased work of breathing, crackles or wheezes. Abdomen: Soft, nontender to palpation. Testicular exam: There is no obvious swelling or erythema. He does have some testicular tenderness on the right though does not seem severe. No hernia. No tenderness on the left. No inguinal tenderness or adenopathy. Extremities: Well perfused, pulses intact. No significant edema. Neurologic: Alert, conversant. Speech fluent, face symmetric. Moves all extremities equally. Skin: Warm, dry well perfused. Affect: Normal. Const: Vital Signs, click to edit/add: Vital Signs - 24 hr 11/19/24 23:18 Temperature 98.1 F Pulse Rate [Pulse Oximeter] 69 Respiratory Rate 16 Blood Pressure [Ri ght Upper Arm] 141/92 H Pulse Oximetry 98 Oxygen Delivery Me thod Room Air Course Course ED Course: Patient had a scrotal ultrasound which is read by Radiology as no definite acute findings and no evidence of torsion. He has small bilateral hydroceles which I do not think her contributing to his symptoms. At this time he is feeling better although pain is not completely resolved. We discussed that the ultrasound does not show evidence of torsion at the current time, but that this can be something that can come and go. Reviewed that if he has severe pain he should be re-evaluated. Urinalysis is negative, he really describes pain that started in the testicle none seems to radiate up rather than flank or abdominal pain that radiates into the testicle. In the absence of hematuria and with a some testicular tenderness I do not think imaging for kidney stone is needed at this time. I am going to start him on ciprofloxacin presuming that this may be early epididymitis. Discussed that if he is not improving over the next few days he should be seen in his clinic for recheck. Return any time to the ER for severe uncontrolled pain, new symptoms such as abdominal or flank pain, fevers, vomiting etcetera. Ibuprofen or Tylenol if needed for pain. Vital Signs Vital signs: Initial Vital Signs Temperature 98.1 F 11/19/24 23:18 Temperature Source Temporal Artery Scan 11/19/24 23:18 Pulse Rate 69 11/19/24 23:18 Respiratory Rate 16 11/19/24 23:18 Blood Pressure 141/92 H 11/19/24 23:18 Blood Pressure Mean 108 H 11/19/24 23:18 Blood Pressure Position Sitting 11/19/24 23:18 Pulse Oximetry 98 11/19/24 23:18 Oxygen Delivery Method Room Air 11/19/24 23:18 Vital Signs Temperature 98.1 F 11/19/24 23:18 Pulse Rate 69 11/19/24 23:18 Respiratory Rate 16 11/19/24 23:18 Blood Pressure 141/92 H 11/19/24 23:18 Pulse Oximetry 98 11/19/24 23:18 Oxygen Delivery Method Room Air 11/19/24 23:18 Temperature 98.1 F 11/19/24 23:18 Pulse Rate 69 11/19/24 23:18 Respiratory Rate 16 11/19/24 23:18 Blood Pressure 141/92 H 11/19/24 23:18 Pulse Oximetry 98 11/19/24 23:18 Oxygen Delivery Method Room Air 11/19/24 23:18 Medical Decision Making Lab Data Labs: Lab Results 11/19/24 Range/Units 23:53 Urine Color Yellow (Yellow) Urine Appearance Clear (Clear) Urine pH 5.5 (5.0-8.5) Ur Specific [place] 1.010 (1.000-1.030) Urine Protein Negative (Negative) Urine Glucose (UA) Negative (Negative) Urine Ketones Negative (Negative) Urine Blood Negative (Negative) Urine Nitrite Negative (Negative) Urine Bilirubin Negative (Negative) Urine Urobilinogen 0.2 (0.2-1.0) Ur Leukocyte Esterase Negative (Negative) Urine RBC 0-2 (0-2) Urine WBC 0-2 (0-5) Ur Squamous Epith Cells Few (None-Few) Urine Bacteria None (None) Imaging Data Scrotal ultrasound: Attestation: I have reviewed the pertinent imaging results. Radiologist's impression: Patient: RAISA LALA Facility: [facility] Site . Site : 1990 Study: US-Testicle -11/19/2024 11:53:09 PM Ordering Physician: Beatris Perez Final Report: Indication: Right testicular pain. Technique: Ultrasound of the scrotum and contents. Sonographic saldivar-scale images were obtained with spectral and color Doppler waveform and spectral waveform analysis of the testicles. Comparison: None. Findings: Bother testicles are normal in size and echotexture. No masses. No suspicious calcifications. Arterial and venous color Doppler blood flow and spectral waveforms are present in both testicles. Epididymis: Unremarkable bilaterally. Normal blood flow. Other: Small bilateral hydroceles. No sign of varicocele. Scrotal wall is unremarkable. Impression: 1. No definite acute findings. No evidence of torsion. 2. Small bilateral hydroceles, nonspecific. Dictated by Rajeev Riojas MD @ 11/20/2024 12:48:44 AM (Electronic Signature) Discharge Plan Discharge Clinical Impression: Right testicular pain Patient Disposition: Home, Self-Care Condition: Stable Instructions: Testicle Pain (ED) Additional Instructions: Your ultrasound tonight is reassuring the normal, there is no evidence of limited blood flow to the testicle at this time. You can use ibuprofen or Tylenol if needed for pain. If you have severe uncontrolled pain, develop new symptoms such as fever, vomiting, worsening abdominal pain, or other new problems, return to the emergency department at any time. While there is no evidence of torsion on the ultrasound currently, it is possible to have intermittent torsion, so you should be seen again right away for severe pain. If pain persists despite treatment, you should be seen for recheck and your primary clinic in the next couple of days. Take the Cipro as prescribed to cover for early epididymitis. Prescriptions: No Action loratadine 10 mg tablet 10 mg PO QDAY PRN fluoxetine 20 mg capsule 40 mg PO QDAY gabapentin 100 mg capsule 200 mg PO TID PRN naproxen 500 mg tablet 500 mg PO BID PRN lamotrigine [Lamictal XR] 300 mg tablet extended release 24hr 300 mg PO DAILY Follow Up/Referrals: Provider,Not a Local [Primary Care Provider] - Stand Alone Forms: Iconfinderth Info Instructions
[2024-11-20 00:06] LABS: Appearance Urine Clear (Clear); Bilirubin Urine Negative (Negative); Blood Urine Negative (Negative); Color Urine Yellow (Yellow); Glucose Urine Negative (Negative); Ketones Urine Negative (Negative); Leukocyte Esterase Urine Negative (Negative); Nitrite Urine Negative (Negative); Protein Urine Negative (Negative); Urobilinogen Urine 0.2 (0.2-1.0); pH Urine 5.5 (5.0-8.5)
--- OUTSIDE RECORDS SUMMARY | 2024-11-20 00:09 | XMS_ITS | Continuity of Care Document ---
Author Name [facility] Organization [facility] Care Team Providers Care Offset Press Operator Name Role Phone [facility] Unavailable Unavailable Problems Combined list of problems from Department of Defense and [facility] Affairs facilities. It does not include entries that were removed or entered in error. Problem Status Onset Date Problem Type Date of Resolution Comments Source Exposure to potentially hazardous substance ([facility] [id number]) Active 024 Condition Jan 24, 2024 Entered By: JILLIAN DELACRUZ Comment: [facility] Documentation Initiative [facility] Allergic rhinitis Active Condition [facility] Allergy to bee venom Active Condition [facility] Bipolar II disorder Active Condition [facility] Chronic back pain (SNOMED CT 979509745) Active Condition [facility] Depression Active Condition [facility] Dyspnea on exertion Active Condition [facility] Exposure to potentially hazardous chemical Active Condition [facility] Immunization status Active Condition [facility] Impaired cognition (SNOMED CT [id number]) Active Condition [facility] Insomnia (SNOMED CT 943788543) Active Condition [facility] Laboratory Examination Ordered as part of a Routine General Medical Examination Active Condition [facility] Liver function tests abnormal Active Condition [facility] Low back pain Active Condition March Entered By: SOHAN DOYLE Comment: prothetic consult for heating pad and back brace [facility] Low back pain Active Condition Feb Entered By: JANUARY MALAVE Comment: 03.04.2018 L-S MRI: L5-S1 Spondylosis w/ central canal and foraminal narrowing. [facility] Low back pain Active Condition [facility] Low back pain (SNOMED CT [id number]) Active Condition [facility] Marijuana Abuse unspecified Active Condition [facility] Migraine Active Condition [facility] Mild traumatic brain injury Active Condition [facility] Nightmare disorder Active Condition [facility] OIF EXPOSURE TO BURN PIT SMOKE Active Condition [facility] OIF EXPOSURE TO FLIP-8 FUEL Active Condition [facility] OIF EXPOSURE TO SANDSTORMS AND DUSTSTORMS Active Condition [facility] Photosensitivity Active Condition [facility] Posttraumatic stress disorder Active Condition [facility] Posttraumatic stress disorder (SNOMED CT 59783258) Active Condition [facility] Premature ejaculation Active Condition [facility] PTSD - Post-Traumatic Stress Disorder (SCT 61090173) Active Condition [facility] Sleep disorder Active Condition [facility] Substance abuse Active Condition Nov 30, 2015 Entered By: DEJON BECERRA Comment: previously used marijuana [facility] Tinnitus (SCT 63135291) Active Condition [facility] Vitamin D Deficiency (SCT 3949737) Active Condition [facility] Well adult Active Condition [facility] Acute irritant contact dermatitis Inactive Condition 07/23/2019 [facility] Tobacco use Inactive Condition 07/23/2019 [facility] visit for: examination Inactive Condition DoD gastroenteritis viral Inactive Condition DoD sonia depress single episode w/o melancholia or psych features Active Condition DoD unspecified diagnosis Active Condition [facility] Laboratory Studies Inactive Condition Do D male erectile disorder Active Condition DoD vomiting Inactive Condition DoD dizziness Inactive Condition DoD gastroenteritis Active Condition DoD abdominal pain Active Condition DoD visit for: physical medical evaluation board (MEB) Active Condition DoD epistaxis Inactive Condition [facility] visit for: exam following high-risk medication Active Condition [facility] taking high-risk medication Active Condition [facility] visit for: therapeutic drug monitoring Active Condition [facility] routine examination Inactive Condition [facility] assessment of patient condition impairment rating ___% Active Condition [facility] visual field defect - generalized contraction Active [...] Condition DoD Back Muscle Spasm Active Condition [facility] Administrative Evaluation Services Inactive Condition DoD lumbago [...] for: administrative purpose Inactive Condition Electronic Record intermediate frame tender DoD Need For Vaccination Against Td Inactive Condition DoD Established Patient Age 12-17 Years School / Camp Physical Inactive Condition see written note by Dr Desai [facility] Patient Education Inactive Condition [facility] Patient Counseling: Active Condition DoD allergic rhinitis Inactive Condition [facility] [place] Schl[place] disease Inactive Condition advil/ motrin/ ice massage. has 3 weeks lef of season. , get oull-on brace w/ knee cut-out. 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, unspecified Active Diagnosis [facility] Diagnosis: ICD-10-CM 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 [facility] Diagnosis: ICD-10-CM Z71.89 Other specified counseling Active Diagnosis [facility] Medications Combined list of outpatient medications from Department of Defense and [facility] Affairs facilities.Medications provided include 1) outpatient medications [...] AND ONE WEEK OFF TOPICA L 10/04/2024 [id number] DANNIE,PATTIE N 2023 50 [facility] EPINEPHRINE (EQV-EPI-PE N) 0.3MG/0.3ML INJECTOR INJECT 1 KIT INTRAMUS CULAR DIRECTED NEEDED FOR SEVERE ALLERGIC REACTION INTRAM USCULA R ACTIVE 02/22/2025 [id number] 4 SINA RODRIGUEZ SGHINA 2023 2 [facility] Epinephrine 1mg/mL Solution, Intramuscul ar (Epipen), 0.3mL Prefilled Pen INJECT 1 KIT INTRAMUS CULAR DIRECTED NEEDED FOR SEVERE ALLERGIC REACTION Active 02/22/2025 [id number] 4 HANH RODRIGUEZ 2023 2 [place] [facility] FLONASE-OTC (BRAND) 50 MCG KAREN SPSN [9.9] SPRAY 2 SPRAYS IN EACH NOSTRIL EVERY DAY USE REGULARL Y FOR RELIEF OF ALLERGIE S/CONGES TION Active 02/22/2025 [id number] 4 HANH RODRIGUEZ 2023 2 [place] [facility] Fluoxetine (Prozac) Capsule Conventiona l 20 mg Oral TAKE TWO CAPSULES BY MOUTH EVERY MORNING FOR MOOD AND ANXIETY Active 03/15/2025 [id number] 4 ESTUARDO MOURA 2023 120 [place] [facility] Fluoxetine (Prozac) Capsule Conventiona l 20 mg Oral TAKE TWO CAPSULES BY MOUTH EVERY MORNING FOR MOOD AND ANXIETY 02/24/2024 [id number] 4 ESTUARDO MOURA 2023 76 [place] [facility] Fluoxetine (Prozac) Capsule Conventiona l 20 mg Oral TAKE TWO CAPSULES BY MOUTH EVERY MORNING FOR MOOD AND ANXIETY 02/24/2024 [id number] 4 [facility]RA [facility] FLUOXETINE HCL 20MG CAP TAKE TWO CAPSULES BY MOUTH EVERY MORNING FOR MOOD AND ANXIETY ORAL DISCONT INUED BY PROVIDE R 03/15/2025 [id number] 4 BOOGIE MOURA 2023 120 [place] [facility] FLUOXETINE HCL 20MG CAP TAKE THREE CAPSULES BY MOUTH EVERY MORNING FOR 14 DAYS, THEN TAKE TWO CAPSULES EVERY MORNING FOR MOOD AND ANXIETY ORAL DISCONT INUED 02/24/2024 [id number] 4 BOOGIE MOURA 2023 90 [place] [facility] FLUOXETINE HCL 20MG CAP TAKE TWO CAPSULES BY MOUTH EVERY MORNING FOR MOOD AND ANXIETY ORAL 02/24/2024 [id number] 4 BOOGIE MOURA 2023 76 [place] [facility] FLUTICASONE PROPIONATE 50MCG/SPRAY SOLN,NASAL, 16GM SPRAY 2 SPRAYS IN EACH NOSTRIL EVERY DAY USE REGULARL Y FOR RELIEF OF ALLERGIE S/CONGES TION NASAL ACTIVE 02/22/2025 [id number] 4 SINA RODRIGUEZ SGHINA 2023 2 [place] [facility] GABAPENTIN (U/D) 300 MG ORAL CAP TAKE TWO CAPSULES BY MOUTH THREE TIMES A DAY NEEDED FOR ANXIETY Active 01/16/2025 [id number] 4 ESTUARDO MOURA 2023 90 [place] [facility] GABAPENTIN (U/D) 300 MG ORAL CAP TAKE TWO CAPSULES BY MOUTH THREE TIMES A DAY NEEDED FOR ANXIETY Active 01/16/2025 [id number] 4 ESTUARDO MOURA 2023 90 [place] [facility] GABAPENTIN (U/D) 300 MG ORAL CAP TAKE TWO CAPSULES BY MOUTH THREE TIMES A DAY NEEDED FOR ANXIETY 02/02/2024 [id number] 4 ESTUARDO MOURA 2023 90 [place] [facility] GABAPENTIN 300MG CAP TAKE TWO CAPSULES BY MOUTH THREE TIMES A DAY NEEDED FOR ANXIETY ORAL ACTIVE 07/25/2025 [id number] 4 BOOGIE MOURA 2023 180 [place] [facility] GABAPENTIN 300MG CAP TAKE TWO CAPSULES BY MOUTH THREE TIMES A DAY NEEDED FOR ANXIETY ORAL DISCONT INUED (EDIT) 01/16/2025 [id number] 4 BOOGIE MOURA 2023 90 [place] [facility] GABAPENTIN 300MG CAP TAKE TWO CAPSULES BY MOUTH THREE TIMES A DAY NEEDED FOR ANXIETY ORAL DISCONT INUED 02/02/2024 [id number] 4 BOOGIE MOURA 2022 90 [place] [facility] HYDROCORTIS ONE 2.5% CREAM,TOP APPLY THIN LAYER TOPICALL Y TWICE A DAY FOR ALOPECIA TO PEREIRA FOR 2 WEEKS, THEN ALTERNAT ING ONE WEEK OFF, ONE WEEK ON TOPICA L 10/04/2024 [id number] 3 PATTIE PANDEY 2022 30 [place] [facility] lamoTRIgine 100 MG ORAL TAB TAKE ONE TABLET BY MOUTH TWICE A DAY FOR BIPOLAR DISORDER 05/09/2024 [id number] 4 ESTUARDO MOURA 2023 180 [place] [facility] LAMOTRIGINE 100MG TAB TAKE THREE TABLETS BY MOUTH EVERY DAY FOR BIPOLAR DISORDER ORAL DISCONT INUED (EDIT) 07/25/2025 [id number] 4 BOOGIE MOURA 2023 180 [place] [facility] LAMOTRIGINE 100MG TAB TAKE TWO AND A HALF TABLETS BY MOUTH EVERY DAY FOR 7 DAYS, THEN TAKE THREE TABLETS EVERY DAY FOR BIPOLAR DISORDER ORAL DISCONT INUED 07/25/2025 [id number] 4 BOOGIE MOURA 2023 177 [place] [facility] LAMOTRIGINE 100MG TAB TAKE ONE TABLET BY MOUTH TWICE A DAY FOR BIPOLAR DISORDER ORAL DISCONT INUED (EDIT) 08/25/2024 [id number] 4 MIMI SOSA 2023 180 [place] [facility] LAMOTRIGINE 100MG TAB TAKE ONE TABLET BY MOUTH TWICE A DAY FOR BIPOLAR DISORDER ORAL 05/09/2024 [id number] 4 BOOGIE MOURA 2022 180 [place] [facility] LAMOTRIGINE 150MG TAB TAKE TWO TABLETS BY MOUTH EVERY DAY FOR BIPOLAR DISORDER ORAL ACTIVE 09/12/2025 [id number] 4 BOOGIE MOURA 2023 180 [place] [facility] Loratadine (Alavert ODT) Tablet 10 mg Oral TAKE ONE TABLET BY MOUTH EVERY DAY FOR ALLERGIE S Active 02/22/2025 [id number] 4 HANH RODRIGUEZ 2023 90 [place] [facility] Loratadine (Alavert ODT) Tablet 10 mg Oral TAKE ONE TABLET BY MOUTH EVERY DAY FOR ALLERGIE S Active 02/22/2025 [id number] 4 HANH RODRIGUEZ 2023 90 [place] [facility] LORATADINE 10MG TAB TAKE ONE TABLET BY MOUTH EVERY DAY FOR ALLERGIE S ORAL ACTIVE 02/22/2025 [id number] 4 SINA RODRIGUEZ 2023 90 [facility] MINOXIDIL 2.5 MG ORAL TAB TAKE ONE TABLET BY MOUTH EVERY DAY Active 12/12/2024 [id number] 4 FLOYD PAIZ V 2023 90 [facility] MINOXIDIL 2.5 MG ORAL TAB TAKE ONE TABLET BY MOUTH EVERY DAY Active 12/12/2024 [id number] 4 FLOYD PAIZ V 2023 90 [facility] MINOXIDIL 2.5MG TAB TAKE ONE TABLET BY MOUTH EVERY DAY ORAL ACTIVE 12/12/2024 [id number] 4 MATTI RIGGSGIANNA Napoleon Cota 2023 90 [facility] QUETIAPINE FUMARATE 50MG TAB TAKE ONE TO TWO TABLETS BY MOUTH AT BEDTIME FOR BIPOLAR DISORDER ORAL ACTIVE 07/25/2025 [id number] 4 BOOGIE MOURA 2023 60 [facility] Allergies, Adverse Reactions, Alerts Combined list of allergies from Department of Defense and Veterans Affairs facilities. It does not include entries that were removed or entered in error. Substance Category Reaction Severity Reaction type Status Date Reported Comments Source BEE STINGS Propensity to adverse reaction (finding) Anaphylaxis active 6 [facility] BEE STINGS Propensity to adverse reaction (finding) active 8 [facility] HORNET STINGS Propensity to adverse reaction (finding) Anaphylaxis active 6 [facility] WASP STINGS Propensity to adverse reaction (finding) Anaphylaxis active 6 [facility] WASP VENOM (WASP VENOM) Allergy to substance (disorder) Anaphylaxis, Other: Beestings, hornets active 1 Misael MARTINEZ [place] Immunizations Combined list of available immunizations from the Department of Defense and Veterans Affairs facilities. Immunization Series Date Given Administered By Site Reaction Lot Number CVX Code Drug Die Lay Out Worker Status Comments Source COVID-19 (PFIZER), MRNA, LNP-S, PF, SHAN-SUCROSE, 30 MCG/0.3 ML (AGES 12+ YEARS) 1 2023 [employer] IE SUSIE LEFT DELTO ID [id number] complet ed [facility] INFLUENZA, INJECTABLE, QUADRIVALENT, PRESERVATIVE FREE 2023 [employer] IE SUSIE LEFT DELTO ID [id number] A 150 complet ed [facility] INFLUENZA, INJECTABLE, QUADRIVALENT, PRESERVATIVE FREE 2021 150 complet ed [facility] COVID-19 (PFIZER), MRNA, LNP-S, BIVALENT BOOSTER, PF, 30 MCG/0.3 ML DOSE 1 2021 300 complet ed PFR; [id number]; 3 [facility] COVID-19 (PFIZER), MRNA, LNP-S, PF, 30 MCG/0.3 ML DOSE 3 2021 208 complet ed PFR; [id number]; 2 [facility] INFLUENZA, INJECTABLE, QUADRIVALENT 2020 158 complet ed [facility] INFLUENZA, INJECTABLE, QUADRIVALENT, PRESERVATIVE FREE 2020 150 complet ed [facility] COVID-19 (MODERNA), MRNA, LNP-S, PF, 100 MCG OR 50 MCG DOSE 2 2020 207 complet ed [facility] COVID-19 (MODERNA), MRNA, LNP-S, PF, 100 MCG/0.5ML DOSE OR 50 MCG/0.25ML DOSE 2020 207 complet ed [facility] COVID-19 (MODERNA), MRNA, LNP-S, PF, 100 MCG OR 50 MCG DOSE 1 2020 207 complet ed [facility] INFLUENZA, SEASONAL, INJECTABLE, PRESERVATIVE FREE 2018 140 complet ed [facility] INFLUENZA, INJECTABLE, QUADRIVALENT, PRESERVATIVE FREE 2017 150 complet ed [id number] EXP 05/19/19 [facility] INFLUENZA, SEASONAL, INJECTABLE, PRESERVATIVE FREE 2015 140 complet ed [facility] TDAP 2015 115 complet ed glaxo pérez wu [id number] 10/08/17 [facility] FLU,3 YRS (HISTORICAL) 2012 88 complet ed [facility] INFLUENZA, UNSPECIFIED FORMULATION 2012 88 complet ed Active Duty [facility] influenza virus vaccine, live, attenuated, for intranasal use 1 2011 [id number] [employer] (MED) complet ed influenza virus vaccine, live, attenuate d, for intranasa l use DoD INFLUENZA, UNSPECIFIED FORMULATION 2011 88 complet ed [facility], VISN 15 TDAP 2011 115 complet ed [place] [facility] influenza virus vaccine, live, attenuated, for intranasal use 1 2010 [id number] 111 [employer] (MED) complet ed influenza virus vaccine, live, attenuate d, for intranasa l use DoD influenza virus vaccine, live, attenuated, for intranasal use 1 2009 [id number] 111 [employer] (MED) complet ed influenza virus vaccine, live, attenuate d, for intranasa l use DoD anthrax vaccine 3 2009 [id number] [facility]) complet ed anthrax vaccine DoD Novel influenza-H1N 1-09, injectable 1 2008 [id number] 127 Unknown (UNK) complet ed Novel influenza -[id number], injectabl e DoD anthrax vaccine 2 2008 [id number] 24 Unknown (UNK) comple t ed anthrax vaccine DoD influenza virus vaccine, split virus (incl. purified surface antigen)-reti red CODE 1 2008 [id number] 15 San[employer]i Pasteur ([facility]) complet ed influenza virus vaccine, split virus (incl. purified surface antigen)- retired CODE DoD anthrax vaccine 1 2008 [id number] 24 [facility] ([facility]) complet ed anthrax vaccine DoD vaccinia (smallpox) vaccine 1 2008 [id number] 75 [facility] ([facility]) complet ed vaccinia (smallpox ) vaccine DoD typhoid Vi capsular polysaccharid e vaccine 1 2008 [id number] 101 [employer] ([facility]) complet ed typhoid Vi capsular polysacch aride vaccine DoD influenza virus vaccine, live, attenuated, for intranasal use 1 2007 [id number] 111 [employer] (MED) complet ed influenza [...] inactivated 1 2007 [id number] 10 Sanofi Pasteur ([facility]) complet ed polioviru s vaccine, inactivat ed DoD meningococcal polysaccharid e (groups A, C, Y and W-135) diphtheria toxoid conjugate vaccine (MCV4P) 1 2007 [id number] 114 Sanofi Pasteur ([facility]) complet ed meningoco ccal polysacch aride (groups A, C, Y and W-135) diphtheri a toxoid conjugate vaccine (MCV4P) DoD tetanus toxoid, reduced diphtheria toxoid, and acellular pertu is vaccine, adsorbed 1 2007 [id number] 115 Sanofi Pasteur ([facility]) complet ed tetanus toxoid, reduced diphtheri a toxoid, and acellular pertussis vaccine, adsorbed DoD tetanus and diphtheria toxoids, adsorbed, preservative free, for adult use (2 Lf of tetanus toxoid and 2 Lf of diphtheria toxoid) 1 2003 Unknown, Provider [id number] 09 Sanofi Pasteur ([facility]) complet ed tetanus and diphtheri [...] Reference Range Date Interpretation Specimen Comments Source CBC & DIFF LEUKOCYTES [#/VOLUME] IN BLOOD BY AUTOMATED COUNT 5.58 10*3/uL 4.0 - 11.0 12/12 Specimen Type: BLOOD Comment: Automated Differentia l Performed Ordering Provider: ANAHI COLLINS Report Released Date/Time: Oct 27, 2022 09:53 AM Reporting Lab: [facility] [address] Performing Lab: [facility] [address] [facility] CBC & DIFF ERYTHROCYT ES [#/VOLUME] IN BLOOD BY AUTOMATED COUNT 4.73 10*6/uL 4.6 - 6.2 12/12 Specimen Type: BLOOD Comment: Automated Differentia l Performed Ordering Provider: ANAHI COLLINS Report Released Date/Time: Oct 27, 2022 09:53 AM Reporting Lab: [facility] [address] Performing Lab: [facility] [address] [place] [facility] CBC & DIFF HEMOGLOBIN [MASS/VOLU ME] IN BLOOD 14.6 g/dL 13.5 - 17.9 12/12 Specimen Type: BLOOD Comment: Automated Differentia l Performed Ordering Provider: ANAHI COLLINS Report Released Date/Time: Oct 27, 2022 09:53 AM Reporting Lab: [facility] [address] Performing Lab: [facility] [address] [place] [facility] CBC & DIFF HEMATOCRIT [VOLUME FRACTION] OF BLOOD BY AUTOMATED COUNT 41.8 41 - 54 12/12 Specimen Type: BLOOD Comment: Automated Differentia l Performed Ordering Provider: ANAHI COLLINS Report Released Date/Time: Oct 27, 2022 09:53 AM Reporting Lab: [facility] [address] Performing Lab: [facility] [address] [place] [facility] CBC & DIFF MCV [ENTITIC VOLUME] BY AUTOMATED COUNT 88.4 fL 80 - 100 12/12 Specimen Type: BLOOD Comment: Automated Differentia l Performed Ordering Provider: ANAHI COLLINS Report Released Date/Time: Oct 27, 2022 09:53 AM Reporting Lab: [facility] [address] Performing Lab: [facility] [address] [place] [facility] CBC & DIFF MCH [ENTITIC MASS] BY AUTOMATED COUNT 30.9 pg 27 - 33 12/12 Specimen Type: BLOOD Comment: Automated Differentia l Performed Ordering Provider: ANAHI COLLINS Report Released Date/Time: Oct 27, 2022 09:53 AM Reporting Lab: [facility] [address] Performing Lab: [facility] [address] [place] [facility] CBC & DIFF MCHC [MASS/VOLU ME] BY AUTOMATED COUNT 34.9 g/dL 32.0 - 37.5 12/12 Specimen Type: BLOOD Comment: Automated Differentia l Performed Ordering Provider: ANAHI COLLINS Report Released Date/Time: Oct 27, 2022 09:53 AM Reporting Lab: [facility] [address] Performing Lab: [facility] [address] [place] [facility] CBC & DIFF PLATELETS [#/VOLUME] IN BLOOD BY AUTOMATED COUNT 157 10*3/uL 150 - 400 12/12 Specimen Type: BLOOD Comment: Automated Differentia l Performed Ordering Provider: ANAHI COLLINS Report Released Date/Time: Oct 27, 2022 09:53 AM Reporting Lab: [facility] [address] Performing Lab: [facility] [address] [place] [facility] CBC & DIFF PLATELET MEAN VOLUME [ENTITIC VOLUME] IN BLOOD BY AUTOMATED COUNT 9.1 fL 7.4 - 10.4 12/12 Specimen Type: BLOOD Comment: Automated Differentia l Performed Ordering Provider: ANAHI COLLINS Report Released Date/Time: Oct 27, 2022 09:53 AM Reporting Lab: [facility] [address] Performing Lab: [facility] [address] [place] [facility] CBC & DIFF NEUTROPHIL S/100 LEUKOCYTES IN BLOOD BY MANUAL COUNT 48.2 40.0 - 80.0 12/12 Specimen Type: BLOOD Comment: Automated Differentia l Performed Ordering Provider: ANAHI COLLINS Report Released Date/Time: Oct 27, 2022 09:53 AM Reporting Lab: [facility] [address] Performing Lab: [facility] [address] [place] [facility] CBC & DIFF LYMPHOCYTE S/100 LEUKOCYTES IN BLOOD BY MANUAL COUNT 37.3 15.0 - 45.0 12/12 Specimen Type: BLOOD Comment: Automated Differentia l Performed Ordering Provider: ANAHI COLLINS Report Released Date/Time: Oct 27, 2022 09:53 AM Reporting Lab: [facility] [address] Performing Lab: [facility] [address] [place] [facility] CBC & DIFF MONOCYTES/ 100 LEUKOCYTES IN BLOOD BY AUTOMATED COUNT 9.1 2.0 - 12.0 12/12 Specimen Type: BLOOD Comment: Automated Differentia l Performed Ordering Provider: ANAHI COLLINS Report Released Date/Time: Oct 27, 2022 09:53 AM Reporting Lab: [facility] [address] Performing Lab: [facility] [address] [place] [facility] CBC & DIFF EOSINOPHIL S/100 LEUKOCYTES IN BLOOD BY AUTOMATED COUNT 4.1 0.0 - 6.0 12/12 Specimen Type: BLOOD Comment: Automated Differentia l Performed Ordering Provider: ANAHI COLLINS Report Released Date/Time: Oct 27, 2022 09:53 AM Reporting Lab: [facility] [address] Performing Lab: [facility] [address] [place] [facility] CBC & DIFF BASOPHILS/ 100 LEUKOCYTES IN BLOOD BY MANUAL COUNT 1.1 0.0 - 2.0 12/12 Specimen Type: BLOOD Comment: Automated Differentia l Performed Ordering Provider: ANAHI COLLINS Report Released Date/Time: Oct 27, 2022 09:53 AM Reporting Lab: [facility] [address] Performing Lab: [facility] [address] [place] [facility] CBC & DIFF ERYTHROCYT E DISTRIBUTI ON WIDTH [RATIO] BY AUTOMATED COUNT 12.3 11.5 - 14.5 12/12 Specimen Type: BLOOD Comment: Automated Differentia l Performed Ordering Provider: ANAHI COLLINS Report Released Date/Time: Oct 27, 2022 09:53 AM Reporting Lab: [facility] [address] Performing Lab: [facility] [address] [place] [facility] CBC & DIFF LYMPHOCYTE S [#/VOLUME] IN BLOOD BY AUTOMATED COUNT 2.08 10*3/uL 1.0 - 4.0 12/12 Specimen Type: BLOOD Comment: Automated Differentia l Performed Ordering Provider: ANAHI COLLINS Report Released Date/Time: Oct 27, 2022 09:53 AM Reporting Lab: [facility] [facility] [address] Performing Lab: [facility] [address] [place] [facility] CBC & DIFF MONOCYTES [#/VOLUME] IN BLOOD BY AUTOMATED COUNT 0.51 10*3/uL 0.1 - 1.0 12/12 Specimen Type: BLOOD Comment: Automated Differentia l Performed Ordering Provider: ANAHI COLLINS Report Released Date/Time: Oct 27, 2022 09:53 AM Reporting Lab: [facility] [address] Performing Lab: [facility] [address] [place] [facility] CBC & DIFF NEUTROPHIL S [#/VOLUME] IN BLOOD BY AUTOMATED COUNT 2.69 10*3/uL 2.0 - 7.7 12/12 Specimen Type: BLOOD Comment: Automated Differentia l Performed Ordering Provider: ANAHI COLLINS Report Released Date/Time: Oct 27, 2022 09:53 AM Reporting Lab: [facility] [address] Performing Lab: [facility] [address] [place] [facility] CBC & DIFF EOSINOPHIL S [#/VOLUME] IN BLOOD BY AUTOMATED COUNT 0.23 10*3/uL 0 - 0.5 12/12 Specimen Type: BLOOD Comment: Automated Differentia l Performed Ordering Provider: ANAHI COLLINS Report Released Date/Time: Oct 27, 2022 09:53 AM Reporting Lab: [facility] [address] Performing Lab: [facility] [address] [place] [facility] CBC & DIFF BASOPHILS [#/VOLUME] IN BLOOD BY AUTOMATED COUNT 0.06 10*3/uL 0 - 0.2 12/12 Specimen Type: BLOOD Comment: Automated Differentia l Performed Ordering Provider: ANAHI COLLINS Report Released Date/Time: Oct 27, 2022 09:53 AM Reporting Lab: [facility] [address] Performing Lab: [facility] [address] [place] [facility] CBC & DIFF IG(META,MY VEE,PRO) 0.2 12/12 Specimen Type: BLOOD Comment: Automated Differentia l Performed Ordering Provider: ANAHI COLLINS Report Released Date/Time: Oct 27, 2022 09:53 AM Reporting Lab: [facility] [address] Performing Lab: [facility] [address] [place] [facility] CBC & DIFF IMMATURE GRANULOCYT ES [PRESENCE] IN BLOOD BY AUTOMATED COUNT 0.01 10*3/uL 0 - 0.1 12/12 Specimen Type: BLOOD Comment: Automated Differentia l Performed Ordering Provider: ANAHI COLLINS Report Released Date/Time: Oct 27, 2022 09:53 AM Reporting Lab: [facility] [address] Performing Lab: [facility] [address] [place] [facility] COMPREHE NSIVE METABOLI C PANEL+MG CREATININE [MASS/VOLU ME] IN SERUM OR PLASMA 0.9 mg/dL 0.7 - 1.2 12/12 Specimen Type: PLASMA No comment entered. Ordering Provider: ANAHI COLLINS Report Released Date/Time: Oct 27, 2022 09:53 AM Reporting Lab: [facility] [address] Performing Lab: [facility] [address] [place] [facility] COMPREHE NSIVE METABOLI C PANEL+MG UREA NITROGEN [MASS/VOLU ME] IN SERUM OR PLASMA 15 mg/dL 8 - 26 12/12 Specimen Type: PLASMA No comment entered. Ordering Provider: ANAHI COLLINS Report Released Date/Time: Oct 27, 2022 09:53 AM Reporting Lab: [facility] [address] Performing Lab: [facility] [address] [place] [facility] COMPREHE NSIVE METABOLI C PANEL+MG GLUCOSE [MASS/VOLU ME] IN SERUM OR PLASMA 88 mg/dL 70 - 100 12/12 Specimen Type: PLASMA No comment entered. Ordering Provider: ANAHI COLLINS Report Released Date/Time: Oct 27, 2022 09:53 AM Reporting Lab: [facility] [address] Performing Lab: [facility] [address] [place] [facility] COMPREHE NSIVE METABOLI C PANEL+MG SODIUM [MOLES/VOL UME] IN SERUM OR PLASMA 139 mmol/L 136 - 145 12/12 Specimen Type: PLASMA No comment entered. Ordering Provider: ANAHI COLLINS Report Released Date/Time: Oct 27, 2022 09:53 AM Reporting Lab: [facility] [address] Performing Lab: [facility] [address] [place] [facility] COMPREHE NSIVE METABOLI C PANEL+MG POTASSIUM [MOLES/VOL UME] IN SERUM OR PLASMA 4.4 mmol/L 3.5 - 5.1 12/12 Specimen Type: PLASMA No comment entered. Ordering Provider: ANAHI COLLINS Report Released Date/Time: Oct 27, 2022 09:53 AM Reporting Lab: [facility] [address] Performing Lab: [facility] [address] [place] [facility] COMPREHE NSIVE METABOLI C PANEL+MG CHLORIDE [MOLES/VOL UME] IN SERUM OR PLASMA 105 mmol/L 98 - 107 12/12 Specimen Type: PLASMA No comment entered. Ordering Provider: ANAHI COLLINS Report Released Date/Time: Oct 27, 2022 09:53 AM Reporting Lab: [facility] [address] Performing Lab: [facility] [address] [place] [facility] COMPREHE NSIVE METABOLI C PANEL+MG CARBON DIOXIDE, TOTAL [MOLES/VOL UME] IN SERUM OR PLASMA 26 mmol/L 22 - 29 12/12 Specimen Type: PLASMA No comment entered. Ordering Provider: ANAHI COLLINS Report Released Date/Time: Oct 27, 2022 09:53 AM Reporting Lab: [facility] [address] Performing Lab: [facility] [address] [place] [facility] COMPREHE NSIVE METABOLI C PANEL+MG CALCIUM [MASS/VOLU ME] IN SERUM OR PLASMA 9.4 mg/dL 8.4 - 10.2 12/12 Specimen Type: PLASMA No comment entered. Ordering Provider: ANAHI COLLINS Report Released Date/Time: Oct 27, 2022 09:53 AM Reporting Lab: [facility] [address] Performing Lab: [facility] [address] [place] [facility] COMPREHE NSIVE METABOLI C PANEL+MG PROTEIN [MASS/VOLU ME] IN SERUM OR PLASMA 7.5 g/dL 6.0 - 8.3 12/12 Specimen Type: PLASMA No comment entered. Ordering Provider: ANAHI COLLINS Report Released Date/Time: Oct 27, 2022 09:53 AM Reporting Lab: [facility] [address] Performing Lab: [facility] [address] [place] [facility] COMPREHE NSIVE METABOLI C PANEL+MG ALBUMIN [MASS/VOLU ME] IN SERUM OR PLASMA 4.4 g/dL 3.5 - 5.2 12/12 Specimen Type: PLASMA No comment entered. Ordering Provider: ANAHI COLLINS Report Released Date/Time: Oct 27, 2022 09:53 AM Reporting Lab: [facility] [address] Performing Lab: [facility] [address] [place] [facility] COMPREHE NSIVE METABOLI C PANEL+MG BILIRUBIN. TOTAL [MASS/VOLU ME] IN SERUM OR PLASMA 0.2 mg/dL 0.2 - 1.2 12/12 Specimen Type: PLASMA No comment entered. Ordering Provider: ANAHI COLLINS Report Released Date/Time: Oct 27, 2022 09:53 AM Reporting Lab: [facility] [address] Performing Lab: [facility] [address] [place] [facility] COMPREHE NSIVE METABOLI C PANEL+MG MAGNESIUM [MASS/VOLU ME] IN SERUM OR PLASMA 2.0 mg/dL 1.6 - 2.6 12/12 Specimen Type: PLASMA No comment entered. Ordering Provider: ANAHI COLLINS Report Released Date/Time: Oct 27, 2022 09:53 AM Reporting Lab: [facility] [address] Performing Lab: [facility] [address] [facility] COMPREHE NSIVE METABOLI C PANEL+MG ANION GAP IN SERUM OR PLASMA 8 mmol/L 5 - 15 12/12 Specimen Type: PLASMA No comment entered. Ordering Provider: ANAHI COLLINS Report Released Date/Time: Oct 27, 2022 09:53 AM Reporting Lab: [facility] [address] Performing Lab: [facility] [address] [place] [facility] COMPREHE NSIVE METABOLI C PANEL+MG ALKALINE PHOSPHATAS E [ENZYMATIC ACTIVITY/V OLUME] IN SERUM OR PLASMA 58 U/L 40 - 150 12/12 Specimen Type: PLASMA No comment entered. Ordering Provider: ANAHI COLLINS Report Released Date/Time: Oct 27, 2022 09:53 AM Reporting Lab: [facility] [address] Performing Lab: [facility] [address] [place] [facility] COMPREHE NSIVE METABOLI C PANEL+MG ALANINE AMINOTRANS FERASE [ENZYMATIC ACTIVITY/V OLUME] IN SERUM OR PLASMA 48 U/L <55 - 55 12/12 Specimen Type: PLASMA No comment entered. Ordering Provider: ANAHI COLLINS Report Released Date/Time: Oct 27, 2022 09:53 AM Reporting Lab: [facility] [address] Performing Lab: [facility] [address] [place] [facility] COMPREHE NSIVE METABOLI C PANEL+MG ASPARTATE AMINOTRANS FERASE [ENZYMATIC ACTIVITY/V OLUME] IN SERUM OR PLASMA 30 U/L <34 - 34 12/12 Specimen Type: PLASMA No comment entered. Ordering Provider: ANAHI COLLINS Report Released Date/Time: Oct 27, 2022 09:53 AM Reporting Lab: [facility] [address] Performing Lab: [facility] [address] [place] [facility] COMPREHE NSIVE METABOLI C PANEL+MG GLOMERULAR FILTRATION RATE/1.73 SQ M.PREDICTE D [VOLUME RATE/AREA] IN SERUM, PLASMA OR BLOOD BY CREATININE -BASED FORMULA (CKD-EPI 2020) >90 60 12/12 Specimen Type: PLASMA No comment entered. Ordering Provider: ANAHI COLLINS Report Released Date/Time: Oct 27, 2022 09:53 AM Reporting Lab: [facility] [address] Performing Lab: [facility] [address] [place] [facility] LIPID PANEL,NO N-FASTIN G CHOLESTERO L [MASS/VOLU ME] IN SERUM OR PLASMA 170 mg/dL <199 - 199 12/12 Specimen Type: PLASMA No comment entered. Ordering Provider: ANAHI COLLINS Report Released Date/Time: Oct 27, 2022 09:53 AM Reporting Lab: [facility] [address] Performing Lab: [facility] [address] [place] [facility] LIPID PANEL,NO N-FASTIN G CHOLESTERO L IN HDL [MASS/VOLU ME] IN SERUM OR PLASMA 40 mg/dL 40 12/12 Specimen Type: PLASMA No comment entered. Ordering Provider: ANAHI COLLINS Report Released Date/Time: Oct 27, 2022 09:53 AM Reporting Lab: [facility] [address] Performing Lab: [facility] [address] [place] [facility] LIPID PANEL,NO N-FASTIN G CHOLESTERO L IN LDL [MASS/VOLU ME] IN SERUM OR PLASMA BY CALCULATIO N 118 mg/dL <99 - 99 12/12 H Specimen Type: PLASMA No comment entered. Ordering Provider: ANAHI COLLINS Report Released Date/Time: Oct 27, 2022 09:53 AM Reporting Lab: [facility] [address] Performing Lab: [place] [address] [place] [facility] LIPID PANEL,NO N-FASTIN G CHOLESTERO L IN VLDL [MASS/VOLU ME] IN SERUM OR PLASMA BY CALCULATIO N 12 mg/dL <29 - 29 12/12 Specimen Type: PLASMA No comment entered. Ordering Provider: ANAHI COLLINS Report Released Date/Time: Oct 27, 2022 09:53 AM Reporting Lab: [facility] [address] Performing Lab: [facility] [address] [place] [facility] LIPID PANEL,NO N-FASTIN G CHOLESTERO L NON HDL [MASS/VOLU ME] IN SERUM OR PLASMA 130 mg/dL <129 - 129 12/12 H Specimen Type: PLASMA No comment entered. Ordering Provider: ANAHI COLLINS Report Released Date/Time: Oct 27, 2022 09:53 AM Reporting Lab: [facility] [address] Performing Lab: [facility] [address] [place] [facility] LIPID PANEL,NO N-FASTIN G TRIGLYCERI DE [MASS/VOLU ME] IN SERUM OR PLASMA 58 mg/dL <149 - 149 12/12 Specimen Type: PLASMA No comment entered. Ordering Provider: ANAHI COLLINS Report Released Date/Time: Oct 27, 2022 09:53 AM Reporting Lab: [facility] [address] Performing Lab: [facility] [address] [facility] TSH W/REFLEX TO FREE T4 THYROTROPI N [UNITS/VOL UME] IN SERUM OR PLASMA 0.72 u[IU]/mL 0.35 - 4.94 12/12 Specimen Type: PLASMA No comment entered. Ordering Provider: ANAHI COLLINS Report Released Date/Time: Oct 27, 2022 09:53 AM Reporting Lab: [facility] [address] Performing Lab: [facility] [address] [facility] HEMOGLOB IN A1C HEMOGLOBIN A1C/HEMOGL OBIN.TOTAL IN [...] Dec 14, 2023 11:58 AM Reporting Lab: [facility] [address] Performing Lab: [facility] [address] [facility] TSH W/REFLEX TO FREE T4 THYROTROPI N [UNITS/VOL UME] IN SERUM OR PLASMA 0.70 u[IU]/mL 0.35 - 4.94 12/12 Specimen Type: PLASMA No comment entered. Ordering Provider: BUSHRA PANDEY Report Released Date/Time: Sep 27, 2023 11:23 AM Reporting Lab: [facility] [address] Performing Lab: [facility] [address] [facility] [employer]ANT[employer] RAFAL GOLD MYCOBACTER IUM TUBERCULOS IS [...] May 04, 2023 10:00 AM Reporting Lab: [address] Performing Lab: [place] [address] [place] [facility] [employer] IUM TUBERCULOS IS [...] May 04, 2023 10:00 AM Reporting Lab: [facility] [address] Performing Lab: [facility] [address] [facility] [facility] [employer]CO[employer] IUM TUBERCULOS IS [...] May 04, 2023 10:00 AM Reporting Lab: [place] [phone] Performing Lab: [place] [address] [place] [facility] [employer] IUM TUBERCULOS IS [...] May 04, 2023 10:00 AM Reporting Lab: [facility] [address] Performing Lab: [facility] [address] [facility] [employer] IUM TUBERCULOS IS [...] or other immunologic al variables). Ordering Provider: ANHAI COLLINS Report Released Date/Time: May 04, 2023 10:00 AM Reporting Lab: [facility] [address] Performing Lab: [facility] [address] [facility] LAMOTRIG INE LAMOTRIGIN E [MASS/VOLU ME] IN SERUM OR PLASMA 0.8 ug/mL 2.5 - 15.0 03/13 L Specimen Type: SERUM Comment: This test was developed and its analytical performance characteris tics have been determined by [employer] [place], [place]. It has not been cleared or approved by the U.S. Food and Drug Administrat ion. This assay has been validated pursuant to the CLIA regulations and is used for clinical purposes. Test Performed by [facility], [employer] [place], [address] [place], [place] Jordi Nails M.D., Ph.D., Director of Laboratorie s , CLIA [id number] Ordering Provider: VINI HAAS Report Released Date/Time: Mar 13, 2023 03:56 PM Reporting Lab: [place] [phone] Performing Lab: [facility] [address] [facility] [place] [facility] POC ABG/LACT ATE PH OF VENOUS BLOOD 7.381 7.31 - 7.41 03/13 Specimen Type: VENOUS BLOOD No comment entered. Ordering Provider: Christina PEREZ Report Released Date/Time: Mar 13, 2023 03:46 PM Reporting Lab: [facility] [address] Performing Lab: [facility] [address] [place] [facility] POC ABG/LACT ATE CARBON DIOXIDE [PARTIAL PRESSURE] IN VENOUS BLOOD 49.1 mm[Hg] 41 - 51 03/13 Specimen Type: VENOUS BLOOD No comment entered. Ordering Provider: Christina PEREZ Report Released Date/Time: Mar 13, 2023 03:46 PM Reporting Lab: [facility] [address] Performing Lab: [facility] [address] [place] [facility] POC ABG/LACT ATE OXYGEN [PARTIAL PRESSURE] IN VENOUS BLOOD 20 mm[Hg] 03/13 Specimen Type: VENOUS BLOOD No comment entered. Ordering Provider: Christina PEREZ Report Released Date/Time: Mar 13, 2023 03:46 PM Reporting Lab: [facility] [address] Performing Lab: [facility] [address] [place] [facility] POC ABG/LACT ATE CARBON DIOXIDE, TOTAL [MOLES/VOL UME] IN VENOUS BLOOD 31 mmol/L 24 - 29 03/13 Specimen Type: VENOUS BLOOD No comment entered. Ordering Provider: Christina PEREZ Report Released Date/Time: Mar 13, 2023 03:46 PM Reporting Lab: [facility] [address] Performing Lab: [facility] [address] [place] [facility] POC ABG/LACT ATE BICARBONAT E [MOLES/VOL UME] IN VENOUS BLOOD 29.1 mmol/L 23 - 28 03/13 Specimen Type: VENOUS BLOOD No comment entered. Ordering Provider: Christina PEREZ Report Released Date/Time: Mar 13, 2023 03:46 PM Reporting Lab: [facility] [address] Performing Lab: [facility] [address] [facility] POC ABG/LACT ATE BASE EXCESS IN VENOUS BLOOD BY CALCULATIO N 4 mmol/L - 2 03/13 Specimen Type: VENOUS BLOOD No comment entered. Ordering Provider: Christina PEREZ Report Released Date/Time: Mar 13, 2023 03:46 PM Reporting Lab: [facility] [address] Performing Lab: [facility] [address] [facility] POC ABG/LACT ATE FRACTIONAL OXYHEMOGLO BIN IN VENOUS BLOOD 30 03/13 Specimen Type: VENOUS BLOOD No comment entered. Ordering Provider: Christina PEREZ Report Released Date/Time: Mar 13, 2023 03:46 PM Reporting Lab: [facility] [address] Performing Lab: [facility] [address] [facility] POC ABG/LACT ATE LACTATE [MOLES/VOL UME] IN VENOUS BLOOD <1.6mmol /L 0.90 - 1.70 03/13 Specimen Type: VENOUS BLOOD No comment entered. Ordering Provider: Christina PEREZ Report Released Date/Time: Mar 13, 2023 03:46 PM Reporting Lab: [facility] [address] Performing Lab: [facility] [address] [facility] EXTRA BLUE TUBE EXTRA BLUE TUBE RECEIVED 03/13 Specimen Type: PLASMA No comment entered. Ordering Provider: VINI HAAS Report Released Date/Time: Mar 13, 2023 02:47 PM Reporting Lab: [facility] [address] Performing Lab: [facility] [address] [facility] Vital Signs Combined list of inpatient and outpatient Vital Signs from Department of Defense and Veterans Affairs, ranging from 12 months to all on record, depending upon the facility. Vital Sign Value Date Comments Source SYSTOLIC BLOOD PRESSURE 124 12/12/2023 10:33:53 [facility] DIASTOLIC BLOOD PRESSURE 80 12/12/2023 10:33:53 [facility] PULSE OXIMETRY 96% 12/12/2023 10:33:53 [place] [facility] WEIGHT 186.2 12/12/2023 10:33:53 [facility] BMI 30kg/m2 12/12/2023 10:33:53 [facility] PAIN 0 12/12/2023 10:33:53 [facility] HEIGHT 66.5 12/12/2023 10:33:53 [facility] TEMPERATURE 99.7 12/12/2023 10:33:53 [facility] PULSE 58 12/12/2023 10:33:53 [facility] RESPIRATION 15 12/12/2023 10:33:53 [facility] Encounters Combined list of: 1) Encounters from Department of [facility] Affairs facilities going back up to thelast 18 months. 2) Encounters from the Department of Defense facilities going back up to 280 months. Location Location Details Encounter Type Encounter Number Reason For Visit Attending Provider ADM Date DC Date Status Disposition Source [facility] FP) OUTPATIENT [id number] CHECK FOR PERSIEN T COUGH JF RANN W 02/11 Released w/o Limitations [facility] FP) [facility] FP) OUTPATIENT [id number] PROBLEM S WITH RIGHT KNEE AMBAR TABOR R 03/14 Released w/o Limitations [facility]) [facility]) TELE CONSULT [id number] RX Refill. Pt. is request ing a refill on Zyrtec JERRY HARTMANN 08/26 [employer] [facility] FP) [facility] FP) OUTPATIENT [id number] med refill SAMI DELGADILLO 12/31 Released w/o Limitations [facility] FP) [facility]) TELE CONSULT [id number] med refill JERRY HARTMANN 03/01 [facility] FP) [facility]) OUTPATIENT [id number] physica l SAMI DELGADILLO 05/21 Released w/o Limitations [facility] FP) [facility](Immuniz ation NMCP) OUTPATIENT [id number] Luigi ALFA MCDANIEL Vicente 05/21 Released w/o Limitations [facility](Imm unizati on NMCP) [facility] FP) OUTPATIENT [id number] SORE THROAT W WHITE SPOTS SAMI DELGADILLO 12/23 Released w/o Limitations [facility] FP) [facility] FP) OUTPATIENT [id number] sport paper SAMI DELGADILLO 05/18 Released w/o Limitations [facility] FP) [facility] FP) OUTPATIENT [id number] shoulde r pain and having trouble moving left arm ROSE KAY 06/20 Released w/o Limitations [facility] FP) [facility] FP) OUTPATIENT [id number] right knee pain MARGARITA CHEN 11/22 Released w/o Limitations [facility] FP) [facility] FP) OUTPATIENT [id number] THROAT IS IRITATE D ROSE KAY 12/17 Released w/o Limitations [facility]) [place] [place] OUTPATIENT [id number] CINDY URIAS 07/11 Released w/o Limitations [place] Hearing [facility]) OUTPATIENT [id number] hearing test CLAUDIA KELLEY 07/14 Released w/o Limitations [place] [place]) OUTPATIENT [id number] IMM YINKA VIRGIL 07/16 Released w/o Limitations [place] p[facility] ) [place] OUTPATIENT [id number] sore throat/ blister s/pulle d ras MARTINES HEATHER A 07/29 Released with Work/Duty Limitations [place] OUTPATIENT [id number] KWASI MCGOWANGELY 11/05 Released w/o Limitations [place]) JUDITH Art([facility] General Medicine) OUTPATIENT [id number] Coughin g Up Blood LUZ MARIA LAROSE 01/14 Released w/o Limitations [employer] [employer]([facility] General Medicin e) [facility] [employer]([facility] General Medicine) OUTPATIENT [id number] nausea/ vomitin g SHANEL JACKSON 03/06 Released with Work/Duty Limitations [employer]([facility] General Medicin e) [facility](Hearin g Conservat ion 2) OUTPATIENT [id number] Hearing Exam MOHSEN ESTEVES 05/15 Released w/o Limitations [facility](Hear ing Conserv ation 2) [facility] Facility OUTPATIENT [id number] 08/30 Released w/o Limitations [facility] OUTPATIENT [id number] 08/31 Released with Work/Duty Limitations [facility] OUTPATIENT [id number] 05/30 Released w/o Limitations Theater Facilit y [facility](Hearin g Conservat ion 2) OUTPATIENT [id number] Hearing Exam MOHSEN ESTEVES 06/30 Released w/o Limitations [facility](Hear ing Conserv ation 2) JUDITH Art([facility] MH1) OUTPATIENT [id number] numbnes s in extreme ties and light headedn ess JARROD ARGUELLO 08/02 Released w/o Limitations [facility] MH1) JUDITH [facility]) OUTPATIENT [id number] RONNY HAAS 09/30 Released w/o Limitations [facility] [employer]([facility]) [facility]) OUTPATIENT [id number] FAINA CAO 01/09 Released w/o Limitations [employer] [employer]([facility]) [facility]ITH [employer]([facility] Team 2) OUTPATIENT [id number] lt knee pain HIMA AVELAR E 01/25 Released with Work/Duty Limitations [employer]([facility] y Team 2) JUDITH [employer]([facility] Team 2) OUTPATIENT [id number] mri checkup JARROD ARGUELLO N 02/03 Released w/o Limitations JUDITH Art([facility] Team 2) JUDITH Art([facility]) OUTPATIENT [id number] RIGOBERTO SALDANA 02/19 Released w/o Limitations JUDITH Art([facility]) JUDITH Art([facility] Team 2) OUTPATIENT [id number] f/u right foot JARROD ARGUELLO N 02/21 Released w/o Limitations JUDITH Art([facility] y Team 2) JUDITH Art([facility]) OUTPATIENT [id number] EDI ORTIZ 03/06 Released w/o Limitations JUDITH Art([facility]) [facility](Podiat ry Clinic) OUTPATIENT [id number] [place]USH INJURY RIGHT FOOT KEO KING 03/08 Released with Work/Duty Limitations [employer] [employer](Podi atry Clinic) [employer](Deploy ment) OUTPATIENT [id number] CISCO ISABEL 04/04 Released w/o Limitations [employer](Depl oyment) [facility]) OUTPATIENT [id number] f/up; right foot injury; profile KEO KING 04/19 Released with Work/Duty Limitations [facility]) [facility] OUTPATIENT [id number] PIOTR AGUILAR 05/05 Released w/o Limitations [facility]([facility]) [facility] [id number] follow- up JARROD ARGUELLO N 05/05 Released w/o Limitations [employer]([facility] 2) [employer] [employer]([facility] Team 2) OUTPATIENT [id number] lower back pain JARROD ARGUELLO N 06/22 Released w/o Limitations [employer]([facility] 2) [employer](Deploy ment) OUTPATIENT [id number] PHA/TAB NT/IMM/ VISION BECCA KEYA Kristine 07/27 Released w/o Limitations [employer](Depl oyment) [employer](Hearin g Conservat ion 2) OUTPATIENT [id number] Hearing Exam ESTHER HIMA L 07/27 Released w/o Limitations [employer]([facility] 2) [facility] OUTPATIENT [id number] lower back pain JARROD ARGUELLO N 08/22 Released w/o Limitations [employer]([facility]) [facility]IHT [employer]([facility]CS) OUTPATIENT [id number] Back(ed mayes) GLORIA AKBAR 09/12 Released with Work/Duty Limitations [employer]([facility]) [employer]([facility]) OUTPATIENT [id number] l EVELYNE Barraza 09/15 Released w/o Limitations [employer]([facility] y OCS) [employer](Deploy ment) OUTPATIENT [id number] KEYA LAURENT 09/16 Released w/o Limitations [employer](Depl oyment) [facility]ITH [facility]) OUTPATIENT [id number] l EVELYNE Barraza 09/20 Released w/o Limitations [employer]([facility]) [facility]) OUTPATIENT [id number] ZACK RAMOS 09/20 Sick at Home/Quarter s [facility]) [facility](Orthop edic Clinic) OUTPATIENT [id number] lower back pain IVY WEEMS I 09/21 Sick at Home/Quarter s [facility] opedic Clinic) [facility]thop edic Clinic) OUTPATIENT [id number] [facility] IVY WEEMS I 09/26 Sick at Home/Quarter s [facility](Orth opedic Clinic) [facility](Orthop edic Clinic) OUTPATIENT [id number] [facility] LADI WEEMSIC I 09/28 Sick at Home/Quarter s [facility](Orth opedic Clinic) [facility]thop edic Clinic) OUTPATIENT [id number] IVY WEEMS I 10/04 Released with Work/Duty Limitations [facility] [employer]([facility] opedic Clinic) [facility]) OUTPATIENT [id number] f/u post ct scan IVY WEEMS I 10/05 Released with Work/Duty Limitations [facility] opedic Clinic) [facility]) OUTPATIENT [id number] back GLORIA AKBAR 10/10 Released with Work/Duty Limitations [employer]([facility]) [employer] [employer]([facility] Ph[facility] Th) OUTPATIENT [id number] tens SQUIER, EVELYNE J 10/18 Released w/o Limitations [employer]([facility]) [employer]([facility]) OUTPATIENT [id number] tens SQUIER, EVELYNE J 10/20 Released w/o Limitations [employer]([facility]) [employer]([facility]) OUTPATIENT [id number] tens SQUIER, EVELYNE J 10/25 Released w/o Limitations [employer]([facility]) [employer]([facility]) OUTPATIENT [id number] tens SQUIER, EVELYNE J 10/27 Released w/o Limitations [employer]([facility]) [employer]([facility]) OUTPATIENT [id number] L back GLORIA AKBAR 11/01 Released with Work/Duty Limitations [employer]([facility]) [facility]) OUTPATIENT [id number] MIGUELINA ADAM 11/23 Immediate Referral [facility] [employer]([facility]) [facility]([facility] Phy Th) OUTPATIENT [id number] L back GLORIA AKBAR 12/07 Released with Work/Duty Limitations [employer]([facility] Ph[facility]) [facility] 2) OUTPATIENT [id number] [facility] ZEENAT OTT 12/30 Released with Work/Duty Limitations [employer]([address] 2) [employer]([address] 2) TELE CONSULT [id number] Results Rec'd JARROD ARGUELLO 12/30 [employer]([address] 2) [employer] [employer]([facility]) OUTPATIENT [id number] LEXIE IVY Vicente 01/13 Released w/o Limitations [employer]([facility]) [facility]) OUTPATIENT [id number] TAMIA RIOS Rai 01/14 Released w/o Limitations [employer]([facility]) [employer]([facility] 2) TELE CONSULT [id number] results SAUNDRA JARROD N 01/25 [employer]([address] 2) [employer] [employer]([address] 2) OUTPATIENT [id number] update on surgery SAUNDRA JARROD N 03/06 Released w/o Limitations [employer]([facility] 2) [facility](Orthop edic Clinic) TELE CONSULT [id number] Notes Entered by: ALICE VERGARA 14 Mar 2012 1312 ------- ------- ------- ------- -- Results rec'd IVY WEEMS I 03/14 [facility] Art([facility] opedic Clinic) JUDITH Art([facility] Med Brd) OUTPATIENT [id number] [facility] JVMEME VASQUEZ ABDIEL MARBIN 03/20 Released w/o Limitations [employer]([facility] Med Brd) [employer](Manage d Care Admin) OUTPATIENT [id number] [facility] appt/ID COURTNEY GODFREY 04/06 Released with Work/Duty Limitations [facility]) [facility] [facility] OUTPATIENT [id number] va comp & pen exam RIGOBERTO SALDANA 04/18 Released w/o Limitations [facility]) OUTPATIENT [id number] va comp & pen exam MELY BALLARD 04/23 Released w/o Limitations [facility] metry [facility]) [facility](Audiol ogy Clinic) OUTPATIENT [id number] [facility] COMPENS ATION AND PENSION EXAM MARIELA CASTILLOLAKIA Cota 04/30 Released w/o Limitations [facility] [employer](Conor ology Clinic) [employer] [employer]([facility] Admin) OUTPATIENT [id number] 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 2) [facility] Brd) OUTPATIENT [id number] MONY SHETTY 06/04 Released with Work/Duty Limitations [employer]([facility] Med Brd) [employer]([place] [address] [facility] 2) OUTPATIENT [id number] pn in kidney and abd are radiati ng into groin/t esticle s area GLORIA SAMUEL 06/05 Sick at Home/Quarter s [employer] [employer]([facility] 2) 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) OUTPATIENT [id number] TAMIA RIOS 06/30 Released w/o Limitations [employer]([facility]) [employer]([address] 5) OUTPATIENT [id number] f/u from MARTHA MCNAMARA 07/02 Released w/o Limitations [employer]([address] 5) [facility] [employer](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 COURTNEY VALENZUELA 07/11 Released with Work/Duty Limitations [employer]([facility]) [employer] [employer]([address] 2) OUTPATIENT [id number] ELLA ORNELAS 08/03 Sick at Home/Quarter s [employer]([address] 2) [employer](Man[facility] Care Admin) OUTPATIENT [id number] contact with KRYA GOMEZ 08/23 Released w/o Limitations [employer]([facility]) [employer]([facility] Care Admin) OUTPATIENT [id number] f/u with KYRA JOHNSTON 08/28 Released w/o Limitations [employer]([facility]) [employer] [employer]([address] 2) OUTPATIENT [id number] LBP X2 days LUZ MARINA MUNOZ S 09/04 Sick at Home/Quarter s [employer]([address] 2) [employer]([address] 1) OUTPATIENT [id number] f/u lab results LUZ MARINA MUNOZ S 09/11 Released w/o Limitations [employer]([address] 1) [employer](Manage d Care Admin) OUTPATIENT [id number] f/u with KYRA JOHNSTON 09/24 Released w/o Limitations [employer]([facility]) [employer]([address] 2) TELE CONSULT [id number] Notes Entered by: JANUARY DOUGLAS 25 Sep 2012 0740 ------- ------- ------- ------- -- Cardiol hyuny JANUARY Munoz 09/25 [employer]([address] 2) [employer](Manage d Care Admin) OUTPATIENT [id number] KYRA Fontenot 09/27 Released w/o Limitations [employer]([facility]) [employer]([address] 3) OUTPATIENT [id number] TOO Fabian 10/08 Released w/o Limitations [employer]([address] 3) [employer](Manage d Care Admin) OUTPATIENT [id number] f/u with NCM KYRA ASHFORD 10/23 Released w/o Limitations [employer]([facility]) [employer](Deploy ment) OUTPATIENT [id number] MAINT/L AB/YONI ON/HEAR IVY EAST 10/24 Released w/o Limitations [employer](Depl oyment) [employer]([address] 2) TELE CONSULT [id number] Notes Entered by: JOSELYN CHINCHILLA 05 Nov 2012 1459 ------- ------- ------- ------- -- Results rec'JANUARY Amezcua 11/05 [employer]([address] 2) [employer]([address] 2) TELE CONSULT [id number] Notes Entered by: JOSELYN CHINCHILLA 08 Nov 2012 0932 ------- ------- ------- ------- -- RESULTS REC'JANUARY AMEZCUA 11/08 [employer]([address] 2) [employer]([address] 5) OUTPATIENT [id number] fell down stairs, back spasms and uncontr olable bowel movemen ts CLAUDIA HILL 11/22 Sick at Home/Quarter s [employer]([address] 5) [employer]([address] 5) OUTPATIENT [id number] F/U CLAUDIA HILL 11/23 Released w/o Limitations [employer]([address] 5) [employer]([facility] Admin) OUTPATIENT [id number] f/u with KYRA JOHNSTON 11/23 Released w/o Limitations [employer]([facility]) [employer](Man[facility] d Care Admin) OUTPATIENT [id number] dischSHRUTHI Ridley 11/27 Released w/o Limitations [facility] [employer]([facility] Admin) [facility]) OUTPATIENT [id number] TAMIA RIOS 03/18 Released w/o Limitations [employer]([facility]) [employer]([address] 1) OUTPATIENT [id number] nausea, vomitti ng, diarrhe a KEO MAST 04/11 Released w/o Limitations [employer]([address] 1) [facility] [employer]([facility]) OUTPATIENT [id number] MIGUELINA ADAM 09/04 Released w/o Limitations [employer]([facility]) [facility] [employer]([facility]) OUTPATIENT [id number] PIOTR AGUILAR 10/13 Released w/o Limitations [employer]([facility]) [employer]([facility]) OUTPATIENT [id number] HELEN ANNABELLE L 10/23 Immediate Referral [employer] [employer]([facility]) [facility] [facility]) OUTPATIENT [id number] FLU LIKE SYMPTOM S RACHEL ZACK Vicente 10/23 Released w/o Limitations [facility] [facility] OUTPATIENT [id number] RILEY RODRIGUEZ 11/19 Released w/o Limitations [facility] r[facility] Medicin e [facility]) [place] [facility] PSYTX W PT 30 MINUTES [id number] Diagnos is: ICD-10- CM F31.81 Bipolar II disorde r
PAGE JUDGE HEW E 05/26 [place] [facility] [place] [facility] PSYTX W PT 30 MINUTES [id number] Diagnos is: ICD-10- CM F31.81 Bipolar II disorde r
PAGE JUDGE E 06/01 [facility] IS [facility] PSYTX W PT 30 MINUTES [id number] Diagnos is: ICD-10- CM F31.81 Bipolar II disorde r
PAGE JUDGE E 06/08 [facility] IS [facility] PSYTX W PT 30 MINUTES [id number] Diagnos is: ICD-10- CM F31.81 Bipolar II disorde r
PAGE JUDGE E 06/22 [facility] IS [facility] Outpatient Encounter [id number] 06/22 [facility] IS [facility] Outpatient Encounter [id number] 07/10 [facility] IS [facility] PSYTX W PT 30 MINUTES [id number] Diagnos is: ICD-10- CM F31.81 Bipolar II disorde r
PAGE JUDGE E 07/14 [facility] IS [facility] PSYTX W PT 30 MINUTES [id number] Diagnos is: ICD-10- CM F43.10 Post-tr aumatic stress disorde r, unspeci fied
PAGE JUDGE E 07/28 [facility] IS [facility] PSYTX W PT 30 MINUTES [id number] Diagnos is: ICD-10- CM F31.81 Bipolar II disorde r
PAGE JUDGE E 08/18 [facility] IS [facility] Outpatient Encounter [id number] 09/06 [facility] IS [facility] UNLISTED SPEC DERM SVC/PX [id number] [id number] Diagnos is: ICD-10- CM Z71.89 Other specifi ed in house counsel ing<br/ > MINA MCGARRY A 09/11 [facility] IS [facility] Outpatient Encounter [id number] Diagnos is: ICD-10- CM L63.8 Other alopeci a areata< br/> JENNIFER ALFORD A S 09/12 [facility] IS [facility] PSYTX W PT 30 MINUTES [id number] [id number] Diagnos is: ICD-10- CM F43.10 Post-tr aumatic stress disorde r, unspeci fied
PAGE JUDGE E 09/15 [facility] IS [facility] Outpatient Encounter [id number] 09/21 [facility] IS [facility] Outpatient Encounter [id number] 09/25 [facility] IS [facility] Outpatient Encounter [id number] 09/25 [facility] IS [facility] PSYTX W PT 30 MINUTES [id number] [id number] Diagnos is: ICD-10- CM F43.10 Post-tr aumatic stress disorde r, unspeci fied
PAGE JUDGE E 10/06 [facility] Outpatient [facility]counter [id number] 11/06 [facility] IS [facility] Outpatient Encounter [id number] 11/10 [facility] IS [facility] OFFICE O/P NEW LOW 30 MIN [id number] [id number] Diagnos is: ICD-10- CM L64.9 Androge rickey alopeci a, unspeci fied
JENNIFER ALFORD A S 12/12 [facility] IS [facility] OFFICE O/P EST MOD 30 MIN [id number] [id number] Diagnos is: ICD-10- CM S06.0X1 S Concuss ion w LOC of 30 minutes or less, sequela
Allison RENE 12/12 [facility] IS [facility] IMMUNIZATI ON ADMIN [id number] Diagnos is: ICD-10- CM Z23 Encount er for immuniz ation<b r/> ASHLEE BENAVIDES 12/12 [facility] IS [facility] Outpatient Encounter [id number] 12/15 [facility] IS [facility] Outpatient Encounter [id number] 12/28 [facility] IS [facility] PRO PHONE CALL 5-10 MIN [id number] Diagnos is: ICD-10- CM F43.10 Post-tr aumatic stress disorde r, unspeci fied
ANABELLA YA 01/12 [facility] IS [facility] Outpatient Encounter [id number] 01/16 [facility] IS [facility] PSYTX W PT 30 MINUTES [id number] [id number] Diagnos is: ICD-10- CM F43.10 Post-tr aumatic stress disorde r, unspeci fied
PAGE JUDGE E 02/26 [facility] IS [facility] Outpatient Encounter [id number] ELLEN BERRIOS 03/14 [facility] IS [facility] PSYTX W PT 30 MINUTES [id number] Diagnos is: ICD-10- CM F31.81 Bipolar II disorde r
PAGE JUDGE E 03/25 [facility] IS [facility] PSYTX W PT 30 MINUTES [id number] Diagnos is: ICD-10- CM F43.10 Post-tr aumatic stress disorde r, unspeci fied
PAGE JUDGE 04/26 [place] [facility] [place] [facility] Outpatient Encounter [id number] 05/21 [place] [facility] [place] [facility] Outpatient Encounter [id number] ELLEN BERRIOS 05/27 [facility] Outpatient Encounter [id number] ELLEN BERRIOS 06/25 [facility] IS [facility] PSYTX W PT 30 MINUTES [id number] [id number] Diagnos is: ICD-10- CM F43.10 Post-tr aumatic stress disorde r, unspeci fied
PAGE JUDGE 06/25 [facility] PSYTX W PT 30 MINUTES [id number] [id number] Diagnos is: ICD-10- CM F43.10 Post-tr aumatic stress disorde r, unspeci fied
PAGE JUDGE 07/23 [facility] Outpatient Encounter [id number] Diagnos is: ICD-10- CM F31.81 Bipolar II disorde r
ESTUARDO MOURA 07/24 [place] [facility] [place] [facility] Outpatient Encounter [id number] 08/02 [place] [facility] [place] [facility] Outpatient Encounter [id number] 08/02 [facility] [place] [facility] Outpatient Encounter [id number] 08/13 [place] [facility] PSYTX W PT 30 MINUTES [id number] [id number] Diagnos is: ICD-10- CM F43.10 Post-tr aumatic stress disorde r, unspeci fied
PAGE JUDGE E 08/21 [facility] [place] [facility] Outpatient Encounter [id number] Napoleon HARMAN SONIA Shaunna 09/04 [facility] [place] [facility] Outpatient Encounter [id number] 09/11 [facility] IS [facility] OFFICE O/P EST MOD 30 MIN [id number] [id number] Diagnos is: ICD-10- CM F31.81 Bipolar II disorde r
ESTUARDO MOURA 09/11 [facility] Outpatient Encounter [id number] 09/14 [facility] IS [facility] PSYTX W PT 30 MINUTES [id number] [id number] Diagnos is: ICD-10- CM F43.10 Post-tr aumatic stress disorde r, unspeci fied
PAGE JUDGE E 09/25 [facility] PSYTX W PT 30 MINUTES [id number] [id number] Diagnos is: ICD-10- CM F43.10 Post-tr aumatic stress disorde r, unspeci fied
PAGE JUDGE E 10/22 [facility] [place] [facility] Outpatient Encounter [id number] 11/08 [facility] IS [facility] OFFICE O/P EST MOD 30 MIN [id number] [id number] Diagnos is: ICD-10- CM F31.81 Bipolar II disorde r
ESTUARDO MOURA 11/08 [facility] Procedures Combined list of: 1) Procedures from Department of [facility] Affairs facilities going back up to thelast 18 months, not all [place] non-surgical procedures are included; 2) All procedures from the Department of Defense facilities. Procedure Procedure Type Code Date Perfomer Comments Sour e INFLUENZA VIRUS VACCINE, TRIVALENT, LIVE (LAIV3), FOR INTRANASAL USE [facility] TETANUS, DIPHTHERIA TOXOIDS AND ACELLULAR PERTUSSIS VACCINE (TDAP), WHEN ADMINISTERED TO INDIVIDUALS 7 YEARS OR OLDER, FOR INTRAMUSCULAR USE [facility] EAR PROTECTOR ATTENUATION MEASUREMENTS [facility] VIS FUNCT SCREEN,AUTOMAT/SEMI- AUTOMAT BILAT QUANT DETERM VISUAL ACUITY,OCULAR ALIGN,COLOR VISION,PSEUDOISOCHRO MAT PLATES,& FIELD VIS (MAY INC ALL/SOME SCRN DETERM FOR CONTRAST SENSITIV,VIS UND GLARE) [facility] INJECTION, ONDANSETRON HCL, PER 1 MG [facility] UNLISTED PSYCHIATRIC SERVICE OR PROCEDURE [facility] INTRAVENOUS INFUSION, HYDRATION; INITIAL, 31 MINUTES TO 1 HOUR [facility] INJECTION, RANITIDINE HYDROCHLORIDE, 25 MG [facility] ALCOHOL AND/OR DRUG SERVICES; CASE MANAGEMENT [facility] PREPARATION OF REPORT OF PATIENT'S PSYCHIATRIC STATUS, HISTORY, TREATMENT, OR PROGRESS (OTHER THAN FOR LEGAL OR CONSULTATIVE PURPOSES) FOR OTHER INDIVIDUALS, AGENCIES, OR INSURANCE CARRIERS [facility] ALCOHOL AND/OR DRUG ASSESSMENT [facility] ALCOHOL AND/OR DRUG ASSESSMENT [facility] CASE MANAGEMENT, EACH 15 MINUTES [facility] CASE MANAGEMENT, EACH 15 MINUTES [facility] PURE TONE AUDIOMETRY (THRESHOLD); AIR ONLY [facility] COORDINATED CARE FEE, MAINTENANCE RATE [facility] INDIVIDUAL PSYCHOTHERAPY, INSIGHT ORIENTED, BEHAVIOR MODIFYING AND/OR SUPPORTIVE, IN AN OFFICE OR OUTPATIENT FACILITY, APPROXIMATELY 20 TO 30 MINUTES [id number] W THE PATIENT; W MED EVAL & MGT SER [facility] MEDICATION THERAPY MANAGEMENT SERVICE(S) PROVIDED BY A PHARMACIST, INDIVIDUAL, [id number] WITH PATIENT, WITH ASSESSMENT AND INTERVENTION IF PROVIDED; INITIAL 15 MINUTES, NEW PATIENT [facility] CASE MANAGEMENT, EACH 15 MINUTES [facility] COORDINATED CARE FEE, MAINTENANCE RATE [facility] INDIVIDUAL PSYCHOTHERAPY, INSIGHT ORIENTED, BEHAVIOR MODIFYING AND/OR SUPPORTIVE, IN AN OFFICE OR OUTPATIENT FACILITY, APPROXIMATELY 20 TO 30 MINUTES [id number] W THE PATIENT; W MED EVAL & MGT SER [facility] COORDINATED CARE FEE, MAINTENANCE RATE [facility] CASE MANAGEMENT, EACH 15 MINUTES [facility] INDIVIDUAL PSYCHOTHERAPY, INSIGHT ORIENTED, BEHAVIOR MODIFYING AND/OR SUPPORTIVE, IN AN OFFICE OR OUTPATIENT FACILITY, APPROXIMATELY 20 TO 30 MINUTES [id number] W THE PATIENT; W MED EVAL & MGT SER [facility] CASE MANAGEMENT, EACH 15 MINUTES DoD INJECTION, CEFTRIAXONE SODIUM, PER 250 MG DoD INJECTION, ONDANSETRON HCL, PER 1 MG DoD INDIVIDUAL PSYCHOTHERAPY, INSIGHT ORIENTED, BEHAVIOR MODIFYING AND/OR SUPPORTIVE, IN AN OFFICE OR OUTPATIENT FACILITY, APPROXIMATELY 20 TO 30 MINUTES [id number] W THE PATIENT; W MED EVAL & MGT SER DoD CASE MANAGEMENT, EACH 15 MINUTES DoD INJECTION, MORPHINE SULFATE, UP TO 10 MG [facility] PREPARATION OF REPORT OF PATIENT'S PSYCHIATRIC STATUS, HISTORY, TREATMENT, OR PROGRESS (OTHER THAN FOR LEGAL OR CONSULTATIVE PURPOSES) FOR OTHER INDIVIDUALS, AGENCIES, OR INSURANCE CARRIERS [facility] MEDICATION THERAPY MANAGEMENT SERVICE(S) PROVIDED BY A PHARMACIST, INDIVIDUAL, TCUF-ID-EYSW WITH PATIENT, WITH ASSESSMENT AND INTERVENTION IF PROVIDED; INITIAL 15 MINUTES, NEW PATIENT [facility] VISUAL FIELD EXAM,UNILAT/BI,INTER P&REP;EXT EXM(EG,GOLDMANN VIS FLD,AT LEAST 3 ISOP PLOT&STAT DET W/IN STEPHON 30DEG/QUANT,AUTO THRSH GEMA,OCT G-1,,HUMP VIS FLD ANAL FULL THRSH 30-2,24-2, OR 60-2) [facility] CASE MANAGEMENT, EACH 15 MINUTES [facility] TYMPANOMETRY AND REFLEX THRESHOLD MEASUREMENTS [facility] VISUAL FIELD EXAM,UNILAT/BI,INTER P&REP;EXT EXM(EG,GOLDMANN VIS FLD,AT LEAST 3 ISOP PLOT&STAT DET W/IN STEPHON 30DEG/QUANT,AUTO THRSH GEMA,OCT G-1,32/42,HUMP VIS FLD ANAL FULL THRSH 30-2,24-2, OR 3060-2) 012 DoD CASE MANAGEMENT, EACH 15 MINUTES DoD INDIVIDUAL PSYCHOTHERAPY, INSIGHT ORIENTED, BEHAVIOR MODIFYING AND/OR SUPPORTIVE, IN AN OFFICE OR OUTPATIENT FACILITY, APPROXIMATELY 20 TO 30 MINUTES [id number] W THE PATIENT; W Plays.IO EVAL & MGT SER [facility] PREPARATION OF REPORT OF PATIENT'S PSYCHIATRIC STATUS, HISTORY, TREATMENT, OR PROGRESS (OTHER THAN FOR LEGAL OR CONSULTATIVE PURPOSES) FOR OTHER INDIVIDUALS, AGENCIES, OR INSURANCE CARRIERS [facility] COLLECTION OF VENOUS BLOOD BY VENIPUNCTURE [facility] INJECTION, NALOXONE HCL, PER 1 MG DoD INDIVIDUAL PSYCHOTHERAPY, INSIGHT ORIENTED, BEHAVIOR MODIFYING AND/OR SUPPORTIVE, IN AN OFFICE OR OUTPATIENT FACILITY, APPROXIMATELY 20 TO 30 MINUTES [id number] W THE PATIENT; W Plays.IO EVAL & MGT SER DoD THERAPEUTIC PROCEDURE, 1 OR MORE AREAS, EACH 15 MINUTES; THERAPEUTIC EXERCISES TO DEVELOP STRENGTH AND ENDURANCE, RANGE OF MOTION AND FLEXIBILITY [facility] PHYSICAL THERAPY RE-EVALUATION DoD APPLICATION OF A [...] OUTPATIENT FACILITY, APPROXIMATELY 20 TO 30 MINUTES [id number] W THE PATIENT; W Plays.IO EVAL & MGT SER 011 DoD THERAPEUTIC PROCEDURE, 1 OR MORE AREAS, EACH 15 MINUTES; THERAPEUTIC EXERCISES TO DEVELOP STRENGTH AND ENDURANCE, RANGE OF MOTION AND FLEXIBILITY DoD INJECTION, DIPHENHYDRAMINE HCL, UP TO 50 MG DoD SELF-CARE/HOME MANAGMENT TRAIN (EG,ACT OF DAILY LIVING (ADL) &COMPENSAT TRAIN,MEAL PREPARATION,SAFETY PROCS,AND INSTRUCT IN USE OF ASST TECHNOLOGY DEV/ADPT EQUIP) DIR ONE-ON-ONE CONT,EA 15 MINUTES [facility] APPLICATION OF A MODALITY TO 1 OR MORE AREAS; TRACTION, MECHANICAL DoD SELF-CARE/HOME MANAGMENT TRAIN (EG,ACT OF DAILY LIVING (ADL) &COMPENSAT TRAIN,MEAL PREPARATION,SAFETY PROCS,AND INSTRUCT IN USE OF ASST TECHNOLOGY DEV/ADPT EQUIP) DIR ONE-ON-ONE CONT,EA 15 MINUTES DoD INDIVIDUAL PSYCHOTHERAPY, INSIGHT ORIENTED, BEHAVIOR MODIFYING AND/OR SUPPORTIVE, IN AN OFFICE OR OUTPATIENT FACILITY, APPROXIMATELY 20 TO 30 MINUTES [id number] W THE PATIENT; W Plays.IO EVAL & MGT SER DoD EAR PROTECTOR ATTENUATION MEASUREMENTS DoD INDIVIDUAL PSYCHOTHERAPY, INSIGHT ORIENTED, BEHAVIOR MODIFYING AND/OR SUPPORTIVE, IN AN OFFICE OR OUTPATIENT FACILITY, APPROXIMATELY 20 TO 30 MINUTES [id number] W THE PATIENT; W Plays.IO EVAL & MGT SER DoD SCREENING TEST OF VISUAL ACUITY, QUANTITATIVE, BILATERAL DoD INDIVIDUAL PSYCHOTHERAPY, INSIGHT ORIENTED, BEHAVIOR MODIFYING AND/OR SUPPORTIVE, IN AN OFFICE OR OUTPATIENT FACILITY, APPROXIMATELY 20 TO 30 MINUTES [id number] W THE PATIENT; W Plays.IO EVAL & MGT SER DoD INDIVIDUAL PSYCHOTHERAPY, INSIGHT ORIENTED, BEHAVIOR MODIFYING AND/OR SUPPORTIVE, IN AN OFFICE OR OUTPATIENT FACILITY, APPROXIMATELY 20 TO 30 MINUTES [id number] WITH THE PATIENT [facility] PSYCHIATRIC DIAGNOSTIC INTERVIEW EXAMINATION [facility] PSYCHIATRIC DIAGNOSTIC INTERVIEW EXAMINATION DoD INDIVIDUAL PSYCHOTHERAPY, INSIGHT ORIENTED, BEHAVIOR MODIFYING AND/OR SUPPORTIVE, IN AN OFFICE OR OUTPATIENT FACILITY, APPROXIMATELY 45 TO 50 MINUTES [id number] WITH THE PATIENT [facility] INJECTION, METOCLOPRAMIDE HCL, UP TO 10 MG DoD CRUTCHES UNDERARM, WOOD, ADJUSTABLE OR FIXED, PAIR, WITH PADS, TIPS AND HANDGRIPS [facility] PSYCHIATRIC DIAGNOSTIC INTERVIEW EXAMINATION [facility] PSYCHIATRIC EVALUATION OF HOSPITAL RECORDS, OTHER PSYCHIATRIC REPORTS, PSYCHOMETRIC AND/OR PROJECTIVE TESTS, AND OTHER ACCUMULATED DATA FOR MEDICALDIAGNOSTIC PURPOSES [facility] PSYCHIATRIC EVALUATION OF HOSPITAL RECORDS, OTHER PSYCHIATRIC REPORTS, PSYCHOMETRIC AND/OR PROJECTIVE TESTS, AND OTHER ACCUMULATED DATA FOR MEDICALDIAGNOSTIC PURPOSES [facility] INDIVIDUAL PSYCHOTHERAPY, INSIGHT ORIENTED, BEHAVIOR MODIFYING AND/OR SUPPORTIVE, IN AN OFFICE OR OUTPATIENT FACILITY, APPROXIMATELY 45 TO 50 MINUTES [id number] WITH THE PATIENT [facility] INFUSION, NORMAL SALINE SOLUTION , 1000 CC [facility] PSYCHIATRIC EVALUATION OF HOSPITAL RECORDS, OTHER PSYCHIATRIC REPORTS, PSYCHOMETRIC AND/OR PROJECTIVE TESTS, AND OTHER ACCUMULATED DATA FOR MEDICALDIAGNOSTIC PURPOSES [facility] PSYCHIATRIC DIAGNOSTIC INTERVIEW EXAMINATION DoD SKIN TEST; TUBERCULOSIS, INTRADERMAL DoD EAR PROTECTOR ATTENUATION MEASUREMENTS DoD SCREENING TEST OF VISUAL ACUITY, QUANTITATIVE, BILATERAL DoD COLLECTION OF VENOUS BLOOD BY VENIPUNCTURE DoD SKIN TEST; TUBERCULOSIS, INTRADERMAL DoD SCREENING TEST OF VISUAL ACUITY, QUANTITATIVE, BILATERAL DoD EAR PROTECTOR ATTENUATION MEASUREMENTS [facility] COLLECTION OF VENOUS BLOOD BY VENIPUNCTURE [facility] SCREENING TEST OF VISUAL ACUITY, QUANTITATIVE, BILATERAL DoD INFUSION, NORMAL SALINE SOLUTION , 1000 CC [facility] HANDLING AND/OR CONVEYANCE OF SPECIMEN FOR TRANSFER FROM THE PATIENT IN OTHER THAN AN OFFICE TO A LABORATORY (DISTANCE MAY BE INDICATED) 008 [facility] UNLISTED SPECIAL SERVICE, PROCEDURE OR REPORT [facility] NONPRESCRIPTION DRUG [facility] CULTURE, PRESUMPTIVE, PATHOGENIC ORGANISMS, SCREENING ONLY [facility] HANDLING AND/OR CONVEYANCE OF SPECIMEN FOR TRANSFER FROM THE PATIENT IN OTHER THAN AN OFFICE TO A LABORATORY (DISTANCE MAY BE INDICATED) [facility] CULTURE, BACTERIAL; AEROBIC ISOLATE, ADDITIONAL METHODS REQUIRED FOR DEFINITIVE IDENTIFICATION, EACH ISOLATE [facility] TETANUS AND DIPHTHERIA TOXOIDS (TD) ADSORBED WHEN ADMINISTERED TO INDIVIDUALS 7 YEARS OR OLDER, FOR INTRAMUSCULAR USE [facility] HANDLING AND/OR CONVEYANCE OF SPECIMEN FOR TRANSFER FROM THE PATIENT IN OTHER THAN AN OFFICE TO A LABORATORY (DISTANCE MAY BE INDICATED) [facility] HANDLING AND/OR CONVEYANCE OF SPECIMEN FOR TRANSFER FROM THE PATIENT IN OTHER THAN AN OFFICE TO A LABORATORY (DISTANCE MAY BE INDICATED) [facility] INFECTIOUS AGENT ANTIGEN DETECTION BY IMMUNOASSAY WITH DIRECT OPTICAL (IE, VISUAL) OBSERVATION; STREPTOCOCCUS, GROUP A [facility] Psychiatric Diagnostic Evaluation Comprehensive Examination Psychiatric Diagnostic Evaluation Comprehensive Examination 84905 NING QUAN [facility] Audiometry Group Testing Audiometry Group Testing 87987 010 SANTANA HIMA Napoleon [facility] Ear Protector Attenuation Measurements Ear Protector Attenuation Measurements 93461 010 SANTANA HIMA [facility] Audiogram (Screening) Audiogram (Screening) 44938 010 SANTANA HIMA [facility] Ear Protector Attenuation Measurements Ear Protector Attenuation Measurements 18348 009 MOHSEN ESTEVES [facility] Audiometry Group Testing Audiometry Group Testing 13374 009 MOHSEN ESTEVES [facility] Audiogram (Screening) Audiogram (Screening) 95895 009 MOHSEN ESTEVES [facility] Immunization Admin By Intranasal / Oral Route One Vaccine Immunization Admin By Intranasal / Oral Route One Vaccine 22508 008 [facility] Influenza Virus Vaccine Intranasal Live Attenuated 008 [facility] Tdap Vaccine Tdap Vaccine [address] [facility] Meningococcal Polysaccharide Diphtheria Toxoid Conjugate Vaccine 008 [facility] Vaccines Viral Polio, Inactivated Vaccines Viral Polio, Inactivated [address] [facility] Skin Test Anergy Tuberculin Intradermal Skin Test Anergy Tuberculin Intradermal [address] [facility] Venipuncture Venipuncture [address] [facility] Immunization Administration By Injection, One Vaccine Immunization Administration By Injection, One Vaccine [address] [facility] Immunization Administration By Injection, Each Additional Vaccine 008 [facility] Physician Supervised Injection Intramuscular Antibiotic Physician Supervised Injection Intramuscular Antibiotic [address] [facility] Special Physician Services Analysis Of Computerized Data Special Physician Services Analysis Of Computerized Data 15784 CLAUDIA KELLEY [facility] Physician Supervised Services Provision Of Special Supplies Physician Supervised Services Provision Of Special Supplies 88518 008 CLAUDIA KELLEY Physician Supervised Group Educational Services CLAUDIA KELLEY Threshold Audiogram (Pure Tone) Threshold Audiogram (Pure Tone) 14929 008 CLAUDIA KELLEY [facility] Audiometry Group Testing Audiometry Group Testing 50918 CLAUDIA BEDOYA [facility] Ear Protector Attenuation Measurements Ear Protector Attenuation Measurements 77142 CLAUDIA BEDOYA [facility] Visual Function Screening Visual Function Screening 42510 008 CINDY URIAS [facility] Oropharynx Culture Streptococcus Group A Beta Hemolytic Oropharynx Culture Streptococcus Group A Beta Hemolytic 45019 006 DABELIC, ANJA NMN [facility] Rapid Antigen Detection Streptococcus Group A Beta Hemolytic Rapid Antigen Detection Streptococcus Group A Beta Hemolytic 24328 006 DABELIC, ANJA NMN negative DoD Rapid Antigen Detection Streptococcus Group A Beta Hemolytic Rapid Antigen Detection Streptococcus Group A Beta Hemolytic 59292 005 SAMI DELGADILLO [facility] Physician Supervised Injection Intramuscular Physician Supervised Injection Intramuscular 84616 005 ASHLEE MONTANO [facility] Immunization Administration By Injection, One Vaccine Immunization Administration By Injection, One Vaccine 47238 004 ALFA MCDANIEL [facility] Td Vaccine Td Vaccine 16234 004 ALFA MCDANIEL Psychotherapy For Crisis Intervention Psychotherapy For Crisis Intervention 74321 013 JOAO MIRANDA [facility] IV Infusion For Hydration 31 Minutes To 1 Hour IV Infusion For Hydration 31 Minutes To 1 Hour 51858 013 NEFTALY WOMACK 1150 #18 gauge started [...] and waits on return call form spouse. [facility] Behavioral health screening to determine eligibility for admi ion to treatment program CHETAN RUST [facility] Alcohol and/or drug a e ment CHETAN RUST [facility] Psychotherapy Individual Approximately 45 Minutes CHETAN RUST [facility] Alcohol and/or drug services; case management SUGEY PRIETO Psychotherapy Individual Approximately 30 Minutes Psychotherapy Individual Approximately 30 Minutes 06794 SUGEY PRIETO Psychiatric Therapy Preparation of Psychiatric Status Report Psychiatric Therapy Preparation of Psychiatric Status Report 37977 KEO ARIZMENDI [facility] Psychiatric Diagnostic Evaluation Review of Records and Reports Psychiatric Diagnostic Evaluation Review of Records and Reports 85335 KEO ARIZMENDI [facility] Alcohol and/or drug a e ment SUGEY PRIETO Psychiatric Diagnostic Evaluation Comprehensive Examination Interactive Psychiatric Diagnostic Evaluation Comprehensive Examination Interactive 61187 SUGEY PRIETO Case Management, each 15 minutes 013 SAMUEL NUNEZ [facility] Coordinated care fee, maintenance rate SAMUEL NUNEZ A [facility] Case Management, each 15 minutes KYRA ASHFORD [facility] Coordinated care fee, maintenance rate 013 KYRA ASHFORD [facility] Venipuncture Venipuncture 00697 NICHOLAS CORONEL [facility] Screening Test Of Visual Acuity, Quantitative, Bilateral Screening Test Of Visual Acuity, Quantitative, Bilateral 52279 NICHOLAS CORONEL [facility] Threshold Audiogram (Pure Tone) Threshold Audiogram (Pure Tone) 11197 NICHOLAS CORONEL [facility] Coordinated care fee, maintenance rate KYRA ASHFORD [facility] Psychotherapy Individual Approx 30 Min W/ Medical Evaluation & Management Psychotherapy Individual Approx 30 Min W/ Medical Evaluation & Management 17757 KEO ARIZMENDI [facility] Medication Management By Pharmacist Each Additional 15 Minutes Medication Management By Pharmacist Each Additional 15 Minutes 41257 012 TOO OSCAR [facility] Medication Management By Pharmacist Initial 15 Minutes New Patient Medication Management By Pharmacist Initial 15 Minutes New Patient 77619 TOO OSCAR [facility] Case Management, each 15 minutes KYRA ASHFORD C [facility] Coordinated care fee, maintenance rate OLGA ASHFORDOTHY C DoD Psychotherapy Individual Approx 30 Min W/ Medical Evaluation & Management Psychotherapy Individual Approx 30 Min W/ Medical Evaluation & Management 67208 012 KEO ARIZMENDI Coordinated care fee, maintenance rate 012 TAMILOLGA MANDELOTHY C DoD Case Management, each 15 minutes 012 TAMILKEOLGAKYRA C DoD Psychotherapy Individual Approx 30 Min W/ Medical Evaluation & Management Psychotherapy Individual Approx 30 Min W/ Medical Evaluation & Management 97012 012 KEO ARIZMENDI Case Management, each 15 minutes 012 COURTNEY VALENZUELA Coordinated care fee, maintenance rate COURTNEY VALENZUELA Psychotherapy Individual Approx 30 Min W/ Medical Evaluation & Management Psychotherapy Individual Approx 30 Min W/ Medical Evaluation & Management 39150 012 KEO ARIZMENDI Case Management, each 15 minutes 012 COURTNEY VALENZUELA Coordinated care fee, maintenance rate 012 COURTNEY VALENZUELA Psychiatric Therapy Preparation of Psychiatric Status Report Psychiatric Therapy Preparation of Psychiatric Status Report 58128 LETICIA CLARK Psychiatric Diagnostic Evaluation Review of Records and Reports Psychiatric Diagnostic Evaluation Review of Records and Reports 98935 012 LETICIA CLARK Medication Management By Pharmacist Initial 15 Minutes New Patient Medication Management By Pharmacist Initial 15 Minutes New Patient 01030 GWEN BURT Visual Pool Test Extended Examination Visual Pool Test Extended Examination 84639 MELY BALLARD Ophthalmological Prior Patient Start Intermediate Level Care Ophthalmological Prior Patient Start Intermediate Level Care 54406 MELY BALLARD Case Management, each 15 minutes COURTNEY VALENZUELA Coordinated care fee, maintenance rate COURTNEY VLAENZUELA Tympanometry With Reflex Threshold Measurements Tympanometry With Reflex Threshold Measurements 81153 JONATHAN, FARZANALAKIANE Cipriano [facility] Evoked Otoacoustic Elsa ions Comprehensive JONATHAN, FARZANALAKIANE [facility] Comprehensive Audiometry Comprehensive Audiometry 63752 JONATHAN, FARZANALAKIANE V [facility] Visual Pool Test Extended Examination Visual Pool Test Extended Examination 58546 MELY BALLARD Ophthalmological New Patient Start Comprehensive Care Ophthalmological New Patient Start Comprehensive Care 33752 MELY BALLARD Determination Of Refractive State Determination Of Refractive State 31682 MELY BALLARD [facility] Case Management, each 15 minutes COURTNEY VALENZUELA Coordinated care fee, maintenance rate COURTNEY VALENZUELA Psychiatric Therapy Preparation of Psychiatric Status Report Psychiatric Therapy Preparation of Psychiatric Status Report 55848 LETICIA CLARK Psychiatric Diagnostic Evaluation Comprehensive Examination Psychiatric Diagnostic Evaluation Comprehensive Examination 00989 LETICIA CLARK Psychotherapy Individual Approx 30 Min W/ Medical Evaluation & Management Psychotherapy Individual Approx 30 Min W/ Medical Evaluation & Management 15474 KEO ARIZMENDI Physician Supervised Injection Intramuscular Physician Supervised Injection Intramuscular 05062 BUNTING, IVY A [facility] Injection, naloxone HCl, per 1 mg BUNESTHER, IVY Zhang NUBAIN 10 MG IM IN R UOQ OF BUTTOCKS PER ORDERS, WILL MONITOR, PT DENIED COMPLICATIONS. [facility] Psychotherapy Individual Approx 30 Min W/ Medical Evaluation & Management Psychotherapy Individual Approx 30 Min W/ Medical Evaluation & Management 69891 012 KEO ARIZMENDI Physical Therapy Service Re-Evaluation Physical Therapy Service Re-Evaluation 08544 GLORIA SANTOS [facility] Physical Therapy: ___ Se ion Segments, 15 Minutes Each Physical Therapy: ___ Session Segments, 15 Minutes Each 71793 GLORIA SANTOS reviewed prior plan, instructed on rear lunge with PNF crunch. able to perform, but notices mm tightness after first 10 reps. discussed progression of exercises. 15min [facility] Phys Therapy Education Self Care Training - Per 15 Minutes Phys Therapy Education Self Care Training - Per 15 Minutes 08267 011 GLORIA SANTOS SM is progressing on a yoga video, discussed correlation to stability exercise. reviewed appropriate alternate cardio and current profiling restrictions from ortho. 8min [facility] Physical Therapy: ___ Se ion Segments, 15 Minutes Each Physical Therapy: ___ Session Segments, 15 Minutes Each 63014 011 GLORIA SANTOS plank progression, supine bridging progression, review of lumbar opening exercise. 15min [facility] Physical Therapy Service Re-Evaluation Physical Therapy Service Re-Evaluation 05430 011 GLORIA SANTOS DoD Modalities Electrical Stimulation Unattended Modalities Electrical Stimulation Unattended 78360 011 EVELYNE CARSON 20 min low back. [facility] Modalities Heat Hot Packs Modalities Heat Hot Packs 21917 011 EVELYNE CARSON 20 min low back. [facility] Modalities Heat Hot Packs Modalities Heat Hot Packs 27099 011 EVELYNE CARSON 10 min low back. [facility] Modalities Electrical Stimulation Unattended Modalities Electrical Stimulation Unattended 77663 011 EVELYNE CARSON 10 min low back. DoD Modalities Heat Hot Packs Modalities Heat Hot Packs 29145 011 SQUEVELYNE CHATTERJEE [facility] Modalities Electrical Stimulation Unattended Modalities Electrical Stimulation Unattended 05199 011 EVELYNE CARSON DoD Modalities Heat Hot Packs Modalities Heat Hot Packs 97061 011 SQUEVELYNE CHATTERJEE [facility] Modalities Electrical Stimulation Unattended Modalities Electrical Stimulation Unattended 08779 011 EVELYNE CARSON [facility] Psychotherapy Individual Approx 30 Min W/ Medical Evaluation & Management Psychotherapy Individual Approx 30 Min W/ Medical Evaluation & Management 93082 011 KEO ARIZMENDI [facility] Physical Therapy: ___ Se ion Segments, 15 Minutes Each Physical Therapy: ___ Session Segments, 15 Minutes Each 97224 011 GLORIA SANTOS supine SKTC and DKR, discussed progressive ROM and function. 15min [facility] Physical Therapy Service Re-Evaluation Physical Therapy Service Re-Evaluation 66550 011 GLORIA SANTOS Phys Therapy Education Self Care Training - Per 15 Minutes Phys Therapy Education Self Care Training - Per 15 Minutes 37041 011 EVELYNE CARSON 15 min DoD Modalities Traction Modalities Traction 82433 1 EVELYNE DUPREE 15 min DoD Modalities Heat Hot Packs Modalities Heat Hot Packs 92077 011 EVELYNE CARSON 20 min DoD Modalities Electrical Stimulation Modalities Electrical Stimulation 82422 011 EVELYNE CARSON 8 min DoD Modalities Traction Modalities Traction 09650 1 011 EVELYNE CARSON 20 min DoD Phys Therapy Education Self Care Training - Per 15 Minutes Phys Therapy Education Self Care Training - Per 15 Minutes 68415 011 GLORIA SANTOS activity modification and profile restrictions. 15min [facility] Physical Therapy: ___ Se ion Segments, 15 Minutes Each Physical Therapy: ___ Session Segments, 15 Minutes Each 76849 011 GLORIA SANTOS supine SKTC and DKR. 10min [facility] Physical Therapy Service Evaluation Physical Therapy Service Evaluation 21575 011 GLORIA SANTOS [facility] Psychotherapy Individual Approx 30 Min W/ Medical Evaluation & Management Psychotherapy Individual Approx 30 Min W/ Medical Evaluation & Management 98315 011 KEO ARIZMENDI [facility] Ear Protector Attenuation Measurements Ear Protector Attenuation Measurements 58124 011 HIMA SANTANA Audiogram (Screening) Audiogram (Screening) 46990 011 HIMA SANTANA Audiometry Group Testing Audiometry Group Testing 25244 011 HIMA SANTANA Screening Test Of Visual Acuity, Quantitative, Bilateral Screening Test Of Visual Acuity, Quantitative, Bilateral 04692 011 JEREMY VILLALPANDO Influenza Virus Vaccine Intranasal Live Attenuated 011 JEREMY VILLALPANDO Immunization Admin By Intranasal / Oral Route One Vaccine Immunization Admin By Intranasal / Oral Route One Vaccine 94134 011 JEREMY VILLALPANDO Psychotherapy Individual Approx 30 Min W/ Medical Evaluation & Management Psychotherapy Individual Approx 30 Min W/ Medical Evaluation & Management 24411 011 KEO ARIZMENDI Psychotherapy Individual Approx 30 Min W/ Medical Evaluation & Management Psychotherapy Individual Approx 30 Min W/ Medical Evaluation & Management 59159 011 KEO ARIZMENDI [facility] Clinical Social Work Individual Outpatient Counseling 30 Minutes Clinical Social Work Individual Outpatient Counseling 30 Minutes 69328 011 AARON DESAI [facility] Psychiatric Diagnostic Evaluation Comprehensive Examination Psychiatric Diagnostic Evaluation Comprehensive Examination 95626 011 KEO ARIZMENDI [facility] Psychiatric Diagnostic Evaluation Comprehensive Examination Psychiatric Diagnostic Evaluation Comprehensive Examination 16855 011 AARON DESAI [facility] Clinical Social Work Individual Outpatient Counseling 45 Minutes Clinical Social Work Individual Outpatient Counseling 45 Minutes 70038 011 HEDY NAYLOR Session started: 8:40 am Session ended: 9:30 Session total: 50 min [facility] Orthopedic Strapping Foot Orthopedic Strapping Foot 74916 011 RIGOBERTO SALDANA MELINDA WRAP APPLIED DISUSSED CAPILLARY REFILL VOICED UNDERSTANDING DoD Crutches, underarm, wood, adjustable or fixed, pair, with pads, tips and handgrips 011 RIGOBERTO SALDANA CRUTCHES FITTED TO PT DISCUSSED USE [facility] Psychiatric Diagnostic Evaluation Comprehensive Examination Psychiatric Diagnostic Evaluation Comprehensive Examination 53570 011 TATUM SÁNCHEZ [facility] Psychiatric Diagnostic Evaluation Review of Records and Reports Psychiatric Diagnostic Evaluation Review of Records and Reports 64604 011 GERARDO VYAS [facility] Psychiatric Therapy Preparation of Psychiatric Status Report Psychiatric Therapy Preparation of Psychiatric Status Report 46296 011 GERARDO VYAS [facility] Clinical Social Work Individual Outpatient Counseling 45 Minutes Clinical Social Work Individual Outpatient Counseling 45 Minutes 78912 011 GERARDO VYAS [facility] Psychiatric Diagnostic Evaluation Review of Records and Reports Psychiatric Diagnostic Evaluation Review of Records and Reports 45702 011 GIORGI CLARK [facility] [facility] Psych[facility] Diagnostic Evaluation Review of Records and Reports Psychiatric Diagnostic Evaluation Review of Records and Reports [id number] [address] [facility] Psychiatric Therapy Preparation of Psychiatric Status Report Psychiatric Therapy Preparation of Psychiatric Status Report [id number] [address] Social History Combined list of available smoking, tobacco, and other social history from [facility] of Defense and [facility] facilities. Social History Type Response Date Comment Source Tobacco smoking status NHIS VA-TOBACCO FORMER USER 12/12/2023 [facility] History of tobacco use VA-TOBACCO QUIT 5 TO < 15 YRS 12/12/2023 [facility] History of tobacco use PREVIOUS SMOKER 02/14/2023 [facility] History of tobacco use VA-TOBACCO FORMER USER 10/27/2022 [facility] History of tobacco use VA-TOBACCO FORMER USER 01/26/2021 [facility] History of tobacco use VA-TOBACCO QUIT 1 TO < 5 YRS 07/23/2019 [facility] History of tobacco use VA-TOBACCO FORMER USER 08/17/2018 [facility] History of tobacco use CURRENT TOBACCO USER 01/29/2018 [facility] History of tobacco use CURRENT TOBACCO USER 01/20/2017 [facility] History of tobacco use FORMER TOBACCO USE <1Y 11/30/2015 [facility] History of tobacco use CURRENT TOBACCO USER 04/09/2015 [facility] History of tobacco use CURRENT TOBACCO USER 01/16/2014 [facility] History of tobacco use CURRENT TOBACCO USER 12/25/2013 Smoking since age 12 [facility] History of tobacco use CURRENT TOBACCO USER [...] AMBULATORY - PSYCHIATRY AMBULATORY - PSYC HIATRY [facility]
--- OUTSIDE RECORDS SUMMARY | 2024-11-20 00:10 | XMS_ITS | Clinical Summary ---
Author Organization [facility] Address [place] [address] Care Team Providers Care Supervisor Webbing Name Role Phone Pcp, No Primary Care Provider Unavailabl e Social History Tobacco Use Types Packs/Day Years Used Date Smoking Tobacco: Never Assessed Sex and Gender Information Value Date Recorded Sex Assigned at Not on file Legal Sex Male 9:09 AM [employer] Gender Identity Not on file Sexual Orientation Not on file Plan of Treatment Not on file Care Teams Supervisor Webbing Relationship Specialty Start Date End Date Pcp, No . PCP - General 11/25/15
[2024-11-20 00:15] LABS: RBC Urine 0-2 (0-2); Squamous Epithelial Cell Urine Few (None-Few); WBC Urine 0-2 (0-5)
== END 2024-11-20 00:57 | disposition home or self-care (01) ==
PROVIDERS: Emergency Provider Emergency Medicine
DX: N50.811 Right testicular pain (principal)
CPT/HCPCS: 76870; 81001; 87086; 93976; 99283; 99284